=== PATIENT | male | born 1935 | race Caucasian/White ===

== ENCOUNTER 2017-07-31 08:12 | Emergency (ER) | payer MEDICARE, OTHER ==
[2017-07-31 08:28] VITALS: BP 156/74
[2017-07-31] MEDS ORDERED: Sodium Chloride 0.9% 10 ML Syringe FLUSH PRN (08:29)
[2017-07-31] MEDS ORDERED: Aspirin 81 MG Tab.Chew PO ONE (08:29)
[2017-07-31] MEDS ORDERED: Nitroglycerin 2% Oint 1 GM UD Packet TOP ONE (08:30)
--- NOTE | 2017-07-31 09:14 | CR ---
Chest: Frontal view of the chest was obtained. Comparison: Prior chest x-ray of 10/05/16. Heart is slightly enlarged. Tortuous thoracic aorta is seen. Lungs are clear without acute parenchymal densities. Bony structures show slight scoliosis within the spine with degenerative change. Impression: 1. Findings as noted above. Nothing acute is appreciated. Diagnostic code #2
[2017-07-31] MEDS ORDERED: Furosemide 40 MG/4 ML VIAL IVPUSH ONE (10:06)
--- NOTE | 2017-07-31 12:16 | EDM.PDOC ---
ED HPI GENERAL MEDICAL PROBLEM - General Chief Complaint: Chest Pain Stated Complaint: CHEST PAIN Time Seen by Provider: 07/31/17 08:22 Source of Information: Reports: Patient, RN Notes Reviewed - History of Present Illness INITIAL COMMENTS - FREE TEXT/NARRATIVE: 82-year-old male comes in with chest pain, mild shortness of breath that has been going on for about a week or so. He states that when he climbs steps sometimes even at rest he will get worsening discomfort of his anterior chest. However he has "felt achy all over the past week or so. He does have history of hypertension, diabetes, congestive heart failure. He's not been coughing any more than usual. No sore throat, fever or chills. Chest Pain Score (Numeric/FACES): 0 - Related Data Allergies Allergy/AdvReac Type Severity Reaction Status Date / Time No Known Allergies Allergy Verified 07/31/17 08:19 Home Meds: Home Meds Furosemide 60 mg PO ASDIRECTED 04/16/14 [History] Lisinopril 5 mg PO DAILY 04/16/14 [History] Pravastatin [Pravachol] 40 mg PO BEDTIME 04/16/14 [History] Warfarin [Coumadin] 1.5 mg PO DAILY 04/16/14 [History] Warfarin [Coumadin] 3 mg PO DAILY 04/16/14 [History] Furosemide 40 mg PO ASDIRECTED 02/14/16 [History] Montelukast [Singulair] 10 mg PO BEDTIME 02/14/16 [History] Aspirin 81 mg PO DAILY 07/31/17 [History] Dulaglutide [Trulicity] 0.5 ml SUBCNJ WEEKLY 07/31/17 [History] Insulin Degludec [Tresiba Flextouch U-200] 14 unit SUBCUT DAILY 07/31/17 [ History] Past Medical History Cardiovascular History: Reports: High Cholesterol, [place] Endocrine/Metabolic History: Reports: Diabetes, Type II Oncologic (Cancer) History: Reports: Other (See Below) Other Oncologic History: 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, unknown type - Past Surgical History HEENT Surgical History: Reports: Cataract Surgery, Tonsillectomy Cardiovascular Surgical History: Reports: Coronary Artery Stent GI Surgical History: Reports: Cholecystectomy Musculoskeletal Surgical History: Reports: Knee Replacement Social & Family History - Tobacco Use Smoking Status *Q: Former Smoker Years of Tobacco use: 40 Packs/Tins Daily: 1 Used Tobacco, but Quit: Yes Month Tobacco Last Used: 20 years ago Second Hand Smoke Exposure: No - Caffeine Use Caffeine Use: Reports: Coffee - Alcohol Use Days Per Week of Alcohol Use: 0 Number of Drinks Per Day: 0 Total Drinks Per Week: 0 - Recreational Drug Use Recreational Drug Use: No Drug Use in Last 12 Months: No ED ROS GENERAL - Review of Systems Review Of Systems: See Below Constitutional: Denies: Fever, Chills HEENT: Denies: Rhinitis, Sinus Problem, Throat Pain, Throat Swelling Respiratory: Reports: Shortness of Breath (Mild, especially exertional) Cardiovascular: Reports: Chest Pain (Patient feels achiness across his anterior chest) GI/Abdominal: Denies: Abdominal Pain, Nausea, Vomiting Musculoskeletal: Reports: Other (Has felt general achiness for about the past 5- 7 days) Skin: Reports: No Symptoms Neurological: Denies: Numbness, Tingling, Trouble Speaking, Weakness ED EXAM, GENERAL - Physical Exam Exam: See Below General Appearance: Alert, No Apparent Distress Eye Exam: Bilateral Eye: PERRL Throat/Mouth: Normal Inspection Head: No: Facial Swelling Neck: Supple, Full Range of Motion Respiratory/Chest: No Respiratory Distress, Lungs Clear, Normal Breath Sounds Cardiovascular: Regular Rate, Rhythm GI/Abdominal: Soft, Non-Tender Extremities: Normal Inspection, Normal Range of Motion. No: Pedal Edema, Leg Pain Neurological: Alert, Oriented, No Motor/Sensory Deficits Skin Exam: Warm, Dry, Normal Color EKG INTERPRETATION EKG Date: 07/31/17 Rhythm: A-Fib Olds: Normal QRS: RBBB ST-T: Other (T-wave inversions in inferior leads and also V3, 4 and 5) Course - Vital Signs Last Recorded V/S: Last Vital Signs Temp 97.4 F 07/31/17 08:19 Pulse 95 07/31/17 08:19 Resp 16 07/31/17 08:19 BP 156/74 H 07/31/17 08:19 Pulse Ox 97 07/31/17 08:19 - Orders/Labs/Meds Orders: Active Orders 24 hr Category Date Time Status EKG 12 Lead [EKG Documentation Completion] [RC] STAT Care 07/31/17 08:28 Active Peripheral IV Care [RC] . DIRECTED Care 07/31/17 08:29 Active Peripheral IV Insertion Adult [OM.PC] Stat Oth 07/31/17 08:28 Ordered Labs: Laboratory Tests 07/31/17 07/31/17 07/31/17 Range/Units 08:19 08:19 08:19 WBC 6.57 (4.23-9.07) K/mm3 RBC 4.27 L (4.63-6.08) M/mm3 Hgb 12.6 L (13.7-17.5) gm/L Hct 38.6 L (40.1-51.0) % MCV 90.4 (79.0-92.2) fl MCH 29.5 (25.7-32.2) pg MCHC 32.6 (32.2-35.5) g/dl RDW Std Deviation 46.6 H (35.1-43.9) fL Plt Count 187 (163-337) K/mm3 MPV 10.1 (9.4-12.3) fl Neut % (Auto) 61.7 (34.0-67.9) % Lymph % (Auto) 18.6 L (21.8-53.1) % [place] % (Auto) 12.2 (5.3-12.2) % Eos % (Auto) 6.7 (0.8-7.0) Baso % (Auto) 0.6 (0.1-1.2) % Neut # (Auto) 4.06 (1.78-5.38) K/mm3 Lymph # (Auto) 1.22 L (1.32-3.57) K/mm3 [place] # (Auto) 0.80 (0.30-0.82) K/mm3 Eos # (Auto) 0.44 (0.04-0.54) K/mm3 Baso # (Auto) 0.04 (0.01-0.08) K/mm3 PT 29.8 H (8.0-13.0) SECONDS INR 2.57 Sodium 136 (136-145) mEq/L Potassium 3.6 (3.5-5.1) mEq/L Chloride 101 (98-107) mEq/L Carbon Dioxide 25 (21-32) mEq/L Anion Gap 13.6 (5-15) BUN 14 (7-18) mg/dL Creatinine 1.2 (0.7-1.3) mg/dL Est Cr Clr Drug Dosing 45.82 mL/min Estimated GFR (MDRD) 58 (>60) mL/min BUN/Creatinine Ratio 11.7 L (14-18) Glucose 307 H (83-115) mg/dL POC Glucose (83-110) mg/dL Calcium 8.8 (8.5-10.1) mg/dL Total Bilirubin 0.9 (0.2-1.0) mg/dL AST 35 (15-37) U/L ALT 38 (16-63) U/L Alkaline Phosphatase 191 H (46-116) U/L Troponin I < 0.017 (0.00-0.056) ng/mL NT-Pro-B Natriuret Pep (0-450) pg/mL Total Protein 7.4 (6.4-8.2) g/dl Albumin 2.9 L (3.4-5.0) g/dl Globulin 4.5 gm/dL Albumin/Globulin Ratio 0.6 L (1-2) 07/31/17 07/31/17 07/31/17 Range/Units 08:19 11:03 11:12 WBC (4.23-9.07) K/mm3 RBC (4.63-6.08) M/mm3 Hgb (13.7-17.5) gm/L Hct (40.1-51.0) % MCV (79.0-92.2) fl MCH (25.7-32.2) pg MCHC (32.2-35.5) g/dl RDW Std Deviation (35.1-43.9) fL Plt Count (163-337) K/mm3 MPV (9.4-12.3) fl Neut % (Auto) (34.0-67.9) % Lymph % (Auto) (21.8-53.1) % [place] % (Auto) (5.3-12.2) % Eos % (Auto) (0.8-7.0) Baso % (Auto) (0.1-1.2) % Neut # (Auto) (1.78-5.38) K/mm3 Lymph # (Auto) (1.32-3.57) K/mm3 [place] # (Auto) (0.30-0.82) K/mm3 Eos # (Auto) (0.04-0.54) K/mm3 Baso # (Auto) (0.01-0.08) K/mm3 PT (8.0-13.0) SECONDS INR Sodium (136-145) mEq/L Potassium (3.5-5.1) mEq/L Chloride (98-107) mEq/L Carbon Dioxide (21-32) mEq/L Anion Gap (5-15) BUN (7-18) mg/dL Creatinine (0.7-1.3) mg/dL Est Cr Clr Drug Dosing mL/min Estimated GFR (MDRD) (>60) mL/min BUN/Creatinine Ratio (14-18) Glucose (83-115) mg/dL POC Glucose 183 H (83-110) mg/dL Calcium (8.5-10.1) mg/dL Total Bilirubin (0.2-1.0) mg/dL AST (15-37) U/L ALT (16-63) U/L Alkaline Phosphatase (46-116) U/L Troponin I < 0.017 (0.00-0.056) ng/mL NT-Pro-B Natriuret Pep 2244 H (0-450) pg/mL Total Protein (6.4-8.2) g/dl Albumin (3.4-5.0) g/dl Globulin gm/dL Albumin/Globulin Ratio (1-2) Meds: Medications Discontinued Medications Generic Name Dose Route Start Last Admin Trade Name Freq PRN Reason Stop Dose Admin Aspirin 162 mg 07/31/17 08:29 07/31/17 08:44 Aspirin PO 07/31/17 08:30 162 mg ONETIME ONE Administration Furosemide 40 mg 07/31/17 10:06 07/31/17 10:19 Lasix IVPUSH 07/31/17 10:07 40 mg NOW ONE Administration Nitroglycerin 0.5 gm 07/31/17 08:30 07/31/17 08:44 Nitro-Bid 2% TOP 07/31/17 08:31 0.5 gm ONETIME ONE Administration Sodium Chloride 10 ml 07/31/17 08:29 07/31/17 08:44 Saline Flush FLUSH 10 ml ASDIRECTED PRN Administration Keep Vein Open - Re-Assessments/Exams Free Text/Narrative Re-Assessment/Exam: 07/31/17 12:12 We did give patient Lasix 40 mg IV shortly after arrival. Has voided quite a lot. His discomfort is completely gone. Resting and breathing comfortably. Chest x-ray actually looked quite good, no major cardiomegaly, no significant pulmonary congestion visible. However BNP somewhat elevated at 2200 range. We' ll have him take an extra half tablet furosemide today and the next 2 days. We' ll also try get an appointment in follow-up for early next week. Departure - Departure Time of Disposition: 12:12 Disposition: Home, Self-Care 01 Condition: Fair Clinical Impression: Atypical chest pain, Congestive heart failure Instructions: Heart Failure, [id number] Referrals: Les Olvera MD [Primary Care Provider] - Forms: ED Department Discharge Additional Instructions: Take an extra half tablet of your furosemide when you get home today. Continue with your usual morning dose and then an extra half tablet for the next 2 days as well. Continue other current medications as prescribed. Avoid salty food. Be careful not to walk too fast or overexert yourself. We are attempting at this time to get an appointment to see Dr. Olvera early next week. To ED as needed if symptoms worsening in any way. - My Orders Last 24 Hours: My Active Orders 07/31/17 08:28 EKG 12 Lead [EKG Documentation Completion] [RC] STAT Peripheral IV Insertion Adult [OM.PC] Stat 07/31/17 08:29 Peripheral IV Care [RC] . DIRECTED - Assessment/Plan Last 24 Hours: My Active Orders 07/31/17 08:28 EKG 12 Lead [EKG Documentation Completion] [RC] STAT Peripheral IV Insertion Adult [OM.PC] Stat 07/31/17 08:29 Peripheral IV Care [RC] . DIRECTED
== END 2017-07-31 12:34 | disposition home or self-care (01) ==
LOC: JD.ED 08:12
DX: I11.0 Hypertensive heart disease with heart failure (principal); I50.9 Heart failure, unspecified; E78.00 Pure hypercholesterolemia, unspecified; I25.2 Old myocardial infarction; E11.9 Type 2 diabetes mellitus without complications; Z87.891 Personal history of nicotine dependence; Z79.899 Other long term (current) drug therapy; Z79.82 Long term (current) use of aspirin; Z79.4 Long term (current) use of insulin
CPT/HCPCS: 36415; 71045; 80053; 82962; 83880; 84484; 85025; 85610; 93005; 96374; 99285; A9270; J1940; J7050; 93010; 99284-25

== ENCOUNTER 2017-08-13 15:58 | Emergency (ER) | payer MEDICARE, OTHER ==
[2017-08-13 16:22] VITALS: BP 159/71
--- NOTE | 2017-08-13 16:38 | EDM.PDOC ---
ED HPI GENERAL MEDICAL PROBLEM - General Chief Complaint: Head Injury Stated Complaint: L HEAD INURY AFTER FALLING DOWN STAIRS Time Seen by Provider: 08/13/17 16:32 Source of Information: Reports: Patient History Limitations: Reports: No Limitations - History of Present Illness INITIAL COMMENTS - FREE TEXT/NARRATIVE: Patient is 82-year-old male who presents ED complaining of recent fall and hitting the left side of his forehead on concrete. This occurred approximately 350 this afternoon. Patient was walking down some steps and misjudged the last step and fell from ground level. There was no loss of consciousness. She was able to get up on his own accord with no difficulties. He developed a hematoma to the left side of his forehead with abrasion noted. He does have some pain to his posterior neck which is chronic from effusion. There was no vision changes, nausea/vomiting, n/t sitting to extremities, chest pain, shortness of breath, dizziness, or any additional complaints. forehead Pain Score (Numeric/FACES): 3 - Related Data Allergies Allergy/AdvReac Type Severity Reaction Status Date / Time No Known Allergies Allergy Verified 08/13/17 16:22 Home Meds: Home Meds Furosemide 60 mg PO ASDIRECTED 04/16/14 [History] Lisinopril 5 mg PO DAILY 04/16/14 [History] Pravastatin [Pravachol] 40 mg PO BEDTIME 04/16/14 [History] Warfarin [Coumadin] 1.5 mg PO DAILY 04/16/14 [History] Warfarin [Coumadin] 3 mg PO DAILY 04/16/14 [History] Furosemide 40 mg PO ASDIRECTED 02/14/16 [History] Montelukast [Singulair] 10 mg PO BEDTIME 02/14/16 [History] Aspirin 81 mg PO DAILY 07/31/17 [History] Dulaglutide [Trulicity] 0.5 ml SUBCNJ WEEKLY 07/31/17 [History] Insulin Degludec [Tresiba Flextouch U-200] 14 unit SUBCUT DAILY 07/31/17 [ History] Past Medical History HEENT History: Reports: Hard of Hearing, Impaired Vision Cardiovascular History: Reports: Arrhythmia, High Cholesterol, [place] Endocrine/Metabolic History: Reports: Diabetes, Type II Hematologic History: Reports: Anticoagulation Therapy Oncologic (Cancer) History: Reports: Other (See Below) Other Oncologic History: 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, unknown type - Past Surgical History HEENT Surgical History: Reports: Cataract Surgery, Tonsillectomy Cardiovascular Surgical History: Reports: Coronary Artery Stent GI Surgical History: Reports: Cholecystectomy Musculoskeletal Surgical History: Reports: Knee Replacement Social & Family History - Family History Family Medical History: Noncontributory - Tobacco Use Smoking Status *Q: Never Smoker Years of Tobacco use: 40 Packs/Tins Daily: 1 Used Tobacco, but Quit: Yes Month Tobacco Last Used: 20 years ago Second Hand Smoke Exposure: No - Caffeine Use Caffeine Use: Reports: Coffee - Alcohol Use Days Per Week of Alcohol Use: 0 Number of Drinks Per Day: 0 Total Drinks Per Week: 0 - Recreational Drug Use Recreational Drug Use: No Drug Use in Last 12 Months: No ED ROS GENERAL - Review of Systems Review Of Systems: ROS reveals no pertinent complaints other than HPI. ED EXAM, HEAD INJURY - Physical Exam Exam: See Below Exam Limited By: No Limitations General Appearance: Alert, WD/WN, No Apparent Distress Head: Facial Swelling (To the left forehead with no bony abdomen eyes noted. Mild pain with palpation. Superficial abrasion noted. Bleeding controlled. Pain with palpation of the remaining feces. No pain with palpation of the head.) Nexus Criteria: Posterior, Midline Cervical Tenderness. No: Evidence of Intoxication, Altered Level of Consciousness (Chronic), Focal Neurological Deficit, Painful Distraction Injuries Eyes: Bilateral Eye: EOMI, PERRL Ears: Hearing Loss (Wearing hearing aids) Nose: Normal Inspection Throat/Mouth: Normal Inspection, Normal Oropharynx, Normal Voice, No Airway Compromise Neck: Normal Alignment, Normal Inspection, Limited Range of Motion, Painful Range of Motion, Tender Midline Respiratory: No Respiratory Distress, Lungs Clear, Normal Breath Sounds, Chest Non-Tender Cardiovascular: Normal Peripheral Pulses, Irregularly Irregular GI/Abdominal Exam: Normal Bowel Sounds, Soft, Non-Tender, No Organomegaly, No Distention Back Exam: Normal Inspection, Full Range of Motion. No: CVA Tenderness (L), CVA Tenderness (R), Paraspinal Tenderness, Vertebral Tenderness Extremities: Normal Inspection, Normal Range of Motion, Non-Tender, No Pedal Edema, Normal Capillary Refill Neurologic: designer architect II-XII nml As Tested, No Motor/Sensory Deficits, Normal Mood/ Affect, Oriented x 3 Skin: Normal Color, Warm/Dry Course - Vital Signs Last Recorded V/S: Last Vital Signs Temp 97.5 F 08/13/17 16:10 Pulse 60 08/13/17 16:10 Resp 18 08/13/17 16:10 BP 159/71 H 08/13/17 16:10 Pulse Ox 94 L 08/13/17 16:10 - Re-Assessments/Exams Free Text/Narrative Re-Assessment/Exam: Patient is on Coumadin suffered a head injury at approximately 3:30 this afternoon. Patient fell forward hitting his forehead on concrete. There was no loss of consciousness. Patient denies having dizziness, chest pain, short of breath prior to falling. He missed a step. In addition he has cervical fusion and thus always has pain to his neck. This is unchanged. He is on Coumadin for A. fib. INR was checked yesterday and was perfect. He's had no medications for pain. Currently the pain as a [address] the cervical spine and also head will be obtained. Will not recheck INR since it was therapeutic as of yesterday. CT of the head impression: No acute intracranial abnormalities seen. No skull fractures identified. Scalp hematoma and soft tissue swelling within the left frontal region. CT cervical spine impression: Degenerative changes noted above. Nothing acute is seen on CT study of the cervical spine. She results of the CT studies with the patient. Will discharge patient home with instructions as documented. Departure - Departure Time of Disposition: 17:30 Disposition: Home, Self-Care 01 Condition: Good Clinical Impression: Hematoma, Hematoma Contusion of head Qualifiers: Encounter type: initial encounter Contusion of head detail: unspecified part of head Qualified Code(s): S00.93XA - Contusion of unspecified part of head, initial encounter - Discharge Information Instructions: Contusion, [id number], Head Injury, Adult, [id number], Facial or Scalp Contusion, [id number], Hematoma, [id number] Referrals: Les Olvera MD [Primary Care Provider] - Forms: ED Department Discharge Additional Instructions: As discussed CT of the head and cervical spine did not reveal any concerning findings. You have a hematoma to the left forehead which should decrease over the next few days. May place ice to the affected area as needed. Continue taking your home medications as prescribed. Return to the ED if you develop worse headache of your life, any focal neurological deficits, vision changes, n/ v, numbness or tingling, or any additional new or worsening symptoms.
--- NOTE | 2017-08-13 17:15 | CT ---
Head CT Technique: Multiple axial sections through the brain were obtained. Intravenous contrast was not utilized. Comparison: No prior head CT exam, previous MRI brain of 06/29/16. Findings: Ventricles along with basal cisterns and sulci over the convexities are mildly prominent. Minimal diminished density is noted within the periventricular white matter compatible with small vessel ischemic demyelination change. No other abnormal parenchymal densities are seen. No evidence of intracranial hemorrhage. No midline shift or mass effect is seen. Soft tissue swelling and small hematoma is seen within the left frontal scalp. Bone window settings were reviewed which shows no acute skull fracture. Mucosal thickening appears to be present within a hypoplastic left maxillary sinus which remains stable from prior MRI. Mild mucosal thickening is seen within the right frontal sinus also stable from prior MRI. Impression: 1. Sinus findings most likely chronic. 2. Scalp hematoma and soft tissue swelling within the left frontal region. 3. Mild senescent change. 4. No acute intracranial abnormality is seen. No skull fracture is identified. Diagnostic code #2
--- NOTE | 2017-08-13 17:18 | CT ---
CT cervical spine Technique: Multiple axial sections were obtained from above C1 inferiorly to the bottom of T1. Reconstructed sagittal and coronal images were reviewed. Findings: Posterior skull base is intact. Degenerative change is noted between the dens and anterior arch of C1. Diffuse disc space narrowing throughout the cervical spine is noted. Anterior osteophytes are seen throughout the cervical spine most prominent C5-C6 and C6-C7. Slight posterior spurring is noted at C5-C6 and C6-C7. Mild diffuse degenerative apophyseal change is noted. Ligamentum nuchal calcification is seen. No fracture is seen. No pathologic subluxation is seen. Bilateral neural foraminal stenosis is noted at C6-C7. Severe bilateral neural foraminal stenosis noted at C5-C6. Mild bilateral neural foraminal stenosis is noted at C4-C5. Moderate right sided neural foraminal stenosis is noted at C3-C4. Impression: 1. Degenerative change as noted above. 2. Nothing acute is seen on CT study of the cervical spine. Diagnostic code #2
== END 2017-08-13 18:00 | disposition home or self-care (01) ==
LOC: JD.ED 15:58
DX: S00.83XA Contusion of other part of head, initial encounter (principal); E11.9 Type 2 diabetes mellitus without complications; I25.2 Old myocardial infarction; E78.00 Pure hypercholesterolemia, unspecified; I48.91 Unspecified atrial fibrillation; Z79.899 Other long term (current) drug therapy; Z79.82 Long term (current) use of aspirin; Z79.4 Long term (current) use of insulin; W18.00XA Striking against unspecified object with subsequent fall, initial encounter
CPT/HCPCS: 70450; 70450-26; 72125; 72125-26; 99284; 99284-25

== ENCOUNTER 2017-08-16 09:43 | Emergency (ER) | payer MEDICARE, OTHER ==
[2017-08-16 09:57] VITALS: BP 167/77
--- NOTE | 2017-08-16 10:55 | CT ---
Head CT Technique: Multiple axial sections through the brain were obtained. Intravenous contrast was not utilized. Comparison: Prior head CT study of 08/13/17. Findings: Ventricles along the basal cisterns and sulci over the convexities are mildly prominent. Minimal diminished density noted within the periventricular white matter compatible with small vessel ischemic demyelination change. No evidence of intracranial hemorrhage. No midline shift or mass effect is seen. Mild soft tissue swelling and slight hematoma is seen within the left frontal scalp. Bone window settings were reviewed which shows atherosclerotic calcification within the carotid siphon. Mild mucosal thickening is seen within the frontal sinus. No acute calvarial abnormality is seen. Impression: 1. Mild soft tissue swelling and small hematoma within the left frontal scalp, this has diminished in size from previous study. 2. No acute intracranial abnormality is seen. No acute skull fracture is identified. Diagnostic code #2
--- NOTE | 2017-08-16 11:09 | EDM.PDOC ---
ED HPI GENERAL MEDICAL PROBLEM - General Chief Complaint: Head Injury Stated Complaint: FOLLOW UP ON HEAD INJURY Time Seen by Provider: 08/16/17 10:06 Source of Information: Reports: Patient History Limitations: Reports: No Limitations - History of Present Illness INITIAL COMMENTS - FREE TEXT/NARRATIVE: The patient presents with edema and ecchymosis to his face. He fell a few days ago and he was seen here. A CT was done that did not show any fracture of head bleed. He is returning today because he has more eccymosis and edema around his eyes. He has no headache, vision changes, fever, cough, chest pain, shortness of breath, abdominal pain, nausea, vomiting, numbness or weakness. Onset: Sudden Duration: Day(s): Location: Reports: Head Severity: Moderate Improves with: Reports: None Worsens with: Reports: None Associated Symptoms: Reports: No Other Symptoms - Related Data Allergies Allergy/AdvReac Type Severity Reaction Status Date / Time No Known Allergies Allergy Verified 08/16/17 09:53 Home Meds: Home Meds Furosemide 60 mg PO ASDIRECTED 04/16/14 [History] Lisinopril 5 mg PO DAILY 04/16/14 [History] Pravastatin [Pravachol] 40 mg PO BEDTIME 04/16/14 [History] Warfarin [Coumadin] 1.5 mg PO DAILY 04/16/14 [History] Warfarin [Coumadin] 3 mg PO DAILY 04/16/14 [History] Furosemide 40 mg PO ASDIRECTED 02/14/16 [History] Montelukast [Singulair] 10 mg PO BEDTIME 02/14/16 [History] Aspirin 81 mg PO DAILY 07/31/17 [History] Dulaglutide [Trulicity] 0.5 ml SUBCNJ WEEKLY 07/31/17 [History] Insulin Degludec [Tresiba Flextouch U-200] 14 unit SUBCUT DAILY 07/31/17 [ History] Past Medical History HEENT History: Reports: Hard of Hearing, Impaired Vision Cardiovascular History: Reports: Arrhythmia, High Cholesterol, DC Endocrine/Metabolic History: Reports: Diabetes, Type II Hematologic History: Reports: Anticoagulation Therapy Oncologic (Cancer) History: Reports: Other (See Below) Other Oncologic History: 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, unknown type - Past Surgical History HEENT Surgical History: Reports: Cataract Surgery, Tonsillectomy Cardiovascular Surgical History: Reports: Coronary Artery Stent GI Surgical History: Reports: Cholecystectomy Musculoskeletal Surgical History: Reports: Knee Replacement Social & Family History - Family History Family Medical History: Noncontributory - Tobacco Use Smoking Status *Q: Never Smoker Years of Tobacco use: 40 Packs/Tins Daily: 1 Used Tobacco, but Quit: Yes Month Tobacco Last Used: 20 years ago Second Hand Smoke Exposure: No - Caffeine Use Caffeine Use: Reports: Coffee - Alcohol Use Days Per Week of Alcohol Use: 0 Number of Drinks Per Day: 0 Total Drinks Per Week: 0 - Recreational Drug Use Recreational Drug Use: No Drug Use in Last 12 Months: No ED ROS GENERAL - Review of Systems Review Of Systems: See Below Constitutional: Reports: No Symptoms HEENT: Reports: Other (Edema and ecchymosis) Respiratory: Reports: No Symptoms Cardiovascular: Reports: No Symptoms Endocrine: Reports: No Symptoms GI/Abdominal: Reports: No Symptoms : Reports: No Symptoms Musculoskeletal: Reports: No Symptoms ED EXAM, HEAD INJURY - Physical Exam Exam: See Below Exam Limited By: No Limitations General Appearance: Alert, No Apparent Distress Head: Other (Edema and ecchymosis to both upper and lower eyelids to both eyes.) Eyes: Bilateral Eye: EOMI Ears: Normal External Exam Nose: Normal Inspection Neck: Non-Tender, Normal Alignment, Normal Inspection Respiratory: No Respiratory Distress, Lungs Clear, Normal Breath Sounds Cardiovascular: Regular Rate, Rhythm, No Edema, No Murmur GI/Abdominal Exam: Soft, Non-Tender, No Organomegaly, No Mass Back Exam: Normal Inspection Extremities: Normal Inspection Neurologic: No Motor/Sensory Deficits, Alert, Oriented x 3 Course - Vital Signs Last Recorded V/S: Last Vital Signs Temp 97.4 F 08/16/17 09:53 Pulse 71 08/16/17 09:53 Resp 18 08/16/17 09:53 BP 167/77 H 08/16/17 09:53 Pulse Ox 99 08/16/17 09:53 - Orders/Labs/Meds Labs: Laboratory Tests 08/16/17 Range/Units 11:05 PT 22.4 H (8.0-13.0) SECONDS INR 2.08 - Re-Assessments/Exams Free Text/Narrative Re-Assessment/Exam: 08/16/17 11:[address] of his head and a PT/INR. 08/16/17 11:[address] of his head shows mild soft tissue swelling and small hematoma within the left frontal scalp. This has diminished in size from previous study. No acute intracranial abnormality is seen. No acute skull fracture is identified. His INR was 2.08. I will discharge him home. Departure - Departure Time of Disposition: 11:45 Disposition: Home, Self-Care 01 Condition: Good Clinical Impression: Hematoma, Edema of face Contusion of head Qualifiers: Encounter type: initial encounter Contusion of head detail: unspecified part of head Qualified Code(s): S00.93XA - Contusion of unspecified part of head, initial encounter - Discharge Information Referrals: Les Olvera MD [Primary Care Provider] - Forms: ED Department Discharge Additional Instructions: Take your medication as prescribed. Please return if you are worse.
== END 2017-08-16 11:57 | disposition home or self-care (01) ==
LOC: JD.ED 09:43
DX: S00.03XA Contusion of scalp, initial encounter (principal); S00.12XA Contusion of left eyelid and periocular area, initial encounter; S00.11XA Contusion of right eyelid and periocular area, initial encounter; E78.00 Pure hypercholesterolemia, unspecified; E11.9 Type 2 diabetes mellitus without complications; Z95.5 Presence of coronary angioplasty implant and graft; Z79.01 Long term (current) use of anticoagulants; Z87.891 Personal history of nicotine dependence; Z79.4 Long term (current) use of insulin; Z79.82 Long term (current) use of aspirin; Z79.899 Other long term (current) drug therapy; W19.XXXA Unspecified fall, initial encounter
CPT/HCPCS: 36415; 70450; 70450-26; 85610; 99283; 99284-25

== ENCOUNTER 2017-09-19 06:13 | Day surgery (SDC) | payer MEDICARE, OTHER ==
--- NOTE | 2017-09-12 07:58 | HP ---
DATE OF ADMISSION: 09/19/2017 ORTHOPEDIC OUTPATIENT ADMITTING HISTORY AND PHYSICAL FOR SURGERY HISTORY OF PRESENT ILLNESS: This is one of multiple orthopedic admissions to [facility] for surgery for this 82-year-old male, who has had severe increasing pain involving his left wrist with numbness and tingling and loss of audit lead. 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 The patient has gone through a conservative treatment, which has failed. He is familiar with the carpal tunnel surgery, having a previous right carpal tunnel surgery years ago. The patient is being scheduled now for a left carpal tunnel release. Procedure has been outlined to him. He understands that. He has consented to it. ALLERGIES: No known drug allergies. CURRENT MEDICATIONS: The patient is on multiple medications and include Coumadin along with furosemide, lisinopril, pravastatin along with Tresiba, and Trulicity. PAST MEDICAL HISTORY: Current medical problems, the patient has a history of 1. Diabetes. 2. Atrial fibrillation. 3. Previous cholesterol and high blood pressure problems. 4. Mitral insufficiency. 5. Tricuspid insufficiency. PAST SURGICAL HISTORY: Positive. He has had multiple surgeries including 1. Previous right carpal tunnel surgery. 2. Total knee replacements. He notes no anesthesia problems or complications. The patient's bleeding history is negative. His blood clot history is negative. SOCIAL HISTORY: The patient was a smoker years ago. He states he quit approximately 15 to 20 years ago. He has not smoked since, and notes he is a non-alcohol user. PHYSICAL EXAMINATION: GENERAL: Today, reveals a well-developed, well-nourished 82-year-old male, in moderate distress. HEAD, EYES, EARS, NOSE, AND THROAT: Normocephalic. NECK: Supple. CHEST: Clear. COR: Shows rhythm changes suggestive of atrial fibrillation. ABDOMEN: Soft. GENITOURINARY: Intact. EXTREMITIES: Examination of the left hand reveals positive severe thenar atrophy, positive pain or pressure in the carpal tunnel, and positive Tinel examination. ASSESSMENT: Overall impression is left carpal tunnel syndrome, severe. PLAN: For the patient to undergo left carpal tunnel release. Procedure has been outlined to him. He understands that and has consented to the surgery. MMODAL /[id number]
[~2017-09-19 06:13] MED LIST: Lactated Ringers 1,000 ML IV SCH; Lidocaine 1%/Sod Bicarbonate in NS 8.4% 1 ML Syringe IDERM PRN; Sodium Chloride 0.9% 10 ML Syringe FLUSH PRN
[2017-09-19] MEDS ORDERED: fentaNYL 100 MCG/2 ML SDV ONE (07:03)
[2017-09-19] MEDS ORDERED: Propofol 200 MG/20 ML SDV ONE (07:03)
[2017-09-19] MEDS ORDERED: Sodium Bicarbonate 8.4% 50 MEQ/50 ML SDV ONE (07:05)
[2017-09-19] MEDS ORDERED: Lidocaine 0.5% 50 ML SDV ONE (07:05)
--- NOTE | 2017-09-19 07:12 | PCM.PREANE ---
Preanesthetic Assessment - Anesthesia/Transfusion/Family Hx Anesthesia History: Prior Anesthesia Without Reaction Family History of Anesthesia Reaction: No Transfusion History: Prior Transfusion Without Reaction - Review of Systems General: No Symptoms Pulmonary: Shortness of Breath Cardiovascular: No Symptoms Gastrointestinal: No Symptoms, Other (weight loss) Neurological: No Symptoms Other: Reports: Easy Bruising, Diabetes, Throat Pain (chokes when eats) - Physical Assessment NPO Status Date: 09/18/17 NPO Status Time: 21:00 Pulse: 68 O2 Sat by Pulse Oximetry: 98 Respiratory Rate: 16 Blood Pressure: 177/82 Temperature: 96.8 F Height: 5 ft 10 in Weight: 69 kg ASA Class: 3 Mental Status: Alert & Oriented x3 Airway Class: Mallampati = 1 Dentition: Reports: Broken Tooth/Teeth, Missing Tooth/Teeth Thyro-Mental Finger Breadths: 3 Mouth Opening Finger Breadths: 3 ROM/Head Extension: Full Lungs: Clear to Auscultation, Normal Respiratory Effort Cardiovascular: Regular Rate, Regular Rhythm - Allergies Allergies/Adverse Reactions: Allergies Allergy/AdvReac Type Severity Reaction Status Date / Time No Known Allergies Allergy Verified 09/18/17 16:21 - Blood Blood Available: No - Acknowledgements Anesthesia Type Planned: BETO Pt an Appropriate Candidate for the Planned Anesthesia: Yes Alternatives and Risks of Anesthesia Discussed w Pt/Guardian: Yes Pt/Guardian Understands and Agrees with Anesthesia Plan: Yes PreAnesthesia Questionnaire HEENT History: Reports: Hard of Hearing, Impaired Vision Cardiovascular History: Reports: Afib, Arrhythmia, High Cholesterol, VT Respiratory History: Reports: None Gastrointestinal History: Reports: None Genitourinary History: Reports: None [employer] History: Reports: None Musculoskeletal History: Neurological History: Reports: None Psychiatric History: Reports: Depression Endocrine/Metabolic History: Reports: Diabetes, Type II Hematologic History: Reports: Anticoagulation Therapy Immunologic History: Reports: None Oncologic (Cancer) History: Reports: Other (See Below) Other Oncologic History: 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, unknown type Dermatologic History: Reports: None - Past Surgical History Head Surgeries/Procedures: Reports: None HEENT Surgical History: Reports: Cataract Surgery, Tonsillectomy Cardiovascular Surgical History: Reports: None, Coronary Artery Stent Respiratory Surgical History: Reports: None GI Surgical History: Reports: Cholecystectomy Female Surgical History: Reports: None Male Surgical History: Reports: None Endocrine Surgical History: Reports: None Neurological Surgical History: Reports: None Musculoskeletal Surgical History: Reports: Knee Replacement Dermatological Surgical History: Reports: None - SUBSTANCE USE Smoking Status *Q: Former Smoker (quit 10 years ago) Tobacco Use Within Last Twelve Months: Cigarettes, Snuff/Dip (quit 5 years ago) Second Hand Smoke Exposure: No Days Per Week of Alcohol Use: 0 Number of Drinks Per Day: 0 Total Drinks Per Week: 0 Recreational Drug Use History: No - HOME MEDS Home Medications: Home Meds Lisinopril 5 mg PO BEDTIME 04/16/14 [History] Pravastatin [Pravachol] 40 mg PO BEDTIME 04/16/14 [History] Furosemide 60 mg PO DAILY 02/14/16 [History] Montelukast [Singulair] 10 mg PO BEDTIME 02/14/16 [History] Aspirin 81 mg PO BEDTIME 07/31/17 [History] Insulin Degludec [Tresiba Flextouch U-200] 8 unit SUBCUT DAILY 07/31/17 [History ] Bioflav,Lemon/Vit BComp&C [Lipo-Flavonoid Plus Caplet] 1 tab PO DAILY 09/18/17 [ History] Ferrous Sulfate [Iron] 325 mg PO BEDTIME 09/18/17 [History] Warfarin Sodium 2.5 mg PO DAILY 09/18/17 [History] - CURRENT (IN HOUSE) MEDS Current Meds: Current Medications Lactated Ringer's (Ringers, Lactated) 1,000 mls @ 125 mls/hr IV ASDIRECTED LEENA Stop: 09/19/17 23:00 Lidocaine/Sodium Bicarbonate (Buffered Lidocaine 1% In Ns 8.4%) 0.25 ml IDERM ONETIME PRN PRN Reason: Prior to IV Start Stop: 09/19/17 18:00 Sodium Chloride (Saline Flush) 10 ml FLUSH ASDIRECTED PRN PRN Reason: Keep Vein Open Stop: 09/19/17 18:00 Discontinued Medications Fentanyl (Sublimaze) Confirm Administered Dose 100 mcg .ROUTE .STK-MED ONE Stop: 09/19/17 07:04 Lidocaine HCl (Xylocaine-Mpf 0.5%) Confirm Administered Dose 50 ml .ROUTE .STK- MED ONE Stop: 09/19/17 07:06 Propofol (Diprivan 20 Ml) Confirm Administered Dose 200 mg .ROUTE .STK-MED ONE Stop: 09/19/17 07:04 Sodium Bicarbonate (Sodium Bicarbonate 8.4%) Confirm Administered Dose 50 meq .ROUTE .STK-MED ONE Stop: 09/19/17 07:06
[2017-09-19] MEDS ORDERED: traMADol 50 MG Tab PO PRN (07:24)
[2017-09-19] MEDS ORDERED: ceFAZolin 1 GM Vial ONE (07:36)
[2017-09-19] MEDS ORDERED: Iodine/Sodium Iodide 2% Tincture 30 ML Bottle ONE (08:20)
[2017-09-19] MEDS ORDERED: cefTRIAXone 1 GM in Sodium Chloride 0.9% 100 ML IV SCH (08:34)
[2017-09-19 08:36] VITALS: BP 141/81
--- NOTE | 2017-09-19 08:36 | PCM48HPAN ---
Post Anesthesia Note - EVALUATION WITHIN 48HRS OF ANESTHETIC Vital Signs in Normal Range: Yes Patient Participated in Evaluation: Yes Respiratory Function Stable: Yes Airway Patent: Yes Cardiovascular Function Stable: Yes Hydration Status Stable: Yes Pain Control Satisfactory: Yes Nausea and Vomiting Control Satisfactory: Yes Mental Status Recovered: Yes Pulse Rate: 52 SaO2: 100 Resp Rate: 16 Temperature: 97.6 F Blood Pressure: 141/81
--- NOTE | 2017-09-20 07:01 | OR ---
DATE OF OPERATION: 09/19/2017 SURGEON: Beny Berger MD PREOPERATIVE DIAGNOSIS: Severe carpal tunnel syndrome, left wrist, and intractable pain. POSTOPERATIVE DIAGNOSIS: Severe carpal tunnel syndrome, left wrist, and intractable pain. ANESTHESIA: Sedation with [place] block, left upper extremity. OPERATION PERFORMED: Left carpal tunnel release by mini incision. DESCRIPTION OF PROCEDURE: The patient was taken to the operative room in a supine position. He was placed under a light sedation with a Yunior block anesthesia to the left upper extremity. After adequate anesthesia, the operation proceeded with approximately a 1.5 cm incision being placed, approximately 1 cm distal to the flexion crease, paralleling the radial aspect of the ring finger. Penetration was made through the skin and the subcutaneous tissues. These were bluntly dissected away from the palmar fascia, which was lightly released to expose the carpal ligament. The carpal ligament was then carefully incised by direct visualization and was carefully released proximally and distally by direct view, staying to the ulnar aspect of the median nerve. Once the partial release was carried out, the completion of the release proximally was carried out using the mini instruments with the ligament being released to approximately 1 cm above the flexion crease of the wrist. The wrist was then flexed slightly to open up the proximal portion and a good release was carried out, staying to the ulnar aspect of the median nerve. The nerve could be seen. The patient had a significant and long time pressure to the nerve, which showed some atrophy along with thinning, right at the base of the thenar eminence. The operation then proceeded with completion of the release distally to the palmar fat pad. Once that was carried out, the area was carefully inspected to make sure no fibrous bands remained, and the operation proceeded with irrigation of the wound. After the thorough irrigation, the operation then proceeded with closure of the skin using a horizontal 4-0 Prolene mattress suture with reinforcement with 5-0 Prolene. The patient was placed in standard dressings and splint. He tolerated this procedure well and left the operating room in a stable condition to his room for recovery. ESTIMATED BLOOD LOSS: MMODAL /[id number]
== END 2017-09-19 09:40 | disposition home or self-care (01) ==
LOC: JD.SDS 06:13
PROVIDERS: ATTEND Specialist
DX: G56.02 Carpal tunnel syndrome, left upper limb (principal); E11.9 Type 2 diabetes mellitus without complications; I10 Essential (primary) hypertension; I48.91 Unspecified atrial fibrillation; F32.9 Major depressive disorder, single episode, unspecified; Z79.01 Long term (current) use of anticoagulants; Z79.899 Other long term (current) drug therapy; Z87.891 Personal history of nicotine dependence
CPT/HCPCS: 36415; 64721; 82947; 85610; A9270; J0690; J0696; J3010; J7030; J7120; J2704

== ENCOUNTER 2017-10-30 16:44 | Inpatient (IN) | payer MEDICARE, OTHER ==
--- NOTE | 2017-10-30 17:13 | CT ---
Head CT Technique: Multiple axial sections through the brain were obtained. Intravenous contrast was not utilized. Comparison: Prior head CT exam of 08/13/17. Findings: Ventricles along with basal cisterns and sulci over the convexities are mildly prominent. Minimal diminished density is noted within the periventricular white matter compatible with small vessel ischemic demyelination change. No other abnormal parenchymal densities are seen. No evidence of intracranial hemorrhage. No midline shift or mass effect is seen. Bone window settings were reviewed shows no acute calvarial abnormality. Mucosal thickening is seen within the left maxillary sinus which is chronic. No acute calvarial abnormality is seen. Impression: 1. Senescent change as described above. Incidental sinus findings. 2. No acute intracranial abnormality is identified. Diagnostic code #2
--- NOTE | 2017-10-30 17:15 | EDM.PDOC ---
ED HPI GENERAL MEDICAL PROBLEM - General Chief Complaint: Neuro Symptoms/Deficits Stated Complaint: MAY HAVE HAD A STROKE Time Seen by Provider: 10/30/17 16:51 Source of Information: Reports: Patient, Family () History Limitations: Reports: Physical Impairment - History of Present Illness INITIAL COMMENTS - FREE TEXT/NARRATIVE: The patient's states that the patient went to bed around 21:30 last night, and at that time, was neurologically normal. The patient woke around 06:30 this morning. When the patient's talked to him around 06:45, he told her that he was having difficulty remembering what he wanted to talk to her about. The patient has had no other complaints all day, and works outside with his . This evening, it became apparent that the patient was having word finding difficulty. Here in the ED, the patient complains of a slight headache, and while he is able to converse near-normally, he has word finding difficulty, and if asked to read written text, his words are only gibberish. Additionally, if shown pictures and asked to name the items, his words are again gibberish. The patient was apparent was started on oral prednisone yesterday secondary to arthritis of the neck. He was also seen by the eye doctor yesterday. No prior similar symptoms. The patient's PCP is Dr. Aung Olvera. - Related Data Allergies Allergy/AdvReac Type Severity Reaction Status Date / Time No Known Allergies Allergy Verified 10/30/17 16:57 Home Meds: Home Meds Lisinopril 5 mg PO BEDTIME 04/16/14 [History] Pravastatin [Pravachol] 40 mg PO BEDTIME 04/16/14 [History] Furosemide 40 mg PO BID 02/14/16 [History] Montelukast [Singulair] 10 mg PO BEDTIME 02/14/16 [History] Aspirin 81 mg PO BEDTIME 07/31/17 [History] Insulin Degludec [Tresiba Flextouch U-200] 1 dose SUBCUT ASDIRECTED 07/31/17 [ History] Bioflav,Lemon/Vit BComp&C [Lipo-Flavonoid Plus Caplet] 1 tab PO DAILY 09/18/17 [ History] Ferrous Sulfate [Iron] 325 mg PO BEDTIME 09/18/17 [History] Warfarin Sodium 2.5 mg PO DAILY 09/18/17 [History] Dulaglutide [Trulicity] 1.5 mg IM ASDIRECTED 10/30/17 [History] predniSONE [Prednisone] 10 mg PO ASDIRECTED 10/30/17 [History] Past Medical History HEENT History: Reports: Hard of Hearing, Impaired Vision Cardiovascular History: Reports: Afib, CAD, High Cholesterol, Hypertension Respiratory History: Reports: COPD Musculoskeletal History: Reports: Arthritis (neck, spine) Psychiatric History: Reports: Depression Endocrine/Metabolic History: Reports: Diabetes, Type II Hematologic History: Reports: Anticoagulation Therapy (Coumadin) Oncologic (Cancer) History: Reports: Other (See Below) Other Oncologic History: 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, unknown type - Past Surgical History HEENT Surgical History: Reports: Cataract Surgery, Tonsillectomy Cardiovascular Surgical History: Reports: Coronary Artery Stent (x 1, November 2015) GI Surgical History: Reports: Cholecystectomy Musculoskeletal Surgical History: Reports: Knee Replacement (left x 2, right x 1 ) Oncologic Surgical History: Reports: Other (See Below) (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 ED EXAM, NEURO - Physical Exam Exam: See Below Exam Limited By: No Limitations General Appearance: Alert, WD/WN, No Apparent Distress Eye Exam: Bilateral Eye: Normal Inspection Ears: Normal External Exam, Hearing Grossly Normal Nose: Normal Inspection, No Blood Throat/Mouth: Normal Inspection, Normal Lips, Normal Voice, No Airway Compromise Head Exam: Atraumatic, Normocephalic Neck: Normal Inspection, Full Range of Motion Respiratory/Chest: No Respiratory Distress, Lungs Clear, Normal Breath Sounds, No Accessory Muscle Use Cardiovascular: Normal Peripheral Pulses, No Edema, No Gallop, No JVD, No Murmur , No Rub, Irregularly Irregular GI/Abdominal: Normal Bowel Sounds, Soft, Non-Tender, No Organomegaly, No Distention, No Abnormal Bruit, No Mass (Male) Exam: Deferred Rectal (Males) Exam: Deferred Neurological: Alert, Normal Dorsiflexion, CN II-XII Intact, Normal Plantar Flexion, No Motor/Sensory Deficits, Oriented x 3, Other (The patient's speech is fluent, with normal content and comprehension, however, he has an expressive aphasia, with abnormal naming and reading.) Back Exam: Normal Inspection, Full Range of Motion, NT Extremities: Normal Inspection, Normal Range of Motion, No Pedal Edema, Normal Capillary Refill Psychiatric: Normal Affect Skin Exam: Warm, Dry, Intact, Normal Color, No Rash EKG INTERPRETATION EKG Date: 10/30/17 Time: 17:15 Rhythm: A-Fib Rate (Beats/Min): 56 [place]: RAD-Right [place] Deviation P-Wave: Absent QRS: RBBB (+ LPFB) ST-T: Normal QT: Prolonged (QTc 514 ms) Comparison: No Change (other than rate, from 07/31/2017) Course - Vital Signs Last Recorded V/S: Last Vital Signs Temp 37.2 C 10/30/17 16:54 Pulse 60 10/30/17 16:54 Resp 18 10/30/17 16:54 BP 159/74 H 10/30/17 16:54 Pulse Ox 97 10/30/17 16:54 - Orders/Labs/Meds Orders: Active Orders 24 hr Category Date Time Status Accu Check [Blood Glucose Check, Bedside] [RC] ONETIME Care 10/30/17 16:58 Active EKG Documentation Completion [RC] STAT Care 10/30/17 16:58 Active Labs: Laboratory Tests 10/30/17 10/30/17 10/30/17 Range/Units 16:55 16:55 16:55 WBC 8.68 (4.23-9.07) K/mm3 RBC 4.02 L (4.63-6.08) M/mm3 Hgb 12.4 L (13.7-17.5) gm/L Hct 35.7 L (40.1-51.0) % MCV 88.8 (79.0-92.2) fl MCH 30.8 (25.7-32.2) pg MCHC 34.7 (32.2-35.5) g/dl RDW Std Deviation 43.1 (35.1-43.9) fL Plt Count 244 (163-337) K/mm3 MPV 9.0 L (9.4-12.3) fl Neutrophils % (Manual) 78 H (40-60) % Band Neutrophils % 0 (0-10) % Lymphocytes % (Manual) 16 L (20-40) % Atypical Lymphs % 0 % Monocytes % (Manual) 6 (2-10) % Eosinophils % (Manual) 0 L (0.8-7.0) % Basophils % (Manual) 0 L (0.2-1.2) Platelet Estimate Adequate RBC Morph Comment Normal PT 13.6 H (9.5-12.1) SECONDS INR 1.25 APTT 34 H (24-31) SECONDS Sodium 137 (136-145) mEq/L Potassium 4.2 (3.5-5.1) mEq/L Chloride 102 (98-107) mEq/L Carbon Dioxide 26 (21-32) mEq/L Anion Gap 13.2 (5-15) BUN 17 (7-18) mg/dL Creatinine 1.2 (0.7-1.3) mg/dL Est Cr Clr Drug Dosing 44.10 mL/min Estimated GFR (MDRD) 58 (>60) mL/min BUN/Creatinine Ratio 14.2 (14-18) Glucose 217 H (83-115) mg/dL POC Glucose (83-110) mg/dL Calcium 8.5 (8.5-10.1) mg/dL Magnesium 1.5 L (1.8-2.4) mg/dl Total Bilirubin 0.5 (0.2-1.0) mg/dL AST 27 (15-37) U/L ALT 31 (16-63) U/L Alkaline Phosphatase 205 H (46-116) U/L Total Protein 6.9 (6.4-8.2) g/dl Albumin 2.8 L (3.4-5.0) g/dl Globulin 4.1 gm/dL Albumin/Globulin Ratio 0.7 L (1-2) /16/18 Range/Units 17:08 WBC (4.23-9.07) K/mm3 RBC (4.63-6.08) M/mm3 Hgb (13.7-17.5) gm/L Hct (40.1-51.0) % MCV (79.0-92.2) fl MCH (25.7-32.2) pg MCHC (32.2-35.5) g/dl RDW Std Deviation (35.1-43.9) fL Plt Count (163-337) K/mm3 MPV (9.4-12.3) fl Neutrophils % (Manual) (40-60) % Band Neutrophils % (0-10) % Lymphocytes % (Manual) (20-40) % Atypical Lymphs % % Monocytes % (Manual) (2-10) % Eosinophils % (Manual) (0.8-7.0) % Basophils % (Manual) (0.2-1.2) Platelet Estimate RBC Morph Comment PT (9.5-12.1) SECONDS INR APTT (24-31) SECONDS Sodium (136-145) mEq/L Potassium (3.5-5.1) mEq/L Chloride (98-107) mEq/L Carbon Dioxide (21-32) mEq/L Anion Gap (5-15) BUN (7-18) mg/dL Creatinine (0.7-1.3) mg/dL Est Cr Clr Drug Dosing mL/min Estimated GFR (MDRD) (>60) mL/min BUN/Creatinine Ratio (14-18) Glucose (83-115) mg/dL POC Glucose 203 H (83-110) mg/dL Calcium (8.5-10.1) mg/dL Magnesium (1.8-2.4) mg/dl Total Bilirubin (0.2-1.0) mg/dL AST (15-37) U/L ALT (16-63) U/L Alkaline Phosphatase (46-116) U/L Total Protein (6.4-8.2) g/dl Albumin (3.4-5.0) g/dl Globulin gm/dL Albumin/Globulin Ratio (1-2) Meds: Medications Discontinued Medications Generic Name Dose Route Start Last Admin Trade Name Freq PRN Reason Stop Dose Admin Magnesium Sulfate 2 gm/ Premix 50 mls @ 50 mls/hr 10/30/17 17:40 10/30/17 18: 17 IV 10/30/17 18:39 50 mls/hr ONETIME ONE Administration - Re-Assessments/Exams Free Text/Narrative Re-Assessment/Exam: 10/30/17 17:15 CT of the head without contrast is read by Dr. Dalton as: 1. Senescent change as described above. Incidental sinus findings. 2. No acute intracranial abnormality is identified. 10/30/17 17:30 Case discussed with [facility] at 17:18. Case then discussed with Dr. Wood, Stroke Neurologist at [facility], at 17: 27. He feels that the patient is outside of the window for any interventional treatment. Transfer is not indicated. He recommends only a stroke workup and rehab. 10/30/17 18:[address] Demarco at 18:02. He accepts the patient for admission to telemetry. Departure - Departure Time of Disposition: 18:02 Disposition: Admitted As Inpatient 64 Condition: Fair Clinical Impression: Expressive aphasia, Hypomagnesemia, Subtherapeutic international normalized ratio (INR) - Discharge Information - My Orders Last 24 Hours: My Active Orders 10/30/17 16:58 Accu Check [Blood Glucose Check, Bedside] [RC] ONETIME EKG Documentation Completion [RC] STAT - Assessment/Plan Last 24 Hours: My Active Orders 10/30/17 16:58 Accu Check [Blood Glucose Check, Bedside] [RC] ONETIME EKG Documentation Completion [RC] STAT
[2017-10-30] MEDS ORDERED: Magnesium Sulfate/Water 2 GM in Premix Bag 1 BAG IV ONE (17:40)
[2017-10-30] MEDS ORDERED: hydrALAZINE 20 MG/ML SDV IVPUSH PRN (19:49)
[2017-10-30] MEDS ORDERED: Metoprolol Tartrate 5 MG/5 ML SDV IVPUSH PRN (19:49)
[2017-10-30] MEDS ORDERED: LORazepam 2 MG/ML SDV IVPUSH PRN (19:49)
[2017-10-30] MEDS ORDERED: Docusate Sodium 100 MG Cap PO PRN (19:59)
[2017-10-30] MEDS ORDERED: LORazepam 2 MG/ML SDV IV PRN (19:59)
[2017-10-30] MEDS ORDERED: Acetaminophen/HYDROcodone 325-5 MG Tab PO PRN (19:59)
[2017-10-30] MEDS ORDERED: Polyethylene Glycol 3350 Powder 17 GM Packet PO PRN (19:59)
[2017-10-30] MEDS ORDERED: Ondansetron 4 MG/2 ML SDV IV PRN (19:59)
[2017-10-30] MEDS ORDERED: Bisacodyl 5 MG Tab PO PRN (19:59)
[2017-10-30] MEDS ORDERED: Temazepam 7.5 MG Cap PO PRN (19:59)
[2017-10-30] MEDS ORDERED: HYDROmorphone 0.5 MG/0.5 ML SYRINGE IVPUSH PRN (19:59)
[2017-10-30] MEDS ORDERED: Promethazine 6.25 MG in Sodium Chloride 0.9% 50 ML IV PRN (19:59)
[2017-10-30] MEDS ORDERED: Albuterol/Ipratropium 3.0-0.5 MG/3 ML Neb Soln NEB PRN (19:59)
[2017-10-30] MEDS ORDERED: Acetaminophen 325 MG Tab PO PRN (19:59)
[2017-10-30] MEDS ORDERED: [UNRECOGNIZED DRUG - REMARK] SUBCUT SCH (20:00)
[2017-10-30] MEDS ORDERED: [UNRECOGNIZED DRUG - REMARK] IM SCH (20:00)
[2017-10-30] MEDS ORDERED: 50% Dextrose in Water 50 ML Syringe IVPUSH PRN (20:03)
[2017-10-30] MEDS ORDERED: Ferrous Sulfate 325 MG Tab PO SCH (21:00)
[2017-10-30] MEDS ORDERED: Simvastatin 20 MG Tab PO SCH (21:00)
[2017-10-30] MEDS ORDERED: Montelukast 10 MG Tab PO SCH (21:00)
[2017-10-30] MEDS ORDERED: Aspirin 81 MG Tab.Chew PO SCH (21:00)
[2017-10-30] MEDS ORDERED: Lisinopril 5 MG Tab PO SCH (21:00)
--- NOTE | 2017-10-30 21:06 | PCM.HP ---
H&P History of Present Illness - General Date of Service: 10/30/17 Admit Problem/Dx: Admission Diagnosis/Problem Admission Diagnosis/Problem Expressive aphasia Source of Information: Patient, Old Records, Provider, RN Notes Reviewed History Limitations: Reports: Language Barrier - History of Present Illness Initial Comments - Free Text/Narative: This is an 82 yo elderly whit male with past medical hx/o Impaired Hearing/ Vision, A-Fib, on Warfarin but not on rate control medications, HLD, HTN, CAD S/ p Stent x1, COPD, OA, DM2, ASHLEIGH, and Depression who comes in having difficulty finding words and remembering recent events/memories. He denies any hx/o CVA in the past. He denies bottoming out with his sugar. Upon presentation to ED, he complained of a mild headache and no other neurological deficits. He was able to converse near normal but when asked to read something, he struggled and his words were gibberish. Additionally, when asked to name some pictures or items shown before him, his words were non- sensible. His initial work up in ED shows a CBC remarkable for RBC of 4.02, Hbg of 12.4, Hct of 35.7, MPV of 9, Neutrophils of 78% and Lymphocytes of 16%. His coagulation studies are PT of 13.6, INR of 1.25, and aPTT of 34. His chemistry is remarkable for glucose of 217, Mg of 1.7, Alk phos of 205, Albumin of 2.8. His UA is negative for UTI. His head CT scan shows no acute abnormal findings. His EKg shows atrial fibrillation with a slow rate ventricular rate of 56. At the time he made it to the floor, patient's heart rate was in the 40s-50s but asymptomatic. He is being admitted for CVA and Afib with Bradycardia. He is CPR only. - Related Data Allergies/Adverse Reactions: Allergies Allergy/AdvReac Type Severity Reaction Status Date / Time No Known Allergies Allergy Verified 10/30/17 16:57 Home Medications: Home Meds Lisinopril 5 mg PO BEDTIME 04/16/14 [History] Pravastatin [Pravachol] 40 mg PO BEDTIME 04/16/14 [History] Furosemide 40 mg PO BID 02/14/16 [History] Montelukast [Singulair] 10 mg PO BEDTIME 02/14/16 [History] Aspirin 81 mg PO BEDTIME 07/31/17 [History] Bioflav,Lemon/Vit BComp&C [Lipo-Flavonoid Plus Caplet] 1 tab PO DAILY 09/18/17 [ History] Ferrous Sulfate [Iron] 325 mg PO BEDTIME 09/18/17 [History] Warfarin Sodium 2.5 mg PO DAILY 09/18/17 [History] Dulaglutide [Trulicity] 1.5 mg IM ASDIRECTED 10/30/17 [History] predniSONE [Prednisone] 10 mg PO ASDIRECTED 10/30/17 [History] Insulin Degludec [Tresiba Flextouch U-200] 8 units SQ ASDIRECTED 10/31/17 [ History] Past Medical History HEENT History: Reports: Hard of Hearing, Impaired Vision Cardiovascular History: Reports: Afib, CAD, High Cholesterol, Hypertension Respiratory History: Reports: COPD Gastrointestinal History: Reports: None Genitourinary History: Reports: None 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: Reports: 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 Musculoskeletal History: Reports: Arthritis (neck, spine) Neurological History: Reports: None Psychiatric History: Reports: Depression Endocrine/Metabolic History: Reports: Diabetes, Type II Hematologic History: Reports: Anticoagulation Therapy (Coumadin) Immunologic History: Reports: None Oncologic (Cancer) History: Reports: Other (See Below) Other Oncologic History: 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, unknown type Dermatologic History: Reports: None - Past Surgical History HEENT Surgical History: Reports: Cataract Surgery, Tonsillectomy Cardiovascular Surgical History: Reports: Coronary Artery Stent (x 1, November 2015) GI Surgical History: Reports: Cholecystectomy Musculoskeletal Surgical History: Reports: Knee Replacement (left x 2, right x 1 ) Oncologic Surgical History: Reports: Other (See Below) (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) Social & Family History - Family History Family Medical History: Noncontributory - Tobacco Use Smoking Status *Q: Unknown Ever Smoked Second Hand Smoke Exposure: No - Caffeine Use Caffeine Use: Reports: Coffee - Recreational Drug Use Recreational Drug Use: No - Living Situation & Occupation Living situation: Reports: , with Spouse Occupation: Retired H&P Review of Systems - Review of Systems: Review Of Systems: See Below General: Denies: Fever, Chills, Malaise, Weakness, Fatigue HEENT: Reports: No Symptoms Pulmonary: Denies: Shortness of Breath, Wheezing, Pleuritic Chest Pain Cardiovascular: Denies: No Symptoms Gastrointestinal: Reports: No Symptoms Musculoskeletal: Reports: No Symptoms Skin: Denies: Cyanosis, Jaundice, Mottled, Pallor, Diaphoresis Psychiatric: Denies: Depression, Anxiety, Agitation, Hallucinations, Hallucinations (Auditory) Neurological: Reports: Other (difficulty remembering things and unable to read words if not non-sensible). Denies: Confusion, Difficulty Walking, Weakness, Gait Disturbance Hematologic/Lymphatic: Denies: Easy Bleeding, Swollen Glands Immunologic: Denies: No Symptoms, Food Allergy, Environmental Allergy, Grass Allergy Exam - Exam Exam: See Below - Vital Signs Vital Signs: Last Vital Signs Temp 37.2 C 10/30/17 16:54 Pulse 41 L 10/30/17 19:15 Resp 18 10/30/17 19:15 BP 150/77 H 10/30/17 19:15 Pulse Ox 97 10/30/17 19:15 Weight: 68.039 kg - Exam General: Alert, Oriented, Cooperative, Mild Distress HEENT: Conjunctiva Clear, EACs Clear, EOMI, Hearing Intact, Mucosa Moist & [place] , Nares Patent, Normal Nasal Septum, Posterior Pharynx Clear, Pupils Equal Neck: Supple, Trachea Midline, +2 Carotid Pulse wo Bruit Lungs: Clear to Auscultation, Normal Respiratory Effort Cardiovascular: Irregular Rhythm, Bradycardia GI/Abdominal Exam: Normal Bowel Sounds, Soft, Non-Tender, No Organomegaly, No Distention, No Abnormal Bruit (Male) Exam: Deferred Rectal (Males) Exam: Deferred Back Exam: Normal Inspection, Decreased Range of Motion Extremities: Normal Inspection, Normal Range of Motion, No Pedal Edema, Normal Capillary Refill Peripheral Pulses: 2+: Posterior Tibial (L), Posterior Tibial (R), Dorsalis Pedis (L), Dorsalis Pedis (R) Skin: Warm, Dry, Intact Neuro Extensive - Mental Status: Normal Mood/Affect, Normal Cognition, Disorientation to Person, Disorientation to Time Neuro Extensive - Motor, Sensory, Reflexes: CN II-XII Intact, Normal Gait, Other Psychiatric: Alert, Normal Affect, Normal Mood - Patient Data Lab Results Last 24 hrs: Laboratory Results - last 24 hr 10/30/17 10/30/17 10/30/17 Range/Units 16:55 16:55 16:55 WBC 8.68 (4.23-9.07) K/mm3 RBC 4.02 L (4.63-6.08) M/mm3 Hgb 12.4 L (13.7-17.5) gm/L Hct 35.7 L (40.1-51.0) % MCV 88.8 (79.0-92.2) fl MCH 30.8 (25.7-32.2) pg MCHC 34.7 (32.2-35.5) g/dl RDW Std Deviation 43.1 (35.1-43.9) fL Plt Count 244 (163-337) K/mm3 MPV 9.0 L (9.4-12.3) fl Neutrophils % (Manual) 78 H (40-60) % Band Neutrophils % 0 (0-10) % Lymphocytes % (Manual) 16 L (20-40) % Atypical Lymphs % 0 % Monocytes % (Manual) 6 (2-10) % Eosinophils % (Manual) 0 L (0.8-7.0) % Basophils % (Manual) 0 L (0.2-1.2) Platelet Estimate Adequate RBC Morph Comment Normal PT 13.6 H (9.5-12.1) SECONDS INR 1.25 APTT 34 H (24-31) SECONDS Sodium 137 (136-145) mEq/L Potassium 4.2 (3.5-5.1) mEq/L Chloride 102 (98-107) mEq/L Carbon Dioxide 26 (21-32) mEq/L Anion Gap 13.2 (5-15) BUN 17 (7-18) mg/dL Creatinine 1.2 (0.7-1.3) mg/dL Est Cr Clr Drug Dosing 44.10 mL/min Estimated GFR (MDRD) 58 (>60) mL/min BUN/Creatinine Ratio 14.2 (14-18) Glucose 217 H (83-115) mg/dL POC Glucose (83-110) mg/dL Calcium 8.5 (8.5-10.1) mg/dL Magnesium 1.5 L (1.8-2.4) mg/dl Total Bilirubin 0.5 (0.2-1.0) mg/dL AST 27 (15-37) U/L ALT 31 (16-63) U/L Alkaline Phosphatase 205 H (46-116) U/L Total Protein 6.9 (6.4-8.2) g/dl Albumin 2.8 L (3.4-5.0) g/dl Globulin 4.1 gm/dL Albumin/Globulin Ratio 0.7 L (1-2) 10/30/17 Range/Units 17:08 WBC (4.23-9.07) K/mm3 RBC (4.63-6.08) M/mm3 Hgb (13.7-17.5) gm/L Hct (40.1-51.0) % MCV (79.0-92.2) fl MCH (25.7-32.2) pg MCHC (32.2-35.5) g/dl RDW Std Deviation (35.1-43.9) fL Plt Count (163-337) K/mm3 MPV (9.4-12.3) fl Neutrophils % (Manual) (40-60) % Band Neutrophils % (0-10) % Lymphocytes % (Manual) (20-40) % Atypical Lymphs % % Monocytes % (Manual) (2-10) % Eosinophils % (Manual) (0.8-7.0) % Basophils % (Manual) (0.2-1.2) Platelet Estimate RBC Morph Comment PT (9.5-12.1) SECONDS INR APTT (24-31) SECONDS Sodium (136-145) mEq/L Potassium (3.5-5.1) mEq/L Chloride (98-107) mEq/L Carbon Dioxide (21-32) mEq/L Anion Gap (5-15) BUN (7-18) mg/dL Creatinine (0.7-1.3) mg/dL Est Cr Clr Drug Dosing mL/min Estimated GFR (MDRD) (>60) mL/min BUN/Creatinine Ratio (14-18) Glucose (83-115) mg/dL POC Glucose 203 H (83-110) mg/dL Calcium (8.5-10.1) mg/dL Magnesium (1.8-2.4) mg/dl Total Bilirubin (0.2-1.0) mg/dL AST (15-37) U/L ALT (16-63) U/L Alkaline Phosphatase (46-116) U/L Total Protein (6.4-8.2) g/dl Albumin (3.4-5.0) g/dl Globulin gm/dL Albumin/Globulin Ratio (1-2) Result Diagrams: 10/31/17 06:00 10/31/17 06:09 EKG INTERPRETATION EKG Date: 10/30/17 Time: 05:15 Rhythm: A-Fib Rate (Beats/Min): 56 QRS: RBBB Problem List Initiated/Reviewed/Updated: Yes Orders Last 24hrs: Active Orders 24 hr Category Date Time Status Admission Status [Patient Status] [ADT] Routine ADT 10/30/17 18:43 Active Blood Glucose Check, Bedside [RC] QIDACANDBED Care 10/30/17 20:03 Active Height and Weight [RC] 04 Care 10/30/17 19:59 Active Intake and Output [RC] 04,16 Care 10/30/17 20:01 Active Oxygen Therapy [RC] PRN Care 10/30/17 19:54 Active RT Aerosol Therapy [RC] ASDIRECTED Care 10/30/17 20:03 Active Up ad Colette [RC] ASDIRECTED Care 10/30/17 19:54 Active VTE/DVT Education [RC] PER UNIT ROUTINE Care 10/30/17 19:54 Active Vital Signs [RC] Q4H Care 10/30/17 19:54 Active Consult to Case Management [CONS] Routine Cons 10/30/17 19:59 Active Consult to Inseam Leveler [CONS] Routine Cons 10/30/17 19:59 Active Consult to Spiritual Care [CONS] Routine Cons 10/30/17 19:59 Active CONSERVATION PLANNER Evaluation and Treatment [CONS] Routine Cons 10/30/17 19:59 Active ADA Diabetic [[place] [employer] Diet] [DIET Diet 10/31/17 Dinner Active ] Heart Healthy Diet [DIET] Diet 10/31/17 Dinner Active A1C [GLYCOSYLATED HEMOGLOBIN,HGBA1C] [CHEM] AM Lab 10/31/17 05:11 Ordered BASIC METABOLIC PANEL,BMP [CHEM] AM Lab 10/31/17 05:11 Ordered CBC WITH AUTO DIFF [HEME] AM Lab 10/31/17 05:11 Ordered CULTURE URINE [RM] Routine Lab 10/30/17 20:06 Ordered INR,PT,PROTHROMBIN TIME [COAG] DAILY Lab 10/30/17 05:11 Ordered INR,PT,PROTHROMBIN TIME [COAG] DAILY Lab 10/31/17 05:11 Ordered INR,PT,PROTHROMBIN TIME [COAG] DAILY Lab 11/01/17 05:11 Ordered INR,PT,PROTHROMBIN TIME [COAG] DAILY Lab 11/02/17 05:11 Ordered INR,PT,PROTHROMBIN TIME [COAG] DAILY Lab 11/03/17 05:11 Ordered LIPID PANEL [CHEM] AM Lab 10/31/17 05:11 Ordered MAGNESIUM [CHEM] AM Lab 10/31/17 05:11 Ordered T4 FREE [CHEM] AM Lab 10/31/17 05:11 Ordered TSH [CHEM] AM Lab 10/31/17 05:11 Ordered URINALYSIS W/MICROSCOPIC [UA W/MICROSCOPIC] [URIN] Lab 10/30/17 20:06 Ordered Urgent Acetaminophen [Tylenol] Med 10/30/17 19:59 Active 650 mg PO Q4H PRN Acetaminophen/HYDROcodone [[place] 325-5 MG] Med 10/30/17 19:59 Active 1 tab PO Q4H PRN Albuterol/Ipratropium [DuoNeb 3.0-0.5 MG/3 ML] Med 10/30/17 19:59 Active 3 ml NEB Q4H PRN Aspirin Med 10/30/17 21:00 Active 81 mg PO BEDTIME Bioflav,Lemon/Vit BComp&C [Lipo-Flavonoid Plus Caplet] Med 10/31/17 09:00 Pending 1 tab PO DAILY Bisacodyl [Dulcolax] Med 10/30/17 19:59 Active 5 mg PO DAILY PRN Dextrose 50% in Water Med 10/30/17 20:03 Active 50 ml IVPUSH ASDIRECTED PRN Docusate Sodium [Colace] Med 10/30/17 19:59 Active 100 mg PO BID PRN Docusate Sodium/Sennosides [Senna Plus] Med 10/30/17 19:59 Active 1 tab PO BID PRN Dulaglutide [Trulicity] Med 10/30/17 20:00 Pending 1.5 mg IM ASDIRECTED Ferrous Sulfate Med 10/30/17 21:00 Active 325 mg PO BEDTIME Furosemide [Lasix] Med 10/30/17 21:00 Active 40 mg PO BID HYDROmorphone [Dilaudid] Med 10/30/17 19:59 Active 0.25 mg IVPUSH Q2H PRN Insulin Aspart [NovoLOG] Med 10/30/17 22:00 Active See Protocol SUBCUT QIDACANDBED Insulin Degludec [Tresiba Flextouch U-200] Med 10/30/17 20:00 Pending 1 dose SUBCUT ASDIRECTED LORazepam [Ativan] Med 10/30/17 19:59 Active 0.25 mg IV Q6H PRN LORazepam [Ativan] Med 10/30/17 19:49 Active 2 mg IVPUSH Q4H PRN Lisinopril [Prinivil] Med 10/30/17 21:00 Active 5 mg PO BEDTIME Magnesium Rep Pharmacy to Dose [Pharmacy to Dose - Med 10/30/17 20:00 Pending Magnesium Replacement] 1 dose .XX ASDIRECTED Metoprolol Tartrate [Lopressor] Med 10/30/17 19:49 Active 5 mg IVPUSH Q4H PRN Montelukast [Singulair] Med 10/30/17 21:00 Active 10 mg PO BEDTIME Ondansetron [Zofran] Med 10/30/17 19:59 Active 4 mg IV Q6H PRN Polyethylene Glycol 3350 [MiraLAX] Med 10/30/17 19:59 Active 17 gm PO DAILY PRN Potassium Rep Pharmacy to Dose [Pharmacy to Dose - Med 10/30/17 20:00 Pending Potassium Replacement] 1 dose .XX ASDIRECTED Promethazine [Phenergan] 6.25 mg Med 10/30/17 19:59 Active Sodium Chloride 0.9% [Normal Saline] 50 ml IV Q6H Simvastatin [Zocor] Med 10/30/17 21:00 Active 20 mg PO BEDTIME Temazepam [Restoril] Med 10/30/17 19:59 Active 7.5 mg PO BEDTIME PRN Warfarin [Coumadin] Med 10/31/17 18:00 Active 2.5 mg PO DAILY@1800 hydrALAZINE [Apresoline] Med 10/30/17 19:49 Active 10 mg IVPUSH Q4H PRN predniSONE Med 10/30/17 20:00 Pending 10 mg PO ASDIRECTED Resuscitation Status Routine Resus Stat 10/30/17 19:54 Ordered Medication Orders Acetaminophen (Tylenol) 650 mg PO Q4H PRN PRN Reason: Pain (Mild 1-3)/fever Hydrocodone Bitart/Acetaminophen ([place] 325-5 Mg) 1 tab PO Q4H PRN PRN Reason: Pain (moderate 4-6) Albuterol/Ipratropium (Duoneb 3.0-0.5 Mg/3 Ml) 3 ml NEB Q4H PRN PRN Reason: Shortness Of Breath/wheezing Aspirin (Aspirin) 81 mg PO BEDTIME [facility] Bisacodyl (Dulcolax) 5 mg PO DAILY PRN PRN Reason: Constipation Dextrose/Water (Dextrose 50% In Water) 50 ml IVPUSH ASDIRECTED PRN PRN Reason: Hypoglycemia Docusate Sodium (Colace) 100 mg PO BID PRN PRN Reason: Constipation Ferrous Sulfate (Ferrous Sulfate) 325 mg PO BEDTIME [facility]EE[facility] Furosemide (Lasix) 40 mg PO BID [facility] Hydralazine HCl (Apresoline) 10 mg IVPUSH Q4H PRN PRN Reason: Hypertension Hydromorphone HCl (Dilaudid) 0.25 mg IVPUSH Q2H PRN PRN Reason: Pain (severe 7-10) Promethazine HCl 6.25 mg/ (Sodium Chloride) 50.25 mls @ 100 mls/hr IV Q6H PRN PRN Reason: Nausea/Vomiting Insulin Aspart (Novolog) 0 unit SUBCUT QIDACANDBED [facility]EENA; Protocol Lisinopril (Prinivil) 5 mg PO BEDTIME [facility]EENA Lorazepam (Ativan) 2 mg IVPUSH Q4H PRN PRN Reason: Seizures Lorazepam (Ativan) 0.25 mg IV Q6H PRN PRN Reason: Anxiety Magnesium Sulfate (Pharmacy To Dose - Magnesium Replacement) 1 dose .XX ASDIRECTED [facility] Metoprolol Tartrate (Lopressor) 5 mg IVPUSH Q4H PRN PRN Reason: Tachycardia Montelukast Sodium (Singulair) 10 mg PO BEDTIME [facility] Non-FormLipo- Flavonoid Plus Caplet 1 tab PO DAILY [facility] Non-Form (Trulicity 1.5 Mg) 1.5 mg IM ASDIRECTED [facility] Non-FormTresiba Flextouch U-200 1 Dose 1 dose SUBCUT ASDIRECTED [facility] Ondansetron HCl (Zofran) 4 mg IV Q6H PRN PRN Reason: Nausea/Vomiting Polyethylene Glycol (Miralax) 17 gm PO DAILY PRN PRN Reason: Constipation Potassium Chloride (Pharmacy To Dose - Potassium Replacement) 1 dose .XX ASDIRECTED [facility] Prednisone (Prednisone) 10 mg PO ASDIRECTED [facility] Senna/Docusate Sodium (Senna Plus) 1 tab PO BID PRN PRN Reason: Constipation Simvastatin (Zocor) 20 mg PO BEDTIME [facility] Temazepam (Restoril) 7.5 mg PO BEDTIME PRN PRN Reason: Sleep Warfarin Sodium (Coumadin) 2.5 mg PO DAILY@1800 [facility] Assessment/Plan Comment:: Assessment/Plan: Acute: CVA-Expressive Aphasia - Carries a hx/o multiple mini strokes - Risk factors: A-Fib, CAD, HLD, HTN, and DM2 - Head CT scan negative - CONSERVATION PLANNER eval - ASA low dose in AM, lipid panel in AM Asymptomatic Bradycardia - HR in 56 on EKG - Telemetry--> 40s-50s- he is asymptomatic - Telemetry to capture lower than 40s; cardiac pads to apply on patient prn to sync heart rate if he becomes symptomatic Hypomagnesemia - Mg 1.5 - 2/2 inadequate intake - Replete and monitor DM2 with Hyperglycemia - BS 203--> 303 - Resume Insulin Regimen - Accu-check and ISS QID AC/HS - A1C check and Lipid Panel in AM Subtherapeutic INR - INR 1.25 - Will bridge with lovenox SubQ BID Atrial Fibrillation With Bradycardia - HR 56 on EKG; Tele mostly 40s-50s - He is not on rate control medications - He is on warfarin - Will verify with PCP and family in AM Chronic: Impaired Hearing/Vision A-Fib, on Warfarin--> he is not on rate control medication; will verify in AM HLD HTN CAD S/p Stent x1 COPD OA DM2 ASHLEIGH Depression Plan; Admit to [facility] with Tele Routine AM Labs Resume Home Meds [employer]SERVATION PL[employer]NER Ned SW/CM for d/c planning Code status: CPR Only
[2017-10-30] MEDS: Furosemide 40 MG Tab PO SCH (22:00)
[2017-10-30] MEDS: Insulin Aspart 100 Units/ML 3 ML Pen SUBCUT SCH (22:01)
[2017-10-31] MEDS ORDERED: Atropine 0.1 MG/ML 10 ML Syringe ONE (00:35)
[2017-10-31] MEDS: Enoxaparin 80 MG/0.8 ML Syringe SUBCUT SCH ×2 (00:54→14:45)
[2017-10-31] MEDS ORDERED: Enoxaparin 80 MG/0.8 ML Syringe SUBCUT SCH ×2 (05:00→09:00)
[2017-10-31] MEDS: Insulin Aspart 100 Units/ML 3 ML Pen SUBCUT SCH ×3 (08:35→17:16)
[2017-10-31] MEDS: Furosemide 40 MG Tab PO SCH (08:38)
[2017-10-31] MEDS: predniSONE 10 MG Tab PO SCH ×2 (08:38→15:36)
[2017-10-31] MEDS ORDERED: [UNRECOGNIZED DRUG - REMARK] PO SCH (09:00)
--- NOTE | 2017-10-31 12:05 | PCM.PN ---
- General Info Date of Service: 10/31/17 Admission Dx/Problem (Free Text): Admission Diagnosis/Problem Admission Diagnosis/Problem Expressive aphasia Subjective Update: Follow Up Functional Status: Reports: Pain Controlled, Tolerating Diet, Ambulating, Urinating. Denies: New Symptoms - Review of Systems General: Denies: Fever, Weakness, Fatigue, Malaise, Chills HEENT: Reports: No Symptoms Pulmonary: Denies: Shortness of Breath Cardiovascular: Denies: Chest Pain, Dyspnea on Exertion, Lightheadedness Gastrointestinal: Denies: Abdominal Pain, Decreased Appetite, Difficulty Swallowing, Nausea, Vomiting Genitourinary: Reports: No Symptoms Musculoskeletal: Denies: Shoulder Pain, Hand Pain, Foot Pain Skin: Denies: Cyanosis, Mottled, Pallor, Diaphoresis, Rash Neurological: Denies: Confusion, Difficulty Walking, Weakness, Gait Disturbance Psychiatric: Denies: Depression, Anxiety, Agitation, Hallucinations Systems Review Comment:: No significant overnight or acute issues. He slept pretty good. However he still has trouble finding words. His A1c is 7.5 and lipid panel is within normal limits. - Patient Data Vitals - Most Recent: Last Vital Signs Temp 37.1 C 10/31/17 04:23 Pulse 44 L 10/31/17 07:50 Resp 20 10/31/17 07:50 BP 127/58 L 10/31/17 08:28 Pulse Ox 96 10/31/17 07:50 Weight - Most Recent: 70.125 kg I&O - Last 24 Hours: Intake & Output 10/30/17 10/31/17 10/31/17 22:59 06:59 14:59 Intake Total 210 240 Balance 210 240 Lab Results Last 24 Hours: Laboratory Results - last 24 hr 10/30/17 10/30/17 10/30/17 Range/Units 16:55 16:55 16:55 WBC 8.68 (4.23-9.07) K/mm3 RBC 4.02 L (4.63-6.08) M/mm3 Hgb 12.4 L (13.7-17.5) gm/L Hct 35.7 L (40.1-51.0) % MCV 88.8 (79.0-92.2) fl MCH 30.8 (25.7-32.2) pg MCHC 34.7 (32.2-35.5) g/dl RDW Std Deviation 43.1 (35.1-43.9) fL Plt Count 244 (163-337) K/mm3 MPV 9.0 L (9.4-12.3) fl Neut % (Auto) (34.0-67.9) % Lymph % (Auto) (21.8-53.1) % [place] % (Auto) (5.3-12.2) % Eos % (Auto) (0.8-7.0) Baso % (Auto) (0.1-1.2) % Neut # (Auto) (1.78-5.38) K/mm3 Lymph # (Auto) (1.32-3.57) K/mm3 [place] # (Auto) (0.30-0.82) K/mm3 Eos # (Auto) (0.04-0.54) K/mm3 Baso # (Auto) (0.01-0.08) K/mm3 Neutrophils % (Manual) 78 H (40-60) % Band Neutrophils % 0 (0-10) % Lymphocytes % (Manual) 16 L (20-40) % Atypical Lymphs % 0 % Monocytes % (Manual) 6 (2-10) % Eosinophils % (Manual) 0 L (0.8-7.0) % Basophils % (Manual) 0 L (0.2-1.2) Platelet Estimate Adequate RBC Morph Comment Normal PT 13.6 H (9.5-12.1) SECONDS INR 1.25 APTT 34 H (24-31) SECONDS Sodium 137 (136-145) mEq/L Potassium 4.2 (3.5-5.1) mEq/L Chloride 102 (98-107) mEq/L Carbon Dioxide 26 (21-32) mEq/L Anion Gap 13.2 (5-15) BUN 17 (7-18) mg/dL Creatinine 1.2 (0.7-1.3) mg/dL Est Cr Clr Drug Dosing 44.10 mL/min Estimated GFR (MDRD) 58 (>60) mL/min BUN/Creatinine Ratio 14.2 (14-18) Glucose 217 H (83-115) mg/dL POC Glucose (83-110) mg/dL Hemoglobin A1c (4.50-6.20) % Calcium 8.5 (8.5-10.1) mg/dL Magnesium 1.5 L (1.8-2.4) mg/dl Total Bilirubin 0.5 (0.2-1.0) mg/dL AST 27 (15-37) U/L ALT 31 (16-63) U/L Alkaline Phosphatase 205 H (46-116) U/L Total Protein 6.9 (6.4-8.2) g/dl Albumin 2.8 L (3.4-5.0) g/dl Globulin 4.1 gm/dL Albumin/Globulin Ratio 0.7 L (1-2) Triglycerides (<150) mg/dL Cholesterol (<200) mg/dL LDL Cholesterol Direct (<100) mg/dL HDL Cholesterol (40-59) mg/dL Free T4 (0.76-1.46) ng/dL TSH 3rd Generation (0.358-3.74) uIU/mL Urine Color (Yellow) Urine Appearance (Clear) Urine pH (5.0-8.0) Ur Specific [place] (1.005-1.030) Urine Protein (Negative) Urine Glucose (UA) (Negative) Urine Ketones (Negative) Urine Occult Blood (Negative) Urine Nitrite (Negative) Urine Bilirubin (Negative) Urine Urobilinogen (0.2-1.0) Ur Leukocyte Esterase (Negative) Urine RBC (0-5) /hpf Urine WBC (0-5) /hpf Ur Epithelial Cells (0-5) /hpf Urine Bacteria (FEW) /hpf Urine Mucus (FEW) /hpf 10/30/17 10/30/17 10/31/17 Range/Units 17:08 21:58 04:48 WBC (4.23-9.07) K/mm3 RBC (4.63-6.08) M/mm3 Hgb (13.7-17.5) gm/L Hct (40.1-51.0) % MCV (79.0-92.2) fl MCH (25.7-32.2) pg MCHC (32.2-35.5) g/dl RDW Std Deviation (35.1-43.9) fL Plt Count (163-337) K/mm3 MPV (9.4-12.3) fl Neut % (Auto) (34.0-67.9) % Lymph % (Auto) (21.8-53.1) % [place] % (Auto) (5.3-12.2) % Eos % (Auto) (0.8-7.0) Baso % (Auto) (0.1-1.2) % Neut # (Auto) (1.78-5.38) K/mm3 Lymph # (Auto) (1.32-3.57) K/mm3 [place] # (Auto) (0.30-0.82) K/mm3 Eos # (Auto) (0.04-0.54) K/mm3 Baso # (Auto) (0.01-0.08) K/mm3 Neutrophils % (Manual) (40-60) % Band Neutrophils % (0-10) % Lymphocytes % (Manual) (20-40) % Atypical Lymphs % % Monocytes % (Manual) (2-10) % Eosinophils % (Manual) (0.8-7.0) % Basophils % (Manual) (0.2-1.2) Platelet Estimate RBC Morph Comment PT (9.5-12.1) SECONDS INR APTT (24-31) SECONDS Sodium (136-145) mEq/L Potassium (3.5-5.1) mEq/L Chloride (98-107) mEq/L Carbon Dioxide (21-32) mEq/L Anion Gap (5-15) BUN (7-18) mg/dL Creatinine (0.7-1.3) mg/dL Est Cr Clr Drug Dosing mL/min Estimated GFR (MDRD) (>60) mL/min BUN/Creatinine Ratio (14-18) Glucose (83-115) mg/dL POC Glucose 203 H 303 H (83-110) mg/dL Hemoglobin A1c (4.50-6.20) % Calcium (8.5-10.1) mg/dL Magnesium (1.8-2.4) mg/dl Total Bilirubin (0.2-1.0) mg/dL AST (15-37) U/L ALT (16-63) U/L Alkaline Phosphatase (46-116) U/L Total Protein (6.4-8.2) g/dl Albumin (3.4-5.0) g/dl Globulin gm/dL Albumin/Globulin Ratio (1-2) Triglycerides (<150) mg/dL Cholesterol (<200) mg/dL LDL Cholesterol Direct (<100) mg/dL HDL Cholesterol (40-59) mg/dL Free T4 (0.76-1.46) ng/dL TSH 3rd Generation (0.358-3.74) uIU/mL Urine Color Yellow (Yellow) Urine Appearance Clear (Clear) Urine pH 6.5 (5.0-8.0) Ur Specific [place] 1.020 (1.005-1.030) Urine Protein Negative (Negative) Urine Glucose (UA) Negative (Negative) Urine Ketones Negative (Negative) Urine Occult Blood Negative (Negative) Urine Nitrite Negative (Negative) Urine Bilirubin Negative (Negative) Urine Urobilinogen 1.0 (0.2-1.0) Ur Leukocyte Esterase Negative (Negative) Urine RBC 0-5 (0-5) /hpf Urine WBC 0-5 (0-5) /hpf Ur Epithelial Cells 0-5 (0-5) /hpf Urine Bacteria Not seen (FEW) /hpf Urine Mucus Not seen (FEW) /hpf 10/31/17 10/31/17 10/31/17 Range/Units 06:00 06:09 06:09 WBC 7.75 (4.23-9.07) K/mm3 RBC 4.20 L (4.63-6.08) M/mm3 Hgb 12.5 L (13.7-17.5) gm/L Hct 37.6 L (40.1-51.0) % MCV 89.5 (79.0-92.2) fl MCH 29.8 (25.7-32.2) pg MCHC 33.2 (32.2-35.5) g/dl RDW Std Deviation 44.0 H (35.1-43.9) fL Plt Count 239 (163-337) K/mm3 MPV 9.5 (9.4-12.3) fl Neut % (Auto) 68.0 H (34.0-67.9) % Lymph % (Auto) 21.2 L (21.8-53.1) % [place] % (Auto) 10.3 (5.3-12.2) % Eos % (Auto) 0.3 L (0.8-7.0) Baso % (Auto) 0.1 (0.1-1.2) % Neut # (Auto) 5.27 (1.78-5.38) K/mm3 Lymph # (Auto) 1.64 (1.32-3.57) K/mm3 [place] # (Auto) 0.80 (0.30-0.82) K/mm3 Eos # (Auto) 0.02 L (0.04-0.54) K/mm3 Baso # (Auto) 0.01 (0.01-0.08) K/mm3 Neutrophils % (Manual) (40-60) % Band Neutrophils % (0-10) % Lymphocytes % (Manual) (20-40) % Atypical Lymphs % % Monocytes % (Manual) (2-10) % Eosinophils % (Manual) (0.8-7.0) % Basophils % (Manual) (0.2-1.2) Platelet Estimate RBC Morph Comment PT (9.5-12.1) SECONDS INR APTT (24-31) SECONDS Sodium 137 (136-145) mEq/L Potassium 3.6 (3.5-5.1) mEq/L Chloride 102 (98-107) mEq/L Carbon Dioxide 27 (21-32) mEq/L Anion Gap 11.6 (5-15) BUN 18 (7-18) mg/dL Creatinine 1.1 (0.7-1.3) mg/dL Est Cr Clr Drug Dosing 49.58 mL/min Estimated GFR (MDRD) > 60 (>60) mL/min BUN/Creatinine Ratio 16.4 (14-18) Glucose 166 H (83-115) mg/dL POC Glucose (83-110) mg/dL Hemoglobin A1c 7.50 H (4.50-6.20) % Calcium 8.6 (8.5-10.1) mg/dL Magnesium 1.8 (1.8-2.4) mg/dl Total Bilirubin (0.2-1.0) mg/dL AST (15-37) U/L ALT (16-63) U/L Alkaline Phosphatase (46-116) U/L Total Protein (6.4-8.2) g/dl Albumin (3.4-5.0) g/dl Globulin gm/dL Albumin/Globulin Ratio (1-2) Triglycerides 110 (<150) mg/dL Cholesterol 95 (<200) mg/dL LDL Cholesterol Direct 39 (<100) mg/dL HDL Cholesterol 46.0 (40-59) mg/dL Free T4 1.15 (0.76-1.46) ng/dL TSH 3rd Generation 2.523 (0.358-3.74) uIU/mL Urine Color (Yellow) Urine Appearance (Clear) Urine pH (5.0-8.0) Ur Specific [place] (1.005-1.030) Urine Protein (Negative) Urine Glucose (UA) (Negative) Urine Ketones (Negative) Urine Occult Blood (Negative) Urine Nitrite (Negative) Urine Bilirubin (Negative) Urine Urobilinogen (0.2-1.0) Ur Leukocyte Esterase (Negative) Urine RBC (0-5) /hpf Urine WBC (0-5) /hpf Ur Epithelial Cells (0-5) /hpf Urine Bacteria (FEW) /hpf Urine Mucus (FEW) /hpf 10/31/17 10/31/17 10/31/17 Range/Units 06:09 06:39 11:28 WBC (4.23-9.07) K/mm3 RBC (4.63-6.08) M/mm3 Hgb (13.7-17.5) gm/L Hct (40.1-51.0) % MCV (79.0-92.2) fl MCH (25.7-32.2) pg MCHC (32.2-35.5) g/dl RDW Std Deviation (35.1-43.9) fL Plt Count (163-337) K/mm3 MPV (9.4-12.3) fl Neut % (Auto) (34.0-67.9) % Lymph % (Auto) (21.8-53.1) % [place] % (Auto) (5.3-12.2) % Eos % (Auto) (0.8-7.0) Baso % (Auto) (0.1-1.2) % Neut # (Auto) (1.78-5.38) K/mm3 Lymph # (Auto) (1.32-3.57) K/mm3 [place] # (Auto) (0.30-0.82) K/mm3 Eos # (Auto) (0.04-0.54) K/mm3 Baso # (Auto) (0.01-0.08) K/mm3 Neutrophils % (Manual) (40-60) % Band Neutrophils % (0-10) % Lymphocytes % (Manual) (20-40) % Atypical Lymphs % % Monocytes % (Manual) (2-10) % Eosinophils % (Manual) (0.8-7.0) % Basophils % (Manual) (0.2-1.2) Platelet Estimate RBC Morph Comment PT 14.5 H (9.5-12.1) SECONDS INR 1.34 APTT (24-31) SECONDS Sodium (136-145) mEq/L Potassium (3.5-5.1) mEq/L Chloride (98-107) mEq/L Carbon Dioxide (21-32) mEq/L Anion Gap (5-15) BUN (7-18) mg/dL Creatinine (0.7-1.3) mg/dL Est Cr Clr Drug Dosing mL/min Estimated GFR (MDRD) (>60) mL/min BUN/Creatinine Ratio (14-18) Glucose (83-115) mg/dL POC Glucose 163 H 122 H (83-110) mg/dL Hemoglobin A1c (4.50-6.20) % Calcium (8.5-10.1) mg/dL Magnesium (1.8-2.4) mg/dl Total Bilirubin (0.2-1.0) mg/dL AST (15-37) U/L ALT (16-63) U/L Alkaline Phosphatase (46-116) U/L Total Protein (6.4-8.2) g/dl Albumin (3.4-5.0) g/dl Globulin gm/dL Albumin/Globulin Ratio (1-2) Triglycerides (<150) mg/dL Cholesterol (<200) mg/dL LDL Cholesterol Direct (<100) mg/dL HDL Cholesterol (40-59) mg/dL Free T4 (0.76-1.46) ng/dL TSH 3rd Generation (0.358-3.74) uIU/mL Urine Color (Yellow) Urine Appearance (Clear) Urine pH (5.0-8.0) Ur Specific [place] (1.005-1.030) Urine Protein (Negative) Urine Glucose (UA) (Negative) Urine Ketones (Negative) Urine Occult Blood (Negative) Urine Nitrite (Negative) Urine Bilirubin (Negative) Urine Urobilinogen (0.2-1.0) Ur Leukocyte Esterase (Negative) Urine RBC (0-5) /hpf Urine WBC (0-5) /hpf Ur Epithelial Cells (0-5) /hpf Urine Bacteria (FEW) /hpf Urine Mucus (FEW) /hpf Med Orders - Current: Current Medications Acetaminophen (Tylenol) 650 mg PO Q4H PRN PRN Reason: Pain (Mild 1-3)/fever Hydrocodone Bitart/Acetaminophen ([place] 325-5 Mg) 1 tab PO Q4H PRN PRN Reason: Pain (moderate 4-6) Albuterol/Ipratropium (Duoneb 3.0-0.5 Mg/3 Ml) 3 ml NEB Q4H PRN PRN Reason: Shortness Of Breath/wheezing Aspirin (Aspirin) 81 mg PO BEDTIME [facility] Last Admin: 10/30/17 21:59 Dose: 81 mg Bisacodyl (Dulcolax) 5 mg PO DAILY PRN PRN Reason: Constipation Dextrose/Water (Dextrose 50% In Water) 50 ml IVPUSH ASDIRECTED PRN PRN Reason: Hypoglycemia Docusate Sodium (Colace) 100 mg PO BID PRN PRN Reason: Constipation Enoxaparin Sodium (Lovenox) 70 mg SUBCUT Q12H [facility] Last Admin: 10/31/17 00:54 Dose: 70 mg Ferrous Sulfate (Ferrous Sulfate) 325 mg PO BEDTIME [facility] Last Admin: 10/30/17 22:00 Dose: 325 mg Furosemide (Lasix) 40 mg PO BID [facility] Last Admin: 10/31/17 08:38 Dose: 40 mg Hydralazine HCl (Apresoline) 10 mg IVPUSH Q4H PRN PRN Reason: Hypertension Hydromorphone HCl (Dilaudid) 0.25 mg IVPUSH Q2H PRN PRN Reason: Pain (severe 7-10) Promethazine HCl 6.25 mg/ (Sodium Chloride) 50.25 mls @ 100 mls/hr IV Q6H PRN PRN Reason: Nausea/Vomiting Insulin Aspart (Novolog) 0 unit SUBCUT QIDACANDBED [facility]; Protocol Last Admin: 10/31/17 11:29 Dose: Not Given Lisinopril (Prinivil) 5 mg PO BEDTIME [facility] Last Admin: 10/30/17 22:02 Dose: 5 mg Lorazepam (Ativan) 2 mg IVPUSH Q4H PRN PRN Reason: Seizures Lorazepam (Ativan) 0.25 mg IV Q6H PRN PRN Reason: Anxiety Magnesium Sulfate (Pharmacy To Dose - Magnesium Replacement) 0 dose .XX ASDIRECTED PRN PRN Reason: RX TO WATCH MAG LEVELS Metoprolol Tartrate (Lopressor) 5 mg IVPUSH Q4H PRN PRN Reason: Tachycardia Montelukast Sodium (Singulair) 10 mg PO BEDTIME [facility] Last Admin: 10/30/17 21:59 Dose: 10 mg Non-Form (Trulicity 1.5 Mg) 1.5 mg IM ASDIRECTED [facility] Non-FormTresiba Flextouch U-200 1 Dose 1 dose SUBCUT ASDIRECTED [facility] Ondansetron HCl (Zofran) 4 mg IV Q6H PRN PRN Reason: Nausea/Vomiting Polyethylene Glycol (Miralax) 17 gm PO DAILY PRN PRN Reason: Constipation Potassium Chloride (Pharmacy To Dose - Potassium Replacement) 0 dose .XX ASDIRECTED PRN PRN Reason: RX TO WATCH K LEVELS Prednisone (Prednisone) 5 mg PO TID [facility] Stop: 11/02/17 21:00 Last Admin: 10/31/17 08:38 Dose: 5 mg Senna/Docusate Sodium (Senna Plus) 1 tab PO BID PRN PRN Reason: Constipation Simvastatin (Zocor) 20 mg PO BEDTIME [facility] Last Admin: 10/30/17 21:59 Dose: 20 mg Temazepam (Restoril) 7.5 mg PO BEDTIME PRN PRN Reason: Sleep Warfarin Sodium (Coumadin) 2.5 mg PO DAILY@1800 [facility] Discontinued Medications Atropine Sulfate (Atropine 0.1 Mg/Ml) Confirm Administered Dose 1 mg .ROUTE .STK -MED ONE Stop: 10/31/17 00:36 Magnesium Sulfate 2 gm/ Premix 50 mls @ 50 mls/hr IV ONETIME ONE Stop: 10/30/17 18:39 Last Admin: 10/30/17 18:17 Dose: 50 mls/hr Non-FormLipo- Flavonoid Plus Caplet 1 tab PO DAILY [facility] - Exam General: Alert, Cooperative, No Acute Distress HEENT: Pupils Equal, Pupils Reactive, EOMI, Mucous Membr. Moist/[place] Neck: Supple, Trachea Midline, No JVD, No Thyromegaly Lungs: Clear to Auscultation, Normal Respiratory Effort Cardiovascular: Irregular Rhythm, Bradycardia GI/Abdominal Exam: Normal Bowel Sounds, Soft, Non-Tender, No Organomegaly, No Distention, No Abnormal Bruit (Male) Exam: Deferred Back Exam: Normal Inspection, Decreased Range of Motion Extremities: Normal Inspection, Normal Range of Motion, Non-Tender, No Pedal Edema, Normal Capillary Refill Skin: Warm, Dry, Intact Neurological: No New Focal Deficit Psy/Mental Status: Alert, Normal Affect, Normal Mood - Problem List Review Problem List Initiated/Reviewed/Updated: Yes - My Orders Last 24 Hours: My Active Orders 10/30/17 19:49 LORazepam [Ativan] 2 mg IVPUSH Q4H PRN Metoprolol Tartrate [Lopressor] 5 mg IVPUSH Q4H PRN hydrALAZINE [Apresoline] 10 mg IVPUSH Q4H PRN 10/30/17 19:54 VTE/DVT Education [RC] DAILY Vital Signs [RC] Q4H Resuscitation Status Routine 10/30/17 19:59 Height and Weight [RC] 04 Consult to Case Management [CONS] Routine Consult to Professor Of Biological Sciences [CONS] Routine Consult to Spiritual Care [CONS] Routine [employer] WORKER Evaluation and Treatment [CONS] Routine Acetaminophen [Tylenol] 650 mg PO Q4H PRN Acetaminophen/HYDROcodone [[place] 325-5 MG] 1 tab PO Q4H PRN Albuterol/Ipratropium [DuoNeb 3.0-0.5 MG/3 ML] 3 ml NEB Q4H PRN Bisacodyl [Dulcolax] 5 mg PO DAILY PRN Docusate Sodium [Colace] 100 mg PO BID PRN Docusate Sodium/Sennosides [Senna Plus] 1 tab PO BID PRN HYDROmorphone [Dilaudid] 0.25 mg IVPUSH Q2H PRN LORazepam [Ativan] 0.25 mg IV Q6H PRN Ondansetron [Zofran] 4 mg IV Q6H PRN Polyethylene Glycol 3350 [MiraLAX] 17 gm PO DAILY PRN Promethazine [Phenergan] 6.25 mg Sodium Chloride 0.9% [Normal Saline] 50 ml IV Q6H Temazepam [Restoril] 7.5 mg PO BEDTIME PRN 10/30/17 20:00 Dulaglutide [Trulicity] 1.5 mg IM ASDIRECTED Insulin Degludec [Tresiba Flextouch U-200] 1 dose SUBCUT ASDIRECTED Magnesium Rep Pharmacy to Dose [Pharmacy to Dose - Magnesium Replacement] 0 dose .XX ASDIRECTED PRN Potassium Rep Pharmacy to Dose [Pharmacy to Dose - Potassium Replacement] 0 dose .XX ASDIRECTED PRN 10/30/17 20:01 Intake and Output [RC] 04,16 10/30/17 20:03 Blood Glucose Check, Bedside [RC] QIDACANDBED Dextrose 50% in Water 50 ml IVPUSH ASDIRECTED PRN 10/30/17 21:00 Aspirin 81 mg PO BEDTIME Ferrous Sulfate 325 mg PO BEDTIME Furosemide [Lasix] 40 mg PO BID Lisinopril [Prinivil] 5 mg PO BEDTIME Montelukast [Singulair] 10 mg PO BEDTIME Simvastatin [Zocor] 20 mg PO BEDTIME 10/30/17 22:00 Insulin Aspart [NovoLOG] See Protocol SUBCUT QIDACANDBED 10/31/17 01:00 Enoxaparin [Lovenox] 70 mg SUBCUT Q12H 10/31/17 04:48 CULTURE URINE [RM] Routine URINALYSIS W/MICROSCOPIC [UA W/MICROSCOPIC] [URIN] Urgent 10/31/17 09:00 predniSONE 5 mg PO TID 10/31/17 18:00 Warfarin [Coumadin] 2.5 mg PO DAILY@1800 10/31/17 Dinner ADA Diabetic [[place] Diet] [DIET] Heart Healthy Diet [DIET] 11/01/17 05:11 INR,PT,PROTHROMBIN TIME [COAG] DAILY 11/02/17 05:11 INR,PT,PROTHROMBIN TIME [COAG] DAILY 11/03/17 05:11 INR,PT,PROTHROMBIN TIME [COAG] DAILY - Plan Plan:: Assessment/Plan: Acute: CVA-Expressive Aphasia - Suspect: 2/2 low heart rate in the setting of Atrial Fibrillation with Subtherapeutic INR - Carries a hx/o multiple mini stroke per - Risk factors: A-Fib, CAD, HLD, HTN, and DM2 - Head CT scan negative - Pending [employer] WORKER eval - No hx/o Major bleeding; he should be okay with low dose ASA Atrial Fibrillation with SVR - HR 56 on EKG with pauses; Tele mostly 40s-50s per - He is not on rate control medications - He is on warfarin but subtherapeutic - Spoke to PCP- patient follows Dr. Prajapati - He is not on rate control medications due to chronic low heart rate with pauses - Tele 4 separate occasions wherein his heart rate dropped significantly lower than 38: 31 @ 7:36; 29 @ 4:40; 33 @ 1249; and 34 @1259 DM2 with Hyperglycemia, Improve - BS 203--> 303--> [id number] - Resume Insulin Regimen - Accu-check and ISS QID AC/HS - A1C check and Lipid Panel in AM Subtherapeutic INR, Slightly Improved - INR 1.25-> 1.3 - Will bridge with lovenox SubQ BID Resolved: S/p Hypomagnesemia - Mg 1.5--> 1.8 - 2/2 inadequate intake - Replete and monitor Chronic: Impaired Hearing/Vision A-Fib, on Warfarin HLD HTN CAD S/p Stent x1 COPD OA DM2 ASHLEIGH Depression Plan: He is asymptomatic despite having low heart Apply pad and sync heart rate Possible transfer to [facility] Meds DR[employer] WORKER Shannonal SW/CM for d/c planning Code status: CPR Only Spoke and updated about clinical progress and transfer plan for pacemaker placement.
[2017-10-31] MEDS ORDERED: LORazepam 2 MG/ML SDV ONE (15:42)
[2017-10-31] MEDS ORDERED: LORazepam 2 MG/ML SDV IVPUSH ONE (15:44)
[2017-10-31] MEDS ORDERED: Midazolam 1 MG/ML 2 ML SDV ONE (15:49)
[2017-10-31] MEDS ORDERED: Midazolam 1 MG/ML 2 ML SDV IVPUSH ONE (15:51)
--- NOTE | 2017-10-31 16:18 | PCM.DCSUM1 ---
Discharge Summary - Hospital Course Brief History: This is an 82 yo elderly whit male with past medical hx/o Impaired Hearing/Vision, A-Fib, on Warfarin but not on rate control medications , HLD, HTN, CAD S/p Stent x1, COPD, OA, DM2, ASHLEIGH, and Depression who comes in having difficulty finding words and remembering recent events/memories. He denies any hx/o CVA in the past. He denies bottoming out with his sugar. Upon presentation to ED, he complained of a mild headache and no other neurological deficits. He was able to converse near normal but when asked to read something, he struggled and his words were gibberish. Additionally, when asked to name some pictures or items shown before him, his words were non-sensible. His initial work up in ED shows a CBC remarkable for RBC of 4.02, Hbg of 12.4, Hct of 35.7, MPV of 9, Neutrophils of 78% and Lymphocytes of 16%. His coagulation studies are PT of 13.6, INR of 1.25, and aPTT of 34. His chemistry is remarkable for glucose of 217, Mg of 1.7, Alk phos of 205, Albumin of 2.8. His UA is negative for UTI. His head CT scan shows no acute abnormal findings. His EKg shows atrial fibrillation with a slow rate ventricular rate of 56. At the time he made it to the floor, patient's heart rate was in the 40s-50s but asymptomatic. He is being admitted for CVA and Afib with Bradycardia. He is CPR only. - Discharge Data Discharge Date: 10/31/17 Discharge Disposition: Home, Self-Care 01 Condition: Good - Discharge Diagnosis/Problem(s) (1) Atrial fibrillation with slow ventricular response SNOMED Code(s): 50104906, 279536847 ICD Code: I48.91 - UNSPECIFIED ATRIAL FIBRILLATION Status: Acute Current Visit: Yes (2) Expressive aphasia SNOMED Code(s): 396557167 ICD Code: R47.01 - APHASIA Status: Acute Current Visit: Yes (3) Hypomagnesemia SNOMED Code(s): 765227521 ICD Code: E83.42 - HYPOMAGNESEMIA Status: Resolved Current Visit: Yes (4) Subtherapeutic international normalized ratio (INR) SNOMED Code(s): 143919623, 011705954 ICD Code: R79.1 - ABNORMAL COAGULATION PROFILE Status: Acute Current Visit: Yes (5) Hyperglycemia due to type 2 diabetes mellitus SNOMED Code(s): 902761441597339, 622276843771191 ICD Code: E11.65 - TYPE 2 DIABETES MELLITUS WITH HYPERGLYCEMIA Status: Acute Current Visit: Yes Qualifiers: Diabetes mellitus fci insulin use: with terminal computer operator use Qualified Code( s): E11.65 - Type 2 diabetes mellitus with hyperglycemia; Z79.4 - [facility] ( current) use of insulin (6) Hypomagnesemia SNOMED Code(s): 826794687 ICD Code: E83.42 - HYPOMAGNESEMIA Status: Resolved Current Visit: Yes - Patient Summary/Data Operative Procedure(s) Performed: None Complications: None Consults: Consultations 10/30/17 19:59 Consult to Case Management [CONS] Routine Consult to Catalyst Supervisor [CONS] Routine Consult to Spiritual Care [CONS] Routine CASTING AND CURING OPERATOR Evaluation and Treatment [CONS] Routine Labs Pending at D/C: None Recommended Follow-up Testing/Procedures: None Planned Operative Procedure(s) after DC: Pacemaker placement Hospital Course: Patient was admitted for CVA with expressive aphasia. His work up to include head CT scan was benign. However his INR was 1.25 with a HR of 56 on EKG. His average heart on telemetry was 40-50s but on numerous occasion, he dipped down in the low 30s. His lowest recorded heart rate was 29 sometime early this morning. Throughout this admission, the patient remained stable despite having significant low heart rates. At this point, we strongly believed that his low heart rate caused his recent CVA event. This was documented and captured by our telemetry. As such, we felt pacemaker is indicated in setting of permanent atrial fibrillation with subtherapeutic INR. We called [facility] but unable to get a hold of Dr. Asher, patient's addiction psychiatrist. So we tried the person investigator addiction psychiatrist and spoke to Dr. Otero (very rude)-who did not really offer much except deferred me to the hospitalist person investigator. After discussing case with Dr. Gamboa, he agreed to accept the patient. His was immediately contacted and informed about the transfer plan to [place]. He will leave here via ground as soon as ambulance arrives. - Patient Instructions Diet: Heart Healthy Diet, Diabetic Diet Activity: As Tolerated Driving: Do Not Drive Showering/Bathing: May Shower Notify Provider of: Fever, Increased Pain, Nausea and/or Vomiting Other/Special Instructions: - [facility] under the services of Dr. Gamboa, hospitalist for pacemaker placement - Discharge Plan Home Medications: Home Meds Lisinopril 5 mg PO BEDTIME 04/16/14 [History] Pravastatin [Pravachol] 40 mg PO BEDTIME 04/16/14 [History] Furosemide 60 mg PO DAILY 02/14/16 [History] Montelukast [Singulair] 10 mg PO BEDTIME 02/14/16 [History] Aspirin 81 mg PO BEDTIME 07/31/17 [History] Bioflav,Lemon/Vit BComp&C [Lipo-Flavonoid Plus Caplet] 1 tab PO DAILY 09/18/17 [ History] Ferrous Sulfate [Iron] 325 mg PO BEDTIME 09/18/17 [History] Warfarin Sodium 2.5 mg PO DAILY 09/18/17 [History] Dulaglutide [Trulicity] 1.5 mg IM MO 10/30/17 [History] predniSONE [Prednisone] 10 mg PO ASDIRECTED 10/30/17 [History] Insulin Degludec [Tresiba Flextouch U-200] 8 units SQ ASDIRECTED 10/31/17 [ History] Referrals: Les Olvera MD [Primary Care Provider] - - Discharge Summary/Plan Comment DC Time >30 min.: Yes (45 mins) Discharge Summary/Plan Comment: Transfer to [place] - General Info Date of Service: 10/31/17 Admission Dx/Problem (Free Text: Admission Diagnosis/Problem Admission Diagnosis/Problem Expressive aphasia Subjective Update: Follow Up Functional Status: Reports: Pain Controlled, Tolerating Diet, Ambulating, Urinating - Review of Systems General: Denies: Fever, Weakness, Fatigue, Malaise, Chills HEENT: Reports: No Symptoms Pulmonary: Denies: Shortness of Breath, Pleuritic Chest Pain, Cough Cardiovascular: Denies: Chest Pain, Palpitations, Dyspnea on Exertion, Lightheadedness Gastrointestinal: Denies: Abdominal Pain, Constipation, Decreased Appetite, Vomiting Genitourinary: Reports: No Symptoms Musculoskeletal: Denies: Neck Pain, Shoulder Pain, Hand Pain, Foot Pain Neurological: Denies: Confusion, Difficulty Walking, Weakness, Gait Disturbance Psychiatric: Denies: Depression, Anxiety, Hallucinations, Homicidal Ideation Systems Review Comment: No acute issues. - Patient Data Vitals - Most Recent: Last Vital Signs Temp 37.2 C 10/31/17 15:00 Pulse 43 L 10/31/17 15:18 Resp 16 10/31/17 15:18 BP 158/64 H 10/31/17 15:18 Pulse Ox 97 10/31/17 15:18 Weight - Most Recent: 70.125 kg I&O - Last 24 hours: Intake & Output 10/31/17 10/31/17 10/31/17 06:59 14:59 22:59 Intake Total 210 240 Balance 210 240 Lab Results - Last 24 hrs: Laboratory Results - last 24 hr 10/30/17 10/30/17 10/30/17 Range/Units 16:55 16:55 16:55 WBC 8.68 (4.23-9.07) K/mm3 RBC 4.02 L (4.63-6.08) M/mm3 Hgb 12.4 L (13.7-17.5) gm/L Hct 35.7 L (40.1-51.0) % MCV 88.8 (79.0-92.2) fl MCH 30.8 (25.7-32.2) pg MCHC 34.7 (32.2-35.5) g/dl RDW Std Deviation 43.1 (35.1-43.9) fL Plt Count 244 (163-337) K/mm3 MPV 9.0 L (9.4-12.3) fl Neut % (Auto) (34.0-67.9) % Lymph % (Auto) (21.8-53.1) % [place] % (Auto) (5.3-12.2) % Eos % (Auto) (0.8-7.0) Baso % (Auto) (0.1-1.2) % Neut # (Auto) (1.78-5.38) K/mm3 Lymph # (Auto) (1.32-3.57) K/mm3 [place] # (Auto) (0.30-0.82) K/mm3 Eos # (Auto) (0.04-0.54) K/mm3 Baso # (Auto) (0.01-0.08) K/mm3 Neutrophils % (Manual) 78 H (40-60) % Band Neutrophils % 0 (0-10) % Lymphocytes % (Manual) 16 L (20-40) % Atypical Lymphs % 0 % Monocytes % (Manual) 6 (2-10) % Eosinophils % (Manual) 0 L (0.8-7.0) % Basophils % (Manual) 0 L (0.2-1.2) Platelet Estimate Adequate RBC Morph Comment Normal PT 13.6 H (9.5-12.1) SECONDS INR 1.25 APTT 34 H (24-31) SECONDS Sodium 137 (136-145) mEq/L Potassium 4.2 (3.5-5.1) mEq/L Chloride 102 (98-107) mEq/L Carbon Dioxide 26 (21-32) mEq/L Anion Gap 13.2 (5-15) BUN 17 (7-18) mg/dL Creatinine 1.2 (0.7-1.3) mg/dL Est Cr Clr Drug Dosing 44.10 mL/min Estimated GFR (MDRD) 58 (>60) mL/min BUN/Creatinine Ratio 14.2 (14-18) Glucose 217 H (83-115) mg/dL POC Glucose (83-110) mg/dL Hemoglobin A1c (4.50-6.20) % Calcium 8.5 (8.5-10.1) mg/dL Magnesium 1.5 L (1.8-2.4) mg/dl Total Bilirubin 0.5 (0.2-1.0) mg/dL AST 27 (15-37) U/L ALT 31 (16-63) U/L Alkaline Phosphatase 205 H (46-116) U/L Total Protein 6.9 (6.4-8.2) g/dl Albumin 2.8 L (3.4-5.0) g/dl Globulin 4.1 gm/dL Albumin/Globulin Ratio 0.7 L (1-2) Triglycerides (<150) mg/dL Cholesterol (<200) mg/dL LDL Cholesterol Direct (<100) mg/dL HDL Cholesterol (40-59) mg/dL Free T4 (0.76-1.46) ng/dL TSH 3rd Generation (0.358-3.74) uIU/mL Urine Color (Yellow) Urine Appearance (Clear) Urine pH (5.0-8.0) Ur Specific [place] (1.005-1.030) Urine Protein (Negative) Urine Glucose (UA) (Negative) Urine Ketones (Negative) Urine Occult Blood (Negative) Urine Nitrite (Negative) Urine Bilirubin (Negative) Urine Urobilinogen (0.2-1.0) Ur Leukocyte Esterase (Negative) Urine RBC (0-5) /hpf Urine WBC (0-5) /hpf Ur Epithelial Cells (0-5) /hpf Urine Bacteria (FEW) /hpf Urine Mucus (FEW) /hpf 10/30/17 10/30/17 10/31/17 Range/Units 17:08 21:58 04:48 WBC (4.23-9.07) K/mm3 RBC (4.63-6.08) M/mm3 Hgb (13.7-17.5) gm/L Hct (40.1-51.0) % MCV (79.0-92.2) fl MCH (25.7-32.2) pg MCHC (32.2-35.5) g/dl RDW Std Deviation (35.1-43.9) fL Plt Count (163-337) K/mm3 MPV (9.4-12.3) fl Neut % (Auto) (34.0-67.9) % Lymph % (Auto) (21.8-53.1) % [place] % (Auto) (5.3-12.2) % Eos % (Auto) (0.8-7.0) Baso % (Auto) (0.1-1.2) % Neut # (Auto) (1.78-5.38) K/mm3 Lymph # (Auto) (1.32-3.57) K/mm3 [place] # (Auto) (0.30-0.82) K/mm3 Eos # (Auto) (0.04-0.54) K/mm3 Baso # (Auto) (0.01-0.08) K/mm3 Neutrophils % (Manual) (40-60) % Band Neutrophils % (0-10) % Lymphocytes % (Manual) (20-40) % Atypical Lymphs % % Monocytes % (Manual) (2-10) % Eosinophils % (Manual) (0.8-7.0) % Basophils % (Manual) (0.2-1.2) Platelet Estimate RBC Morph Comment PT (9.5-12.1) SECONDS INR APTT (24-31) SECONDS Sodium (136-145) mEq/L Potassium (3.5-5.1) mEq/L Chloride (98-107) mEq/L Carbon Dioxide (21-32) mEq/L Anion Gap (5-15) BUN (7-18) mg/dL Creatinine (0.7-1.3) mg/dL Est Cr Clr Drug Dosing mL/min Estimated GFR (MDRD) (>60) mL/min BUN/Creatinine Ratio (14-18) Glucose (83-115) mg/dL POC Glucose 203 H 303 H (83-110) mg/dL Hemoglobin A1c (4.50-6.20) % Calcium (8.5-10.1) mg/dL Magnesium (1.8-2.4) mg/dl Total Bilirubin (0.2-1.0) mg/dL AST (15-37) U/L ALT (16-63) U/L Alkaline Phosphatase (46-116) U/L Total Protein (6.4-8.2) g/dl Albumin (3.4-5.0) g/dl Globulin gm/dL Albumin/Globulin Ratio (1-2) Triglycerides (<150) mg/dL Cholesterol (<200) mg/dL LDL Cholesterol Direct (<100) mg/dL HDL Cholesterol (40-59) mg/dL Free T4 (0.76-1.46) ng/dL TSH 3rd Generation (0.358-3.74) uIU/mL Urine Color Yellow (Yellow) Urine Appearance Clear (Clear) Urine pH 6.5 (5.0-8.0) Ur Specific [place] 1.020 (1.005-1.030) Urine Protein Negative (Negative) Urine Glucose (UA) Negative (Negative) Urine Ketones Negative (Negative) Urine Occult Blood Negative (Negative) Urine Nitrite Negative (Negative) Urine Bilirubin Negative (Negative) Urine Urobilinogen 1.0 (0.2-1.0) Ur Leukocyte Esterase Negative (Negative) Urine RBC 0-5 (0-5) /hpf Urine WBC 0-5 (0-5) /hpf Ur Epithelial Cells 0-5 (0-5) /hpf Urine Bacteria Not seen (FEW) /hpf Urine Mucus Not seen (FEW) /hpf 10/31/17 10/31/17 10/31/17 Range/Units 06:00 06:09 06:09 WBC 7.75 (4.23-9.07) K/mm3 RBC 4.20 L (4.63-6.08) M/mm3 Hgb 12.5 L (13.7-17.5) gm/L Hct 37.6 L (40.1-51.0) % MCV 89.5 (79.0-92.2) fl MCH 29.8 (25.7-32.2) pg MCHC 33.2 (32.2-35.5) g/dl RDW Std Deviation 44.0 H (35.1-43.9) fL Plt Count 239 (163-337) K/mm3 MPV 9.5 (9.4-12.3) fl Neut % (Auto) 68.0 H (34.0-67.9) % Lymph % (Auto) 21.2 L (21.8-53.1) % [place] % (Auto) 10.3 (5.3-12.2) % Eos % (Auto) 0.3 L (0.8-7.0) Baso % (Auto) 0.1 (0.1-1.2) % Neut # (Auto) 5.27 (1.78-5.38) K/mm3 Lymph # (Auto) 1.64 (1.32-3.57) K/mm3 [place] # (Auto) 0.80 (0.30-0.82) K/mm3 Eos # (Auto) 0.02 L (0.04-0.54) K/mm3 Baso # (Auto) 0.01 (0.01-0.08) K/mm3 Neutrophils % (Manual) (40-60) % Band Neutrophils % (0-10) % Lymphocytes % (Manual) (20-40) % Atypical Lymphs % % Monocytes % (Manual) (2-10) % Eosinophils % (Manual) (0.8-7.0) % Basophils % (Manual) (0.2-1.2) Platelet Estimate RBC Morph Comment PT (9.5-12.1) SECONDS INR APTT (24-31) SECONDS Sodium 137 (136-145) mEq/L Potassium 3.6 (3.5-5.1) mEq/L Chloride 102 (98-107) mEq/L Carbon Dioxide 27 (21-32) mEq/L Anion Gap 11.6 (5-15) BUN 18 (7-18) mg/dL Creatinine 1.1 (0.7-1.3) mg/dL Est Cr Clr Drug Dosing 49.58 mL/min Estimated GFR (MDRD) > 60 (>60) mL/min BUN/Creatinine Ratio 16.4 (14-18) Glucose 166 H (83-115) mg/dL POC Glucose (83-110) mg/dL Hemoglobin A1c 7.50 H (4.50-6.20) % Calcium 8.6 (8.5-10.1) mg/dL Magnesium 1.8 (1.8-2.4) mg/dl Total Bilirubin (0.2-1.0) mg/dL AST (15-37) U/L ALT (16-63) U/L Alkaline Phosphatase (46-116) U/L Total Protein (6.4-8.2) g/dl Albumin (3.4-5.0) g/dl Globulin gm/dL Albumin/Globulin Ratio (1-2) Triglycerides 110 (<150) mg/dL Cholesterol 95 (<200) mg/dL LDL Cholesterol Direct 39 (<100) mg/dL HDL Cholesterol 46.0 (40-59) mg/dL Free T4 1.15 (0.76-1.46) ng/dL TSH 3rd Generation 2.523 (0.358-3.74) uIU/mL Urine Color (Yellow) Urine Appearance (Clear) Urine pH (5.0-8.0) Ur Specific [place] (1.005-1.030) Urine Protein (Negative) Urine Glucose (UA) (Negative) Urine Ketones (Negative) Urine Occult Blood (Negative) Urine Nitrite (Negative) Urine Bilirubin (Negative) Urine Urobilinogen (0.2-1.0) Ur Leukocyte Esterase (Negative) Urine RBC (0-5) /hpf Urine WBC (0-5) /hpf Ur Epithelial Cells (0-5) /hpf Urine Bacteria (FEW) /hpf Urine Mucus (FEW) /hpf 10/31/17 10/31/17 10/31/17 Range/Units 06:09 06:39 11:28 WBC (4.23-9.07) K/mm3 RBC (4.63-6.08) M/mm3 Hgb (13.7-17.5) gm/L Hct (40.1-51.0) % MCV (79.0-92.2) fl MCH (25.7-32.2) pg MCHC (32.2-35.5) g/dl RDW Std Deviation (35.1-43.9) fL Plt Count (163-337) K/mm3 MPV (9.4-12.3) fl Neut % (Auto) (34.0-67.9) % Lymph % (Auto) (21.8-53.1) % [place] % (Auto) (5.3-12.2) % Eos % (Auto) (0.8-7.0) Baso % (Auto) (0.1-1.2) % Neut # (Auto) (1.78-5.38) K/mm3 Lymph # (Auto) (1.32-3.57) K/mm3 [place] # (Auto) (0.30-0.82) K/mm3 Eos # (Auto) (0.04-0.54) K/mm3 Baso # (Auto) (0.01-0.08) K/mm3 Neutrophils % (Manual) (40-60) % Band Neutrophils % (0-10) % Lymphocytes % (Manual) (20-40) % Atypical Lymphs % % Monocytes % (Manual) (2-10) % Eosinophils % (Manual) (0.8-7.0) % Basophils % (Manual) (0.2-1.2) Platelet Estimate RBC Morph Comment PT 14.5 H (9.5-12.1) SECONDS INR 1.34 APTT (24-31) SECONDS Sodium (136-145) mEq/L Potassium (3.5-5.1) mEq/L Chloride (98-107) mEq/L Carbon Dioxide (21-32) mEq/L Anion Gap (5-15) BUN (7-18) mg/dL Creatinine (0.7-1.3) mg/dL Est Cr Clr Drug Dosing mL/min Estimated GFR (MDRD) (>60) mL/min BUN/Creatinine Ratio (14-18) Glucose (83-115) mg/dL POC Glucose 163 H 122 H (83-110) mg/dL Hemoglobin A1c (4.50-6.20) % Calcium (8.5-10.1) mg/dL Magnesium (1.8-2.4) mg/dl Total Bilirubin (0.2-1.0) mg/dL AST (15-37) U/L ALT (16-63) U/L Alkaline Phosphatase (46-116) U/L Total Protein (6.4-8.2) g/dl Albumin (3.4-5.0) g/dl Globulin gm/dL Albumin/Globulin Ratio (1-2) Triglycerides (<150) mg/dL Cholesterol (<200) mg/dL LDL Cholesterol Direct (<100) mg/dL HDL Cholesterol (40-59) mg/dL Free T4 (0.76-1.46) ng/dL TSH 3rd Generation (0.358-3.74) uIU/mL Urine Color (Yellow) Urine Appearance (Clear) Urine pH (5.0-8.0) Ur Specific [place] (1.005-1.030) Urine Protein (Negative) Urine Glucose (UA) (Negative) Urine Ketones (Negative) Urine Occult Blood (Negative) Urine Nitrite (Negative) Urine Bilirubin (Negative) Urine Urobilinogen (0.2-1.0) Ur Leukocyte Esterase (Negative) Urine RBC (0-5) /hpf Urine WBC (0-5) /hpf Ur Epithelial Cells (0-5) /hpf Urine Bacteria (FEW) /hpf Urine Mucus (FEW) /hpf Med Orders - Current: Current Medications Acetaminophen (Tylenol) 650 mg PO Q4H PRN PRN Reason: Pain (Mild 1-3)/fever Hydrocodone Bitart/Acetaminophen ([place] 325-5 Mg) 1 tab PO Q4H PRN PRN Reason: Pain (moderate 4-6) Albuterol/Ipratropium (Duoneb 3.0-0.5 Mg/3 Ml) 3 ml NEB Q4H PRN PRN Reason: Shortness Of Breath/wheezing Aspirin (Aspirin) 81 mg PO BEDTIME [facility] Last Admin: 10/30/17 21:59 Dose: 81 mg Bisacodyl (Dulcolax) 5 mg PO DAILY PRN PRN Reason: Constipation Dextrose/Water (Dextrose 50% In Water) 50 ml IVPUSH ASDIRECTED PRN PRN Reason: Hypoglycemia Docusate Sodium (Colace) 100 mg PO BID PRN PRN Reason: Constipation Enoxaparin Sodium (Lovenox) 70 mg SUBCUT Q12H [facility] Last Admin: 10/31/17 14:45 Dose: Not Given Ferrous Sulfate (Ferrous Sulfate) 325 mg PO BEDTIME [facility] Last Admin: 10/30/17 22:00 Dose: 325 mg Furosemide (Lasix) 40 mg PO BID [facility] Last Admin: 10/31/17 08:38 Dose: 40 mg Hydralazine HCl (Apresoline) 10 mg IVPUSH Q4H PRN PRN Reason: Hypertension Hydromorphone HCl (Dilaudid) 0.25 mg IVPUSH Q2H PRN PRN Reason: Pain (severe 7-10) Promethazine HCl 6.25 mg/ (Sodium Chloride) 50.25 mls @ 100 mls/hr IV Q6H PRN PRN Reason: Nausea/Vomiting Insulin Aspart (Novolog) 0 unit SUBCUT QIDACANDBED [facility]; Protocol Last Admin: 10/31/17 11:29 Dose: Not Given Lisinopril (Prinivil) 5 mg PO BEDTIME [facility] Last Admin: 10/30/17 22:02 Dose: 5 mg Lorazepam (Ativan) 2 mg IVPUSH Q4H PRN PRN Reason: Seizures Lorazepam (Ativan) 0.25 mg IV Q6H PRN PRN Reason: Anxiety Last Admin: 10/31/17 15:36 Dose: 1 mg Magnesium Sulfate (Pharmacy To Dose - Magnesium Replacement) 0 dose .XX ASDIRECTED PRN PRN Reason: RX TO WATCH MAG LEVELS Metoprolol Tartrate (Lopressor) 5 mg IVPUSH Q4H PRN PRN Reason: Tachycardia Montelukast Sodium (Singulair) 10 mg PO BEDTIME [facility] Last Admin: 10/30/17 21:59 Dose: 10 mg Non-Form (Trulicity 1.5 Mg) 1.5 mg IM ASDIRECTED [facility] Ondansetron HCl (Zofran) 4 mg IV Q6H PRN PRN Reason: Nausea/Vomiting Insulin Degludec ( (Tresiba)) 0 each SUBCUT BEDTIME [facility] Polyethylene Glycol (Miralax) 17 gm PO DAILY PRN PRN Reason: Constipation Potassium Chloride (Pharmacy To Dose - Potassium Replacement) 0 dose .XX ASDIRECTED PRN PRN Reason: RX TO WATCH K LEVELS Prednisone (Prednisone) 5 mg PO TID [facility] Stop: 11/02/17 21:00 Last Admin: 10/31/17 15:36 Dose: 5 mg Senna/Docusate Sodium (Senna Plus) 1 tab PO BID PRN PRN Reason: Constipation Simvastatin (Zocor) 20 mg PO BEDTIME [facility] Last Admin: 10/30/17 21:59 Dose: 20 mg Temazepam (Restoril) 7.5 mg PO BEDTIME PRN PRN Reason: Sleep Warfarin Sodium (Coumadin) 2.5 mg PO DAILY@1800 [facility] Discontinued Medications Atropine Sulfate (Atropine 0.1 Mg/Ml) Confirm Administered Dose 1 mg .ROUTE .STK -MED ONE Stop: 10/31/17 00:36 Magnesium Sulfate 2 gm/ Premix 50 mls @ 50 mls/hr IV ONETIME ONE Stop: 10/30/17 18:39 Last Admin: 10/30/17 18:17 Dose: 50 mls/hr Lorazepam (Ativan) Confirm Administered Dose 4 mg .ROUTE .STK-MED ONE Stop: 10/31/17 15:43 Midazolam HCl (Versed 1 Mg/Ml) Confirm Administered Dose 4 mg .ROUTE .STK-MED ONE Stop: 10/31/17 15:50 Non-FormLipo- Flavonoid Plus Caplet 1 tab PO DAILY [facility] Non-FormTresiba Flextouch U-200 1 Dose 1 dose SUBCUT ASDIRECTED [facility] - Exam General: Reports: Alert, Cooperative, No Acute Distress HEENT: Reports: Pupils Equal, Pupils Reactive, EOMI, Mucous Membr. Moist/[place] Neck: Reports: Supple, Trachea Midline, No JVD, No Thyromegaly Lungs: Reports: Normal Respiratory Effort Cardiovascular: Reports: Irregular Rhythm, Bradycardia GI/Abdominal Exam: Normal Bowel Sounds, Soft, Non-Tender, No Organomegaly, No Distention, No Abnormal Bruit, No Mass (Male) Exam: Deferred Rectal (Males) Exam: Deferred Back Exam: Reports: Normal Inspection, Decreased Range of Motion Extremities: Normal Inspection, Normal Range of Motion, Non-Tender, No Pedal Edema, Normal Capillary Refill Skin: Reports: Warm, Intact Neurological: Reports: No New Focal Deficit Psy/Mental Status: Reports: Alert, Normal Affect, Normal Mood
[2017-10-31] MEDS ORDERED: Warfarin 2.5 MG Tab PO SCH (18:00)
[2017-10-31 18:22] VITALS: BP 103/57
== END 2017-10-31 16:36 | DRG 66 ==
LOC: JD.ED 16:44 → JD.MS 18:43 → JD.ICU 10-31 14:43
PROVIDERS: ADMIT Internal Medicine; ATTEND Internal Medicine
DX: I63.9 Cerebral infarction, unspecified (principal); R47.01 Aphasia; E83.42 Hypomagnesemia; I48.91 Unspecified atrial fibrillation; E11.65 Type 2 diabetes mellitus with hyperglycemia; I48.2 Chronic atrial fibrillation; R00.1 Bradycardia, unspecified; Z79.899 Other long term (current) drug therapy; Z79.52 Long term (current) use of systemic steroids; I10 Essential (primary) hypertension; I25.10 Atherosclerotic heart disease of native coronary artery without angina pectoris; E78.00 Pure hypercholesterolemia, unspecified; J44.9 Chronic obstructive pulmonary disease, unspecified; E78.5 Hyperlipidemia, unspecified; D50.9 Iron deficiency anemia, unspecified; H54.7 Unspecified visual loss; F32.9 Major depressive disorder, single episode, unspecified; H91.90 Unspecified hearing loss, unspecified ear; M46.92 Unspecified inflammatory spondylopathy, cervical region; R79.1 Abnormal coagulation profile; Z79.4 Long term (current) use of insulin; Z79.01 Long term (current) use of anticoagulants; Z79.82 Long term (current) use of aspirin; Z95.5 Presence of coronary angioplasty implant and graft; Z85.828 Personal history of other malignant neoplasm of skin; Z87.891 Personal history of nicotine dependence
CPT/HCPCS: 36415; 70450; 70450-26; 80048; 80053; 80061; 81001; 82962; 83036; 83735; 84439; 84443; 85007; 85025; 85027; 85610; 85730; 87086; 93005; 96365; 99285-25; A9270-GY; J1650; J1815-GY; J2060; J2250; J3475

== ENCOUNTER 2017-11-06 03:47 | Emergency (ER) | payer MEDICARE, OTHER ==
--- NOTE | 2017-11-06 03:59 | EDM.PDOC ---
ED HPI GENERAL MEDICAL PROBLEM - General Chief Complaint: General Stated Complaint: pacemaker problem Time Seen by Provider: 11/06/17 03:52 - History of Present Illness INITIAL COMMENTS - FREE TEXT/NARRATIVE: 82-year-old male presents emergency room with bleeding from his pacemaker site. Patient had a pacemaker placed this last Saturday this evening when he went to bed he noticed he was losing blood and was more swollen than normal the bleeding progressively got worse of a come in this morning for evaluation. The patient does not have chest pain chest pressure no palpitations. The patient was sent to [facility] for continued stroke care and bradycardia after being admitted here. - Related Data Allergies Allergy/AdvReac Type Severity Reaction Status Date / Time No Known Allergies Allergy Verified 11/06/17 04:00 Home Meds: Home Meds Lisinopril 5 mg PO BEDTIME 04/16/14 [History] Pravastatin [Pravachol] 40 mg PO BEDTIME 04/16/14 [History] Furosemide 60 mg PO DAILY 02/14/16 [History] Aspirin 81 mg PO BEDTIME 07/31/17 [History] Bioflav,Lemon/Vit BComp&C [Lipo-Flavonoid Plus Caplet] 1 tab PO DAILY 09/18/17 [ History] Ferrous Sulfate [Iron] 325 mg PO BEDTIME 09/18/17 [History] Warfarin Sodium 2.5 mg PO DAILY 09/18/17 [History] Dulaglutide [Trulicity] 1.5 mg IM MO 10/30/17 [History] predniSONE [Prednisone] 10 mg PO ASDIRECTED 10/30/17 [History] Insulin Degludec [Tresiba Flextouch U-200] 8 units SQ ASDIRECTED 10/31/17 [ History] Past Medical History HEENT History: Reports: Hard of Hearing, Impaired Vision Cardiovascular History: Reports: Afib, CAD, High Cholesterol, Hypertension Respiratory History: Reports: COPD Gastrointestinal History: Reports: None Genitourinary History: Reports: None 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: Reports: None Musculoskeletal History: Reports: Arthritis (neck, spine) Neurological History: Reports: None Psychiatric History: Reports: Depression Endocrine/Metabolic History: Reports: Diabetes, Type II Hematologic History: Reports: Anticoagulation Therapy (Coumadin) Immunologic History: Reports: None Oncologic (Cancer) History: Reports: Other (See Below) Other Oncologic History: 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, unknown type Dermatologic History: Reports: None - Past Surgical History HEENT Surgical History: Reports: Cataract Surgery, Tonsillectomy Cardiovascular Surgical History: Reports: Coronary Artery Stent (x 1, November 2015) GI Surgical History: Reports: Cholecystectomy Musculoskeletal Surgical History: Reports: Knee Replacement (left x 2, right x 1 ) Oncologic Surgical History: Reports: Other (See Below) (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) Social & Family History - Family History Family Medical History: Noncontributory - Caffeine Use Caffeine Use: Reports: Coffee Other Caffeine Use: 4 cups - Living Situation & Occupation Living situation: Reports: , with Spouse Occupation: Retired ED ROS GENERAL - Review of Systems Review Of Systems: See Below Constitutional: Reports: No Symptoms Respiratory: Reports: No Symptoms Cardiovascular: Reports: No Symptoms GI/Abdominal: Reports: No Symptoms : Reports: No Symptoms Neurological: Reports: No Symptoms ED EXAM, GENERAL - Physical Exam Exam: See Below Exam Limited By: Other (Patient has poor hearing and did not bring his hearing aids however the patient's is able to communicate fairly well with him and he does follow directions) General Appearance: Alert, No Apparent Distress Head: Atraumatic, Normocephalic Neck: Normal Inspection, Supple, Non-Tender, Full Range of Motion Respiratory/Chest: No Respiratory Distress, Lungs Clear, Normal Breath Sounds Cardiovascular: Normal Peripheral Pulses, Regular Rate, Rhythm, No Edema, No Murmur GI/Abdominal: Normal Bowel Sounds, Soft, Non-Tender Skin Exam: Other (On the chest wall at the pacemaker site he has what appears to be a hematoma over and inferior to the pacemaker itself. He has oozing of blood from the suture line.) EKG INTERPRETATION Rhythm: Other (Ventricular paced rhythm) [place]: RAD-Right [place] Deviation QRS: Wide ST-T: Other (Normal ventricular paced/left bundle branch block ST pattern) QT: Prolonged (Borderline prolonged) EKG Interpretation Comments: Abnormal EKG Course - Vital Signs Last Recorded V/S: Last Vital Signs Temp 36.6 C 11/06/17 03:58 Pulse 70 11/06/17 03:58 Resp 16 11/06/17 03:58 BP 158/90 H 11/06/17 03:58 Pulse Ox 99 11/06/17 03:58 - Orders/Labs/Meds Orders: Active Orders 24 hr Category Date Time Status Cardiac Monitoring [RC] . DIRECTED Care 11/06/17 04:03 Active EKG Documentation Completion [RC] STAT Care 11/06/17 03:59 Active PLATELET FUNCTION [COAG] Stat Lab 11/06/17 04:20 Received EKG 12 Lead [EK] Stat Ther 11/06/17 03:59 Ordered Labs: Laboratory Tests 11/06/17 11/06/17 11/06/17 Range/Units 04:20 04:20 04:20 WBC 10.00 H (4.23-9.07) K/mm3 RBC 4.25 L (4.63-6.08) M/mm3 Hgb 12.6 L (13.7-17.5) gm/L Hct 38.3 L (40.1-51.0) % MCV 90.1 (79.0-92.2) fl MCH 29.6 (25.7-32.2) pg MCHC 32.9 (32.2-35.5) g/dl RDW Std Deviation 45.2 H (35.1-43.9) fL Plt Count 242 (163-337) K/mm3 MPV 9.7 (9.4-12.3) fl Neut % (Auto) 66.2 (34.0-67.9) % Lymph % (Auto) 21.5 L (21.8-53.1) % [place] % (Auto) 10.9 (5.3-12.2) % Eos % (Auto) 1.0 (0.8-7.0) Baso % (Auto) 0.2 (0.1-1.2) % Neut # (Auto) 6.62 H (1.78-5.38) K/mm3 Lymph # (Auto) 2.15 (1.32-3.57) K/mm3 [place] # (Auto) 1.09 H (0.30-0.82) K/mm3 Eos # (Auto) 0.10 (0.04-0.54) K/mm3 Baso # (Auto) 0.02 (0.01-0.08) K/mm3 PT 20.0 H (9.5-12.1) SECONDS INR 1.86 APTT 43 H (24-31) SECONDS Bleeding Time Cancelled Sodium 140 (136-145) mEq/L Potassium 3.6 (3.5-5.1) mEq/L Chloride 103 (98-107) mEq/L Carbon Dioxide 28 (21-32) mEq/L Anion Gap 12.6 (5-15) BUN 15 (7-18) mg/dL Creatinine 1.2 (0.7-1.3) mg/dL Est Cr Clr Drug Dosing 44.10 mL/min Estimated GFR (MDRD) 58 (>60) mL/min BUN/Creatinine Ratio 12.5 L (14-18) Glucose 97 (83-115) mg/dL Calcium 8.1 L (8.5-10.1) mg/dL Total Bilirubin 0.4 (0.2-1.0) mg/dL AST 26 (15-37) U/L ALT 45 (16-63) U/L Alkaline Phosphatase 165 H (46-116) U/L Total Protein 6.5 (6.4-8.2) g/dl Albumin 2.9 L (3.4-5.0) g/dl Globulin 3.6 gm/dL Albumin/Globulin Ratio 0.8 L (1-2) - Re-Assessments/Exams Free Text/Narrative Re-Assessment/Exam: 11/06/17 06:08 The pacemaker site was treated with quick clot after direct pressure to the bleeding sites and a pressure dressing was applied the best we can dislocation he was observed for some time his bleeding slowed down really significantly. I did discuss the patient's case with Dr. De Oliveira who recommends having the patient come over to the clinic for further evaluation. The patient is currently on bridge therapy with Lovenox and his INR is not quite therapeutic. Departure - Departure Time of Disposition: 06:10 Disposition: Home, Self-Care 01 Clinical Impression: Hematoma complicating a procedure Referrals: Les Olvera MD [Primary Care Provider] - Additional Instructions: Return to the emergency room with any questions problems worsening symptoms. Head to the heart and lung clinic in [place] to see Dr. De Oliveira again today. Nothing to eat or drink other than sips of water to take medicatio this morning. Do not take the Lovenox injection or the warfarin. - My Orders Last 24 Hours: My Active Orders 11/06/17 03:59 EKG Documentation Completion [RC] STAT EKG 12 Lead [EK] Stat 11/06/17 04:03 Cardiac Monitoring [RC] . DIRECTED 11/06/17 04:20 PLATELET FUNCTION [COAG] Stat - Assessment/Plan Last 24 Hours: My Active Orders 11/06/17 03:59 EKG Documentation Completion [RC] STAT EKG 12 Lead [EK] Stat 11/06/17 04:03 Cardiac Monitoring [RC] . DIRECTED 11/06/17 04:20 PLATELET FUNCTION [COAG] Stat
[2017-11-06 04:11] VITALS: BP 158/90
== END 2017-11-06 06:17 | disposition home or self-care (01) ==
LOC: JD.ED 03:47
DX: I97.621 Postprocedural hematoma of a circulatory system organ or structure following other procedure (principal); E78.00 Pure hypercholesterolemia, unspecified; I10 Essential (primary) hypertension; I48.91 Unspecified atrial fibrillation; J44.9 Chronic obstructive pulmonary disease, unspecified; E11.9 Type 2 diabetes mellitus without complications; F32.9 Major depressive disorder, single episode, unspecified; Z95.0 Presence of cardiac pacemaker; Z79.899 Other long term (current) drug therapy; Z79.82 Long term (current) use of aspirin; Z79.4 Long term (current) use of insulin; Z79.01 Long term (current) use of anticoagulants; Z98.890 Other specified postprocedural states
CPT/HCPCS: 36415; 80053; 85025; 85576; 85610; 85730; 93005; 99283-25

== ENCOUNTER 2019-05-12 15:59 | Emergency (ER) | payer MEDICARE, OTHER ==
[2019-05-12 16:42] VITALS: BP 104/71; PULSE 71
[2019-05-12] MEDS ORDERED: Sodium Chloride 0.9% 10 ML Syringe FLUSH PRN (17:32)
--- NOTE | 2019-05-12 17:36 | EDM.PDOC ---
<Maria Elena Thompson - Last Filed: 05/12/19 17:24> ED HPI GENERAL MEDICAL PROBLEM - General Chief Complaint: Lower Extremity Injury/Pain Stated Complaint: TOE INFECTED BLEEDING SENT BY [facility] Time Seen by Provider: 05/12/19 17:04 Source of Information: Reports: Patient, Family History Limitations: Reports: No Limitations - History of Present Illness INITIAL COMMENTS - FREE TEXT/NARRATIVE: 83 year old white male who presents to the ED with complaints of severe pain to left lower extremity. 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 Pt and his both report that pt was unable to sleep last night due to severe pain to the left foot. Was not able to get an appt to see his primary care provider today, so they came to the ED. The reports that the patient was initially prescribed Gabapentin 300 mg, but that this made him "loopy". She states that today she did give him Gabapentin 100mg and a Tramadol and that did seem to help his pain. This was at 1030 this morning. She didn't want to give him anymore medication today, however as this might have an adverse effect with whatever he would get in the ED. The patient's is requesting that he be admitted to the hospital, as she doesn't think that she can take care of him again tonight if he is having as much pain as last night. Pt's is also requesting the patient have a CT scan of his head, because he has had complaints of the left side of his head feeling "fuzzy". Other Treatments RELAY CHECKER: gabapentin and tramadol Left Toe-Hailux Pain Score (Numeric/FACES): 10 - Related Data Allergies Allergy/AdvReac Type Severity Reaction Status Date / Time No Known Allergies Allergy Verified 05/06/18 09:27 Home Meds: Home Meds Lisinopril 5 mg PO BEDTIME 04/16/14 [History] Pravastatin [Pravachol] 40 mg PO BEDTIME 04/16/14 [History] Furosemide 40 mg PO BID 02/14/16 [History] Aspirin 81 mg PO BEDTIME 07/31/17 [History] Bioflav,Lemon/Vit BComp&C [Lipo-Flavonoid Plus Caplet] 1 tab PO DAILY 09/18/17 [ History] Ferrous Sulfate [Iron] 325 mg PO BEDTIME 09/18/17 [History] Warfarin Sodium 3 mg PO DAILY 09/18/17 [History] Dulaglutide [Trulicity] 1.5 mg IM MO 10/30/17 [History] Insulin Degludec [Tresiba Flextouch U-200] 8 units SQ ASDIRECTED 10/31/17 [ History] Albuterol [Ventolin HFA] 2 puff INH Q6H PRN 05/06/18 [History] Codeine/Promethazine HCl [Promethazine-Codeine Syrup] 5 ml PO Q4H PRN 05/06/18 [ History] Losartan [Cozaar] 50 mg PO DAILY 05/06/18 [History] Ondansetron [Zofran ODT] 4 mg PO Q6H PRN #20 tab.dis 05/06/18 [Rx] predniSONE [Prednisone] 40 mg PO DAILY #10 tablet 05/06/18 [Rx] Hydrocodone/Acetaminophen [[place] 5-325 Tablet] 1 each PO Q6HR PRN #14 tablet [Rx] Past Medical History HEENT History: Reports: Hard of Hearing, Impaired Vision Cardiovascular History: Reports: Afib, CAD, High Cholesterol, Hypertension, Pacemaker Respiratory History: Reports: COPD Gastrointestinal History: Reports: None Genitourinary History: Reports: None [employer]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[employer]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 History: Reports: None Musculoskeletal History: Reports: Arthritis Neurological History: Reports: None Psychiatric History: Reports: Depression Endocrine/Metabolic History: Reports: Diabetes, Type II Hematologic History: Reports: Anticoagulation Therapy Immunologic History: Reports: None Oncologic (Cancer) History: Reports: Other (See Below) Other Oncologic History: 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, unknown type Dermatologic History: Reports: None - Past Surgical History Head Surgeries/Procedures: Reports: None HEENT Surgical History: Reports: Cataract Surgery, Tonsillectomy Cardiovascular Surgical History: Reports: Coronary Artery Stent GI Surgical History: Reports: Cholecystectomy Musculoskeletal Surgical History: Reports: Knee Replacement Oncologic Surgical History: Reports: Other (See Below) Social & Family History - Family History Family Medical History: Noncontributory - Tobacco Use Smoking Status *Q: Former Smoker Used Tobacco, but Quit: Yes Month/Year Tobacco Last Used: 5 - Caffeine Use Caffeine Use: Reports: Coffee, Tea Other Caffeine Use: 4 cups - Recreational Drug Use Recreational Drug Use: No - Living Situation & Occupation Living situation: Reports: , with Spouse Occupation: Retired Review of Systems - Review of Systems Review Of Systems: See Below Constitutional: Reports: No Symptoms. Denies: Chills, Fever Eyes: Reports: No Symptoms Ears: Reports: No Symptoms Nose: Reports: No Symptoms Mouth/Throat: Reports: No Symptoms Respiratory: Reports: No Symptoms Cardiovascular: Reports: No Symptoms GI/Abdominal: Reports: No Symptoms Genitourinary: Reports: No Symptoms Musculoskeletal: Reports: Foot Pain (necrotic toes to left foot) Skin: Reports: Other (necrotic toes to left foot) Neurological: Reports: No Symptoms. Denies: Confusion, Dizziness, Headache, Numbness, Syncope Psychiatric: Reports: No Symptoms ED EXAM, GENERAL - Physical Exam Exam: See Below Exam Limited By: No Limitations General Appearance: Alert, WD/WN, No Apparent Distress Ears: Normal External Exam. No: Hearing Grossly Normal (pt wears bilateral hearing aids and is still hard of hearing) Nose: Normal Inspection Throat/Mouth: Normal Inspection, Normal Lips, Normal Voice, No Airway Compromise Head: Atraumatic, Normocephalic Neck: Normal Inspection, Supple Respiratory/Chest: No Respiratory Distress, Lungs Clear, Normal Breath Sounds, Chest Non-Tender Cardiovascular: Regular Rate, Rhythm GI/Abdominal: Normal Bowel Sounds, Soft, Non-Tender (Male) Exam: Deferred Rectal (Males) Exam: Deferred Back Exam: Normal Inspection Extremities: Other (left foot erythema, left great toe is necrotic, left second toe has a pea-sized necrotic area to the pad, left third toes has a pea-sized necrotic area to the pad) Neurological: Alert, Oriented, Normal Cognition Psychiatric: Normal Affect, Normal Mood Skin Exam: Wound/Incision (left foot erythema, left great toe is necrotic, left second toe has a pea-sized necrotic area to the pad, left third toes has a pea- sized necrotic area to the pad) Lymphatic: No Adenopathy Course - Vital Signs Last Recorded V/S: Last Vital Signs Temp 97.3 F 05/12/19 16:40 Pulse 71 05/12/19 16:40 Resp 20 05/12/19 16:40 BP 104/71 05/12/19 16:40 Pulse Ox 96 05/12/19 16:40 - Orders/Labs/Meds Orders: Active Orders 24 hr Category Date Time Status Peripheral IV Care [RC] . DIRECTED Care 05/12/19 17:33 Active Peripheral IV Insertion Adult [OM.PC] Stat Oth 05/12/19 17:33 Ordered Labs: Laboratory Tests 05/12/19 05/12/19 Range/Units 17:40 17:40 WBC 8.77 (4.23-9.07) K/mm3 RBC 3.71 L (4.63-6.08) M/mm3 Hgb 10.8 L (13.7-17.5) gm/dl Hct 33.6 L (40.1-51.0) % MCV 90.6 (79.0-92.2) fl MCH 29.1 (25.7-32.2) pg MCHC 32.1 L (32.2-35.5) g/dl RDW Std Deviation 44.0 H (35.1-43.9) fL Plt Count 335 (163-337) K/mm3 MPV 9.0 L (9.4-12.3) fl Neut % (Auto) 65.6 (34.0-67.9) % Lymph % (Auto) 11.3 L (21.8-53.1) % [place] % (Auto) 15.2 H (5.3-12.2) % Eos % (Auto) 7.6 H (0.8-7.0) Baso % (Auto) 0.2 (0.1-1.2) % Neut # (Auto) 5.75 H (1.78-5.38) K/mm3 Lymph # (Auto) 0.99 L (1.32-3.57) K/mm3 [place] # (Auto) 1.33 H (0.30-0.82) K/mm3 Eos # (Auto) 0.67 H (0.04-0.54) K/mm3 Baso # (Auto) 0.02 (0.01-0.08) K/mm3 Manual Slide Review Abnormal smear Sodium 136 (136-145) mEq/L Potassium 3.8 (3.5-5.1) mEq/L Chloride 101 (98-107) mEq/L Carbon Dioxide 26 (21-32) mEq/L Anion Gap 12.8 (5-15) BUN 27 H (7-18) mg/dL Creatinine 1.5 H (0.7-1.3) mg/dL Est Cr Clr Drug Dosing 37.18 mL/min Estimated GFR (MDRD) 44 (>60) mL/min BUN/Creatinine Ratio 18.0 (14-18) Glucose 237 H (83-115) mg/dL Calcium 8.3 L (8.5-10.1) mg/dL Total Bilirubin 0.3 (0.2-1.0) mg/dL AST 48 H (15-37) U/L ALT 32 (16-63) U/L Alkaline Phosphatase 334 H (46-116) U/L Total Protein 7.5 (6.4-8.2) g/dl Albumin 2.1 L (3.4-5.0) g/dl Globulin 5.4 gm/dL Albumin/Globulin Ratio 0.4 L (1-2) Meds: Medications Discontinued Medications Generic Name Dose Route Start Last Admin Trade Name Freq PRN Reason Stop Dose Admin Hydromorphone HCl 0.5 mg 05/12/19 17:40 05/12/19 17:49 Dilaudid IVPUSH 05/12/19 17:41 0.5 mg ONETIME ONE Administration Hydromorphone HCl 0.5 mg 05/12/19 19:01 05/12/19 19:24 Dilaudid IVPUSH 05/12/19 19:02 0.5 mg ONETIME ONE Administration Sodium Chloride 10 ml 05/12/19 17:32 05/12/19 17:50 Saline Flush FLUSH 10 ml ASDIRECTED PRN Administration Keep Vein Open - Re-Assessments/Exams Free Text/Narrative Re-Assessment/Exam: 05/12/19 17:36 I have ordered a CBC, CMP, and a CT of the head on this patient. Departure - Departure Disposition: Home, Self-Care 01 Clinical Impression: Foot pain, left, Peripheral vascular disease, Ischemic foot - Discharge Information Prescriptions: Hydrocodone/Acetaminophen [[place] 5-325 Tablet] 1 each PO Q6HR PRN #14 tablet PRN Reason: Pain Referrals: Les Olvera MD [Primary Care Provider] - Forms: ED Department Discharge Additional Instructions: See Dr Rowell tomorrow as planned. Call clinic and talk to Dr Rowell's nurse around 8 AM to get a time to see Dr Rowell. Continue gabapentin 100 mg 3 times daily, give that on a regular basis rather than as needed. For now hydrocodone 5/325 q 6 to 8 as needed for severe pain. Prescription has been sent electronic to [facility]. Return to ED as needed. - My Orders Last 24 Hours: My Active Orders 05/12/19 17:33 Peripheral IV Care [RC] . DIRECTED Peripheral IV Insertion Adult [OM.PC] Stat - Assessment/Plan Last 24 Hours: My Active Orders 05/12/19 17:33 Peripheral IV Care [RC] . DIRECTED Peripheral IV Insertion Adult [OM.PC] Stat <Alireza Navarro Leonidas - Last Filed: 05/12/19 20:02> Course - Re-Assessments/Exams Free Text/Narrative Re-Assessment/Exam: 05/12/19 19:25 Initial hx and exam was done by Maria Elena Wild, [employer] student. I agree with her hx and exam as documented. I have also examined patient, interviewed patient, . They are here at this time mainly looking for better pain control. As noted his has cut him way back on the gabapentin "because it makes him loopy". He has had only 100 mg this past morning and tramadol 50 mg also this past morning. White blood count was good, chemistries did come back relatively normal. We did do a CT of his head because he was complaining of an uncomfortable feeling of the left side of his head and his was uncomfortable with that. 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 Mild generalized atrophy. See radiology report for details. He did get some relief of his severe left foot pain from dilaudid 0.5 mg IV. That was given about 2 hours ago. At this time he states "the pain is starting to come back, have given another 50 mg dosage for this evening and to hopefully help him have a better night. I am also going to prescribe some hydrocodone that he can take at bedtime and during the night as needed. Sounds like even trying to sleep in his lift chair he had very little sleep last night. His states that she was told by Dr Rowell 's nurse that he can be seen at the [facility] tomorrow but does not have a time. Discharge instructions as documented. Departure - Departure Time of Disposition: 19:16 Condition: Fair
[2019-05-12] MEDS ORDERED: HYDROmorphone 0.5 MG/0.5 ML Syringe IVPUSH ONE ×2 (17:40→19:01)
--- NOTE | 2019-05-12 18:41 | CT ---
Head CT Technique: Multiple axial sections were obtained through the brain. Intravenous contrast was not utilized. Comparison: Prior head CT study of 10/30/17. Findings: Low density is seen within the posterior left parietal and posterior left temporal regions. This is an interval change from prior exam and presumably represents an interval ischemic infarct. No other abnormal parenchymal densities are seen. No evidence of intracranial hemorrhage. No midline shift or mass effect is seen. Ventricles along with basal cisterns and sulci over the convexities are mildly prominent. Bone window settings were reviewed which shows no acute calvarial abnormality. Visualized paranasal sinuses show nothing acute. Visualized mastoid sinuses show nothing acute. Impression: 1. 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 This is an interval change from prior head CT. 2. Mild generalized atrophy. 3. No acute intracranial abnormality is appreciated. Diagnostic code #3 This report was dictated in [place] Standard Time
== END 2019-05-12 19:40 | disposition home or self-care (01) ==
LOC: JD.ED 15:59
DX: E11.52 Type 2 diabetes mellitus with diabetic peripheral angiopathy with gangrene (principal); I96 Gangrene, not elsewhere classified; I48.91 Unspecified atrial fibrillation; I10 Essential (primary) hypertension; J44.9 Chronic obstructive pulmonary disease, unspecified; Z79.82 Long term (current) use of aspirin; Z79.4 Long term (current) use of insulin; Z79.01 Long term (current) use of anticoagulants; Z79.899 Other long term (current) drug therapy; Z79.52 Long term (current) use of systemic steroids; Z85.9 Personal history of malignant neoplasm, unspecified; Z87.891 Personal history of nicotine dependence
CPT/HCPCS: 36415; 70450; 80053; 85025; 96374; 96376; 99284; J1170

== ENCOUNTER 2019-05-15 18:24 | Observation (INO) | payer MEDICARE, OTHER ==
--- NOTE | 2019-05-15 19:36 | EDM.PDOC ---
ED HPI GENERAL MEDICAL PROBLEM - General Chief Complaint: Lower Extremity Injury/Pain Stated Complaint: toe pain Time Seen by Provider: 05/15/19 18:56 Source of Information: Reports: Patient, Family ( + daughter) History Limitations: Reports: No Limitations - History of Present Illness INITIAL COMMENTS - FREE TEXT/NARRATIVE: Mr. Álvarez is a very pleasant 83-year-old man with numerous chronic medical issues, including chronic atrial fibrillation, on Coumadin, coronary artery disease, chronic renal insufficiency, and diabetes, who started to develop gangrene to his left great toe after its toenail was removed in August 2018. The patient has been seen by the Orthopedic Surgeon, and the family tells me that the patient is scheduled for amputation of the great toe this coming week, although they do not have actual date. Medical records indicate that the patient was seen in this ED this past Saturday , 05/12/2019, complaining with left foot pain so great that he could not sleep. He was already being treated with gabapentin and tramadol. Workup in the ED included a CBC, which was normal, and a CMP, which was remarkable for a BUN/Cr elevated at 27/1.5, and a blood glucose elevated at 237. His alkaline phosphatase is elevated at 334. A CT scan of his head (requested by his ) found old strokes, but no acute abnormalities. The patient was treated with 2 doses of Dilaudid 0.5 mg, and he was discharged home with a prescription for [place] 5/325, one tablet po Q 6-8 hrs prn and instructions to take his previously prescribed gabapentin 100 mg po TID. he was to follow-up with his PCP the following day. The family tells me that he did in fact follow-up with his PCP the following day , and that no changes were made to his medications, but that his PCP would be arranging for amputation of his left great toe per his Orthopedic Surgeon. They state that it is their understanding that the amputation will be this coming week, but they do not know the specific date. The patient now returns to the ED stating that his condition has not changed since 05/12/2019, but that his pain is inadequately controlled, and he has not been able to sleep for the past 2 nights. The patient reports chronic chills, but no recent fever, cough, dyspnea, chest pain, palpitations, nausea, vomiting , constipation, diarrhea, urinary symptoms, abdominal pain, recent weight gain or weight loss, recent bloody bowel movements or black bowel movements, recent headaches, or rashes. The patient's PCP is Dr. Les Olvera. His Board Attendant is Dr. Ayden Avila. His Orthopedic Surgeon is Dr. Eran Sherwood. The patient did receive an influenza vaccine this season. Left Foot Pain Score (Numeric/FACES): 10 - Related Data Allergies Allergy/AdvReac Type Severity Reaction Status Date / Time No Known Allergies Allergy Verified 05/15/19 18:52 Home Meds: Home Meds Lisinopril 5 mg PO BEDTIME 04/16/14 [History] Pravastatin [Pravachol] 40 mg PO BEDTIME 04/16/14 [History] Furosemide 40 mg PO BID 02/14/16 [History] Aspirin 81 mg PO BEDTIME 07/31/17 [History] Bioflav,Lemon/Vit BComp&C [Lipo-Flavonoid Plus Caplet] 1 tab PO DAILY 09/18/17 [ History] Ferrous Sulfate [Iron] 325 mg PO BEDTIME 09/18/17 [History] Warfarin Sodium 3 mg PO DAILY 09/18/17 [History] Insulin Degludec [Tresiba Flextouch U-200] 8 units SQ ASDIRECTED 10/31/17 [ History] Losartan [Cozaar] 50 mg PO DAILY 05/06/18 [History] Ondansetron [Zofran ODT] 4 mg PO Q6H PRN #20 tab.dis 05/06/18 [Rx] Hydrocodone/Acetaminophen [[place] 5-325 Tablet] 1 each PO Q6HR PRN #14 tablet [Rx] Bioflav,Lemon/Vit BComp&C [Lipo-Flavonoid Plus Caplet] 1 mg PO DAILY 05/15/19 [ History] Past Medical History HEENT History: Reports: Hard of Hearing, Impaired Vision Cardiovascular History: Reports: Afib (chronic), CAD, High Cholesterol, Hypertension Genitourinary History: Reports: Chronic Renal Insuffiency Musculoskeletal History: Reports: Arthritis (neck, spine) Neurological History: Reports: CVA (per CT/head) Psychiatric History: Reports: Depression Endocrine/Metabolic History: Reports: Diabetes, Type II Oncologic (Cancer) History: Reports: Other (See Below) (left neck, s/p excision) - Past Surgical History HEENT Surgical History: Reports: Cataract Surgery (bilateral), Tonsillectomy Cardiovascular Surgical History: Reports: Coronary Artery Stent (x 16 November 2015) , Pacer GI Surgical History: Reports: Cholecystectomy (around 2009) Musculoskeletal Surgical History: Reports: Knee Replacement (left x 2, right x 1 ) Other Musculoskeletal Surgeries/Procedures:: bilateral knee replacement Oncologic Surgical History: Reports: Other (See Below) (skin cancer excised from left neck) Social & Family History - Family History Family Medical History: Noncontributory - Tobacco Use Tobacco Use Within Last Twelve Months: Pipe (Quit 2007) - Caffeine Use Caffeine Use: Reports: Coffee, Tea Other Caffeine Use: 4 cups - Alcohol Use Alcohol Use History: No - Recreational Drug Use Recreational Drug Use: No - Living Situation & Occupation Living situation: Reports: , with Spouse Occupation: Retired Review of Systems - Review of Systems Review Of Systems: Comprehensive ROS is negative, except as noted in HPI. ED EXAM, GENERAL - Physical Exam Exam: See Below Exam Limited By: No Limitations General Appearance: Alert, WD/WN, No Apparent Distress Eye Exam: Bilateral Eye: EOMI, Normal Inspection Ears: Normal External Exam, Hearing Loss Nose: Normal Inspection Throat/Mouth: Normal Inspection, Normal Lips, Normal Voice, No Airway Compromise Head: Atraumatic, Normocephalic Neck: Normal Inspection, Full Range of Motion Respiratory/Chest: No Respiratory Distress, Lungs Clear, Normal Breath Sounds, No Accessory Muscle Use Cardiovascular: Normal Peripheral Pulses, No Gallop, No JVD, No Murmur, No Rub, Irregularly Irregular (regular rate) Peripheral Pulses: 0: Posterior Tibial (L), Posterior Tibial (R), Dorsalis Pedis (L), Dorsalis Pedis (R), 4+: Radial (L), Radial (R) GI/Abdominal: Normal Bowel Sounds, Soft, Non-Tender, No Organomegaly, No Distention, No Abnormal Bruit, No Mass (Male) Exam: Deferred Rectal (Males) Exam: Deferred Back Exam: Normal Inspection, Full Range of Motion, NT Extremities: Other (The dorsum of the left foot is erythematous and swollen with uzqaxjxca-[id number]-ehn edema. The foot is relatively cool to touch. The distal half of the left great toe is gangrenous with mild malodor, but there is a small drop of fresh-appearing blood on the tip of the toe. The proximal half of the great toe is swollen with purplish discoloration. There is also eschar to the pads of the left 2nd and 3rd toes.) Neurological: Alert, Oriented, CN II-XII Intact, Normal Cognition, Normal Gait, Normal Reflexes, No Motor/Sensory Deficits Psychiatric: Normal Affect Skin Exam: Warm, Dry, Intact, Normal Color, No Rash Course - Vital Signs Last Recorded V/S: Last Vital Signs Temp 36.8 C 05/15/19 19:00 Pulse 75 05/15/19 19:00 Resp 16 05/15/19 19:00 BP 131/71 05/15/19 19:00 Pulse Ox 95 05/15/19 19:00 - Re-Assessments/Exams Free Text/Narrative Re-Assessment/Exam: 05/15/19 19:29 Although there is no obvious infection at this time, the poor neurovascular status of the left foot puts the patient at significantly increased risk for the development of an infection. Clearly, the patient requires amputation of his left great toe, plus debridement of his left second and third toes, however , Dr. Sherwood is not on the schedule for the remainder of this month, and our business unit manager informs me that the current May schedule does not have him on for the whole month of May, either. It is doubtful Dr. Sherwood is not actually on the schedule, but, unfortunately, at this time we do not know when he will become available. Ordinarily, I would recommend transfer to [place] for an amputation, however, at present the roads are treacherous due to recent freezing rain. Worse, a snowstorm is expected over the next day or two, therefore the roads are only expected to get worse. The plan, therefore, would be to place the patient into observation for pain control and antibiotics, then transfer him to [place] once the roads become passable. The patient and his family are in agreement with this plan. Case discussed with Dr. Alberts at 19:19. She is in agreement with the plan. In addition to some basic labs, I will order an MRSA screen by PCR, an ESR, an INR, and a Hgb A1c. I will start the patient on empiric vancomycin and Zosyn. The patient will receive one tablet of Eudora every 6 hours, plus morphine 2 mg every 4 hours as needed for breakthrough pain. I will order Accu-Cheks QAC and QHS, along with a low sensitivity insulin sliding scale. Departure - Departure Time of Disposition: 19:35 Disposition: Refer to Observation Condition: Fair Clinical Impression: Gangrene of toe, Diabetic neuropathy, Peripheral vascular disease - Discharge Information *PRESCRIPTION DRUG MONITORING PROGRAM REVIEWED*: Not Applicable *COPY OF PRESCRIPTION DRUG MONITORING REPORT IN PATIENT NAWAF: Not Applicable Referrals: Les Olvera MD [Primary Care Provider] - Ayden Avila MD [Ordering Only Provider] - Eran Sherwood MD [Physician] -
[2019-05-15] MEDS ORDERED: Piperacillin/Tazobactam 3.375 GM in Sodium Chloride 0.9% 100 ML IV SCH (21:15)
[2019-05-15] MEDS ORDERED: Piperacillin/Tazobactam 4.5 GM in Sodium Chloride 0.9% 100 ML IV ONE (21:30)
[2019-05-15] MEDS ORDERED: Vancomycin 1.5 GM in Sodium Chloride 0.9% 500 ML IV ONE (21:30)
[2019-05-15] MEDS: Acetaminophen/HYDROcodone 325-5 MG Tab PO SCH (21:44)
[2019-05-15] MEDS: Morphine 2 MG/ML Syringe IVPUSH PRN (22:31)
[2019-05-16] MEDS: Morphine 2 MG/ML Syringe IVPUSH PRN (02:45)
[2019-05-16] MEDS: Piperacillin/Tazobactam 4.5 GM in Sodium Chloride 0.9% 100 ML IV SCH ×2 (02:52→04:01)
[2019-05-16] MEDS: Acetaminophen/HYDROcodone 325-5 MG Tab PO SCH ×2 (03:16→08:44)
[2019-05-16 07:15] LABS: HEMOGLOBIN A1C 6.4 % (4.50-6.20)
--- NOTE | 2019-05-16 09:44 | PCM.HP.2 ---
H&P History of Present Illness - General Date of Service: 05/15/19 Admit Problem/Dx: Admission Diagnosis/Problem Admission Diagnosis/Problem Foot pain - History of Present Illness Initial Comments - Free Text/Narative: This is a 83-year-old man with numerous chronic medical issues, including chronic atrial fibrillation, on Coumadin, coronary artery disease, chronic renal insufficiency, and diabetes, who started to develop gangrene to his left great toe after its toenail was removed in August 2018. He has been seen by the Orthopedic Surgeon, and the family tells me that the patient is scheduled for amputation of the great toe this coming week, although they do not have actual date. He was seen in this ED this past 05/12/2019, complaining with left foot pain so great that he could not sleep. He was already being treated with gabapentin and tramadol. Workup in the ED included a CBC, which was normal, and a CMP, which was remarkable for a BUN/Cr elevated at 27/1.5, and a blood glucose elevated at 237. His alkaline phosphatase is elevated at 334. A CT scan of his head (requested by his ) found old strokes, but no acute abnormalities. The patient was treated with 2 doses of Dilaudid 0.5 mg, and he was discharged home with a prescription for [place] 5/325, one tablet po Q 6-8 hrs prn and instructions to take his previously prescribed gabapentin 100 mg po TID. he was to follow-up with his PCP the following day. The family tells me that he did in fact follow-up with his PCP the following day , and that no changes were made to his medications, but that his PCP would be arranging for amputation of his left great toe per his Orthopedic Surgeon. They state that it is their understanding that the amputation will be this coming week, but they do not know the specific date. He returns to the ED stating that his condition has not changed since 05/12/2019 , but that his pain is inadequately controlled, and he has not been able to sleep for the past 2 nights. The patient reports chronic chills, but no recent fever, cough, dyspnea, chest pain, palpitations, nausea, vomiting, constipation , diarrhea, urinary symptoms, abdominal pain, recent weight gain or weight loss , recent bloody bowel movements or black bowel movements, recent headaches, or rashes. Left Foot Pain Score (Numeric/FACES): 10 - Related Data Allergies/Adverse Reactions: Allergies Allergy/AdvReac Type Severity Reaction Status Date / Time No Known Allergies Allergy Verified 05/15/19 18:52 Home Medications: Home Meds Lisinopril 5 mg PO BEDTIME 04/16/14 [History] Pravastatin [Pravachol] 40 mg PO BEDTIME 04/16/14 [History] Furosemide 40 mg PO BID 02/14/16 [History] Aspirin 81 mg PO BEDTIME 07/31/17 [History] Bioflav,Lemon/Vit BComp&C [Lipo-Flavonoid Plus Caplet] 1 tab PO DAILY 09/18/17 [ History] Ferrous Sulfate [Iron] 325 mg PO BEDTIME 09/18/17 [History] Warfarin Sodium 3 mg PO DAILY 09/18/17 [History] Insulin Degludec [Tresiba Flextouch U-200] 8 units SQ ASDIRECTED 10/31/17 [ History] Losartan [Cozaar] 50 mg PO DAILY 05/06/18 [History] Ondansetron [Zofran ODT] 4 mg PO Q6H PRN #20 tab.dis 05/06/18 [Rx] Hydrocodone/Acetaminophen [[place] 5-325 Tablet] 1 each PO Q6HR PRN #14 tablet [Rx] Bioflav,Lemon/Vit BComp&C [Lipo-Flavonoid Plus Caplet] 1 mg PO DAILY 05/15/19 [ History] Past Medical History HEENT History: Reports: Hard of Hearing, Impaired Vision Cardiovascular History: Reports: Afib, CAD, High Cholesterol, Hypertension Respiratory History: Reports: COPD Gastrointestinal History: Reports: None Genitourinary History: Reports: Chronic Renal Insuffiency [employer]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 Musculoskeletal History: Reports: Arthritis Neurological History: Reports: CVA Other Neuro History: stroke last november Psychiatric History: Reports: Depression Endocrine/Metabolic History: Reports: Diabetes, Type II Hematologic History: Reports: Anticoagulation Therapy Immunologic History: Reports: None Oncologic (Cancer) History: Reports: Other (See Below) Other Oncologic History: 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, unknown type Dermatologic History: Reports: None - Past Surgical History Head Surgeries/Procedures: Reports: None HEENT Surgical History: Reports: Cataract Surgery, Tonsillectomy Cardiovascular Surgical History: Reports: Coronary Artery Stent, Pacer GI Surgical History: Reports: Cholecystectomy Musculoskeletal Surgical History: Reports: Knee Replacement Other Musculoskeletal Surgeries/Procedures:: bilateral knee replacement Oncologic Surgical History: Reports: Other (See Below) Social & Family History - Family History Family Medical History: Noncontributory - Tobacco Use Smoking Status *Q: Unknown Ever Smoked Second Hand Smoke Exposure: No - Caffeine Use Caffeine Use: Reports: None Other Caffeine Use: 4 cups - Recreational Drug Use Recreational Drug Use: No - Living Situation & Occupation Living situation: Reports: , with Spouse Occupation: Retired H&P Review of Systems - Review of Systems: Review Of Systems: Comprehensive ROS is negative, except as noted in HPI. Exam - Exam Exam: See Below - Vital Signs Vital Signs: Last Vital Signs Temp 97.9 F 05/15/19 20:45 Pulse 75 05/15/19 19:00 Resp 16 05/15/19 20:45 BP 131/84 05/15/19 20:45 Pulse Ox 95 05/15/19 19:00 Weight: 74.979 kg - Exam Physical Exam Comments:: General Appearance: Alert, WD/WN, No Apparent Distress Eye Exam: Bilateral Eye: EOMI, Normal Inspection Ears: Normal External Exam, Hearing Loss Nose: Normal Inspection Throat/Mouth: Normal Inspection, Normal Lips, Normal Voice, No Airway Compromise Head: Atraumatic, Normocephalic Neck: Normal Inspection, Full Range of Motion Respiratory/Chest: No Respiratory Distress, Lungs Clear, Normal Breath Sounds, No Accessory Muscle Use Cardiovascular: Normal Peripheral Pulses, No Gallop, No JVD, No Murmur, No Rub, Irregularly Irregular (regular rate) Peripheral Pulses: 0: Posterior Tibial (L), Posterior Tibial (R), Dorsalis Pedis (L), Dorsalis Pedis (R), 4+: Radial (L), Radial (R) GI/Abdominal: Normal Bowel Sounds, Soft, Non-Tender, No Organomegaly, No Distention, No Abnormal Bruit, No Mass (Male) Exam: Deferred Rectal (Males) Exam: Deferred Back Exam: Normal Inspection, Full Range of Motion, NT Extremities: Other (The dorsum of the left foot is erythematous and swollen with hhymdzdrh-el-mpy edema. The foot is relatively cool to touch. The distal half of the left great toe is gangrenous with mild malodor, but there is a small drop of fresh-appearing blood on the tip of the toe. The proximal half of the great toe is swollen with purplish discoloration. There is also eschar to the pads of the left 2nd and 3rd toes.) Neurological: Alert, Oriented, CN II-XII Intact, Normal Cognition, Normal Gait, Normal Reflexes, No Motor/Sensory Deficits Psychiatric: Normal Affect Skin Exam: Warm, Dry, Intact, Normal Color, No Rash - Patient Data Result Diagrams: 05/16/19 05:30 05/16/19 05:30 - Problem List (1) Gangrene of toe SNOMED Code(s): 300871861 ICD Code: I96 - [place], NOT ELSEWHERE CLASSIFIED Status: Acute Current Visit: Yes (2) Peripheral vascular disease SNOMED Code(s): 696768748 ICD Code: I73.9 - PERIPHERAL VASCULAR DISEASE, UNSPECIFIED Status: Acute Current Visit: Yes (3) Coronary artery disease SNOMED Code(s): 78737584 ICD Code: I25.10 - ATHSCL HEART DISEASE OF [place] CORONARY ARTERY W/O ANG PCTRS Status: Acute Current Visit: Yes (4) Diabetes mellitus SNOMED Code(s): 89373546 ICD Code: E11.9 - TYPE 2 DIABETES MELLITUS WITHOUT COMPLICATIONS Status: Acute Current Visit: Yes (5) Leukocytosis SNOMED Code(s): 331865807, 882954159 ICD Code: D72.829 - ELEVATED WHITE BLOOD CELL COUNT, UNSPECIFIED Status: Acute Current Visit: Yes (6) Anemia SNOMED Code(s): 870549258 ICD Code: D64.9 - ANEMIA, UNSPECIFIED Status: Acute Current Visit: Yes (7) Hypokalemia SNOMED Code(s): 91153973 ICD Code: E87.6 - HYPOKALEMIA Status: Acute Current Visit: Yes (8) Acute kidney failure SNOMED Code(s): 97457255 ICD Code: N17.9 - ACUTE KIDNEY FAILURE, UNSPECIFIED Status: Acute Current Visit: Yes (9) Chronic kidney disease SNOMED Code(s): 673644230 ICD Code: N18.9 - CHRONIC KIDNEY DISEASE, UNSPECIFIED Status: Acute Current Visit: Yes (10) Anticoagulant long-term use SNOMED Code(s): 536785895 ICD Code: Z79.01 - TIN DIPPER (CURRENT) USE OF 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 Status: Acute Current Visit: Yes (11) Anticoagulated on Coumadin SNOMED Code(s): 05434355 ICD Code: Z79.01 - TIN DIPPER (CURRENT) USE OF 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 Status: Acute Current Visit: Yes (12) Diabetic neuropathy SNOMED Code(s): 124948652, 867945776 ICD Code: E11.40 - TYPE 2 DIABETES MELLITUS WITH DIABETIC NEUROPATHY, UNSP Status: Acute Current Visit: Yes (13) Atrial fibrillation with slow ventricular response SNOMED Code(s): 80367302, 601008653 ICD Code: I48.91 - UNSPECIFIED ATRIAL FIBRILLATION Status: Acute Current Visit: No (14) Foot pain, left SNOMED Code(s): 46863183 ICD Code: M79.672 - PAIN IN LEFT FOOT Status: Acute Current Visit: No Problem List Initiated/Reviewed/Updated: Yes Assessment/Plan Comment:: Gangrene of left great toe Peripheral vascular disease Leukocytosis Seen as an outpatient by PCP who recommended amputation Previous angiogram verbally reported by daughter for circulation up to knee Has not been seen by orthopedics PLAN - Start Zosyn and vancomycin - Pain control - ESR - Transfer to [place] once feasible Coronary artery disease No acute issues PLAN - Continue home medications Diabetes mellitus, unknown HbA1c Diabetic neuropathy On insulin at home Verbal report of compliance with medications PLAN - New HbA1c - Accu-checks TID AC and HS - Low sensitivity sliding scale - Hold home insulin for now - Hypoglycemia protocol Acute on Chronic kidney disease, stage 3A, GFR 48 Hypokalemia Normocytic-normochromic anemia GFR on admission 39 Anemia likely multifactorial PLAN - Monitor urinary output - Encourage oral intake Atrial fibrillation with slow ventricular response Anticoagulated on Coumadin Rate controlled PLAN - PT/INR in AM PROPHYLAXIS DVT- warfarin GI- not indicated CODE STATUS: FULL CODE DISPOSITION: Admit patient for patient control and trasfer to [place] for amputation as soon as feasible.
--- NOTE | 2019-05-16 10:39 | PCM.DCSUM1 ---
Discharge Summary - Hospital Course HPI Initial Comments: This is a 83-year-old man with numerous chronic medical issues, including chronic atrial fibrillation, on Coumadin, coronary artery disease, chronic renal insufficiency, and diabetes, who started to develop gangrene to his left great toe after its toenail was removed in August 2018. He has been seen by the Orthopedic Surgeon, and the family tells me that the patient is scheduled for amputation of the great toe this coming week, although they do not have actual date. He was seen in this ED this past 05/12/2019, complaining with left foot pain so great that he could not sleep. He was already being treated with gabapentin and tramadol. Workup in the ED included a CBC, which was normal, and a CMP, which was remarkable for a BUN/Cr elevated at 27/1.5, and a blood glucose elevated at 237. His alkaline phosphatase is elevated at 334. A CT scan of his head (requested by his ) found old strokes, but no acute abnormalities. The patient was treated with 2 doses of Dilaudid 0.5 mg, and he was discharged home with a prescription for [place] 5/325, one tablet po Q 6-8 hrs prn and instructions to take his previously prescribed gabapentin 100 mg po TID. he was to follow-up with his PCP the following day. The family tells me that he did in fact follow-up with his PCP the following day , and that no changes were made to his medications, but that his PCP would be arranging for amputation of his left great toe per his Orthopedic Surgeon. They state that it is their understanding that the amputation will be this coming week, but they do not know the specific date. He returns to the ED stating that his condition has not changed since 05/12/2019 , but that his pain is inadequately controlled, and he has not been able to sleep for the past 2 nights. The patient reports chronic chills, but no recent fever, cough, dyspnea, chest pain, palpitations, nausea, vomiting, constipation , diarrhea, urinary symptoms, abdominal pain, recent weight gain or weight loss , recent bloody bowel movements or black bowel movements, recent headaches, or rashes Diagnosis: Stroke: No - Discharge Data Discharge Date: 05/16/19 Discharge Disposition: DC/Tfer to Acute Hospital 02 Condition: Good - Referral to Home Health Primary Care Physician: Les Olvera MD - Discharge Diagnosis/Problem(s) (1) Gangrene of toe SNOMED Code(s): 074004005 ICD Code: I96 - GANGRENE, NOT ELSEWHERE CLASSIFIED Status: Acute Current Visit: Yes (2) Peripheral vascular disease SNOMED Code(s): 001814927 ICD Code: I73.9 - PERIPHERAL VASCULAR DISEASE, UNSPECIFIED Status: Acute Current Visit: Yes (3) Coronary artery disease SNOMED Code(s): 87429046 ICD Code: I25.10 - ATHSCL HEART DISEASE OF [place] CORONARY ARTERY W/O ANG PCTRS Status: Acute Current Visit: Yes (4) Diabetes mellitus SNOMED Code(s): 69510032 ICD Code: E11.9 - TYPE 2 DIABETES MELLITUS WITHOUT COMPLICATIONS Status: Acute Current Visit: Yes (5) Leukocytosis SNOMED Code(s): 206397742, 932177179 ICD Code: D72.829 - ELEVATED WHITE BLOOD CELL COUNT, UNSPECIFIED Status: Acute Current Visit: Yes (6) Anemia SNOMED Code(s): 769122487 ICD Code: D64.9 - ANEMIA, UNSPECIFIED Status: Acute Current Visit: Yes (7) Hypokalemia SNOMED Code(s): 21830339 ICD Code: E87.6 - HYPOKALEMIA Status: Acute Current Visit: Yes (8) Acute kidney failure SNOMED Code(s): 24109283 ICD Code: N17.9 - ACUTE KIDNEY FAILURE, UNSPECIFIED Status: Acute Current Visit: Yes (9) Chronic kidney disease SNOMED Code(s): 268282029 ICD Code: N18.9 - CHRONIC KIDNEY DISEASE, UNSPECIFIED Status: Acute Current Visit: Yes (10) Anticoagulant long-term use SNOMED Code(s): 852436883 ICD Code: Z79.01 - SNF (CURRENT) USE OF 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 Status: Acute Current Visit: Yes (11) Anticoagulated on Coumadin SNOMED Code(s): 20811172 ICD Code: Z79.01 - SNF (CURRENT) USE OF 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 Status: Acute Current Visit: Yes (12) Diabetic neuropathy SNOMED Code(s): 983827033, 938224195 ICD Code: E11.40 - TYPE 2 DIABETES MELLITUS WITH DIABETIC NEUROPATHY, UNSP Status: Acute Current Visit: Yes (13) Atrial fibrillation with slow ventricular response SNOMED Code(s): 35910429, 676570686 ICD Code: I48.91 - UNSPECIFIED ATRIAL FIBRILLATION Status: Acute Current Visit: No (14) Foot pain, left SNOMED Code(s): 48261813 ICD Code: M79.672 - PAIN IN LEFT FOOT Status: Acute Current Visit: No - Patient Summary/Data Labs Pending at D/C: PT/INR Planned Operative Procedure(s) after DC: Left lower extremity amputation, level pending Hospital Course: Patient came in for severe pain of left foot. Admitted with IV Zosyn and Vancomycin as well as [place] 5 and Morphine 2 for pain control. Transferred to [facility] for higher level of care. - Patient Instructions Diet: Heart Healthy Diet, Diabetic Diet Activity: As Tolerated, Elevate Extremity - Discharge Plan *PRESCRIPTION DRUG MONITORING PROGRAM REVIEWED*: Not Applicable *COPY OF PRESCRIPTION DRUG MONITORING REPORT IN PATIENT NAWAF: Not Applicable Home Medications: Home Meds Pravastatin [Pravachol] 40 mg PO BEDTIME 04/16/14 [History] Furosemide 40 mg PO BID 02/14/16 [History] Aspirin 81 mg PO BEDTIME 07/31/17 [History] Warfarin Sodium 3 mg PO DAILY 09/18/17 [History] Insulin Degludec [Tresiba Flextouch U-200] 8 units SQ ASDIRECTED 10/31/17 [ History] Losartan [Cozaar] 50 mg PO DAILY 05/06/18 [History] Acetaminophen/HYDROcodone [[place] 325-5 MG] 1 tab PO Q6H tablet 05/16/19 [Rx] Ferrous Sulfate [Iron] 325 mg PO Q48H #0 05/16/19 [Rx] Morphine 2 mg IVPUSH Q4H PRN syringe 05/16/19 [Rx] Piperacillin/Tazobactam [Piperacil-Tazobact] 4.5 gm IV Q8H adv 05/16/19 [Rx] Vancomycin 1.25 gm IV Q24H sdv 05/16/19 [Rx] Referrals: Eran Sherwood MD [Physician] - Ayden Avila MD [Ordering Only Provider] - Les Olvera MD [Primary Care Provider] - - Discharge Summary/Plan Comment DC Time >30 min.: Yes - General Info Date of Service: 05/16/19 Functional Status: Reports: Pain Controlled, Tolerating Diet, Urinating - Review of Systems General: Denies: Fever, Chills Pulmonary: Denies: Shortness of Breath, Cough, Sputum, Wheezing Cardiovascular: Denies: Chest Pain, Palpitations Gastrointestinal: Denies: Abdominal Pain, Constipation, Diarrhea, Nausea, Vomiting Genitourinary: Denies: Dysuria, Frequency, Burning - Patient Data Vitals - Most Recent: Last Vital Signs Temp 97.9 F 05/15/19 20:45 Pulse 75 05/15/19 19:00 Resp 16 05/15/19 20:45 BP 131/84 05/15/19 20:45 Pulse Ox 95 05/15/19 19:00 Weight - Most Recent: 74.979 kg - Exam Physical Findings Comments:: General Appearance: Alert, WD/WN, No Apparent Distress Eye Exam: Bilateral Eye: EOMI, Normal Inspection Ears: Normal External Exam, Hearing Loss Nose: Normal Inspection Throat/Mouth: Normal Inspection, Normal Lips, Normal Voice, No Airway Compromise Head: Atraumatic, Normocephalic Neck: Normal Inspection, Full Range of Motion Respiratory/Chest: No Respiratory Distress, Lungs Clear, Normal Breath Sounds, No Accessory Muscle Use Cardiovascular: Normal Peripheral Pulses, No Gallop, No JVD, No Murmur, No Rub, Irregularly Irregular (regular rate) Peripheral Pulses: 0: Posterior Tibial (L), Posterior Tibial (R), Dorsalis Pedis (L), Dorsalis Pedis (R), 4+: Radial (L), Radial (R) GI/Abdominal: Normal Bowel Sounds, Soft, Non-Tender, No Organomegaly, No Distention, No Abnormal Bruit, No Mass (Male) Exam: Deferred Rectal (Males) Exam: Deferred Back Exam: Normal Inspection, Full Range of Motion, NT Extremities: Other (The dorsum of the left foot is erythematous and swollen with [id number] edema. The foot is relatively cool to touch. The distal half of the left great toe is gangrenous with mild malodor, but there is a small drop of fresh-appearing blood on the tip of the toe. The proximal half of the great toe is swollen with purplish discoloration. There is also eschar to the pads of the left 2nd and 3rd toes.) Neurological: Alert, Oriented, CN II-XII Intact, Normal Cognition, Normal Gait, Normal Reflexes, No Motor/Sensory Deficits Psychiatric: Normal Affect Skin Exam: Warm, Dry, Intact, Normal Color, No Rash
[2019-05-16 11:06] VITALS: BP 126/95; PULSE 69
== END 2019-05-16 11:15 ==
LOC: JD.ED 18:24 → JD.MS 19:48
PROVIDERS: ADMIT Internal Medicine; ATTEND Internal Medicine
DX: E11.52 Type 2 diabetes mellitus with diabetic peripheral angiopathy with gangrene (principal); I96 Gangrene, not elsewhere classified; I48.20 Chronic atrial fibrillation, unspecified; I25.10 Atherosclerotic heart disease of native coronary artery without angina pectoris; I12.9 Hypertensive chronic kidney disease with stage 1 through stage 4 chronic kidney disease, or unspecified chronic kidney disease; E11.22 Type 2 diabetes mellitus with diabetic chronic kidney disease; E11.40 Type 2 diabetes mellitus with diabetic neuropathy, unspecified; N18.3 Chronic kidney disease, stage 3 (moderate); D63.1 Anemia in chronic kidney disease; N17.9 Acute kidney failure, unspecified; E78.00 Pure hypercholesterolemia, unspecified; E87.6 Hypokalemia; H54.7 Unspecified visual loss; H91.90 Unspecified hearing loss, unspecified ear; M47.812 Spondylosis without myelopathy or radiculopathy, cervical region; Z87.891 Personal history of nicotine dependence; Z79.82 Long term (current) use of aspirin; Z79.4 Long term (current) use of insulin; Z79.01 Long term (current) use of anticoagulants; Z79.899 Other long term (current) drug therapy; Z86.73 Personal history of transient ischemic attack (TIA), and cerebral infarction without residual deficits
CPT/HCPCS: 36415; 80048; 82962; 83036; 85027; 85610; 85652; 87641; A9270; J2270; J2543; J3370; J7030; J7040; 96365; 96366; 96367; 96375; 96376; 99284; G0378

== ENCOUNTER 2019-08-11 22:04 | Inpatient (IN) | payer MEDICARE, OTHER ==
[2019-08-11] MEDS ORDERED: Dextrose 5%-0.9% NaCl 1,000 ML IV SCH (22:30)
[2019-08-11] MEDS ORDERED: Metoclopramide 10 MG/2 ML SDV IVPUSH ONE (22:31)
[2019-08-11] MEDS ORDERED: HYDROmorphone 0.5 MG/0.5 ML Syringe IVPUSH ONE (22:31)
--- NOTE | 2019-08-11 22:32 | EDM.PDOC ---
<Angel Velasquez - Last Filed: 08/12/19 10:31> ED HPI GENERAL MEDICAL PROBLEM - General Chief Complaint: Abdominal Pain Stated Complaint: [facility] Time Seen by Provider: 08/11/19 22:27 - Related Data Allergies Allergy/AdvReac Type Severity Reaction Status Date / Time No Known Allergies Allergy Verified 08/12/19 11:34 Home Meds: Home Meds Pravastatin [Pravachol] 40 mg PO BEDTIME 04/16/14 [History] Furosemide 40 mg PO DAILY 02/14/16 [History] Aspirin 81 mg PO DAILY 07/31/17 [History] Warfarin Sodium 1 mg PO DAILY 09/18/17 [History] Losartan [Cozaar] 50 mg PO DAILY 05/06/18 [History] Acetaminophen [Tylenol] 650 mg PO Q4H PRN 08/12/19 [History] Acetaminophen/HYDROcodone [[place] 325-5 MG] 1 tab PO Q8H 08/12/19 [History] Arformoterol [Brovana] 2 ml INH BID 08/12/19 [History] Ascorbate Calcium [Vitamin C] 500 mg PO DAILY 08/12/19 [History] Budesonide [Pulmicort] 0.5 mg IH BID 08/12/19 [History] Calcium Carb, Citrate/Vit D3 [Calcium + D3 ER Tablet] 1 tab PO DAILY 08/12/19 [ History] Cholecalciferol (Vitamin D3) [Vitamin D3] 1 tab PO DAILY 08/12/19 [History] Ferrous Sulfate [Iron] 325 mg PO BID 08/12/19 [History] Furosemide [Lasix] 20 mg PO 1200 08/12/19 [History] Gabapentin [Neurontin] 200 mg PO BID 08/12/19 [History] Glucagon [Gvoke Syringe] 1 mg SQ ASDIRECTED PRN 08/12/19 [History] Ipratropium/Albuterol Sulfate [Iprat-Albut 0.5-3(2.5) mg/3 ml] 3 ml INH QID PRN 08/12/19 [History] Loperamide HCl [Imodium A-D] 4 mg PO DAILY 08/12/19 [History] Loperamide [Imodium AD] 4 mg PO BID PRN 08/12/19 [History] Ondansetron [Zofran ODT] 4 mg PO Q6H PRN 08/12/19 [History] Pantoprazole Sodium [Protonix] 40 mg PO DAILY 08/12/19 [History] Potassium Chloride 20 meq PO DAILY 08/12/19 [History] fentaNYL [Fentanyl] 25 mcg TOP ASDIRECTED 08/12/19 [History] polyethylene glycoL 3350 [MiraLAX] 17 gm PO DAILY PRN 08/12/19 [History] Course - Vital Signs Last Recorded V/S: Last Vital Signs Temp 37.2 C 08/13/19 20:33 Pulse 76 08/14/19 03:04 Resp 16 08/14/19 03:04 BP 109/53 L 08/14/19 06:45 Pulse Ox 96 08/14/19 03:04 - Orders/Labs/Meds Orders: Medication Orders Acetaminophen (Tylenol) 650 mg PO Q4H PRN PRN Reason: Pain Hydrocodone Bitart/Acetaminophen ([place] 325-5 Mg) 1 tab PO Q8H PRN PRN Reason: Abdominal Pain Albuterol/Ipratropium (Duoneb 3.0-0.5 Mg/3 Ml) 3 ml INH QID PRN PRN Reason: Wheezing Budesonide (Pulmicort) 0.5 mg INH BID [facility] Last Admin: 08/13/19 21:51 Dose: 0.5 mg Admin: 08/13/19 08:43 Dose: 0.5 mg Admin: 08/12/19 20:53 Dose: 0.5 mg Fentanyl (Duragesic) 25 mcg TOP Q72H [facility] Last Admin: 08/13/19 09:07 Dose: 25 mcg Gabapentin (Neurontin) 200 mg PO BID [facility] Last Admin: 08/13/19 20:51 Dose: 200 mg Admin: 08/13/19 09:10 Dose: 200 mg Admin: 08/12/19 21:55 Dose: 200 mg Ceftriaxone Sodium 1 gm/ (Sodium Chloride) 100 mls @ 200 mls/hr IV Q24H [facility] Last Admin: 08/14/19 03:00 Dose: 200 mls/hr Infusion: 08/13/19 03:15 Dose: 200 mls/hr Admin: 08/13/19 02:45 Dose: 200 mls/hr Metronidazole 500 mg/ Premix 100 mls @ 100 mls/hr IV Q8H [facility] Last Admin: 08/13/19 23:27 Dose: 100 mls/hr Infusion: 08/13/19 16:52 Dose: 100 mls/hr Admin: 08/13/19 15:52 Dose: 100 mls/hr Infusion: 08/13/19 10:04 Dose: 100 mls/hr Admin: 08/13/19 09:04 Dose: 100 mls/hr Vancomycin HCl 1 gm/Vancomycin HCl 250 mg/ Sodium Chloride 250 mls @ 166.667 mls/hr IV Q24H [facility] Insulin Human Lispro (Humalog) 0 unit SUBCUT QIDACANDBED [facility]; Protocol Last Admin: 08/14/19 07:48 Dose: Not Given Admin: 08/13/19 21:42 Dose: 3 units Admin: 08/13/19 18:22 Dose: Admin: 08/13/19 12:19 Dose: Admin: 08/13/19 07:02 Dose: Not Given Admin: 08/12/19 21:59 Dose: Not Given Admin: 08/12/19 17:28 Dose: Not Given Miscellaneous Information (Remove Patch) 0 ea TRDERM Q72H [facility] Last Admin: 08/13/19 09:07 Dose: 1 ea Mupirocin (Bactroban Oint) 0 gm TOP DAILY [facility] Last Admin: 08/13/19 09:12 Dose: 1 applic Admin: 08/12/19 21:55 Dose: 1 applic Ondansetron HCl (Zofran Odt) 4 mg PO Q6H PRN PRN Reason: Vomiting Pantoprazole Sodium (Protonix) 40 mg PO DAILY [facility] Last Admin: 08/13/19 09:11 Dose: 40 mg Polyethylene Glycol (Miralax) 17 gm PO DAILY PRN PRN Reason: Constipation Potassium Chloride (Klor-Con M20) 20 meq PO DAILY [facility] Last Admin: 08/13/19 09:11 Dose: 20 meq Simvastatin (Zocor) 20 mg PO BEDTIME [facility] Last Admin: 08/13/19 20:51 Dose: 20 mg Admin: 08/12/19 21:55 Dose: 20 mg Vancomycin HCl (Pharmacy To Dose - Vancomycin) 1 dose .XX ASDIRECTED PRN PRN Reason: RX TO DOSE VANCO Warfarin Sodium (Pharmacy To Dose - Warfarin) 1 dose .XX ASDIRECTED PRN PRN Reason: RX TO DOSE WARFARIN Labs: Laboratory Tests 08/11/19 08/11/19 08/11/19 Range/Units 22:11 22:46 22:46 WBC 9.55 H (4.23-9.07) K/mm3 RBC 3.82 L (4.63-6.08) M/mm3 Hgb 10.7 L (13.7-17.5) gm/dl Hct 32.3 L (40.1-51.0) % MCV 84.6 D (79.0-92.2) fl MCH 28.0 (25.7-32.2) pg MCHC 33.1 (32.2-35.5) g/dl RDW Std Deviation 46.3 H (35.1-43.9) fL Plt Count 307 (163-337) K/mm3 MPV 9.2 L (9.4-12.3) fl Neutrophils % (Manual) 86 H (40-60) % Band Neutrophils % 5 (0-10) % Lymphocytes % (Manual) 4 L (20-40) % Atypical Lymphs % 0 % Monocytes % (Manual) 5 (2-10) % Eosinophils % (Manual) 0 L (0.8-7.0) % Basophils % (Manual) 0 L (0.2-1.2) Platelet Estimate Adequate Poikilocytosis 1+ slight Anisocytosis 1+ slight Macrocytosis 1+ slight Ovalocytes 1+ slight Radha Cells 1+ slight RBC Morph Comment ESR (0-15) mm/hr PT 34.3 H (9.7-12.0) SECONDS INR 3.37 APTT 53 H (22-31) SECONDS Sodium (136-145) mEq/L Potassium (3.5-5.1) mEq/L Chloride (98-107) mEq/L Carbon Dioxide (21-32) mEq/L Anion Gap (5-15) BUN (7-18) mg/dL Creatinine (0.7-1.3) mg/dL Est Cr Clr Drug Dosing Estimated GFR (MDRD) (>60) mL/min BUN/Creatinine Ratio (14-18) Glucose (83-115) mg/dL POC Glucose 86 (83-110) mg/dL Hemoglobin A1c (4.50-6.20) % Lactic Acid (0.4-2.0) mmol/L Calcium (8.5-10.1) mg/dL Magnesium (1.8-2.4) mg/dl Total Bilirubin (0.2-1.0) mg/dL AST (15-37) U/L ALT (16-63) U/L Alkaline Phosphatase (46-116) U/L Troponin I (0.00-0.056) ng/mL C-Reactive Protein (<1.0) mg/dL NT-Pro-B Natriuret Pep (0-450) pg/mL Total Protein (6.4-8.2) g/dl Albumin (3.4-5.0) g/dl Globulin gm/dL Albumin/Globulin Ratio (1-2) Lipase (73-393) U/L Procalcitonin (<0.10) ng/mL Urine Color (Yellow) Urine Appearance (Clear) Urine pH (5.0-8.0) Ur Specific [place] (1.005-1.030) Urine Protein (Negative) Urine Glucose (UA) (Negative) Urine Ketones (Negative) Urine Occult Blood (Negative) Urine Nitrite (Negative) Urine Bilirubin (Negative) Urine Urobilinogen (0.2-1.0) Ur Leukocyte Esterase (Negative) U Hyaline Cast (Auto) (0-5) /lpf Urine RBC (0-5) /hpf Urine WBC (0-5) /hpf Ur Squamous Epith Cells (0-5) /hpf Urine Bacteria (FEW) /hpf Urine Mucus (FEW) /hpf Blood Type 08/11/19 08/11/19 08/11/19 Range/Units 22:46 22:46 22:46 WBC (4.23-9.07) K/mm3 RBC (4.63-6.08) M/mm3 Hgb (13.7-17.5) gm/dl Hct (40.1-51.0) % MCV (79.0-92.2) fl MCH (25.7-32.2) pg MCHC (32.2-35.5) g/dl RDW Std Deviation (35.1-43.9) fL Plt Count (163-337) K/mm3 MPV (9.4-12.3) fl Neutrophils % (Manual) (40-60) % Band Neutrophils % (0-10) % Lymphocytes % (Manual) (20-40) % Atypical Lymphs % % Monocytes % (Manual) (2-10) % Eosinophils % (Manual) (0.8-7.0) % Basophils % (Manual) (0.2-1.2) Platelet Estimate Poikilocytosis Anisocytosis Macrocytosis Ovalocytes [place] Cells RBC Morph Comment ESR (0-15) mm/hr PT (9.7-12.0) SECONDS INR APTT (22-31) SECONDS Sodium 140 (136-145) mEq/L Potassium 4.3 (3.5-5.1) mEq/L Chloride 108 H (98-107) mEq/L Carbon Dioxide 22 (21-32) mEq/L Anion Gap 14.3 (5-15) BUN 20 H (7-18) mg/dL Creatinine 1.7 H (0.7-1.3) mg/dL Est Cr Clr Drug Dosing TNP Estimated GFR (MDRD) 38 (>60) mL/min BUN/Creatinine Ratio 11.8 L (14-18) Glucose 87 (83-115) mg/dL POC Glucose (83-110) mg/dL Hemoglobin A1c 7.00 H (4.50-6.20) % Lactic Acid 1.3 (0.4-2.0) mmol/L Calcium 7.0 L (8.5-10.1) mg/dL Magnesium 1.3 L (1.8-2.4) mg/dl Total Bilirubin 0.4 (0.2-1.0) mg/dL AST 55 H (15-37) U/L ALT 35 (16-63) U/L Alkaline Phosphatase 231 H (46-116) U/L Troponin I < 0.017 (0.00-0.056) ng/mL C-Reactive Protein 3.4 H* (<1.0) mg/dL NT-Pro-B Natriuret Pep (0-450) pg/mL Total Protein 5.5 L (6.4-8.2) g/dl Albumin 1.1 L (3.4-5.0) g/dl Globulin 4.4 gm/dL Albumin/Globulin Ratio 0.3 L (1-2) Lipase (73-393) U/L Procalcitonin (<0.10) ng/mL Urine Color (Yellow) Urine Appearance (Clear) Urine pH (5.0-8.0) Ur Specific [place] (1.005-1.030) Urine Protein (Negative) Urine Glucose (UA) (Negative) Urine Ketones (Negative) Urine Occult Blood (Negative) Urine Nitrite (Negative) Urine Bilirubin (Negative) Urine Urobilinogen (0.2-1.0) Ur Leukocyte Esterase (Negative) U Hyaline Cast (Auto) (0-5) /lpf Urine RBC (0-5) /hpf Urine WBC (0-5) /hpf Ur Squamous Epith Cells (0-5) /hpf Urine Bacteria (FEW) /hpf Urine Mucus (FEW) /hpf Blood Type 08/11/19 08/11/19 08/11/19 Range/Units 22:46 22:46 22:46 WBC (4.23-9.07) K/mm3 RBC (4.63-6.08) M/mm3 Hgb (13.7-17.5) gm/dl Hct (40.1-51.0) % MCV (79.0-92.2) fl MCH (25.7-32.2) pg MCHC (32.2-35.5) g/dl RDW Std Deviation (35.1-43.9) fL Plt Count (163-337) K/mm3 MPV (9.4-12.3) fl Neutrophils % (Manual) (40-60) % Band Neutrophils % (0-10) % Lymphocytes % (Manual) (20-40) % Atypical Lymphs % % Monocytes % (Manual) (2-10) % Eosinophils % (Manual) (0.8-7.0) % Basophils % (Manual) (0.2-1.2) Platelet Estimate Poikilocytosis Anisocytosis Macrocytosis Ovalocytes [place] Cells RBC Morph Comment ESR 24 H (0-15) mm/hr PT (9.7-12.0) SECONDS INR APTT (22-31) SECONDS Sodium (136-145) mEq/L Potassium (3.5-5.1) mEq/L Chloride (98-107) mEq/L Carbon Dioxide (21-32) mEq/L Anion Gap (5-15) BUN (7-18) mg/dL Creatinine (0.7-1.3) mg/dL Est Cr Clr Drug Dosing Estimated GFR (MDRD) (>60) mL/min BUN/Creatinine Ratio (14-18) Glucose (83-115) mg/dL POC Glucose (83-110) mg/dL Hemoglobin A1c (4.50-6.20) % Lactic Acid (0.4-2.0) mmol/L Calcium (8.5-10.1) mg/dL Magnesium (1.8-2.4) mg/dl Total Bilirubin (0.2-1.0) mg/dL AST (15-37) U/L ALT (16-63) U/L Alkaline Phosphatase (46-116) U/L Troponin I (0.00-0.056) ng/mL C-Reactive Protein (<1.0) mg/dL NT-Pro-B Natriuret Pep 2346 H (0-450) pg/mL Total Protein (6.4-8.2) g/dl Albumin (3.4-5.0) g/dl Globulin gm/dL Albumin/Globulin Ratio (1-2) Lipase (73-393) U/L Procalcitonin (<0.10) ng/mL Urine Color (Yellow) Urine Appearance (Clear) Urine pH (5.0-8.0) Ur Specific [place] (1.005-1.030) Urine Protein (Negative) Urine Glucose (UA) (Negative) Urine Ketones (Negative) Urine Occult Blood (Negative) Urine Nitrite (Negative) Urine Bilirubin (Negative) Urine Urobilinogen (0.2-1.0) Ur Leukocyte Esterase (Negative) U Hyaline Cast (Auto) (0-5) /lpf Urine RBC (0-5) /hpf Urine WBC (0-5) /hpf Ur Squamous Epith Cells (0-5) /hpf Urine Bacteria (FEW) /hpf Urine Mucus (FEW) /hpf Blood Type O POSITIVE 08/11/19 08/12/19 08/12/19 Range/Units 23:15 01:42 03:54 WBC (4.23-9.07) K/mm3 RBC (4.63-6.08) M/mm3 Hgb (13.7-17.5) gm/dl Hct (40.1-51.0) % MCV (79.0-92.2) fl MCH (25.7-32.2) pg MCHC (32.2-35.5) g/dl RDW Std Deviation (35.1-43.9) fL Plt Count (163-337) K/mm3 MPV (9.4-12.3) fl Neutrophils % (Manual) (40-60) % Band Neutrophils % (0-10) % Lymphocytes % (Manual) (20-40) % Atypical Lymphs % % Monocytes % (Manual) (2-10) % Eosinophils % (Manual) (0.8-7.0) % Basophils % (Manual) (0.2-1.2) Platelet Estimate Poikilocytosis Anisocytosis Macrocytosis Ovalocytes [place] Cells RBC Morph Comment ESR (0-15) mm/hr PT (9.7-12.0) SECONDS INR APTT (22-31) SECONDS Sodium (136-145) mEq/L Potassium (3.5-5.1) mEq/L Chloride (98-107) mEq/L Carbon Dioxide (21-32) mEq/L Anion Gap (5-15) BUN (7-18) mg/dL Creatinine (0.7-1.3) mg/dL Est Cr Clr Drug Dosing Estimated GFR (MDRD) (>60) mL/min BUN/Creatinine Ratio (14-18) Glucose (83-115) mg/dL POC Glucose 79 L 127 H (83-110) mg/dL Hemoglobin A1c (4.50-6.20) % Lactic Acid (0.4-2.0) mmol/L Calcium (8.5-10.1) mg/dL Magnesium (1.8-2.4) mg/dl Total Bilirubin (0.2-1.0) mg/dL AST (15-37) U/L ALT (16-63) U/L Alkaline Phosphatase (46-116) U/L Troponin I (0.00-0.056) ng/mL C-Reactive Protein (<1.0) mg/dL NT-Pro-B Natriuret Pep (0-450) pg/mL Total Protein (6.4-8.2) g/dl Albumin (3.4-5.0) g/dl Globulin gm/dL Albumin/Globulin Ratio (1-2) Lipase (73-393) U/L Procalcitonin (<0.10) ng/mL Urine Color Yellow (Yellow) Urine Appearance Clear (Clear) Urine pH 5.5 (5.0-8.0) Ur Specific [place] 1.025 (1.005-1.030) Urine Protein Negative (Negative) Urine Glucose (UA) Negative (Negative) Urine Ketones Negative (Negative) Urine Occult Blood Negative (Negative) Urine Nitrite Negative (Negative) Urine Bilirubin Negative (Negative) Urine Urobilinogen 0.2 (0.2-1.0) Ur Leukocyte Esterase Negative (Negative) U Hyaline Cast (Auto) 5-10 H (0-5) /lpf Urine RBC 0-5 (0-5) /hpf Urine WBC Not seen (0-5) /hpf Ur Squamous Epith Cells Not seen (0-5) /hpf Urine Bacteria Rare (FEW) /hpf Urine Mucus Rare (FEW) /hpf Blood Type 08/12/19 08/12/19 08/12/19 Range/Units 04:17 05:41 05:41 WBC (4.23-9.07) K/mm3 RBC (4.63-6.08) M/mm3 Hgb (13.7-17.5) gm/dl Hct (40.1-51.0) % MCV (79.0-92.2) fl MCH (25.7-32.2) pg MCHC (32.2-35.5) g/dl RDW Std Deviation (35.1-43.9) fL Plt Count (163-337) K/mm3 MPV (9.4-12.3) fl Neutrophils % (Manual) (40-60) % Band Neutrophils % (0-10) % Lymphocytes % (Manual) (20-40) % Atypical Lymphs % % Monocytes % (Manual) (2-10) % Eosinophils % (Manual) (0.8-7.0) % Basophils % (Manual) (0.2-1.2) Platelet Estimate Poikilocytosis Anisocytosis Macrocytosis Ovalocytes [place] Cells RBC Morph Comment ESR (0-15) mm/hr PT (9.7-12.0) SECONDS INR APTT (22-31) SECONDS Sodium 139 (136-145) mEq/L Potassium 4.2 (3.5-5.1) mEq/L Chloride 107 (98-107) mEq/L Carbon Dioxide 22 (21-32) mEq/L Anion Gap 14.2 (5-15) BUN 20 H (7-18) mg/dL Creatinine 1.6 H (0.7-1.3) mg/dL Est Cr Clr Drug Dosing TNP Estimated GFR (MDRD) 41 (>60) mL/min BUN/Creatinine Ratio 12.5 L (14-18) Glucose 154 H (83-115) mg/dL POC Glucose 166 H (83-110) mg/dL Hemoglobin A1c (4.50-6.20) % Lactic Acid 1.0 (0.4-2.0) mmol/L Calcium 6.7 L (8.5-10.1) mg/dL Magnesium (1.8-2.4) mg/dl Total Bilirubin 0.4 (0.2-1.0) mg/dL AST 86 H (15-37) U/L ALT 41 (16-63) U/L Alkaline Phosphatase 213 H (46-116) U/L Troponin I 0.054 (0.00-0.056) ng/mL C-Reactive Protein 4.4 H* (<1.0) mg/dL NT-Pro-B Natriuret Pep (0-450) pg/mL Total Protein 5.1 L (6.4-8.2) g/dl Albumin 1.0 L (3.4-5.0) g/dl Globulin 4.1 gm/dL Albumin/Globulin Ratio 0.2 L (1-2) Lipase < 10 L (73-393) U/L Procalcitonin (<0.10) ng/mL Urine Color (Yellow) Urine Appearance (Clear) Urine pH (5.0-8.0) Ur Specific [place] (1.005-1.030) Urine Protein (Negative) Urine Glucose (UA) (Negative) Urine Ketones (Negative) Urine Occult Blood (Negative) Urine Nitrite (Negative) Urine Bilirubin (Negative) Urine Urobilinogen (0.2-1.0) Ur Leukocyte Esterase (Negative) U Hyaline Cast (Auto) (0-5) /lpf Urine RBC (0-5) /hpf Urine WBC (0-5) /hpf Ur Squamous Epith Cells (0-5) /hpf Urine Bacteria (FEW) /hpf Urine Mucus (FEW) /hpf Blood Type 08/12/19 08/12/19 08/12/19 Range/Units 05:41 06:04 08:41 WBC 9.33 H (4.23-9.07) K/mm3 RBC 3.42 L (4.63-6.08) M/mm3 Hgb 9.7 L (13.7-17.5) gm/dl Hct 29.3 L (40.1-51.0) % MCV 85.7 (79.0-92.2) fl MCH 28.4 (25.7-32.2) pg MCHC 33.1 (32.2-35.5) g/dl RDW Std Deviation 45.8 H (35.1-43.9) fL Plt Count 281 (163-337) K/mm3 MPV 9.4 (9.4-12.3) fl Neutrophils % (Manual) 84 H (40-60) % Band Neutrophils % 0 (0-10) % Lymphocytes % (Manual) 8 L (20-40) % Atypical Lymphs % 0 % Monocytes % (Manual) 7 (2-10) % Eosinophils % (Manual) 1 (0.8-7.0) % Basophils % (Manual) 0 L (0.2-1.2) Platelet Estimate Adequate Poikilocytosis Anisocytosis 1+ slight Macrocytosis Ovalocytes [place] Cells RBC Morph Comment Not Reportable ESR (0-15) mm/hr PT (9.7-12.0) SECONDS INR APTT (22-31) SECONDS Sodium (136-145) mEq/L Potassium (3.5-5.1) mEq/L Chloride (98-107) mEq/L Carbon Dioxide (21-32) mEq/L Anion Gap (5-15) BUN (7-18) mg/dL Creatinine (0.7-1.3) mg/dL Est Cr Clr Drug Dosing Estimated GFR (MDRD) (>60) mL/min BUN/Creatinine Ratio (14-18) Glucose (83-115) mg/dL POC Glucose 207 H (83-110) mg/dL Hemoglobin A1c (4.50-6.20) % Lactic Acid (0.4-2.0) mmol/L Calcium (8.5-10.1) mg/dL Magnesium (1.8-2.4) mg/dl Total Bilirubin (0.2-1.0) mg/dL AST (15-37) U/L ALT (16-63) U/L Alkaline Phosphatase (46-116) U/L Troponin I (0.00-0.056) ng/mL C-Reactive Protein (<1.0) mg/dL NT-Pro-B Natriuret Pep (0-450) pg/mL Total Protein (6.4-8.2) g/dl Albumin (3.4-5.0) g/dl Globulin gm/dL Albumin/Globulin Ratio (1-2) Lipase (73-393) U/L Procalcitonin 0.75 H (<0.10) ng/mL Urine Color (Yellow) Urine Appearance (Clear) Urine pH (5.0-8.0) Ur Specific [place] (1.005-1.030) Urine Protein (Negative) Urine Glucose (UA) (Negative) Urine Ketones (Negative) Urine Occult Blood (Negative) Urine Nitrite (Negative) Urine Bilirubin (Negative) Urine Urobilinogen (0.2-1.0) Ur Leukocyte Esterase (Negative) U Hyaline Cast (Auto) (0-5) /lpf Urine RBC (0-5) /hpf Urine WBC (0-5) /hpf Ur Squamous Epith Cells (0-5) /hpf Urine Bacteria (FEW) /hpf Urine Mucus (FEW) /hpf Blood Type Meds: Medications Generic Name Dose Route Start Last Admin Trade Name Freq PRN Reason Stop Dose Admin Acetaminophen 650 mg 08/12/19 12:15 Tylenol PO Q4H PRN Pain Hydrocodone Bitart/Acetaminophen 1 tab 08/12/19 12:15 [place] 325-5 Mg PO Q8H PRN Abdominal Pain Albuterol/Ipratropium 3 ml 08/12/19 12:15 Duoneb 3.0-0.5 Mg/3 Ml INH QID PRN Wheezing Budesonide 0.5 mg 08/12/19 21:00 08/13/19 21:51 Pulmicort INH 0.5 mg BID [facility] Administration Fentanyl 25 mcg 08/13/19 09:00 08/13/19 09:07 Duragesic TOP 25 mcg Q72H [facility] Administration Gabapentin 200 mg 08/12/19 21:00 08/13/19 20:51 Neurontin PO 200 mg BID [facility] Administration Ceftriaxone Sodium 1 gm/ 100 mls @ 200 mls/hr 08/13/19 02:00 08/14/19 03:00 Sodium Chloride IV 200 mls/hr Q24H [facility] Administration Metronidazole 500 mg/ Premix 100 mls @ 100 mls/hr 08/13/19 08:00 08/13/19 23: 27 IV 100 mls/hr Q8H [facility] Administration Vancomycin HCl 1 gm/ 250 mls @ 166.667 mls/hr 08/14/19 14:00 Vancomycin HCl 250 mg/ Sodium IV Chloride Q24H [facility] Insulin Human Lispro 0 unit 08/12/19 17:00 08/14/19 07:48 Humalog SUBCUT Not Given QIDACANDBED [facility] Protocol Miscellaneous Information 0 ea 08/13/19 09:00 08/13/19 09:07 Remove Patch TRDERM 1 ea Q72H [facility] Administration Mupirocin 0 gm 08/12/19 21:00 08/13/19 09:12 Bactroban Oint TOP 1 applic DAILY [facility] Administration Ondansetron HCl 4 mg 08/12/19 12:15 Zofran Odt PO Q6H PRN Vomiting Pantoprazole Sodium 40 mg 08/13/19 09:00 08/13/19 09:11 Protonix PO 40 mg DAILY [facility] Administration Polyethylene Glycol 17 gm 08/12/19 12:15 Miralax PO DAILY PRN Constipation Potassium Chloride 20 meq 08/13/19 09:00 08/13/19 09:11 Klor-Con M20 PO 20 meq DAILY [facility] Administration Simvastatin 20 mg 08/12/19 21:00 08/13/19 20:51 Zocor PO 20 mg BEDTIME [facility] Administration Vancomycin HCl 1 dose 08/13/19 11:20 Pharmacy To Dose - Vancomycin .XX ASDIRECTED PRN RX TO DOSE VANCO Warfarin Sodium 1 dose 08/12/19 12:30 Pharmacy To Dose - Warfarin .XX ASDIRECTED PRN RX TO DOSE WARFARIN Discontinued Medications Generic Name Dose Route Start Last Admin Trade Name Freq PRN Reason Stop Dose Admin Aspirin 81 mg 08/13/19 09:00 08/13/19 09:11 Aspirin PO 81 mg DAILY LEENA Administration Furosemide Confirm 08/12/19 01:30 08/12/19 03:05 Lasix Administered 08/12/19 01:31 Not Given Dose 80 mg .ROUTE .STK-MED ONE Furosemide 60 mg 08/12/19 01:15 08/12/19 03:12 Lasix IVPUSH 08/12/19 01:16 60 mg NOW ONE Administration Furosemide 40 mg 08/12/19 12:32 08/12/19 12:54 Lasix IVPUSH 08/12/19 12:33 40 mg NOW ONE Administration Furosemide 20 mg 08/13/19 18:15 08/13/19 19:18 Lasix IVPUSH 08/13/19 18:16 20 mg ONETIME ONE Administration Furosemide 20 mg 08/14/19 00:30 08/14/19 06:06 Lasix IVPUSH 08/14/19 06:31 20 mg Q6H LEENA Administration Hydromorphone HCl 0.5 mg 08/11/19 22:31 08/11/19 23:09 Dilaudid IVPUSH 08/11/19 22:32 0.25 mg ONETIME ONE Administration Hydromorphone HCl 1 mg 08/11/19 23:46 08/12/19 00:54 Dilaudid IVPUSH 08/11/19 23:47 1 mg ONETIME ONE Administration Hydromorphone HCl 0.5 mg 08/12/19 03:49 08/12/19 04:16 Dilaudid IVPUSH 08/12/19 03:50 0.5 mg ONETIME ONE Administration Hydromorphone HCl 0.5 mg 08/12/19 09:21 08/12/19 09:27 Dilaudid IVPUSH 08/12/19 09:22 0.5 mg ONETIME ONE Administration Dextrose/Sodium Chloride 1,000 mls @ 125 mls/hr 08/11/19 22:30 08/11/19 22:58 Dextrose 5%-Normal Saline IV 125 mls/hr ASDIRECTED LEENA Administration Vancomycin HCl 1.75 gm/ Sodium 500 mls @ 250 mls/hr 08/12/19 06:12 08/12/19 06:48 Chloride IV 08/12/19 06:13 250 mls/hr ONETIME ONE Administration Sodium Chloride 1,000 mls @ 999 mls/hr 08/12/19 06:15 08/12/19 06:20 Normal Saline IV 999 mls/hr ASDIRECTED LEENA Administration Magnesium Sulfate 4 gm/ Premix 100 mls @ 25 mls/hr 08/12/19 12:00 08/12/19 13 :22 IV 08/12/19 15:59 25 mls/hr ONETIME ONE Administration Albumin Human 12.5 gm in 50 mls @ 100 mls/hr 08/12/19 12:45 08/12/19 12:54 Flexbumin 25% IV 08/12/19 13:14 100 mls/hr ONETIME ONE Administration Sodium Chloride 500 mls @ 999 mls/hr 08/13/19 01:45 Sodium Chloride 0.9% IRR ASDIRECTED LEENA Sodium Chloride 500 mls @ 999 mls/hr 08/13/19 01:48 08/13/19 01:49 Normal Saline IV 08/13/19 02:18 999 mls/hr .BOLUS ONE Administration Albumin Human 12.5 gm in 50 mls @ 100 mls/hr 08/13/19 02:54 08/13/19 03:18 Flexbumin 25% IV 08/13/19 03:23 100 mls/hr ONETIME ONE Administration Furosemide 100 mg/ Sodium 100 mls @ 5 mls/hr 08/13/19 09:15 08/13/19 11:34 Chloride IV 5 mls/hr TITRATE LEENA Administration Protocol Vancomycin HCl 1 gm/ 250 mls @ 166.667 mls/hr 08/13/19 11:30 08/13/19 13:56 Vancomycin HCl 250 mg/ Sodium IV 08/13/19 17:00 166.667 mls/hr Chloride Q24H LEENA Administration Albumin Human 12.5 gm in 50 mls @ 100 mls/hr 08/13/19 17:05 08/13/19 17:30 Flexbumin 25% IV 08/13/19 17:34 100 mls/hr ONETIME ONE Administration Albumin Human 12.5 gm in 50 mls @ 100 mls/hr 08/14/19 00:01 08/14/19 06:05 Flexbumin 25% IV 08/14/19 12:02 100 mls/hr Q6H LEENA Administration Lactulose 20 gm 08/12/19 03:49 08/12/19 04:39 Cephulac PO 08/12/19 03:50 20 gm ONETIME ONE Administration Metoclopramide HCl 10 mg 08/11/19 22:31 08/11/19 23:03 Reglan IVPUSH 08/11/19 22:32 10 mg ONETIME ONE Administration Metoclopramide HCl 7.5 mg 08/12/19 03:49 08/12/19 04:14 Reglan IVPUSH 08/12/19 03:50 7.5 mg ONETIME ONE Administration Warfarin Sodium 0 each 08/12/19 18:00 08/12/19 18:04 Coumadin Sliding Scale PO 08/12/19 18:01 Not Given QPM [facility] Warfarin Sodium 0 each 08/13/19 18:00 08/13/19 19:41 Coumadin Sliding Scale PO 08/13/19 18:01 Not Given QPM LEENA - Re-Assessments/Exams Free Text/Narrative Re-Assessment/Exam: 08/12/19 10:[address] Espinoza. Brody did not call back. We had a bed open up. I talked with Dr Bustos and he accepted the patient. Departure - Departure Time of Disposition: 10:35 Disposition: Admitted As Inpatient 64 Condition: Fair Clinical Impression: Ileus, Renal insufficiency Ascites Qualifiers: Ascites type: other type Qualified Code(s): R18.8 - Other ascites Pneumonia Qualifiers: Pneumonia type: due to unspecified organism Laterality: bilateral Lung location : lower lobe of lung Qualified Code(s): J18.9 - Pneumonia, unspecified organism Cellulitis Qualifiers: Site of cellulitis: extremity Site of cellulitis of extremity: lower extremity Laterality: left Qualified Code(s): L03.116 - Cellulitis of left lower limb - Discharge Information Sepsis Event Note - Focused Exam Date Exam was Performed: 08/12/19 Time Exam was Performed: 10:32 <Herman Espinoza - Last Filed: 08/14/19 07:57> ED HPI GENERAL MEDICAL PROBLEM - General Source of Information: Reports: Patient, Family (spouse and daughter ) History Limitations: Reports: Physical Impairment ( very hard of hearing. ) - History of Present Illness INITIAL COMMENTS - FREE TEXT/NARRATIVE: 84-year-old male presents to the ED per [facility]. He presents with severe right upper quadrant abdominal pain that radiates across his upper abdomen. He states the pain is 10 out of 10. Apparently he experienced a very low blood sugar this afternoon at 22 and was given glucagon by nursing staff and then paramedics were called. He did not give much relief from the glucagon and did receive a amp of D50 percent and then had a little supper. Wound was noted to be firm and distended at that time and that was about 1740 hrs. according to research program coordinator records. He was not transported to the ED at that time because he was not having any significant abdominal pain. Approximately 2030 hrs. he started to develop right upper quadrant abdominal pain that intensified quite badly over the ensuing hour. He had a emesis prior to coming to the ED which is mostly clear fluid as he been drinking some orange juice try to get his blood sugar back up. Pain is reported to be 10 out of 10. He does feel distended and bloated. reports that he is much more edematous even in his abdominal wall than usual. 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 It is being followed by Dr. Harkins and apparently is healing well. He has chronic fluid in his right lower extremity which his feels is worse. Note status is DO NOT RESUSCITATE. Palliative care. Onset: Today, Sudden Onset Date: 08/11/19 Onset Time: 20:30 (Started having abdominal pain around 2030 hrs. tonight but abdomen is noted to be full and distended earlier in the day by research program coordinator staff. ) Duration: Hour(s):, Getting Worse (Early pain is 10 out of 10.) Location: Reports: Abdomen (Upper quadrant abdominal pain rating across to the epigastrium) Quality: Reports: Other Severity: Severe (Is described as colicky but constant and severe 10 out of 10) Improves with: Reports: None Worsens with: Reports: None Context: Denies: Activity, Exercise, Lifting, Sick Contact, Trauma, Other Associated Symptoms: Reports: Cough, Loss of Appetite, Malaise (Cough but no much sputum production), Nausea/Vomiting (Vomited), Shortness of Breath, Weakness. Denies: No Other Symptoms, Confusion, Chest Pain, cough w sputum, Diaphoresis, Fever/Chills, Headaches, Rash, Seizure, Syncope Treatments JAVA J2EE ARCHITECT: Reports: Other (see below) (None.) Right Upper Abdomen Pain Score (Numeric/FACES): 10 Past Medical History HEENT History: Reports: Hard of Hearing, Impaired Vision Cardiovascular History: Reports: Afib (Patient is on Coumadin 3 mg daily for this.), Angina, CAD, Heart Failure, High Cholesterol, Hypertension, PVD, Other ( See Below) Other Cardiovascular History: AAA Respiratory History: Reports: COPD Gastrointestinal History: Reports: Chronic Constipation, Chronic Diarrhea, GERD Genitourinary History: Reports: Chronic Renal Insuffiency RN TRAINING History: Reports: None Musculoskeletal History: Reports: Arthritis Neurological History: Reports: CVA, Speech Problems Other Neuro History: stroke last november Psychiatric History: Reports: Depression Endocrine/Metabolic History: Reports: Diabetes, Type II, Hypokalemia, Other ( See Below) Other Endocrine/Metabolic History: Hyphophosphatemia Hematologic History: Reports: Anticoagulation Therapy Immunologic History: Reports: None Oncologic (Cancer) History: Reports: Other (See Below) Other Oncologic History: 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, unknown type Dermatologic History: Reports: None - Infectious Disease History Infectious Disease History: Reports: None - Past Surgical History Head Surgeries/Procedures: Reports: None HEENT Surgical History: Reports: Cataract Surgery, Tonsillectomy Cardiovascular Surgical History: Reports: Coronary Artery Stent, Pacer GI Surgical History: Reports: Cholecystectomy Musculoskeletal Surgical History: Reports: Knee Replacement, Other (See Below) Other Musculoskeletal Surgeries/Procedures:: bilateral knee replacement; Left BKA Oncologic Surgical History: Reports: Other (See Below) Social & Family History - Family History Family Medical History: Noncontributory - Tobacco Use Smoking Status *Q: Never Smoker - Caffeine Use Caffeine Use: Reports: None Other Caffeine Use: 4 cups - Recreational Drug Use Recreational Drug Use: No - Living Situation & Occupation Living situation: Reports: , with Spouse, Extended Care Facility Occupation: Retired ED ROS GENERAL - Review of Systems Review Of Systems: See Below Constitutional: Reports: Malaise, Weakness, Fatigue. Denies: Fever, Chills HEENT: Reports: Hearing Loss (Is very hard of hearing.) Respiratory: Reports: Shortness of Breath, Cough. Denies: Wheezing, Pleuritic Chest Pain Cardiovascular: Reports: Blood Pressure Problem, Dyspnea on Exertion, Edema ( Chronic severe 4+ pitting edema of his right lower extremity and also some edema across the lower abdominal wall.). 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 The wound is being followed by Dr. Harkins and apparently is healing quite well.) Skin: Reports: Pallor, Bruising Neurological: Reports: No Symptoms Psychiatric: Reports: No Symptoms Hematologic/Lymphatic: Reports: No Symptoms Immunologic: Reports: No Symptoms ED EXAM, GI/ABD - Physical Exam Exam: See Below Exam Limited By: Physical Impairment (And is extremely hard of hearing and you have to talk very loud right close to his ear so that he can hear you.) General Appearance: Alert, WD/WN, Moderate Distress (Is to be in moderate amount of pain.) Eyes: Bilateral: Normal Appearance (No scleral icterus but he does have mild bilateral blepharal pallor.) Throat/Mouth: Other (Tongue is mildly dry.). No: Normal Teeth Head: Atraumatic, Normocephalic Neck: Normal Inspection, Supple, Non-Tender, Full Range of Motion. No: Lymphadenopathy (L), Lymphadenopathy (R) Respiratory/Chest: No Respiratory Distress, Decreased Breath Sounds (Recent breath sounds to the lower for 40% bilaterally.), Crackles ( I believe there are few crackles in both bases.). No: Normal Breath Sounds, Respiratory Distress, Wheezing Cardiovascular: No Rub, JVD (3 cm below the right nipple.), Irregularly Irregular (Patient is in atrial fibrillation or flutter.). No: Normal Peripheral Pulses, No Edema GI/Abdominal Exam: Distended (His entire abdomen is grossly distended and very tympanitic to percussion. It is firm to palpation tenderness right upper quadrant and epigastrium with peritoneal signs. Able to palpate any organomegaly or masses. Exam is highly suspect for a bowel obstruction) (Male) Exam: No Hernia Back Exam: Other (Kyphosis thoracic spine.). No: CVA Tenderness (L), CVA Tenderness (R) Extremities: Pedal Edema (Pulses are palpable in the right foot or popliteal area.), Other (And has a below-knee amputation on the left side with bandages in place. This surgery was carried out May 21 complicated by an infection. It is healing well and is being followed by orthopedic surgeon Dr. Harkins. It is dressed daily at the assisted. On the right side he has liz edema up to the groin and with some evidence of abdominal wall edema as well. A 4+.) Neurological: Alert, Oriented, CN II-XII Intact, Normal Cognition, No Motor/ Sensory Deficits Psychiatric: Flat Affect Skin Exam: No Rash, Cool. No: Diaphoretic EKG INTERPRETATION EKG Date: 08/11/19 Time: 22:45 Rhythm: A-Fib (Rate is between 80 and 115/min) Rate (Beats/Min): 96 [place]: RAD-Right [place] Deviation (170) P-Wave: Absent QRS: RBBB ST-T: Other (There is T wave inversion V2 to V6 also in leads II, 3, aVF. Cannot rule out ischemic change. There are Q waves in leads I and aVL suggesting old lateral wall myocardial infarction.) QT: Prolonged (QTc is mildly prolonged) EKG Interpretation Comments: Abnormal ECG Course - Orders/Labs/Meds Orders: Medication Orders Acetaminophen (Tylenol) 650 mg PO Q4H PRN PRN Reason: Pain Hydrocodone Bitart/Acetaminophen ([place] 325-5 Mg) 1 tab PO Q8H PRN PRN Reason: Abdominal Pain Albuterol/Ipratropium (Duoneb 3.0-0.5 Mg/3 Ml) 3 ml INH QID PRN PRN Reason: Wheezing Budesonide (Pulmicort) 0.5 mg INH BID [facility] Last Admin: 08/13/19 21:51 Dose: 0.5 mg Admin: 08/13/19 08:43 Dose: 0.5 mg Admin: 08/12/19 20:53 Dose: 0.5 mg Fentanyl (Duragesic) 25 mcg TOP Q72H [facility] Last Admin: 08/13/19 09:07 Dose: 25 mcg Gabapentin (Neurontin) 200 mg PO BID [facility] Last Admin: 08/13/19 20:51 Dose: 200 mg Admin: 08/13/19 09:10 Dose: 200 mg Admin: 08/12/19 21:55 Dose: 200 mg Ceftriaxone Sodium 1 gm/ (Sodium Chloride) 100 mls @ 200 mls/hr IV Q24H [facility] Last Admin: 08/14/19 03:00 Dose: 200 mls/hr Infusion: 08/13/19 03:15 Dose: 200 mls/hr Admin: 08/13/19 02:45 Dose: 200 mls/hr Metronidazole 500 mg/ Premix 100 mls @ 100 mls/hr IV Q8H [facility] Last Admin: 08/13/19 23:27 Dose: 100 mls/hr Infusion: 08/13/19 16:52 Dose: 100 mls/hr Admin: 08/13/19 15:52 Dose: 100 mls/hr Infusion: 08/13/19 10:04 Dose: 100 mls/hr Admin: 08/13/19 09:04 Dose: 100 mls/hr Vancomycin HCl 1 gm/Vancomycin HCl 250 mg/ Sodium Chloride 250 mls @ 166.667 mls/hr IV Q24H [facility] Insulin Human Lispro (Humalog) 0 unit SUBCUT QIDACANDBED [facility]; Protocol Last Admin: 08/14/19 07:48 Dose: Not Given Admin: 08/13/19 21:42 Dose: 3 units Admin: 08/13/19 18:22 Dose: Admin: 08/13/19 12:19 Dose: Admin: 08/13/19 07:02 Dose: Not Given Admin: 08/12/19 21:59 Dose: Not Given Admin: 08/12/19 17:28 Dose: Not Given Miscellaneous Information (Remove Patch) 0 ea TRDERM Q72H [facility] Last Admin: 08/13/19 09:07 Dose: 1 ea Mupirocin (Bactroban Oint) 0 gm TOP DAILY [facility] Last Admin: 08/13/19 09:12 Dose: 1 applic Admin: 08/12/19 21:55 Dose: 1 applic Ondansetron HCl (Zofran Odt) 4 mg PO Q6H PRN PRN Reason: Vomiting Pantoprazole Sodium (Protonix) 40 mg PO DAILY [facility] Last Admin: 08/13/19 09:11 Dose: 40 mg Polyethylene Glycol (Miralax) 17 gm PO DAILY PRN PRN Reason: Constipation Potassium Chloride (Klor-Con M20) 20 meq PO DAILY [facility] Last Admin: 08/13/19 09:11 Dose: 20 meq Simvastatin (Zocor) 20 mg PO BEDTIME [facility] Last Admin: 08/13/19 20:51 Dose: 20 mg Admin: 08/12/19 21:55 Dose: 20 mg Vancomycin HCl (Pharmacy To Dose - Vancomycin) 1 dose .XX ASDIRECTED PRN PRN Reason: RX TO DOSE VANCO Warfarin Sodium (Pharmacy To Dose - Warfarin) 1 dose .XX ASDIRECTED PRN PRN Reason: RX TO DOSE WARFARIN Meds: Medications Generic Name Dose Route Start Last Admin Trade Name Freq PRN Reason Stop Dose Admin Acetaminophen 650 mg 08/12/19 12:15 Tylenol PO Q4H PRN Pain Hydrocodone Bitart/Acetaminophen 1 tab 08/12/19 12:15 [place] 325-5 Mg PO Q8H PRN Abdominal Pain Albuterol/Ipratropium 3 ml 08/12/19 12:15 Duoneb 3.0-0.5 Mg/3 Ml INH QID PRN Wheezing Budesonide 0.5 mg 08/12/19 21:00 08/13/19 21:51 Pulmicort INH 0.5 mg BID [facility] Administration Fentanyl 25 mcg 08/13/19 09:00 08/13/19 09:07 Duragesic TOP 25 mcg Q72H [facility] Administration Gabapentin 200 mg 08/12/19 21:00 08/13/19 20:51 Neurontin PO 200 mg BID [facility] Administration Ceftriaxone Sodium 1 gm/ 100 mls @ 200 mls/hr 08/13/19 02:00 08/14/19 03:00 Sodium Chloride IV 200 mls/hr Q24H [facility] Administration Metronidazole 500 mg/ Premix 100 mls @ 100 mls/hr 08/13/19 08:00 08/13/19 23: 27 IV 100 mls/hr Q8H [facility] Administration Vancomycin HCl 1 gm/ 250 mls @ 166.667 mls/hr 08/14/19 14:00 Vancomycin HCl 250 mg/ Sodium IV Chloride Q24H [facility] Insulin Human Lispro 0 unit 08/12/19 17:00 08/14/19 07:48 Humalog SUBCUT Not Given QIDACANDBED [facility] Protocol Miscellaneous Information 0 ea 08/13/19 09:00 08/13/19 09:07 Remove Patch TRDERM 1 ea Q72H [facility] Administration Mupirocin 0 gm 08/12/19 21:00 08/13/19 09:12 Bactroban Oint TOP 1 applic DAILY [facility] Administration Ondansetron HCl 4 mg 08/12/19 12:15 Zofran Odt PO Q6H PRN Vomiting Pantoprazole Sodium 40 mg 08/13/19 09:00 08/13/19 09:11 Protonix PO 40 mg DAILY [facility] Administration Polyethylene Glycol 17 gm 02/26/20 12:15 Miralax PO DAILY PRN Constipation Potassium Chloride 20 meq 08/13/19 09:00 08/13/19 09:11 Klor-Con M20 PO 20 meq DAILY [facility] Administration Simvastatin 20 mg 08/12/19 21:00 08/13/19 20:51 Zocor PO 20 mg BEDTIME [facility] Administration Vancomycin HCl 1 dose 08/13/19 11:20 Pharmacy To Dose - Vancomycin .XX ASDIRECTED PRN RX TO DOSE VANCO Warfarin Sodium 1 dose 08/12/19 12:30 Pharmacy To Dose - Warfarin .XX ASDIRECTED PRN RX TO DOSE WARFARIN Discontinued Medications Generic Name Dose Route Start Last Admin Trade Name Freq PRN Reason Stop Dose Admin Aspirin 81 mg 08/13/19 09:00 08/13/19 09:11 Aspirin PO 81 mg DAILY [facility] Administration Furosemide Confirm 08/12/19 01:30 08/12/19 03:05 Lasix Administered 08/12/19 01:31 Not Given Dose 80 mg .ROUTE .STK-MED ONE Furosemide 60 mg 08/12/19 01:15 08/12/19 03:12 Lasix IVPUSH 08/12/19 01:16 60 mg NOW ONE Administration Furosemide 40 mg 08/12/19 12:32 08/12/19 12:54 Lasix IVPUSH 08/12/19 12:33 40 mg NOW ONE Administration Furosemide 20 mg 08/13/19 18:15 08/13/19 19:18 Lasix IVPUSH 08/13/19 18:16 20 mg ONETIME ONE Administration Furosemide 20 mg 08/14/19 00:30 08/14/19 06:06 Lasix IVPUSH 08/14/19 06:31 20 mg Q6H [facility] Administration Hydromorphone HCl 0.5 mg 08/11/19 22:31 08/11/19 23:09 Dilaudid IVPUSH 08/11/19 22:32 0.25 mg ONETIME ONE Administration Hydromorphone HCl 1 mg 08/11/19 23:46 08/12/19 00:54 Dilaudid IVPUSH 08/11/19 23:47 1 mg ONETIME ONE Administration Hydromorphone HCl 0.5 mg 08/12/19 03:49 08/12/19 04:16 Dilaudid IVPUSH 08/12/19 03:50 0.5 mg ONETIME ONE Administration Hydromorphone HCl 0.5 mg 08/12/19 09:21 08/12/19 09:27 Dilaudid IVPUSH 08/12/19 09:22 0.5 mg ONETIME ONE Administration Dextrose/Sodium Chloride 1,000 mls @ 125 mls/hr 08/11/19 22:30 08/11/19 22:58 Dextrose 5%-Normal Saline IV 125 mls/hr ASDIRECTED [facility] Administration Vancomycin HCl 1.75 gm/ Sodium 500 mls @ 250 mls/hr 08/12/19 06:12 08/12/19 06:48 Chloride IV 08/12/19 06:13 250 mls/hr ONETIME ONE Administration Sodium Chloride 1,000 mls @ 999 mls/hr 08/12/19 06:15 08/12/19 06:20 Normal Saline IV 999 mls/hr ASDIRECTED [facility] Administration Magnesium Sulfate 4 gm/ Premix 100 mls @ 25 mls/hr 08/12/19 12:00 08/12/19 13 :22 IV 08/12/19 15:59 25 mls/hr ONETIME ONE Administration Albumin Human 12.5 gm in 50 mls @ 100 mls/hr 08/12/19 12:45 08/12/19 12:54 Flexbumin 25% IV 08/12/19 13:14 100 mls/hr ONETIME ONE Administration Sodium Chloride 500 mls @ 999 mls/hr 08/13/19 01:45 Sodium Chloride 0.9% IRR ASDIRECTED [facility] Sodium Chloride 500 mls @ 999 mls/hr 08/13/19 01:48 08/13/19 01:49 Normal Saline IV 08/13/19 02:18 999 mls/hr .BOLUS ONE Administration Albumin Human 12.5 gm in 50 mls @ 100 mls/hr 08/13/19 02:54 08/13/19 03:18 Flexbumin 25% IV 08/13/19 03:23 100 mls/hr ONETIME ONE Administration Furosemide 100 mg/ Sodium 100 mls @ 5 mls/hr 08/13/19 09:15 08/13/19 11:34 Chloride IV 5 mls/hr TITRATE [facility] Administration Protocol Vancomycin HCl 1 gm/ 250 mls @ 166.667 mls/hr 08/13/19 11:30 08/13/19 13:56 Vancomycin HCl 250 mg/ Sodium IV 08/13/19 17:00 166.667 mls/hr Chloride Q24H [facility] Administration Albumin Human 12.5 gm in 50 mls @ 100 mls/hr 08/13/19 17:05 08/13/19 17:30 Flexbumin 25% IV 08/13/19 17:34 100 mls/hr ONETIME ONE Administration Albumin Human 12.5 gm in 50 mls @ 100 mls/hr 08/14/19 00:01 08/14/19 06:05 Flexbumin 25% IV 08/14/19 12:02 100 mls/hr Q6H [facility] Administration Lactulose 20 gm 08/12/19 03:49 08/12/19 04:39 Cephulac PO 08/12/19 03:50 20 gm ONETIME ONE Administration Metoclopramide HCl 10 mg 08/11/19 22:31 08/11/19 23:03 Reglan IVPUSH 08/11/19 22:32 10 mg ONETIME ONE Administration Metoclopramide HCl 7.5 mg 08/12/19 03:49 08/12/19 04:14 Reglan IVPUSH 08/12/19 03:50 7.5 mg ONETIME ONE Administration Warfarin Sodium 0 each 08/12/19 18:00 08/12/19 18:04 Coumadin Sliding Scale PO 08/12/19 18:01 Not Given QPM [facility] Warfarin Sodium 0 each 08/13/19 18:00 08/13/19 19:41 Coumadin Sliding Scale PO 08/13/19 18:01 Not Given QPM [facility] - Radiology Interpretation Free Text/Narrative:: 84-year-old male presents to the ED with acute onset of severe right upper quadrant abdominal pain radiating across the upper abdomen. He vomited bilious material and whitish fluid just before coming to the ED due to the intensity of the pain. The pain came on acutely. Li not feel much in his back. It is all across his abdomen. He thinks he had a bowel movement this morning. He reports is 10 out of 10. He has never experienced any similar type pain. - Re-Assessments/Exams Free Text/Narrative Re-Assessment/Exam: 08/11/19 23:47 Chest X-ray reveals a right cardiac border /middle lobe and left lower lobe infiltrate which appears to be chronic when compared to previous CTs. He seems to have a low-grade right-sided pleural effusion. He has mild cardiomegaly. He is known to have significant soft tissue mass in the subcarina area multiple lymph nodes identified on CT scan done in May in the mediastinum without any nidus for neoplasm identified. X-rays of the abdomen showed 2 dilated loops of bowel which I presume is colon suggesting a cecal volvulus. This or rectal vault. In the lower one half of the abdomen. Trying give him some oral contrast and CT his abdomen to confirm this. Not having much relief with 0.5 mg of Dilaudid for pain relief. Will give him another 0.5 mg IV. 08/11/19 23:53 White blood cell count is 9.55. The differential shows 86% neutrophils and 5% band cells. Hemoglobin is 10.7 with hematocrit of 32.3. Platelet counts 307,000. The slide shows 1+ poikilocytosis. It reveals 1+ anisocytosis 1+ ovalocytes 1+ microcytosis and 1+ radha cell suggesting splenomegaly. Sed rate is 24. PT is elevated at 34.3 with an INR elevated at 3.37 and a PTT elevated at 53. Sodium is 140 with a potassium of 4.3. Chloride is 108 with a bicarb of 22. Anion gap is 14.3. BUN is 20 with a creatinine of 1.7 GFR is 38 i.e. stage III chronic kidney disease. Glucose is 87 with a bedside glucose of 86. Of note he had a low blood sugar today of 22. Hemoglobin A1c is 7.0. Lactic acid is 1.3. Calcium is 7.0 low magnesium is low at 1.3. Bilirubin is 0.4 with an AST of 55 and ALT of 35. Alk phos days is 231. Troponin I is less than 0.017. C-reactive protein elevated at 3.4. BNP is elevated at 2346. Total protein is low at 5.5 with an albumin fraction at 1.1 very low. I will have him crossmatched for unit of fresh frozen plasma and be prepared to give him vitamin K IV if he is going to need surgical management. He is very high risk for any surgery and would have to be sent to [place] at any rate since our hospital is on diversion. I have asked the radiology specialist to send the plain films to [facility] rad for over read for their opinion in regards to dilated portions of bowl/stomach in the upper abdomen. We will give him some oral contrast and see if he can keep it down so that we can further study the intra-abdominal contents with CT. IV contrast. 08/12/19 00:47 Vr has over read the x-ray of the abdomen as gaseous distention of the stomach and bowel in a nonspecific pattern. Postoperative changes in the right upper quadrant no organomegaly mass or defect or free air is identified. Mass degenerative changes in the spine and pelvis evident. 08/12/19 01:21: CT of the abdomen with oral contrast only reveals bibasilar airspace infiltrates worse on the left side. Small bilateral pleural effusions. There has been a previous cholecystectomy. No biliary duct dilatation noted pancreas is normal spleen was normal adrenals are normal. Kidneys are atrophic with a small cyst in the right kidney. No hydronephrosis. In the stomach and bowel there is mild circumferential wall thickening in the rectum. Mild gaseous distention of the colon also containing a moderate amount of fecal material in some fluid. Mild wall thickening in portions of the colon beginning in the hepatic flexure small bowel is unremarkable no small bowel obstruction stomach is mildly distended with fluid appendix was not well visualized. There is evidence of mild mesenteric edema and moderate amount of ascites with no loculated collection of fluid or hemorrhage. There was no pneumatosis or mesenteric venous gas. Aortoiliac atherosclerotic disease present. No aneurysm noted. There are advanced degenerative changes in the spine and pelvis. It is felt that his thickening of his bowel wall is likely secondary to edema secondary to ascites secondary to significant heart failure. I will give him 60 mg of Lasix IV and will try and obtain a urine sample as well. No obvious source of infection in the abdomen. He will stay in the ED overnight and we will try and find a bed for him in the morning as at present our hospital is on diversion. He still has very active bowel sounds in all 4 quadrants of the abdomen. I feel if he can get his bowels working which is oral contrast might do I believe that he may get good relief with passage of a large amount of air. 08/12/19 03:50 He is once again complaining of diffuse abdominal pain. Bowel sounds remain hyperactive in all 4 quadrants. Going to give him Reglan 7.5 mg IV as a stimulant to the bowel. We will also give Dilaudid 0.5 mg IV for pain relief. I am going to give him 20 gm of lactulose orally in the hopes of producing a bowel movement and help him get rid of some of the air within the colon which is causing his abdominal pain. Has not voided very much after 60 mg of Lasix IV. I am going to have the nurses provide a bladder scan on him to make sure that is not in retention. Bladder on CT had a thickened diffuse wall and was only moderately filled at that time not suggestive of retention. Consideration of possible infection is noted. A sample of urine has been sent to the lab for analysis. 08/12/19 04:12: Nurses appreciated following his blood pressure to 82/46. He was placed in the Trendelenburg position with no improvement in blood pressure. Still complaining of abdominal pain but when we turned him over he was able to fall back asleep. Post void residual urine is 100 mils on bladder scan. 08/12/19 04:37 blood pressure is not improving. His current BP is 80/46 with a map of 56. I will give him a 200 mill fluid bolus IV. I have reviewed his CT scan of his abdomen pelvis and he has diffuse vascular atherosclerotic calcification throughout his aorta without any aneurysmal dilatation or evidence of a dissection. Therefore at this point time the cause of his fall blood pressure is unclear. He did just have Dilaudid 0.5 mg prior to blood pressure fall. Urinalysis is negative for any signs of infection. 08/12/19 05:21 blood pressure transiently came up to 100/60 after 200ml N/S bolus.. It is currently settled at 90/51 with a mean arterial pressure of 61. Heart rate is 76. I am going to repeat labs as the cause of his hypotension is unclear. He does not have a fever at this time. Blood cultures x2 will be ordered in case he is developing a form of sepsis from an unknown origin. Repeat lactic acid as well. Serum troponin as well. 08/12/19 05:23 Will repeat normal saline fluid bolus 200 mls again. If blood pressure does not return to normal he will require inotrope supports since he is in failure with ascites. Sugar was 162 08/12/19 06:06 pressure did come up to 104 systolic. It is slowly going down again to 90/55. Map is 67. I had a look at his left lower extremity where he had his below-knee amputation. There is some skin breakdown on the medial aspect of the wound with some purulent material. However there is very little redness around the area to suggest developing cellulitis but it could be a nidus for a source of infection. Cultures from the wound will be obtained. 08/12/19 06:13 I suspect the patient is developing sepsis. I am therefore going to give him a full liter of normal saline IV bolus. BP remains 90 systolic. I expect he may need inotrope support. Will await the results of the labs I have ordered and make a decision about disposition. Peers he is likely too sick to stay in our hospital. 08/12/19 06:40 repeat white blood cell count is essentially unchanged at 9.33. Differential is pending hemoglobin has dropped 1 g likely due to fluids that we have given him. He has no outward signs of bleeding. Hematocrit has dropped from 32-29 as well. Platelet count is 281,000. 08/12/19 07:06 Pharyngeal is essentially unchanged now showing 84% neutrophils but no bands cells. Lactic acid is actually a little less than it was at 1.0. It was previously 1.3. 08/12/19 07:22 blood pressure is maintained at 103/63 with a heart rate in the 80s i.e. stable atrial fibrillation. Respiratory rate of 13 O2 sats of 97% on 3 L. I have spoken with the 1 call nurse at [facility] in [place]. Unfortunate that her hospital is on diversion at this time to awaiting discharges. She will call back when a bed becomes available and we can relay the information to the on-call hospitalist at that time. If his blood pressure is stable we will discontinue fluid resuscitation. If he continues to fall much further again or back into the 80s he will require a vasopressor support likely with levophed. Will be transferred to Dr. Velasquez as it is now change of shift. I have sent his CTs and x-rays to [facility] in [place] per PACS Sepsis Event Note - Evaluation Sepsis Screening Result: No Definite Risk - Focused Exam Date Exam was Performed: 08/14/19 Time Exam was Performed: 07:57
[2019-08-11] MEDS ORDERED: HYDROmorphone 1 MG/ML Syringe IVPUSH ONE (23:46)
[2019-08-12] MEDS ORDERED: Furosemide 40 MG/4 ML VIAL IVPUSH ONE ×2 (01:15→12:32)
[2019-08-12] MEDS ORDERED: Furosemide 40 MG/4 ML VIAL ONE (01:30)
[2019-08-12] MEDS ORDERED: HYDROmorphone 0.5 MG/0.5 ML Syringe IVPUSH ONE ×2 (03:49→09:21)
[2019-08-12] MEDS ORDERED: Lactulose Soln 10 GM/15 ML 30 ML UD Cup PO ONE (03:49)
[2019-08-12] MEDS ORDERED: Metoclopramide 10 MG/2 ML SDV IVPUSH ONE (03:49)
[2019-08-12] MEDS ORDERED: Vancomycin 1.75 GM in Sodium Chloride 0.9% 500 ML IV ONE (06:12)
[2019-08-12] MEDS ORDERED: Sodium Chloride 0.9% 1,000 ML IV SCH (06:15)
--- NOTE | 2019-08-12 08:11 | CR ---
Chest: Frontal view of the chest was obtained. Comparison: Prior chest x-ray of 05/06/18. Haziness is noted within both lung bases, worse on the left side. Left upper lung and right lung are clear. Pacemaker is noted. Heart is slightly enlarged. Degenerative endplate spurring is noted within the spine. Impression: 1. Haziness within both lung bases presumably representing increased parenchymal density and probable small pleural effusions. 2. Prior pacemaker. Mild cardiomegaly. Diagnostic code #3 This report was dictated in [place] Standard Time
--- NOTE | 2019-08-12 08:11 | CR ---
Abdomen: Supine view of the abdomen was obtained. Gas noted within the stomach. Other gas within the abdomen most likely within the colon. Findings suggest the possibility of ileus. Vascular calcification is noted. Degenerative change is noted within the spine. Impression: 1. Gas within stomach as well as colon suggesting ileus. 2. Other nonacute findings as noted above. Diagnostic code #3 This report was dictated in [place] Standard Time I agree with preliminary report from [facility], finalized on 08/12/19, 1:32 AM Central Time
--- NOTE | 2019-08-12 08:32 | CT ---
CT abdomen and pelvis Technique: Multiple axial sections were obtained from above the dome of the diaphragm inferiorly through the pubic symphysis. Intravenous contrast not utilized. Oral contrast has been given. Findings: Small bilateral pleural effusions are noted. Mild parenchymal density is seen within both lung bases, worse on the right side. Heart is enlarged with artifact from pacemaker. Liver shows no discrete abnormality. Spleen is normal in size. Adrenal glands show no nodule. Right kidney shows small cortical cyst as well as parapelvic cyst. Kidneys are also somewhat atrophied. No abnormal calcifications are seen within the kidneys. Pancreas is also atrophied. Aorta shows diffuse atherosclerotic calcification. This continues into the iliac vessels. No retroperitoneal adenopathy is seen. Mild amount of ascites seen within the abdomen and within the pelvis. Diffuse haziness within the mesentery is seen compatible with mesenteric congestion. Body wall edema is also noted. Bowel wall thickening seen within the rectum. Slightly prominent gas within portions of the colon are noted. Appendix not definitely visualized. Bone window settings were reviewed which show diffuse degenerative change within the spine. Impression: 1. Small bilateral pleural effusions. Consolidation within both lung bases worse on the left side. Differential includes atelectasis or change from aspiration as well as possible pneumonia. Heart is enlarged. Pleural effusions could relate to CHF. 2. Body wall edema and mild ascites. 3. Nonspecific bowel wall thickening within the rectum. 4. Slightly air-filled and mildly dilated loops of colon most likely representing a mild ileus. 5. Other findings as noted above believed to be incidental. Diagnostic code #3 This report was dictated in [place] Standard Time I agree with preliminary report from [facility], finalized on 08/12/19, 1:48 AM Central Time
[2019-08-12] MEDS ORDERED: Albumin 25% 12.5 GM/50 ML BAG IV ONE ×2 (09:59→12:45)
[2019-08-12] MEDS ORDERED: Magnesium Sulfate/Water 4 GM in Premix Bag 1 BAG IV ONE (12:00)
[2019-08-12] MEDS ORDERED: Acetaminophen/HYDROcodone 325-5 MG Tab PO PRN (12:15)
[2019-08-12] MEDS ORDERED: Albuterol/Ipratropium 3.0-0.5 MG/3 ML Neb Soln INH PRN (12:15)
[2019-08-12] MEDS ORDERED: Ondansetron 4 MG Tab.DIS PO PRN (12:15)
[2019-08-12] MEDS ORDERED: Polyethylene Glycol 3350 Powder 17 GM Packet PO PRN (12:15)
--- NOTE | 2019-08-12 12:31 | PCM.HP.2 ---
H&P History of Present Illness - General Date of Service: 08/12/19 Admit Problem/Dx: Admission Diagnosis/Problem Admission Diagnosis/Problem Ileus - History of Present Illness Initial Comments - Free Text/Narative: 84-year-old patient with hard of hearing who recently had a left below-knee amputation secondary to peripheral vascular disease and gangrene was brought to the emergency room secondary to abdominal pain last night. Patient is a difficult and poor historian secondary to a history of stroke, therefore history was obtained through , daughter, and emergency room physician's notes. Apparently patient had a low blood sugar yesterday afternoon reportedly 22 and was given glucagon by nursing and then paramedics were called. Patient was then given an amp of D50 and had some food. Patient has had a poor appetite recently. Family is unknown if he is on anything for his diabetes. At approximately 2030 hrs. patient developed right upper quadrant abdominal pain that intensified. Patient had emesis prior to the emergency department which was mostly clear fluid he had been drinking and some orange juice. Patient at the time described his pain to be 10 out of 10 now it is moderate in severity. Patient complains of some abdominal distention and bloating. His states that he is more swollen in his abdomen. His states that they did say at the senior care he was having difficulty absorbing his protein. Patient apparently had complications secondary to the left knee amputation of difficulty closing the wound and possible infection. He was seen at his orthopedic surgeons office on Saturday and there were no signs of infection but he did have an eschar. Nursing today notes that there is drainage of purulent matter from the eschar today. It is slightly more erythematous. Patient was given vancomycin in the emergency room. Patient's also states that he is having difficulty urinating. This is concerning because he does have significant swelling in the penis and scrotal area. Bladder scan done in the emergency room showed only 100 mL post void residual. Patient was given furosemide 60 mg in the emergency room with very little improvement in urine output. Last bowel movement last night before he came to the emergency room. CT scan done in the emergency room showed: 1. Small bilateral pleural effusions. Consolidation within both lung bases worse on the left side. Differential includes atelectasis or change from aspiration as well as possible pneumonia. Heart is enlarged. Pleural effusions could relate to CHF. 2. Body wall edema and mild ascites. 3. Nonspecific bowel wall thickening within the rectum. 4. Slightly air-filled and mildly dilated loops of colon most likely representing a mild ileus. 5. Other findings ... believed to be incidental. Right Upper Abdomen Pain Score (Numeric/FACES): 2 - Related Data Allergies/Adverse Reactions: Allergies Allergy/AdvReac Type Severity Reaction Status Date / Time No Known Allergies Allergy Verified 08/12/19 11:34 Home Medications: Home Meds Pravastatin [Pravachol] 40 mg PO BEDTIME 04/16/14 [History] Furosemide 40 mg PO DAILY 02/14/16 [History] Aspirin 81 mg PO DAILY 07/31/17 [History] Warfarin Sodium 1 mg PO DAILY 09/18/17 [History] Losartan [Cozaar] 50 mg PO DAILY 05/06/18 [History] Acetaminophen [Tylenol] 650 mg PO Q4H PRN 08/12/19 [History] Acetaminophen/HYDROcodone [[place] 325-5 MG] 1 tab PO Q8H 08/12/19 [History] Arformoterol [Brovana] 2 ml INH BID 08/12/19 [History] Ascorbate Calcium [Vitamin C] 500 mg PO DAILY 08/12/19 [History] Budesonide [Pulmicort] 0.5 mg IH BID 08/12/19 [History] Calcium Carb, Citrate/Vit D3 [Calcium + D3 ER Tablet] 1 tab PO DAILY 08/12/19 [ History] Cholecalciferol (Vitamin D3) [Vitamin D3] 1 tab PO DAILY 08/12/19 [History] Ferrous Sulfate [Iron] 325 mg PO BID 08/12/19 [History] Furosemide [Lasix] 20 mg PO 1200 08/12/19 [History] Gabapentin [Neurontin] 200 mg PO BID 08/12/19 [History] Glucagon [Gvoke Syringe] 1 mg SQ ASDIRECTED PRN 08/12/19 [History] Ipratropium/Albuterol Sulfate [Iprat-Albut 0.5-3(2.5) mg/3 ml] 3 ml INH QID PRN 08/12/19 [History] Loperamide HCl [Imodium A-D] 4 mg PO DAILY 08/12/19 [History] Loperamide [Imodium AD] 4 mg PO BID PRN 08/12/19 [History] Ondansetron [Zofran ODT] 4 mg PO Q6H PRN 08/12/19 [History] Pantoprazole Sodium [Protonix] 40 mg PO DAILY 08/12/19 [History] Potassium Chloride 20 meq PO DAILY 08/12/19 [History] fentaNYL [Fentanyl] 25 mcg TOP ASDIRECTED 08/12/19 [History] polyethylene glycoL 3350 [MiraLAX] 17 gm PO DAILY PRN 08/12/19 [History] Past Medical History HEENT History: Reports: Hard of Hearing, Impaired Vision Cardiovascular History: Reports: Afib, Angina, CAD, Heart Failure, High Cholesterol, Hypertension, PVD, Other (See Below) Other Cardiovascular History: AAA Respiratory History: Reports: COPD Gastrointestinal History: Reports: Chronic Diarrhea, GERD Genitourinary History: Reports: Chronic Renal Insuffiency HAND IRONER History: Reports: None Musculoskeletal History: Reports: Arthritis Neurological History: Reports: CVA, Speech Problems Other Neuro History: stroke last 2017 Psychiatric History: Reports: Depression Endocrine/Metabolic History: Reports: Diabetes, Type II, Hypokalemia, Other ( See Below) Other Endocrine/Metabolic History: Hyphophosphatemia Hematologic History: Reports: Anticoagulation Therapy Immunologic History: Reports: None Oncologic (Cancer) History: Reports: Other (See Below) Other Oncologic History: 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 biopsied L lung for Ca and "nothing came about that" Dermatologic History: Reports: None - Infectious Disease History Infectious Disease History: Reports: None - Past Surgical History Head Surgeries/Procedures: Reports: None HEENT Surgical History: Reports: Cataract Surgery, Tonsillectomy Cardiovascular Surgical History: Reports: Coronary Artery Stent, Pacer GI Surgical History: Reports: Cholecystectomy Musculoskeletal Surgical History: Reports: Knee Replacement, Other (See Below) Other Musculoskeletal Surgeries/Procedures:: bilateral knee replacement; Left BKA Oncologic Surgical History: Reports: Other (See Below) Social & Family History - Family History Family Medical History: Noncontributory - Tobacco Use Smoking Status *Q: Never Smoker Second Hand Smoke Exposure: No - Caffeine Use Caffeine Use: Reports: None Other Caffeine Use: 4 cups - Recreational Drug Use Recreational Drug Use: No - Living Situation & Occupation Living situation: Reports: , with Spouse, Extended Care Facility Occupation: Retired H&P Review of Systems - Review of Systems: Review Of Systems: Comprehensive ROS is negative, except as noted in HPI. Exam - Exam Exam: See Below - Vital Signs Vital Signs: Last Vital Signs Temp 97.5 F 08/12/19 11:07 Pulse 83 08/12/19 11:07 Resp 16 08/12/19 11:07 BP 91/53 L 08/12/19 11:07 Pulse Ox 91 L 08/12/19 11:07 Weight: 179 lb 12.8 oz - Exam Quality Assessment: No: Supplemental Oxygen General: Alert HEENT: Conjunctiva Clear, Mucosa Moist & [place], Posterior Pharynx Clear. No: Hearing Intact Neck: Supple, Trachea Midline, 2 Lungs: Normal Respiratory Effort, Rales (Bibasilar) Cardiovascular: Irregular Rhythm (Normal right. Distant heart sounds) GI/Abdominal Exam: Soft, No Abnormal Bruit, Distended, Tender (Mild diffuse tenderness). No: Normal Bowel Sounds (Decreased bowel sounds), Guarding, Rigid , Rebound (Male) Exam: Scrotal Swelling Extremities: Pedal Edema (Right lower extremity 4+ pitting edema to the hip), Other (Left lower extremity shows a below-knee amputation with an eschar and purulent matter from the medial aspect. Mild erythema of the stump especially around the eschar. 4+ pitting edema.). No: Normal Inspection Skin: Warm Neurological: Cranial Nerves Intact Neuro Extensive - Mental Status: Alert Neuro Extensive - Motor, Sensory, Reflexes: CN II-XII Intact Psychiatric: Alert, Normal Affect, Normal Mood - Patient Data Lab Results Last 24 hrs: Laboratory Results - last 24 hr 08/11/19 08/11/19 08/11/19 Range/Units 22:11 22:46 22:46 WBC 9.55 H (4.23-9.07) K/mm3 RBC 3.82 L (4.63-6.08) M/mm3 Hgb 10.7 L (13.7-17.5) gm/dl Hct 32.3 L (40.1-51.0) % MCV 84.6 D (79.0-92.2) fl MCH 28.0 (25.7-32.2) pg MCHC 33.1 (32.2-35.5) g/dl RDW Std Deviation 46.3 H (35.1-43.9) fL Plt Count 307 (163-337) K/mm3 MPV 9.2 L (9.4-12.3) fl Neutrophils % (Manual) 86 H (40-60) % Band Neutrophils % 5 (0-10) % Lymphocytes % (Manual) 4 L (20-40) % Atypical Lymphs % 0 % Monocytes % (Manual) 5 (2-10) % Eosinophils % (Manual) 0 L (0.8-7.0) % Basophils % (Manual) 0 L (0.2-1.2) Platelet Estimate Adequate Poikilocytosis 1+ slight Anisocytosis 1+ slight Macrocytosis 1+ slight Ovalocytes 1+ slight [place] Cells 1+ slight RBC Morph Comment ESR (0-15) mm/hr PT 34.3 H (9.7-12.0) SECONDS INR 3.37 APTT 53 H (22-31) SECONDS Sodium (136-145) mEq/L Potassium (3.5-5.1) mEq/L Chloride (98-107) mEq/L Carbon Dioxide (21-32) mEq/L Anion Gap (5-15) BUN (7-18) mg/dL Creatinine (0.7-1.3) mg/dL Est Cr Clr Drug Dosing Estimated GFR (MDRD) (>60) mL/min BUN/Creatinine Ratio (14-18) Glucose (83-115) mg/dL POC Glucose 86 (83-110) mg/dL Hemoglobin A1c (4.50-6.20) % Lactic Acid (0.4-2.0) mmol/L Calcium (8.5-10.1) mg/dL Magnesium (1.8-2.4) mg/dl Total Bilirubin (0.2-1.0) mg/dL AST (15-37) U/L ALT (16-63) U/L Alkaline Phosphatase (46-116) U/L Troponin I (0.00-0.056) ng/mL C-Reactive Protein (<1.0) mg/dL NT-Pro-B Natriuret Pep (0-450) pg/mL Total Protein (6.4-8.2) g/dl Albumin (3.4-5.0) g/dl Globulin gm/dL Albumin/Globulin Ratio (1-2) Lipase (73-393) U/L Urine Color (Yellow) Urine Appearance (Clear) Urine pH (5.0-8.0) Ur Specific [place] (1.005-1.030) Urine Protein (Negative) Urine Glucose (UA) (Negative) Urine Ketones (Negative) Urine Occult Blood (Negative) Urine Nitrite (Negative) Urine Bilirubin (Negative) Urine Urobilinogen (0.2-1.0) Ur Leukocyte Esterase (Negative) U Hyaline Cast (Auto) (0-5) /lpf Urine RBC (0-5) /hpf Urine WBC (0-5) /hpf Ur Squamous Epith Cells (0-5) /hpf Urine Bacteria (FEW) /hpf Urine Mucus (FEW) /hpf Blood Type 08/11/19 08/11/19 08/11/19 Range/Units 22:46 22:46 22:46 WBC (4.23-9.07) K/mm3 RBC (4.63-6.08) M/mm3 Hgb (13.7-17.5) gm/dl Hct (40.1-51.0) % MCV (79.0-92.2) fl MCH (25.7-32.2) pg MCHC (32.2-35.5) g/dl RDW Std Deviation (35.1-43.9) fL Plt Count (163-337) K/mm3 MPV (9.4-12.3) fl Neutrophils % (Manual) (40-60) % Band Neutrophils % (0-10) % Lymphocytes % (Manual) (20-40) % Atypical Lymphs % % Monocytes % (Manual) (2-10) % Eosinophils % (Manual) (0.8-7.0) % Basophils % (Manual) (0.2-1.2) Platelet Estimate Poikilocytosis Anisocytosis Macrocytosis Ovalocytes [place] Cells RBC Morph Comment ESR (0-15) mm/hr PT (9.7-12.0) SECONDS INR APTT (22-31) SECONDS Sodium 140 (136-145) mEq/L Potassium 4.3 (3.5-5.1) mEq/L Chloride 108 H (98-107) mEq/L Carbon Dioxide 22 (21-32) mEq/L Anion Gap 14.3 (5-15) BUN 20 H (7-18) mg/dL Creatinine 1.7 H (0.7-1.3) mg/dL Est Cr Clr Drug Dosing TNP Estimated GFR (MDRD) 38 (>60) mL/min BUN/Creatinine Ratio 11.8 L (14-18) Glucose 87 (83-115) mg/dL POC Glucose (83-110) mg/dL Hemoglobin A1c 7.00 H (4.50-6.20) % Lactic Acid 1.3 (0.4-2.0) mmol/L Calcium 7.0 L (8.5-10.1) mg/dL Magnesium 1.3 L (1.8-2.4) mg/dl Total Bilirubin 0.4 (0.2-1.0) mg/dL AST 55 H (15-37) U/L ALT 35 (16-63) U/L Alkaline Phosphatase 231 H (46-116) U/L Troponin I < 0.017 (0.00-0.056) ng/mL C-Reactive Protein 3.4 H* (<1.0) mg/dL NT-Pro-B Natriuret Pep (0-450) pg/mL Total Protein 5.5 L (6.4-8.2) g/dl Albumin 1.1 L (3.4-5.0) g/dl Globulin 4.4 gm/dL Albumin/Globulin Ratio 0.3 L (1-2) Lipase (73-393) U/L Urine Color (Yellow) Urine Appearance (Clear) Urine pH (5.0-8.0) Ur Specific [place] (1.005-1.030) Urine Protein (Negative) Urine Glucose (UA) (Negative) Urine Ketones (Negative) Urine Occult Blood (Negative) Urine Nitrite (Negative) Urine Bilirubin (Negative) Urine Urobilinogen (0.2-1.0) Ur Leukocyte Esterase (Negative) U Hyaline Cast (Auto) (0-5) /lpf Urine RBC (0-5) /hpf Urine WBC (0-5) /hpf Ur Squamous Epith Cells (0-5) /hpf Urine Bacteria (FEW) /hpf Urine Mucus (FEW) /hpf Blood Type 08/11/19 08/11/19 08/11/19 Range/Units 22:46 22:46 22:46 WBC (4.23-9.07) K/mm3 RBC (4.63-6.08) M/mm3 Hgb (13.7-17.5) gm/dl Hct (40.1-51.0) % MCV (79.0-92.2) fl MCH (25.7-32.2) pg MCHC (32.2-35.5) g/dl RDW Std Deviation (35.1-43.9) fL Plt Count (163-337) K/mm3 MPV (9.4-12.3) fl Neutrophils % (Manual) (40-60) % Band Neutrophils % (0-10) % Lymphocytes % (Manual) (20-40) % Atypical Lymphs % % Monocytes % (Manual) (2-10) % Eosinophils % (Manual) (0.8-7.0) % Basophils % (Manual) (0.2-1.2) Platelet Estimate Poikilocytosis Anisocytosis Macrocytosis Ovalocytes [place] Cells RBC Morph Comment ESR 24 H (0-15) mm/hr PT (9.7-12.0) SECONDS INR APTT (22-31) SECONDS Sodium (136-145) mEq/L Potassium (3.5-5.1) mEq/L Chloride (98-107) mEq/L Carbon Dioxide (21-32) mEq/L Anion Gap (5-15) BUN (7-18) mg/dL Creatinine (0.7-1.3) mg/dL Est Cr Clr Drug Dosing Estimated GFR (MDRD) (>60) mL/min BUN/Creatinine Ratio (14-18) Glucose (83-115) mg/dL POC Glucose (83-110) mg/dL Hemoglobin A1c (4.50-6.20) % Lactic Acid (0.4-2.0) mmol/L Calcium (8.5-10.1) mg/dL Magnesium (1.8-2.4) mg/dl Total Bilirubin (0.2-1.0) mg/dL AST (15-37) U/L ALT (16-63) U/L Alkaline Phosphatase (46-116) U/L Troponin I (0.00-0.056) ng/mL C-Reactive Protein (<1.0) mg/dL NT-Pro-B Natriuret Pep 2346 H (0-450) pg/mL Total Protein (6.4-8.2) g/dl Albumin (3.4-5.0) g/dl Globulin gm/dL Albumin/Globulin Ratio (1-2) Lipase (73-393) U/L Urine Color (Yellow) Urine Appearance (Clear) Urine pH (5.0-8.0) Ur Specific [place] (1.005-1.030) Urine Protein (Negative) Urine Glucose (UA) (Negative) Urine Ketones (Negative) Urine Occult Blood (Negative) Urine Nitrite (Negative) Urine Bilirubin (Negative) Urine Urobilinogen (0.2-1.0) Ur Leukocyte Esterase (Negative) U Hyaline Cast (Auto) (0-5) /lpf Urine RBC (0-5) /hpf Urine WBC (0-5) /hpf Ur Squamous Epith Cells (0-5) /hpf Urine Bacteria (FEW) /hpf Urine Mucus (FEW) /hpf Blood Type O POSITIVE 08/11/19 08/12/19 08/12/19 Range/Units 23:15 01:42 03:54 WBC (4.23-9.07) K/mm3 RBC (4.63-6.08) M/mm3 Hgb (13.7-17.5) gm/dl Hct (40.1-51.0) % MCV (79.0-92.2) fl MCH (25.7-32.2) pg MCHC (32.2-35.5) g/dl RDW Std Deviation (35.1-43.9) fL Plt Count (163-337) K/mm3 MPV (9.4-12.3) fl Neutrophils % (Manual) (40-60) % Band Neutrophils % (0-10) % Lymphocytes % (Manual) (20-40) % Atypical Lymphs % % Monocytes % (Manual) (2-10) % Eosinophils % (Manual) (0.8-7.0) % Basophils % (Manual) (0.2-1.2) Platelet Estimate Poikilocytosis Anisocytosis Macrocytosis Ovalocytes [place] Cells RBC Morph Comment ESR (0-15) mm/hr PT (9.7-12.0) SECONDS INR APTT (22-31) SECONDS Sodium (136-145) mEq/L Potassium (3.5-5.1) mEq/L Chloride (98-107) mEq/L Carbon Dioxide (21-32) mEq/L Anion Gap (5-15) BUN (7-18) mg/dL Creatinine (0.7-1.3) mg/dL Est Cr Clr Drug Dosing Estimated GFR (MDRD) (>60) mL/min BUN/Creatinine Ratio (14-18) Glucose (83-115) mg/dL POC Glucose 79 L 127 H (83-110) mg/dL Hemoglobin A1c (4.50-6.20) % Lactic Acid (0.4-2.0) mmol/L Calcium (8.5-10.1) mg/dL Magnesium (1.8-2.4) mg/dl Total Bilirubin (0.2-1.0) mg/dL AST (15-37) U/L ALT (16-63) U/L Alkaline Phosphatase (46-116) U/L Troponin I (0.00-0.056) ng/mL C-Reactive Protein (<1.0) mg/dL NT-Pro-B Natriuret Pep (0-450) pg/mL Total Protein (6.4-8.2) g/dl Albumin (3.4-5.0) g/dl Globulin gm/dL Albumin/Globulin Ratio (1-2) Lipase (73-393) U/L Urine Color Yellow (Yellow) Urine Appearance Clear (Clear) Urine pH 5.5 (5.0-8.0) Ur Specific [place] 1.025 (1.005-1.030) Urine Protein Negative (Negative) Urine Glucose (UA) Negative (Negative) Urine Ketones Negative (Negative) Urine Occult Blood Negative (Negative) Urine Nitrite Negative (Negative) Urine Bilirubin Negative (Negative) Urine Urobilinogen 0.2 (0.2-1.0) Ur Leukocyte Esterase Negative (Negative) U Hyaline Cast (Auto) 5-10 H (0-5) /lpf Urine RBC 0-5 (0-5) /hpf Urine WBC Not seen (0-5) /hpf Ur Squamous Epith Cells Not seen (0-5) /hpf Urine Bacteria Rare (FEW) /hpf Urine Mucus Rare (FEW) /hpf Blood Type 08/12/19 08/12/19 08/12/19 Range/Units 04:17 05:41 05:41 WBC (4.23-9.07) K/mm3 RBC (4.63-6.08) M/mm3 Hgb (13.7-17.5) gm/dl Hct (40.1-51.0) % MCV (79.0-92.2) fl MCH (25.7-32.2) pg MCHC (32.2-35.5) g/dl RDW Std Deviation (35.1-43.9) fL Plt Count (163-337) K/mm3 MPV (9.4-12.3) fl Neutrophils % (Manual) (40-60) % Band Neutrophils % (0-10) % Lymphocytes % (Manual) (20-40) % Atypical Lymphs % % Monocytes % (Manual) (2-10) % Eosinophils % (Manual) (0.8-7.0) % Basophils % (Manual) (0.2-1.2) Platelet Estimate Poikilocytosis Anisocytosis Macrocytosis Ovalocytes [place] Cells RBC Morph Comment ESR (0-15) mm/hr PT (9.7-12.0) SECONDS INR APTT (22-31) SECONDS Sodium 139 (136-145) mEq/L Potassium 4.2 (3.5-5.1) mEq/L Chloride 107 (98-107) mEq/L Carbon Dioxide 22 (21-32) mEq/L Anion Gap 14.2 (5-15) BUN 20 H (7-18) mg/dL Creatinine 1.6 H (0.7-1.3) mg/dL Est Cr Clr Drug Dosing TNP Estimated GFR (MDRD) 41 (>60) mL/min BUN/Creatinine Ratio 12.5 L (14-18) Glucose 154 H (83-115) mg/dL POC Glucose 166 H (83-110) mg/dL Hemoglobin A1c (4.50-6.20) % Lactic Acid 1.0 (0.4-2.0) mmol/L Calcium 6.7 L (8.5-10.1) mg/dL Magnesium (1.8-2.4) mg/dl Total Bilirubin 0.4 (0.2-1.0) mg/dL AST 86 H (15-37) U/L ALT 41 (16-63) U/L Alkaline Phosphatase 213 H (46-116) U/L Troponin I 0.054 (0.00-0.056) ng/mL C-Reactive Protein 4.4 H* (<1.0) mg/dL NT-Pro-B Natriuret Pep (0-450) pg/mL Total Protein 5.1 L (6.4-8.2) g/dl Albumin 1.0 L (3.4-5.0) g/dl Globulin 4.1 gm/dL Albumin/Globulin Ratio 0.2 L (1-2) Lipase < 10 L (73-393) U/L Urine Color (Yellow) Urine Appearance (Clear) Urine pH (5.0-8.0) Ur Specific [place] (1.005-1.030) Urine Protein (Negative) Urine Glucose (UA) (Negative) Urine Ketones (Negative) Urine Occult Blood (Negative) Urine Nitrite (Negative) Urine Bilirubin (Negative) Urine Urobilinogen (0.2-1.0) Ur Leukocyte Esterase (Negative) U Hyaline Cast (Auto) (0-5) /lpf Urine RBC (0-5) /hpf Urine WBC (0-5) /hpf Ur Squamous Epith Cells (0-5) /hpf Urine Bacteria (FEW) /hpf Urine Mucus (FEW) /hpf Blood Type 08/12/19 08/12/19 Range/Units 06:04 08:41 WBC 9.33 H (4.23-9.07) K/mm3 RBC 3.42 L (4.63-6.08) M/mm3 Hgb 9.7 L (13.7-17.5) gm/dl Hct 29.3 L (40.1-51.0) % MCV 85.7 (79.0-92.2) fl MCH 28.4 (25.7-32.2) pg MCHC 33.1 (32.2-35.5) g/dl RDW Std Deviation 45.8 H (35.1-43.9) fL Plt Count 281 (163-337) K/mm3 MPV 9.4 (9.4-12.3) fl Neutrophils % (Manual) 84 H (40-60) % Band Neutrophils % 0 (0-10) % Lymphocytes % (Manual) 8 L (20-40) % Atypical Lymphs % 0 % Monocytes % (Manual) 7 (2-10) % Eosinophils % (Manual) 1 (0.8-7.0) % Basophils % (Manual) 0 L (0.2-1.2) Platelet Estimate Adequate Poikilocytosis Anisocytosis 1+ slight Macrocytosis Ovalocytes [place] Cells RBC Morph Comment Not Reportable ESR (0-15) mm/hr PT (9.7-12.0) SECONDS INR APTT (22-31) SECONDS Sodium (136-145) mEq/L Potassium (3.5-5.1) mEq/L Chloride (98-107) mEq/L Carbon Dioxide (21-32) mEq/L Anion Gap (5-15) BUN (7-18) mg/dL Creatinine (0.7-1.3) mg/dL Est Cr Clr Drug Dosing Estimated GFR (MDRD) (>60) mL/min BUN/Creatinine Ratio (14-18) Glucose (83-115) mg/dL POC Glucose 207 H (83-110) mg/dL Hemoglobin A1c (4.50-6.20) % Lactic Acid (0.4-2.0) mmol/L Calcium (8.5-10.1) mg/dL Magnesium (1.8-2.4) mg/dl Total Bilirubin (0.2-1.0) mg/dL AST (15-37) U/L ALT (16-63) U/L Alkaline Phosphatase (46-116) U/L Troponin I (0.00-0.056) ng/mL C-Reactive Protein (<1.0) mg/dL NT-Pro-B Natriuret Pep (0-450) pg/mL Total Protein (6.4-8.2) g/dl Albumin (3.4-5.0) g/dl Globulin gm/dL Albumin/Globulin Ratio (1-2) Lipase (73-393) U/L Urine Color (Yellow) Urine Appearance (Clear) Urine pH (5.0-8.0) Ur Specific [place] (1.005-1.030) Urine Protein (Negative) Urine Glucose (UA) (Negative) Urine Ketones (Negative) Urine Occult Blood (Negative) Urine Nitrite (Negative) Urine Bilirubin (Negative) Urine Urobilinogen (0.2-1.0) Ur Leukocyte Esterase (Negative) U Hyaline Cast (Auto) (0-5) /lpf Urine RBC (0-5) /hpf Urine WBC (0-5) /hpf Ur Squamous Epith Cells (0-5) /hpf Urine Bacteria (FEW) /hpf Urine Mucus (FEW) /hpf Blood Type Result Diagrams: 08/12/19 06:04 08/12/19 05:41 Imaging Impressions Last 24 hrs: CT scan done in the emergency room showed: 1. Small bilateral pleural effusions. Consolidation within both lung bases worse on the left side. Differential includes atelectasis or change from aspiration as well as possible pneumonia. Heart is enlarged. Pleural effusions could relate to CHF. 2. Body wall edema and mild ascites. 3. Nonspecific bowel wall thickening within the rectum. 4. Slightly air-filled and mildly dilated loops of colon most likely representing a mild ileus. 5. Other findings ... believed to be incidental. Chest x-ray: 1. Haziness within both lung bases presumably representing increased parenchymal density and probable small pleural effusions. 2. Prior pacemaker. Mild cardiomegaly. Sepsis Event Note - Evaluation Sepsis Screening Result: No Definite Risk - Focused Exam Vital Signs: Vital Signs Temp Pulse Pulse Resp BP BP Pulse Ox 08/12/19 11:07 97.5 F 83 16 91/53 L 91 L 08/12/19 09:45 11 L 103/55 L 08/12/19 08:38 90 16 114/59 L 08/12/19 07:26 95 16 103/63 97 08/12/19 04:56 91 90/46 L 08/12/19 04:39 86 12 80/46 L 97 Date Exam was Performed: 08/12/19 Time Exam was Performed: 14:03 Problem List Initiated/Reviewed/Updated: Yes Orders Last 24hrs: Active Orders 24 hr Category Date Time Status Admission Status [Patient Status] [ADT] Routine ADT 08/12/19 10:06 Active Bladder Scan [RC] ASDIRECTED Care 08/11/19 22:30 Active Blood Glucose Check, Bedside [RC] QIDACANDBED Care 08/12/19 12:20 Ordered Oxygen Therapy [RC] PRN Care 08/12/19 12:10 Ordered Up With Assistance [RC] ASDIRECTED Care 08/12/19 12:10 Ordered VTE/DVT Education [RC] PER UNIT ROUTINE Care 08/12/19 12:10 Ordered Vital Signs [RC] Q4H Care 08/12/19 12:10 Ordered Consult to [employer]le [employer]aper [CONS] Routine Cons 08/12/19 12:14 Ordered Consult to Physical Therapy [PT Evaluation and Cons 08/12/19 11:33 Active Treatment] [CONS] Routine Full Liquid Diet [DIET] Diet 08/12/19 Lunch Ordered ABO/RH TYPE [BBK] Stat Lab 08/12/19 00:00 Results C-REACTIVE PROTEIN [CHEM] AM Lab 08/13/19 05:11 Ordered C-REACTIVE PROTEIN [CHEM] AM Lab 08/14/19 05:11 Ordered C-REACTIVE PROTEIN [CHEM] AM Lab 08/15/19 05:11 Ordered C-REACTIVE PROTEIN [CHEM] AM Lab 08/16/19 05:11 Ordered C-REACTIVE PROTEIN [CHEM] AM Lab 08/17/19 05:11 Ordered CBC WITH AUTO DIFF [HEME] AM Lab 08/13/19 05:11 Ordered CBC WITH AUTO DIFF [HEME] AM Lab 08/14/19 05:11 Ordered CBC WITH AUTO DIFF [HEME] AM Lab 08/15/19 05:11 Ordered CBC WITH AUTO DIFF [HEME] AM Lab 08/16/19 05:11 Ordered CBC WITH AUTO DIFF [HEME] AM Lab 08/17/19 05:11 Ordered COMPREHENSIVE METABOLIC PN,CMP [CHEM] AM Lab 08/13/19 05:11 Ordered COMPREHENSIVE METABOLIC PN,CMP [CHEM] AM Lab 08/14/19 05:11 Ordered COMPREHENSIVE METABOLIC PN,CMP [CHEM] AM Lab 08/15/19 05:11 Ordered COMPREHENSIVE METABOLIC PN,CMP [CHEM] AM Lab 08/16/19 05:11 Ordered COMPREHENSIVE METABOLIC PN,CMP [CHEM] AM Lab 08/17/19 05:11 Ordered CULTURE ANAEROBIC + SMEAR [RM] Stat Lab 08/12/19 06:15 Received CULTURE BLOOD [BC] Stat Lab 08/12/19 05:41 Received CULTURE BLOOD [BC] Stat Lab 08/12/19 05:52 Received CULTURE WOUND [RM] Routine Lab 08/12/19 11:40 Received FRESH FROZEN PLASMA [BBK] Stat Lab 08/12/19 00:00 Results INR,PT,PROTHROMBIN TIME [COAG] AM Lab 08/13/19 05:11 Ordered INR,PT,PROTHROMBIN TIME [COAG] AM Lab 08/14/19 05:11 Ordered INR,PT,PROTHROMBIN TIME [COAG] AM Lab 08/15/19 05:11 Ordered INR,PT,PROTHROMBIN TIME [COAG] AM Lab 08/16/19 05:11 Ordered INR,PT,PROTHROMBIN TIME [COAG] AM Lab 08/17/19 05:11 Ordered INR,PT,PROTHROMBIN TIME [COAG] AM Lab 08/18/19 05:11 Ordered MAGNESIUM [CHEM] AM Lab 08/13/19 05:11 Ordered METH-RESIST S.AUR,MRSA BY PCR [MOLEC] Routine Lab 08/12/19 11:18 Received PROCALCITONIN [REF] Stat Lab 08/12/19 05:41 Received Acetaminophen [Tylenol] Med 08/12/19 12:15 Ordered 650 mg PO Q4H PRN Acetaminophen/HYDROcodone [Union 325-5 MG] Med 08/12/19 12:15 Ordered 1 tab PO Q8H PRN Albuterol/Ipratropium [DuoNeb 3.0-0.5 MG/3 ML] Med 08/12/19 12:15 Ordered 3 ml INH QID PRN Aspirin Med 08/13/19 09:00 Ordered 81 mg PO DAILY Budesonide [Pulmicort] Med 08/12/19 21:00 Ordered 0.5 mg INH BID Dextrose 5%-0.9% NaCl [Dextrose 5%-Normal Saline] 1,000 Med 08/11/19 22:30 Active ml IV ASDIRECTED Gabapentin [Neurontin] Med 08/12/19 21:00 Ordered 200 mg PO BID Insulin Lispro [HumaLOG] Med 08/12/19 17:00 Ordered See Protocol SUBCUT QIDACANDBED Magnesium Sulfate/Water [Magnesium Sulfate in Water Med 08/12/19 12:00 Active Premix] 4 gm Premix Bag 1 bag IV ONETIME Ondansetron [Zofran ODT] Med 08/12/19 12:15 Ordered 4 mg PO Q6H PRN Pantoprazole [ProTONIX] Med 08/13/19 09:00 Ordered 40 mg PO DAILY Pharmacy to Dose - Warfarin Med 08/12/19 12:30 Ordered 1 dose .XX ASDIRECTED Potassium Chloride [Potassium Chloride] Med 08/13/19 09:00 Ordered 20 meq PO DAILY Pravastatin Med 08/12/19 21:00 Ordered 40 mg PO BEDTIME Sodium Chloride 0.9% [Normal Saline] 1,000 ml Med 08/12/19 06:15 Active IV ASDIRECTED fentaNYL [Fentanyl] Med 08/12/19 12:15 Ordered 25 mcg TOP ASDIRECTED polyethylene glycoL 3350 [MiraLAX] Med 08/12/19 12:15 Ordered 17 gm PO DAILY PRN Blood Culture x2 Reflex Set [OM.PC] Stat Oth 08/12/19 05:19 Ordered Resuscitation Status Routine Resus Stat 08/12/19 12:10 Ordered Medication Orders Acetaminophen (Tylenol) 650 mg PO Q4H PRN PRN Reason: Pain Hydrocodone Bitart/Acetaminophen (Union 325-5 Mg) 1 tab PO Q8H PRN PRN Reason: Abdominal Pain Albuterol/Ipratropium (Duoneb 3.0-0.5 Mg/3 Ml) 3 ml INH QID PRN PRN Reason: Wheezing Aspirin (Aspirin) 81 mg PO DAILY [facility] Budesonide (Pulmicort) 0.5 mg INH BID [facility] Gabapentin (Neurontin) 200 mg PO BID [facility] Dextrose/Sodium Chloride (Dextrose 5%-Normal Saline) 1,000 mls @ 125 mls/hr IV ASDIRECTED [facility] Last Admin: 08/11/19 22:58 Dose: 125 mls/hr Sodium Chloride (Normal Saline) 1,000 mls @ 999 mls/hr IV ASDIRECTED [facility] Last Admin: 08/12/19 06:20 Dose: 999 mls/hr Magnesium Sulfate 4 gm/ Premix 100 mls @ 25 mls/hr IV ONETIME ONE Stop: 08/12/19 15:59 Insulin Human Lispro (Humalog) 0 unit SUBCUT QIDACANDBED [facility]; Protocol Non-Formulary Medication (Fentanyl [Fentanyl]) 25 mcg TOP ASDIRECTED [facility] Non-Formulary Medication (Pravastatin) 40 mg PO BEDTIME [facility] Ondansetron HCl (Zofran Odt) 4 mg PO Q6H PRN PRN Reason: Vomiting Pantoprazole Sodium (Protonix) 40 mg PO DAILY [facility] Polyethylene Glycol (Miralax) 17 gm PO DAILY PRN PRN Reason: Constipation Potassium Chloride (Klor-Con M20) 20 meq PO DAILY [facility] Warfarin Sodium (Pharmacy To Dose - Warfarin) 1 dose .XX ASDIRECTED [facility] Assessment/Plan Comment:: Assessment * Mild colonic ileus * Mildly dilated loops of colon and slightly air-filled on CT * Last bowel movement last night before emergency room visit * Bilateral lower lobe pneumonia possible aspiration * Blood cultures * Vancomycin in the emergency room * Anasarca * Bilateral pleural effusions * Body wall edema and mild ascites * Hypoalbuminemia * Albumin 1.0 * Likely secondary to poor oral intake of protein vs. 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 * CHF with mild exacerbation * Possibly worsening hypoalbuminemia through protein-losing gastroenteropathy proBNP 2346 * proBNP 2346 * Diabetes mellitus with episode of hypoglycemia yesterday * Atrial fibrillation * Rate controlled * Supratherapeutic anticoagulation with warfarin * INR 3.37 * Warfarin 1 mg daily * Coronary artery disease, peripheral vascular disease, history of CVA Plan * Admit to medical floor on telemetry * IV albumin 12.5 g x 1 * Lasix 40 mg IV with albumin * Follow I's and O's closely * Daily weights * Echocardiogram * Dietary consult * Vancomycin pharmacy to dose * Warfarin pharmacy to dose * PT for wound care * Full liquid diet, advance as tolerated * Fingerstick blood sugar 4 times daily with sliding scale insulin * FiO2 to keep SPO2 greater than 91% * CBC, CMP, INR, magnesium, C-reactive protein daily * VTE prophylaxis with warfarin * CODE STATUS: DNR/DNI * Anticipated length of stay 3 to 4 days - Mortality Measure Prognosis:: Poor
[2019-08-12] MEDS: Insulin Lispro 100 Units/ML 3 ML Vial SUBCUT SCH ×2 (17:28→21:59)
[2019-08-12] MEDS ORDERED: Warfarin Sliding Scale PO SCH (18:00)
[2019-08-12] MEDS: Budesonide 0.5 MG/2 ML Neb Susp INH SCH (20:53)
[2019-08-12] MEDS: Gabapentin 100 MG Cap PO SCH (21:55)
[2019-08-12] MEDS: Simvastatin 20 MG Tab PO SCH (21:55)
[2019-08-12] MEDS: Mupirocin Oint 22 GM Tube TOP SCH (21:55)
[2019-08-13] MEDS ORDERED: Sodium Chloride 0.9% 500 ML IRR SCH (01:45)
[2019-08-13] MEDS ORDERED: Sodium Chloride 0.9% 500 ML IV ONE (01:48)
[2019-08-13] MEDS: cefTRIAXone 1 GM in Sodium Chloride 0.9% 100 ML IV SCH (02:45)
[2019-08-13] MEDS ORDERED: Albumin 25% 12.5 GM/50 ML BAG IV ONE ×2 (02:54→17:05)
[2019-08-13] MEDS: Insulin Lispro 100 Units/ML 3 ML Vial SUBCUT SCH ×4 (07:02→21:42)
[2019-08-13] MEDS: Budesonide 0.5 MG/2 ML Neb Susp INH SCH ×2 (08:43→21:51)
[2019-08-13] MEDS ORDERED: Aspirin 81 MG Tab.Chew PO SCH (09:00)
[2019-08-13] MEDS: metroNIDAZOLE/Normal Saline 500 MG in Premix Bag 1 BAG IV SCH ×3 (09:04→23:27)
[2019-08-13] MEDS: fentaNYL 25 MCG/HR Transdermal Patch TOP SCH (09:07)
[2019-08-13] MEDS: Gabapentin 100 MG Cap PO SCH ×2 (09:10→20:51)
[2019-08-13] MEDS: Pantoprazole 40 MG Tab.CR PO SCH (09:11)
[2019-08-13] MEDS: Potassium Chloride 20 MEQ Tab.ER PO SCH (09:11)
[2019-08-13] MEDS: Mupirocin Oint 22 GM Tube TOP SCH (09:12)
[2019-08-13] MEDS ORDERED: Furosemide 100 MG in Sodium Chloride 0.9% 90 ML IV SCH (09:15)
[2019-08-13] MEDS ORDERED: Vancomycin 1 GM, Vancomycin 250 MG in Sodium Chloride 0.9% 250 ML IV SCH (11:30)
--- NOTE | 2019-08-13 15:40 | PCM.PN ---
- General Info Date of Service: 08/13/19 Admission Dx/Problem (Free Text): Admission Diagnosis/Problem Admission Diagnosis/Problem Ileus Subjective Update: Patient had an episode of hypotension last night, early this morning requiring a bolus of 1 L normal saline and albumin 12.5 g. Patient is remained borderline low blood pressure throughout the afternoon since starting the Lasix drip. Lasix drip was stopped secondary to low blood pressure. Functional Status: Reports: Pain Controlled - Review of Systems General: Reports: Weakness, Fatigue HEENT: Reports: No Symptoms Pulmonary: Reports: Cough, Sputum Cardiovascular: Reports: No Symptoms Gastrointestinal: Reports: Abdominal Pain Neurological: Reports: No Symptoms Psychiatric: Reports: No Symptoms - Patient Data Vitals - Most Recent: Last Vital Signs Temp 98.4 F 08/13/19 15:04 Pulse 79 08/13/19 15:04 Resp 18 08/13/19 15:04 BP 81/46 L 08/13/19 15:12 Pulse Ox 94 L 08/13/19 15:04 Weight - Most Recent: 177 lb 3.2 oz I&O - Last 24 Hours: Intake & Output 08/13/19 08/13/19 08/13/19 06:59 14:59 22:59 Intake Total 1000 180 Output Total 100 75 Balance 1000 80 -75 Lab Results Last 24 Hours: Laboratory Results - last 24 hr 08/11/19 08/12/19 08/12/19 Range/Units 22:46 05:41 17:16 WBC (4.23-9.07) K/mm3 RBC (4.63-6.08) M/mm3 Hgb (13.7-17.5) gm/dl Hct (40.1-51.0) % MCV (79.0-92.2) fl MCH (25.7-32.2) pg MCHC (32.2-35.5) g/dl RDW Std Deviation (35.1-43.9) fL Plt Count (163-337) K/mm3 MPV (9.4-12.3) fl Neut % (Auto) (34.0-67.9) % Lymph % (Auto) (21.8-53.1) % [place] % (Auto) (5.3-12.2) % Eos % (Auto) (0.8-7.0) Baso % (Auto) (0.1-1.2) % Neut # (Auto) (1.78-5.38) K/mm3 Lymph # (Auto) (1.32-3.57) K/mm3 [place] # (Auto) (0.30-0.82) K/mm3 Eos # (Auto) (0.04-0.54) K/mm3 Baso # (Auto) (0.01-0.08) K/mm3 Manual Slide Review PT (9.7-12.0) SECONDS INR Sodium (136-145) mEq/L Potassium (3.5-5.1) mEq/L Chloride (98-107) mEq/L Carbon Dioxide (21-32) mEq/L Anion Gap (5-15) BUN (7-18) mg/dL Creatinine (0.7-1.3) mg/dL Est Cr Clr Drug Dosing mL/min Estimated GFR (MDRD) (>60) mL/min BUN/Creatinine Ratio (14-18) Glucose (83-115) mg/dL POC Glucose 174 H (83-110) mg/dL Calcium (8.5-10.1) mg/dL Magnesium (1.8-2.4) mg/dl Total Bilirubin (0.2-1.0) mg/dL AST (15-37) U/L ALT (16-63) U/L Alkaline Phosphatase (46-116) U/L C-Reactive Protein (<1.0) mg/dL Total Protein (6.4-8.2) g/dl Albumin (3.4-5.0) g/dl Globulin gm/dL Albumin/Globulin Ratio (1-2) Procalcitonin 0.75 H (<0.10) ng/mL Blood Type O POSITIVE 08/12/19 08/13/19 08/13/19 Range/Units 21:59 04:59 04:59 WBC 17.58 H (4.23-9.07) K/mm3 RBC 2.97 L (4.63-6.08) M/mm3 Hgb 8.3 L (13.7-17.5) gm/dl Hct 25.8 L (40.1-51.0) % MCV 86.9 (79.0-92.2) fl MCH 27.9 (25.7-32.2) pg MCHC 32.2 (32.2-35.5) g/dl RDW Std Deviation 46.7 H (35.1-43.9) fL Plt Count 245 (163-337) K/mm3 MPV 9.6 (9.4-12.3) fl Neut % (Auto) 87.9 H (34.0-67.9) % Lymph % (Auto) 5.9 L (21.8-53.1) % [place] % (Auto) 5.8 (5.3-12.2) % Eos % (Auto) 0 L (0.8-7.0) Baso % (Auto) 0.1 (0.1-1.2) % Neut # (Auto) 15.46 H (1.78-5.38) K/mm3 Lymph # (Auto) 1.04 L (1.32-3.57) K/mm3 [place] # (Auto) 1.02 H (0.30-0.82) K/mm3 Eos # (Auto) 0.00 L (0.04-0.54) K/mm3 Baso # (Auto) 0.01 (0.01-0.08) K/mm3 Manual Slide Review Abnormal smear PT 45.6 H D (9.7-12.0) SECONDS INR 4.56 Sodium (136-145) mEq/L Potassium (3.5-5.1) mEq/L Chloride (98-107) mEq/L Carbon Dioxide (21-32) mEq/L Anion Gap (5-15) BUN (7-18) mg/dL Creatinine (0.7-1.3) mg/dL Est Cr Clr Drug Dosing mL/min Estimated GFR (MDRD) (>60) mL/min BUN/Creatinine Ratio (14-18) Glucose (83-115) mg/dL POC Glucose 164 H (83-110) mg/dL Calcium (8.5-10.1) mg/dL Magnesium (1.8-2.4) mg/dl Total Bilirubin (0.2-1.0) mg/dL AST (15-37) U/L ALT (16-63) U/L Alkaline Phosphatase (46-116) U/L C-Reactive Protein (<1.0) mg/dL Total Protein (6.4-8.2) g/dl Albumin (3.4-5.0) g/dl Globulin gm/dL Albumin/Globulin Ratio (1-2) Procalcitonin (<0.10) ng/mL Blood Type 08/13/19 08/13/19 08/13/19 Range/Units 04:59 06:50 11:04 WBC (4.23-9.07) K/mm3 RBC (4.63-6.08) M/mm3 Hgb (13.7-17.5) gm/dl Hct (40.1-51.0) % MCV (79.0-92.2) fl MCH (25.7-32.2) pg MCHC (32.2-35.5) g/dl RDW Std Deviation (35.1-43.9) fL Plt Count (163-337) K/mm3 MPV (9.4-12.3) fl Neut % (Auto) (34.0-67.9) % Lymph % (Auto) (21.8-53.1) % [place] % (Auto) (5.3-12.2) % Eos % (Auto) (0.8-7.0) Baso % (Auto) (0.1-1.2) % Neut # (Auto) (1.78-5.38) K/mm3 Lymph # (Auto) (1.32-3.57) K/mm3 [place] # (Auto) (0.30-0.82) K/mm3 Eos # (Auto) (0.04-0.54) K/mm3 Baso # (Auto) (0.01-0.08) K/mm3 Manual Slide Review PT (9.7-12.0) SECONDS INR Sodium 140 (136-145) mEq/L Potassium 4.7 (3.5-5.1) mEq/L Chloride 108 H (98-107) mEq/L Carbon Dioxide 20 L (21-32) mEq/L Anion Gap 16.7 H (5-15) BUN 25 H (7-18) mg/dL Creatinine 1.8 H (0.7-1.3) mg/dL Est Cr Clr Drug Dosing 30.49 mL/min Estimated GFR (MDRD) 36 (>60) mL/min BUN/Creatinine Ratio 13.9 L (14-18) Glucose 162 H (83-115) mg/dL POC Glucose 178 H 196 H (83-110) mg/dL Calcium 6.9 L (8.5-10.1) mg/dL Magnesium 1.9 (1.8-2.4) mg/dl Total Bilirubin 0.3 (0.2-1.0) mg/dL AST 105 H (15-37) U/L ALT 52 (16-63) U/L Alkaline Phosphatase 192 H (46-116) U/L C-Reactive Protein 7.0 H* (<1.0) mg/dL Total Protein 4.8 L (6.4-8.2) g/dl Albumin 1.3 L (3.4-5.0) g/dl Globulin 3.5 gm/dL Albumin/Globulin Ratio 0.4 L (1-2) Procalcitonin (<0.10) ng/mL Blood Type Lonny Results Last 24 Hours: Microbiology 08/12/19 11:40 Wound Culture - Preliminary Leg, Left Gram Positive Cocci 08/12/19 06:15 Gram Stain - Final Leg, Left Anaerobic Culture - Preliminary Gram Positive Cocci 08/12/19 05:41 Aerobic Blood Culture - Preliminary Blood - Venous NO GROWTH AFTER 1 DAY Anaerobic Blood Culture - Preliminary NO GROWTH AFTER 1 DAY 08/12/19 05:52 Aerobic Blood Culture - Preliminary Blood - Venous - Lab Draw NO GROWTH AFTER 1 DAY Anaerobic Blood Culture - Preliminary NO GROWTH AFTER 1 DAY Med Orders - Current: Current Medications Acetaminophen (Tylenol) 650 mg PO Q4H PRN PRN Reason: Pain Hydrocodone Bitart/Acetaminophen (Reva 325-5 Mg) 1 tab PO Q8H PRN PRN Reason: Abdominal Pain Albuterol/Ipratropium (Duoneb 3.0-0.5 Mg/3 Ml) 3 ml INH QID PRN PRN Reason: Wheezing Aspirin (Aspirin) 81 mg PO DAILY [facility] Last Admin: 08/13/19 09:11 Dose: 81 mg Budesonide (Pulmicort) 0.5 mg INH BID [facility] Last Admin: 08/13/19 08:43 Dose: 0.5 mg Fentanyl (Duragesic) 25 mcg TOP Q72H [facility] Last Admin: 08/13/19 09:07 Dose: 25 mcg Gabapentin (Neurontin) 200 mg PO BID [facility] Last Admin: 08/13/19 09:10 Dose: 200 mg Ceftriaxone Sodium 1 gm/ (Sodium Chloride) 100 mls @ 200 mls/hr IV Q24H [facility] Last Admin: 08/13/19 02:45 Dose: 200 mls/hr Metronidazole 500 mg/ Premix 100 mls @ 100 mls/hr IV Q8H [facility] Last Admin: 08/13/19 09:04 Dose: 100 mls/hr Furosemide 100 mg/ Sodium (Chloride) 100 mls @ 5 mls/hr IV TITRATE [facility]; Protocol Last Admin: 08/13/19 11:34 Dose: 5 mls/hr Vancomycin HCl 1 gm/Vancomycin HCl 250 mg/ Sodium Chloride 250 mls @ 166.667 mls/hr IV Q24H [facility] Stop: 08/13/19 17:00 Last Admin: 08/13/19 13:56 Dose: 166.667 mls/hr Vancomycin HCl 1 gm/Vancomycin HCl 250 mg/ Sodium Chloride 250 mls @ 166.667 mls/hr IV Q24H [facility] Insulin Human Lispro (Humalog) 0 unit SUBCUT QIDACANDBED [facility]; Protocol Last Admin: 08/13/19 12:19 Dose: Not Given Miscellaneous Information (Remove Patch) 0 ea TRDERM Q72H [facility] Last Admin: 08/13/19 09:07 Dose: 1 ea Mupirocin (Bactroban Oint) 0 gm TOP DAILY [facility] Last Admin: 08/13/19 09:12 Dose: 1 applic Ondansetron HCl (Zofran Odt) 4 mg PO Q6H PRN PRN Reason: Vomiting Pantoprazole Sodium (Protonix) 40 mg PO DAILY [facility] Last Admin: 08/13/19 09:11 Dose: 40 mg Polyethylene Glycol (Miralax) 17 gm PO DAILY PRN PRN Reason: Constipation Potassium Chloride (Klor-Con M20) 20 meq PO DAILY [facility] Last Admin: 08/13/19 09:11 Dose: 20 meq Simvastatin (Zocor) 20 mg PO BEDTIME [facility] Last Admin: 08/12/19 21:55 Dose: 20 mg Vancomycin HCl (Pharmacy To Dose - Vancomycin) 1 dose .XX ASDIRECTED PRN PRN Reason: RX TO DOSE VANCO Warfarin Sodium (Pharmacy To Dose - Warfarin) 1 dose .XX ASDIRECTED PRN PRN Reason: RX TO DOSE WARFARIN Warfarin Sodium (Coumadin Sliding Scale) 0 each PO QPM [facility] Stop: 08/13/19 18:01 Discontinued Medications Furosemide (Lasix) Confirm Administered Dose 80 mg .ROUTE .STK-MED ONE Stop: 08/12/19 01:31 Last Admin: 08/12/19 03:05 Dose: Not Given Furosemide (Lasix) 60 mg IVPUSH NOW ONE Stop: 08/12/19 01:16 Last Admin: 08/12/19 03:12 Dose: 60 mg Furosemide (Lasix) 40 mg IVPUSH NOW ONE Stop: 08/12/19 12:33 Last Admin: 08/12/19 12:54 Dose: 40 mg Hydromorphone HCl (Dilaudid) 0.5 mg IVPUSH ONETIME ONE Stop: 08/11/19 22:32 Last Admin: 08/11/19 23:09 Dose: 0.25 mg Hydromorphone HCl (Dilaudid) 1 mg IVPUSH ONETIME ONE Stop: 08/11/19 23:47 Last Admin: 08/12/19 00:54 Dose: 1 mg Hydromorphone HCl (Dilaudid) 0.5 mg IVPUSH ONETIME ONE Stop: 08/12/19 03:50 Last Admin: 08/12/19 04:16 Dose: 0.5 mg Hydromorphone HCl (Dilaudid) 0.5 mg IVPUSH ONETIME ONE Stop: 08/12/19 09:22 Last Admin: 08/12/19 09:27 Dose: 0.5 mg Dextrose/Sodium Chloride (Dextrose 5%-Normal Saline) 1,000 mls @ 125 mls/hr IV ASDIRECTED [facility] Last Admin: 08/11/19 22:58 Dose: 125 mls/hr Vancomycin HCl 1.75 gm/ Sodium (Chloride) 500 mls @ 250 mls/hr IV ONETIME ONE Stop: 08/12/19 06:13 Last Admin: 08/12/19 06:48 Dose: 250 mls/hr Sodium Chloride (Normal Saline) 1,000 mls @ 999 mls/hr IV ASDIRECTED [facility] Last Admin: 08/12/19 06:20 Dose: 999 mls/hr Magnesium Sulfate 4 gm/ Premix 100 mls @ 25 mls/hr IV ONETIME ONE Stop: 08/12/19 15:59 Last Admin: 08/12/19 13:22 Dose: 25 mls/hr Albumin Human (Flexbumin 25%) 12.5 gm in 50 mls @ 100 mls/hr IV ONETIME ONE Stop: 08/12/19 13:14 Last Admin: 08/12/19 12:54 Dose: 100 mls/hr Sodium Chloride (Sodium Chloride 0.9%) 500 mls @ 999 mls/hr IRR ASDIRECTED [facility] Sodium Chloride (Normal Saline) 500 mls @ 999 mls/hr IV .BOLUS ONE Stop: 08/13/19 02:18 Last Admin: 08/13/19 01:49 Dose: 999 mls/hr Albumin Human (Flexbumin 25%) 12.5 gm in 50 mls @ 100 mls/hr IV ONETIME ONE Stop: 08/13/19 03:23 Last Admin: 08/13/19 03:18 Dose: 100 mls/hr Lactulose (Cephulac) 20 gm PO ONETIME ONE Stop: 08/12/19 03:50 Last Admin: 08/12/19 04:39 Dose: 20 gm Metoclopramide HCl (Reglan) 10 mg IVPUSH ONETIME ONE Stop: 08/11/19 22:32 Last Admin: 08/11/19 23:03 Dose: 10 mg Metoclopramide HCl (Reglan) 7.5 mg IVPUSH ONETIME ONE Stop: 08/12/19 03:50 Last Admin: 08/12/19 04:14 Dose: 7.5 mg Warfarin Sodium (Coumadin Sliding Scale) 0 each PO QPM [facility] Stop: 08/12/19 18:01 Last Admin: 08/12/19 18:04 Dose: Not Given - Exam Quality Assessment: Supplemental Oxygen General: Alert HEENT: Pupils Equal Neck: Supple Lungs: Normal Respiratory Effort, Rales Cardiovascular: Regular Rate, Irregular Rhythm GI/Abdominal Exam: Normal Bowel Sounds, Soft, Non-Tender, No Organomegaly, No Distention, No Abnormal Bruit, No Mass, Pelvis Stable Extremities: Pedal Edema (4+ pitting edema of right leg.), Other (Left below knee amputation with discharge.) Wound/Incisions: Drainage, Erythema Sepsis Event Note - Evaluation Sepsis Screening Result: No Definite Risk - Focused Exam Vital Signs: Vital Signs Temp Temp Pulse Pulse Resp BP BP 08/13/19 15:12 81/46 L 08/13/19 15:04 98.4 F 79 18 08/13/19 12:00 98.2 F 85 18 99/37 L 08/13/19 11:08 98.2 F 85 21 H 99/37 L 08/13/19 08:50 08/13/19 08:44 08/13/19 08:41 97.9 F 89 86/45 L 08/13/19 04:17 92 94/54 L Pulse Ox Pulse Ox 08/13/19 15:12 08/13/19 15:04 94 L 08/13/19 12:00 95 08/13/19 11:08 95 08/13/19 08:50 98 08/13/19 08:44 98 08/13/19 08:41 97 08/13/19 04:17 96 Date Exam was Performed: 08/13/19 Time Exam was Performed: 17:13 - Problem List Review Problem List Initiated/Reviewed/Updated: Yes - My Orders Last 24 Hours: My Active Orders 08/12/19 17:00 Insulin Lispro [HumaLOG] See Protocol SUBCUT QIDACANDBED 08/12/19 17:17 [employer] Evaluation and Treatment [CONS] Routine 08/12/19 21:00 Budesonide [Pulmicort] 0.5 mg INH BID Gabapentin [Neurontin] 200 mg PO BID Mupirocin Oint [Bactroban Oint] 0 gm TOP DAILY Simvastatin [Zocor] 20 mg PO BEDTIME 08/13/19 02:00 cefTRIAXone [Rocephin] 1 gm Sodium Chloride 0.9% [Normal Saline] 100 ml IV Q24H 08/13/19 08:00 metroNIDAZOLE/Normal Saline [Flagyl 500 MG in NS 100 ML] 500 mg Premix Bag 1 bag IV Q8H 08/13/19 09:00 Aspirin 81 mg PO DAILY Pantoprazole [ProTONIX] 40 mg PO DAILY Potassium Chloride [Klor-Con M20] 20 meq PO DAILY Remove Patch 0 ea TRDERM Q72H fentaNYL [Duragesic] 25 mcg TOP Q72H 08/13/19 09:15 Furosemide [Lasix] 100 mg Sodium Chloride 0.9% [Normal Saline] 90 ml IV TITRATE 08/13/19 09:49 Patient Status [ADT] Routine 08/13/19 10:25 PT Evaluation and Treatment [CONS] Routine 08/13/19 10:26 OT Evaluation and Treatment [CONS] Routine 08/13/19 11:08 Urinary Catheter Assessment [RC] 04,16,10,22 08/13/19 11:15 Insert Coughlin Catheter [Insert Urinary Catheter] [OM.PC] Q24H 08/13/19 11:20 Pharmacy to Dose - Vancomycin 1 dose .XX ASDIRECTED PRN 08/13/19 11:30 Vancomycin 1 gm Vancomycin 250 mg Sodium Chloride 0.9% [Normal Saline] 250 ml IV Q24H 08/13/19 18:00 Warfarin Sliding Scale [Coumadin Sliding Scale] 0 each PO QPM 08/13/19 Lunch Regular Diet [DIET] Thickened Liquids [DIET] 08/14/19 05:11 C-REACTIVE PROTEIN [CHEM] AM CBC WITH AUTO DIFF [HEME] AM COMPREHENSIVE METABOLIC PN,CMP [CHEM] AM INR,PT,PROTHROMBIN TIME [COAG] AM 08/14/19 13:00 VANCOMYCIN TROUGH [CHEM] Timed 08/14/19 14:00 Vancomycin 1 gm Vancomycin 250 mg Sodium Chloride 0.9% [Normal Saline] 250 ml IV Q24H 08/15/19 05:11 C-REACTIVE PROTEIN [CHEM] AM CBC WITH AUTO DIFF [HEME] AM COMPREHENSIVE METABOLIC PN,CMP [CHEM] AM INR,PT,PROTHROMBIN TIME [COAG] AM 08/16/19 05:11 C-REACTIVE PROTEIN [CHEM] AM CBC WITH AUTO DIFF [HEME] AM COMPREHENSIVE METABOLIC PN,CMP [CHEM] AM INR,PT,PROTHROMBIN TIME [COAG] AM 08/17/19 05:11 C-REACTIVE PROTEIN [CHEM] AM CBC WITH AUTO DIFF [HEME] AM COMPREHENSIVE METABOLIC PN,CMP [CHEM] AM INR,PT,PROTHROMBIN TIME [COAG] AM 08/18/19 05:11 INR,PT,PROTHROMBIN TIME [COAG] AM - Plan Plan:: Assessment * Mild colonic ileus * Mildly dilated loops of colon and slightly air-filled on CT * Last bowel movement last night before emergency room visit * Bilateral lower lobe pneumonia possible aspiration * Blood cultures * Vancomycin in the emergency room * Anasarca * Bilateral pleural effusions * Body wall edema and mild ascites * Hypoalbuminemia * Albumin 1.0--1.3 * Likely secondary to poor oral intake of protein vs. 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 * CHF with mild exacerbation * Possibly worsening hypoalbuminemia through protein-losing gastroenteropathy * proBNP 2346 * Diabetes mellitus with episode of hypoglycemia yesterday * * Atrial fibrillation * Rate controlled * Supratherapeutic anticoagulation with warfarin * INR 3.37 * Home dose Warfarin 1 mg daily * Warfarin held yesterday * Coronary artery disease, peripheral vascular disease, history of CVA Plan * Admit to medical floor on telemetry * Albumin 25% IV 12.5 g x 1; repeat as necessary * Stop Lasix drip * Follow I's and O's closely * Daily weights * Echocardiogram - pending results * Dietary consult * Vancomycin pharmacy to dose * Warfarin pharmacy to dose * Rocephin 1 g every 24 hours * Metronidazole 500 mg IV every 8 hours * PT for wound care * Advance as tolerated * Fingerstick blood sugar 4 times daily with sliding scale insulin * FiO2 to keep SPO2 greater than 91% * CBC, CMP, INR, magnesium, C-reactive protein daily * VTE prophylaxis with warfarin * CODE STATUS: DNR/DNI * Transfer patient to [facility] ICU. Accepting physician Dr. Villegas.
--- NOTE | 2019-08-13 17:20 | PCM.DCSUM1 ---
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 Patient is a difficult and poor historian secondary to a history of stroke, therefore history was obtained through , daughter, and emergency room physician's notes. Apparently patient had a low blood sugar yesterday afternoon reportedly 22 and was given glucagon by nursing and then paramedics were called. Patient was then given an amp of D50 and had some food. Patient has had a poor appetite recently. Family is unknown if he is on anything for his diabetes. At approximately 2030 hrs. patient developed right upper quadrant abdominal pain that intensified. Patient had emesis prior to the emergency department which was mostly clear fluid he had been drinking and some orange juice. Patient at the time described his pain to be 10 out of 10 now it is moderate in severity. Patient complains of some abdominal distention and bloating. His states that he is more swollen in his abdomen. His states that [facility] he was having difficulty absorbing his protein. Patient apparently had complications secondary to the left knee amputation of difficulty closing the wound and possible infection. He was seen at his orthopedic surgeons office on Saturday and there were no signs of infection but he did have an eschar. Nursing today notes that there is drainage of purulent matter from the eschar today. It is slightly more erythematous. Patient was given vancomycin in the emergency room. Patient's also states that he is having difficulty urinating. This is concerning because he does have significant swelling in the penis and scrotal area. Bladder scan done in the emergency room showed only 100 mL post void residual. Patient was given furosemide 60 mg in the emergency room with very little improvement in urine output. Last bowel movement last night before he came to the emergency room. CT scan done in the emergency room showed: 1. Small bilateral pleural effusions. Consolidation within both lung bases worse on the left side. Differential includes atelectasis or change from aspiration as well as possible pneumonia. Heart is enlarged. Pleural effusions could relate to CHF. 2. Body wall edema and mild ascites. 3. Nonspecific bowel wall thickening within the rectum. 4. Slightly air-filled and mildly dilated loops of colon most likely representing a mild ileus. 5. Other findings ... believed to be incidental. Diagnosis: Stroke: No - Discharge Data Discharge Date: 08/13/19 Discharge Disposition: DC/Tfer to Acute Hospital 02 Condition: Good - Referral to Home Health Primary Care Physician: Les Olvera MD - Patient Summary/Data Consults: Consultations 08/12/19 11:33 Consult to Physical Therapy [PT Evaluation and Treatment] [CONS] Routine 08/12/19 12:14 Consult to [place] [CONS] Routine 08/12/19 12:33 PT Evaluation and Treatment [CONS] Routine 08/12/19 17:17 DEVELOPMENT SPECIALIST Evaluation and Treatment [CONS] Routine 08/13/19 10:25 PT Evaluation and Treatment [CONS] Routine 08/13/19 10:26 OT Evaluation and Treatment [CONS] Routine Hospital Course: Patient with history of diabetes, peripheral vascular disease with left below- knee amputation in May, coronary artery disease was admitted to with mild colonic ileus, possible bilateral pneumonia, purulent cellulitis of the left lower extremity below-knee amputation, and hypoalbuminemia. His states that over the last 2 weeks he has had worsening oral intake and has had increasing swelling. Patient's chief complaint in the emergency room was abdominal pain. Initial labs showed a white count of 9.55 percent neutrophils and 5% bands, lactic acid of 1.3, elevated INR of 3.37 with creatinine of 1.7, albumin of 1.0. Troponin was less than 0.017 and his BNP was 2346. Lasix 60 mg IV was given in the emergency room and blood pressure decreased to 82/46 and 80/46. Patient was started on vancomycin, and admitted to the hospital. When patient arrived on the floor he was given albumin 25% 12.5 g IV, which helped his blood pressure. He was given another 40 mg of Lasix which did have a temporary decrease in blood pressure with a systolic in the 80s. This resolved within an hour. At 1:00 in the morning patient had another episode of hypotension was given a liter of normal saline and repeat albumin 12.5 g. This improved his blood pressure. Labs in this morning showed a doubling of his white count to 17.6, with a decrease of his hemoglobin to 8.3 , increase of his INR to 4.56, worsening of his creatinine a slight worsening of his creatinine to 1.8. Rocephin and metronidazole was started. MRSA screening was positive and culture results of left knee are consistent with MRSA. Patient was started on a Lasix drip at 5 mg/h and blood pressures continued to be low with a map in the upper 50s. Lasix drip was stopped, another round of albumin 12.5 g was started and patient was transferred to [facility] ICU. Accepting physician Dr. Villegas. Assessment * Mild colonic ileus * Mildly dilated loops of colon and slightly air-filled on CT * Last bowel movement last night before emergency room visit * Bilateral lower lobe pneumonia possible aspiration * Blood cultures * Vancomycin, Rocephin, metronidazole * Anasarca * Bilateral pleural effusions * Body wall edema and mild ascites * Echocardiogram done yesterday is still pending results * Hypoalbuminemia * Albumin 1.0--1.3 * Albumin 12.5 g started prior to transfer * Likely secondary to poor oral intake of protein vs. 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 * Culture results consistent with MRSA * CHF with mild exacerbation * Possibly worsening hypoalbuminemia through protein-losing gastroenteropathy * proBNP 2346 * Diabetes mellitus with episode of hypoglycemia yesterday * Blood sugars ranging from 1 40-1 70 in inpatient * Atrial fibrillation * Rate controlled * Supratherapeutic anticoagulation with warfarin * INR 3.37--4.56 * Home dose Warfarin 1 mg daily * Warfarin held yesterday * Coronary artery disease, peripheral vascular disease, history of CVA - Discharge Plan *PRESCRIPTION DRUG MONITORING PROGRAM REVIEWED*: No *COPY OF PRESCRIPTION DRUG MONITORING REPORT IN PATIENT NAWAF: No Home Medications: Home Meds Pravastatin [Pravachol] 40 mg PO BEDTIME 04/16/14 [History] Furosemide 40 mg PO DAILY 02/14/16 [History] Aspirin 81 mg PO DAILY 07/31/17 [History] Warfarin Sodium 1 mg PO DAILY 09/18/17 [History] Losartan [Cozaar] 50 mg PO DAILY 05/06/18 [History] Acetaminophen [Tylenol] 650 mg PO Q4H PRN 08/12/19 [History] Acetaminophen/HYDROcodone [[place] 325-5 MG] 1 tab PO Q8H 08/12/19 [History] Arformoterol [Brovana] 2 ml INH BID 08/12/19 [History] Ascorbate Calcium [Vitamin C] 500 mg PO DAILY 08/12/19 [History] Budesonide [Pulmicort] 0.5 mg IH BID 08/12/19 [History] Calcium Carb, Citrate/Vit D3 [Calcium + D3 ER Tablet] 1 tab PO DAILY 08/12/19 [ History] Cholecalciferol (Vitamin D3) [Vitamin D3] 1 tab PO DAILY 08/12/19 [History] Ferrous Sulfate [Iron] 325 mg PO BID 08/12/19 [History] Furosemide [Lasix] 20 mg PO 1200 08/12/19 [History] Gabapentin [Neurontin] 200 mg PO BID 08/12/19 [History] Glucagon [Gvoke Syringe] 1 mg SQ ASDIRECTED PRN 08/12/19 [History] Ipratropium/Albuterol Sulfate [Iprat-Albut 0.5-3(2.5) mg/3 ml] 3 ml INH QID PRN 08/12/19 [History] Loperamide HCl [Imodium A-D] 4 mg PO DAILY 08/12/19 [History] Loperamide [Imodium AD] 4 mg PO BID PRN 08/12/19 [History] Ondansetron [Zofran ODT] 4 mg PO Q6H PRN 08/12/19 [History] Pantoprazole Sodium [Protonix] 40 mg PO DAILY 08/12/19 [History] Potassium Chloride 20 meq PO DAILY 08/12/19 [History] fentaNYL [Fentanyl] 25 mcg TOP ASDIRECTED 08/12/19 [History] polyethylene glycoL 3350 [MiraLAX] 17 gm PO DAILY PRN 08/12/19 [History] Forms: ED Department Discharge Referrals: Les Olvera MD [Primary Care Provider] - - Discharge Summary/Plan Comment DC Time >30 min.: Yes Discharge Summary/Plan Comment: Transfer to [facility] in [place] to the ICU, Accepting physician Dr. Villegas. - Patient Data Vitals - Most Recent: Last Vital Signs Temp 98.4 F 08/13/19 15:04 Pulse 79 08/13/19 15:04 Resp 18 08/13/19 15:04 BP 81/46 L 08/13/19 15:12 Pulse Ox 94 L 08/13/19 15:04 Weight - Most Recent: 177 lb 3.2 oz I&O - Last 24 hours: Intake & Output 08/13/19 08/13/19 08/13/19 06:59 14:59 22:59 Intake Total 1000 180 625 Output Total 100 101 Balance 1000 80 524 Lab Results - Last 24 hrs: Laboratory Results - last 24 hr 08/11/19 08/12/19 08/12/19 Range/Units 22:46 05:41 17:16 WBC (4.23-9.07) K/mm3 RBC (4.63-6.08) M/mm3 Hgb (13.7-17.5) gm/dl Hct (40.1-51.0) % MCV (79.0-92.2) fl MCH (25.7-32.2) pg MCHC (32.2-35.5) g/dl RDW Std Deviation (35.1-43.9) fL Plt Count (163-337) K/mm3 MPV (9.4-12.3) fl Neut % (Auto) (34.0-67.9) % Lymph % (Auto) (21.8-53.1) % [place] % (Auto) (5.3-12.2) % Eos % (Auto) (0.8-7.0) Baso % (Auto) (0.1-1.2) % Neut # (Auto) (1.78-5.38) K/mm3 Lymph # (Auto) (1.32-3.57) K/mm3 [place] # (Auto) (0.30-0.82) K/mm3 Eos # (Auto) (0.04-0.54) K/mm3 Baso # (Auto) (0.01-0.08) K/mm3 Manual Slide Review PT (9.7-12.0) SECONDS INR Sodium (136-145) mEq/L Potassium (3.5-5.1) mEq/L Chloride (98-107) mEq/L Carbon Dioxide (21-32) mEq/L Anion Gap (5-15) BUN (7-18) mg/dL Creatinine (0.7-1.3) mg/dL Est Cr Clr Drug Dosing mL/min Estimated GFR (MDRD) (>60) mL/min BUN/Creatinine Ratio (14-18) Glucose (83-115) mg/dL POC Glucose 174 H (83-110) mg/dL Calcium (8.5-10.1) mg/dL Magnesium (1.8-2.4) mg/dl Total Bilirubin (0.2-1.0) mg/dL AST (15-37) U/L ALT (16-63) U/L Alkaline Phosphatase (46-116) U/L C-Reactive Protein (<1.0) mg/dL Total Protein (6.4-8.2) g/dl Albumin (3.4-5.0) g/dl Globulin gm/dL Albumin/Globulin Ratio (1-2) Procalcitonin 0.75 H (<0.10) ng/mL Blood Type O POSITIVE 08/12/19 08/13/19 08/13/19 Range/Units 21:59 04:59 04:59 WBC 17.58 H (4.23-9.07) K/mm3 RBC 2.97 L (4.63-6.08) M/mm3 Hgb 8.3 L (13.7-17.5) gm/dl Hct 25.8 L (40.1-51.0) % MCV 86.9 (79.0-92.2) fl MCH 27.9 (25.7-32.2) pg MCHC 32.2 (32.2-35.5) g/dl RDW Std Deviation 46.7 H (35.1-43.9) fL Plt Count 245 (163-337) K/mm3 MPV 9.6 (9.4-12.3) fl Neut % (Auto) 87.9 H (34.0-67.9) % Lymph % (Auto) 5.9 L (21.8-53.1) % [place] % (Auto) 5.8 (5.3-12.2) % Eos % (Auto) 0 L (0.8-7.0) Baso % (Auto) 0.1 (0.1-1.2) % Neut # (Auto) 15.46 H (1.78-5.38) K/mm3 Lymph # (Auto) 1.04 L (1.32-3.57) K/mm3 [place] # (Auto) 1.02 H (0.30-0.82) K/mm3 Eos # (Auto) 0.00 L (0.04-0.54) K/mm3 Baso # (Auto) 0.01 (0.01-0.08) K/mm3 Manual Slide Review Abnormal smear PT 45.6 H D (9.7-12.0) SECONDS INR 4.56 Sodium (136-145) mEq/L Potassium (3.5-5.1) mEq/L Chloride (98-107) mEq/L Carbon Dioxide (21-32) mEq/L Anion Gap (5-15) BUN (7-18) mg/dL Creatinine (0.7-1.3) mg/dL Est Cr Clr Drug Dosing mL/min Estimated GFR (MDRD) (>60) mL/min BUN/Creatinine Ratio (14-18) Glucose (83-115) mg/dL POC Glucose 164 H (83-110) mg/dL Calcium (8.5-10.1) mg/dL Magnesium (1.8-2.4) mg/dl Total Bilirubin (0.2-1.0) mg/dL AST (15-37) U/L ALT (16-63) U/L Alkaline Phosphatase (46-116) U/L C-Reactive Protein (<1.0) mg/dL Total Protein (6.4-8.2) g/dl Albumin (3.4-5.0) g/dl Globulin gm/dL Albumin/Globulin Ratio (1-2) Procalcitonin (<0.10) ng/mL Blood Type 08/13/19 08/13/19 08/13/19 Range/Units 04:59 06:50 11:04 WBC (4.23-9.07) K/mm3 RBC (4.63-6.08) M/mm3 Hgb (13.7-17.5) gm/dl Hct (40.1-51.0) % MCV (79.0-92.2) fl MCH (25.7-32.2) pg MCHC (32.2-35.5) g/dl RDW Std Deviation (35.1-43.9) fL Plt Count (163-337) K/mm3 MPV (9.4-12.3) fl Neut % (Auto) (34.0-67.9) % Lymph % (Auto) (21.8-53.1) % [place] % (Auto) (5.3-12.2) % Eos % (Auto) (0.8-7.0) Baso % (Auto) (0.1-1.2) % Neut # (Auto) (1.78-5.38) K/mm3 Lymph # (Auto) (1.32-3.57) K/mm3 [place] # (Auto) (0.30-0.82) K/mm3 Eos # (Auto) (0.04-0.54) K/mm3 Baso # (Auto) (0.01-0.08) K/mm3 Manual Slide Review PT (9.7-12.0) SECONDS INR Sodium 140 (136-145) mEq/L Potassium 4.7 (3.5-5.1) mEq/L Chloride 108 H (98-107) mEq/L Carbon Dioxide 20 L (21-32) mEq/L Anion Gap 16.7 H (5-15) BUN 25 H (7-18) mg/dL Creatinine 1.8 H (0.7-1.3) mg/dL Est Cr Clr Drug Dosing 30.49 mL/min Estimated GFR (MDRD) 36 (>60) mL/min BUN/Creatinine Ratio 13.9 L (14-18) Glucose 162 H (83-115) mg/dL POC Glucose 178 H 196 H (83-110) mg/dL Calcium 6.9 L (8.5-10.1) mg/dL Magnesium 1.9 (1.8-2.4) mg/dl Total Bilirubin 0.3 (0.2-1.0) mg/dL AST 105 H (15-37) U/L ALT 52 (16-63) U/L Alkaline Phosphatase 192 H (46-116) U/L C-Reactive Protein 7.0 H* (<1.0) mg/dL Total Protein 4.8 L (6.4-8.2) g/dl Albumin 1.3 L (3.4-5.0) g/dl Globulin 3.5 gm/dL Albumin/Globulin Ratio 0.4 L (1-2) Procalcitonin (<0.10) ng/mL Blood Type ADRI Results - Last 24 hrs: Microbiology 08/12/19 11:40 Wound Culture - Preliminary Leg, Left Gram Positive Cocci 08/12/19 06:15 Gram Stain - Final Leg, Left Anaerobic Culture - Preliminary Gram Positive Cocci 08/12/19 05:41 Aerobic Blood Culture - Preliminary Blood - Venous NO GROWTH AFTER 1 DAY Anaerobic Blood Culture - Preliminary NO GROWTH AFTER 1 DAY 08/12/19 05:52 Aerobic Blood Culture - Preliminary Blood - Venous - Lab Draw NO GROWTH AFTER 1 DAY Anaerobic Blood Culture - Preliminary NO GROWTH AFTER 1 DAY Med Orders - Current: Current Medications Acetaminophen (Tylenol) 650 mg PO Q4H PRN PRN Reason: Pain Hydrocodone Bitart/Acetaminophen ([place] 325-5 Mg) 1 tab PO Q8H PRN PRN Reason: Abdominal Pain Albuterol/Ipratropium (Duoneb 3.0-0.5 Mg/3 Ml) 3 ml INH QID PRN PRN Reason: Wheezing Aspirin (Aspirin) 81 mg PO DAILY [facility] Last Admin: 08/13/19 09:11 Dose: 81 mg Budesonide (Pulmicort) 0.5 mg INH BID [facility] Last Admin: 08/13/19 08:43 Dose: 0.5 mg Fentanyl (Duragesic) 25 mcg TOP Q72H [facility] Last Admin: 08/13/19 09:07 Dose: 25 mcg Gabapentin (Neurontin) 200 mg PO BID [facility] Last Admin: 08/13/19 09:10 Dose: 200 mg Ceftriaxone Sodium 1 gm/ (Sodium Chloride) 100 mls @ 200 mls/hr IV Q24H [facility] Last Admin: 08/13/19 02:45 Dose: 200 mls/hr Metronidazole 500 mg/ Premix 100 mls @ 100 mls/hr IV Q8H [facility] Last Admin: 08/13/19 15:52 Dose: 100 mls/hr Vancomycin HCl 1 gm/Vancomycin HCl 250 mg/ Sodium Chloride 250 mls @ 166.667 mls/hr IV Q24H [facility] Albumin Human (Flexbumin 25%) 12.5 gm in 50 mls @ 100 mls/hr IV ONETIME ONE Stop: 08/13/19 17:34 Insulin Human Lispro (Humalog) 0 unit SUBCUT QIDACANDBED [facility]; Protocol Last Admin: 08/13/19 12:19 Dose: Not Given Miscellaneous Information (Remove Patch) 0 ea TRDERM Q72H [facility] Last Admin: 08/13/19 09:07 Dose: 1 ea Mupirocin (Bactroban Oint) 0 gm TOP DAILY [facility] Last Admin: 08/13/19 09:12 Dose: 1 applic Ondansetron HCl (Zofran Odt) 4 mg PO Q6H PRN PRN Reason: Vomiting Pantoprazole Sodium (Protonix) 40 mg PO DAILY [facility] Last Admin: 08/13/19 09:11 Dose: 40 mg Polyethylene Glycol (Miralax) 17 gm PO DAILY PRN PRN Reason: Constipation Potassium Chloride (Klor-Con M20) 20 meq PO DAILY [facility] Last Admin: 08/13/19 09:11 Dose: 20 meq Simvastatin (Zocor) 20 mg PO BEDTIME [facility] Last Admin: 08/12/19 21:55 Dose: 20 mg Vancomycin HCl (Pharmacy To Dose - Vancomycin) 1 dose .XX ASDIRECTED PRN PRN Reason: RX TO DOSE VANCO Warfarin Sodium (Pharmacy To Dose - Warfarin) 1 dose .XX ASDIRECTED PRN PRN Reason: RX TO DOSE WARFARIN Warfarin Sodium (Coumadin Sliding Scale) 0 each PO QPM [facility] Stop: 08/13/19 18:01 Discontinued Medications Furosemide (Lasix) Confirm Administered Dose 80 mg .ROUTE .STK-MED ONE Stop: 08/12/19 01:31 Last Admin: 08/12/19 03:05 Dose: Not Given Furosemide (Lasix) 60 mg IVPUSH NOW ONE Stop: 08/12/19 01:16 Last Admin: 08/12/19 03:12 Dose: 60 mg Furosemide (Lasix) 40 mg IVPUSH NOW ONE Stop: 08/12/19 12:33 Last Admin: 08/12/19 12:54 Dose: 40 mg Hydromorphone HCl (Dilaudid) 0.5 mg IVPUSH ONETIME ONE Stop: 08/11/19 22:32 Last Admin: 08/11/19 23:09 Dose: 0.25 mg Hydromorphone HCl (Dilaudid) 1 mg IVPUSH ONETIME ONE Stop: 08/11/19 23:47 Last Admin: 08/12/19 00:54 Dose: 1 mg Hydromorphone HCl (Dilaudid) 0.5 mg IVPUSH ONETIME ONE Stop: 08/12/19 03:50 Last Admin: 08/12/19 04:16 Dose: 0.5 mg Hydromorphone HCl (Dilaudid) 0.5 mg IVPUSH ONETIME ONE Stop: 08/12/19 09:22 Last Admin: 08/12/19 09:27 Dose: 0.5 mg Dextrose/Sodium Chloride (Dextrose 5%-Normal Saline) 1,000 mls @ 125 mls/hr IV ASDIRECTED [facility] Last Admin: 08/11/19 22:58 Dose: 125 mls/hr Vancomycin HCl 1.75 gm/ Sodium (Chloride) 500 mls @ 250 mls/hr IV ONETIME ONE Stop: 08/12/19 06:13 Last Admin: 08/12/19 06:48 Dose: 250 mls/hr Sodium Chloride (Normal Saline) 1,000 mls @ 999 mls/hr IV ASDIRECTED [facility] Last Admin: 08/12/19 06:20 Dose: 999 mls/hr Magnesium Sulfate 4 gm/ Premix 100 mls @ 25 mls/hr IV ONETIME ONE Stop: 08/12/19 15:59 Last Admin: 08/12/19 13:22 Dose: 25 mls/hr Albumin Human (Flexbumin 25%) 12.5 gm in 50 mls @ 100 mls/hr IV ONETIME ONE Stop: 08/12/19 13:14 Last Admin: 08/12/19 12:54 Dose: 100 mls/hr Sodium Chloride (Sodium Chloride 0.9%) 500 mls @ 999 mls/hr IRR ASDIRECTED [facility]EE[facility] Sodium Chloride (Normal Saline) 500 mls @ 999 mls/hr IV .BOLUS ONE Stop: 08/13/19 02:18 Last Admin: 08/13/19 01:49 Dose: 999 mls/hr Albumin Human (Flexbumin 25%) 12.5 gm in 50 mls @ 100 mls/hr IV ONETIME ONE Stop: 08/13/19 03:23 Last Admin: 08/13/19 03:18 Dose: 100 mls/hr Furosemide 100 mg/ Sodium (Chloride) 100 mls @ 5 mls/hr IV TITRATE [facility]; Protocol Last Admin: 08/13/19 11:34 Dose: 5 mls/hr Vancomycin HCl 1 gm/Vancomycin HCl 250 mg/ Sodium Chloride 250 mls @ 166.667 mls/hr IV Q24H [facility] Stop: 08/13/19 17:00 Last Admin: 08/13/19 13:56 Dose: 166.667 mls/hr Lactulose (Cephulac) 20 gm PO ONETIME ONE Stop: 08/12/19 03:50 Last Admin: 08/12/19 04:39 Dose: 20 gm Metoclopramide HCl (Reglan) 10 mg IVPUSH ONETIME ONE Stop: 08/11/19 22:32 Last Admin: 08/11/19 23:03 Dose: 10 mg Metoclopramide HCl (Reglan) 7.5 mg IVPUSH ONETIME ONE Stop: 08/12/19 03:50 Last Admin: 08/12/19 04:14 Dose: 7.5 mg Warfarin Sodium (Coumadin Sliding Scale) 0 each PO QPM [facility] Stop: 08/12/19 18:01 Last Admin: 08/12/19 18:04 Dose: Not Given
[2019-08-13] MEDS ORDERED: Warfarin Sliding Scale PO SCH (18:00)
[2019-08-13] MEDS ORDERED: Furosemide 20 MG/2 ML VIAL IVPUSH ONE (18:15)
[2019-08-13] MEDS: Simvastatin 20 MG Tab PO SCH (20:51)
[2019-08-13] MEDS: Albumin 25% 12.5 GM/50 ML BAG IV SCH (23:27)
[2019-08-13] MEDS: Furosemide 20 MG/2 ML VIAL IVPUSH SCH (23:38)
[2019-08-14] MEDS: cefTRIAXone 1 GM in Sodium Chloride 0.9% 100 ML IV SCH (03:00)
[2019-08-14] MEDS: Albumin 25% 12.5 GM/50 ML BAG IV SCH (06:05)
[2019-08-14] MEDS: Furosemide 20 MG/2 ML VIAL IVPUSH SCH (06:06)
[2019-08-14] MEDS: Insulin Lispro 100 Units/ML 3 ML Vial SUBCUT SCH ×4 (07:48→21:31)
[2019-08-14] MEDS: Budesonide 0.5 MG/2 ML Neb Susp INH SCH ×2 (08:10→20:32)
[2019-08-14] MEDS: metroNIDAZOLE/Normal Saline 500 MG in Premix Bag 1 BAG IV SCH ×2 (08:15→16:39)
[2019-08-14] MEDS: Potassium Chloride 20 MEQ Tab.ER PO SCH (08:20)
[2019-08-14] MEDS: Gabapentin 100 MG Cap PO SCH ×2 (08:20→20:54)
[2019-08-14] MEDS: Pantoprazole 40 MG Tab.CR PO SCH (08:21)
[2019-08-14] MEDS: Mupirocin Oint 22 GM Tube TOP SCH (08:26)
--- NOTE | 2019-08-14 09:44 | PCM.PN ---
- General Info Date of Service: 08/14/19 Admission Dx/Problem (Free Text): Admission Diagnosis/Problem Admission Diagnosis/Problem Ileus Subjective Update: Patient did well overnight. He has had increasing blood pressure with improvement in urine output with the albumin and furosemide combination. Nursing still reports that he has significant swelling and weeping around his scrotum. Patient is much more alert and talkative this morning. Family states he is much better than yesterday. Functional Status: Reports: Pain Controlled - Review of Systems General: Reports: Weakness Pulmonary: Reports: Cough, Sputum. Denies: Shortness of Breath Cardiovascular: Reports: Edema Gastrointestinal: Reports: No Symptoms Psychiatric: Reports: No Symptoms - Patient Data Vitals - Most Recent: Last Vital Signs Temp 99.0 F 08/13/19 20:33 Pulse 76 08/14/19 03:04 Resp 16 08/14/19 03:04 BP 109/53 L 08/14/19 06:45 Pulse Ox 95 08/14/19 08:10 Weight - Most Recent: 180 lb 3.2 oz I&O - Last 24 Hours: Intake & Output 08/13/19 08/14/19 08/14/19 22:59 06:59 14:59 Intake Total 805 900 Output Total 280 790 400 Balance 525 110 -400 Lab Results Last 24 Hours: Laboratory Results - last 24 hr 08/13/19 08/13/19 08/13/19 Range/Units 11:04 17:34 21:05 WBC (4.23-9.07) K/mm3 RBC (4.63-6.08) M/mm3 Hgb (13.7-17.5) gm/dl Hct (40.1-51.0) % MCV (79.0-92.2) fl MCH (25.7-32.2) pg MCHC (32.2-35.5) g/dl RDW Std Deviation (35.1-43.9) fL Plt Count (163-337) K/mm3 MPV (9.4-12.3) fl Neut % (Auto) (34.0-67.9) % Lymph % (Auto) (21.8-53.1) % [place] % (Auto) (5.3-12.2) % Eos % (Auto) (0.8-7.0) Baso % (Auto) (0.1-1.2) % Neut # (Auto) (1.78-5.38) K/mm3 Lymph # (Auto) (1.32-3.57) K/mm3 [place] # (Auto) (0.30-0.82) K/mm3 Eos # (Auto) (0.04-0.54) K/mm3 Baso # (Auto) (0.01-0.08) K/mm3 Manual Slide Review PT (9.7-12.0) SECONDS INR Sodium (136-145) mEq/L Potassium (3.5-5.1) mEq/L Chloride (98-107) mEq/L Carbon Dioxide (21-32) mEq/L Anion Gap (5-15) BUN (7-18) mg/dL Creatinine (0.7-1.3) mg/dL Est Cr Clr Drug Dosing mL/min Estimated GFR (MDRD) (>60) mL/min BUN/Creatinine Ratio (14-18) Glucose (83-115) mg/dL POC Glucose 196 H 249 H 254 H (83-110) mg/dL Calcium (8.5-10.1) mg/dL Total Bilirubin (0.2-1.0) mg/dL AST (15-37) U/L ALT (16-63) U/L Alkaline Phosphatase (46-116) U/L C-Reactive Protein (<1.0) mg/dL Total Protein (6.4-8.2) g/dl Albumin (3.4-5.0) g/dl Globulin gm/dL Albumin/Globulin Ratio (1-2) 08/14/19 08/14/19 08/14/19 Range/Units 05:50 05:50 05:50 WBC 9.59 H (4.23-9.07) K/mm3 RBC 2.83 L (4.63-6.08) M/mm3 Hgb 7.9 L (13.7-17.5) gm/dl Hct 24.9 L (40.1-51.0) % MCV 88.0 (79.0-92.2) fl MCH 27.9 (25.7-32.2) pg MCHC 31.7 L (32.2-35.5) g/dl RDW Std Deviation 48.2 H (35.1-43.9) fL Plt Count 212 (163-337) K/mm3 MPV 9.6 (9.4-12.3) fl Neut % (Auto) 70.5 H (34.0-67.9) % Lymph % (Auto) 16.1 L (21.8-53.1) % [place] % (Auto) 9.9 (5.3-12.2) % Eos % (Auto) 2.9 (0.8-7.0) Baso % (Auto) 0.4 (0.1-1.2) % Neut # (Auto) 6.76 H (1.78-5.38) K/mm3 Lymph # (Auto) 1.54 (1.32-3.57) K/mm3 [place] # (Auto) 0.95 H (0.30-0.82) K/mm3 Eos # (Auto) 0.28 (0.04-0.54) K/mm3 Baso # (Auto) 0.04 (0.01-0.08) K/mm3 Manual Slide Review Abnormal smear PT 47.3 H (9.7-12.0) SECONDS INR 4.74 Sodium 142 (136-145) mEq/L Potassium 4.3 (3.5-5.1) mEq/L Chloride 110 H (98-107) mEq/L Carbon Dioxide 23 (21-32) mEq/L Anion Gap 13.3 (5-15) BUN 31 H (7-18) mg/dL Creatinine 1.8 H (0.7-1.3) mg/dL Est Cr Clr Drug Dosing 30.49 mL/min Estimated GFR (MDRD) 36 (>60) mL/min BUN/Creatinine Ratio 17.2 (14-18) Glucose 100 (83-115) mg/dL POC Glucose (83-110) mg/dL Calcium 7.1 L (8.5-10.1) mg/dL Total Bilirubin 0.4 (0.2-1.0) mg/dL AST 62 H (15-37) U/L ALT 50 (16-63) U/L Alkaline Phosphatase 170 H (46-116) U/L C-Reactive Protein 7.9 H* (<1.0) mg/dL Total Protein 4.8 L (6.4-8.2) g/dl Albumin 1.5 L (3.4-5.0) g/dl Globulin 3.3 gm/dL Albumin/Globulin Ratio 0.5 L (1-2) 08/14/19 Range/Units 06:13 WBC (4.23-9.07) K/mm3 RBC (4.63-6.08) M/mm3 Hgb (13.7-17.5) gm/dl Hct (40.1-51.0) % MCV (79.0-92.2) fl MCH (25.7-32.2) pg MCHC (32.2-35.5) g/dl RDW Std Deviation (35.1-43.9) fL Plt Count (163-337) K/mm3 MPV (9.4-12.3) fl Neut % (Auto) (34.0-67.9) % Lymph % (Auto) (21.8-53.1) % [place] % (Auto) (5.3-12.2) % Eos % (Auto) (0.8-7.0) Baso % (Auto) (0.1-1.2) % Neut # (Auto) (1.78-5.38) K/mm3 Lymph # (Auto) (1.32-3.57) K/mm3 [place] # (Auto) (0.30-0.82) K/mm3 Eos # (Auto) (0.04-0.54) K/mm3 Baso # (Auto) (0.01-0.08) K/mm3 Manual Slide Review PT (9.7-12.0) SECONDS INR Sodium (136-145) mEq/L Potassium (3.5-5.1) mEq/L Chloride (98-107) mEq/L Carbon Dioxide (21-32) mEq/L Anion Gap (5-15) BUN (7-18) mg/dL Creatinine (0.7-1.3) mg/dL Est Cr Clr Drug Dosing mL/min Estimated GFR (MDRD) (>60) mL/min BUN/Creatinine Ratio (14-18) Glucose (83-115) mg/dL POC Glucose 124 H (83-110) mg/dL Calcium (8.5-10.1) mg/dL Total Bilirubin (0.2-1.0) mg/dL AST (15-37) U/L ALT (16-63) U/L Alkaline Phosphatase (46-116) U/L C-Reactive Protein (<1.0) mg/dL Total Protein (6.4-8.2) g/dl Albumin (3.4-5.0) g/dl Globulin gm/dL Albumin/Globulin Ratio (1-2) Lonny Results Last 24 Hours: Microbiology 08/12/19 11:40 Wound Culture - Preliminary Leg, Left Gram Positive Cocci 08/12/19 05:41 Aerobic Blood Culture - Preliminary Blood - Venous NO GROWTH AFTER 2 DAYS Anaerobic Blood Culture - Preliminary NO GROWTH AFTER 2 DAYS 08/12/19 05:52 Aerobic Blood Culture - Preliminary Blood - Venous - Lab Draw NO GROWTH AFTER 2 DAYS Anaerobic Blood Culture - Preliminary NO GROWTH AFTER 2 DAYS 08/12/19 06:15 Gram Stain - Final Leg, Left Anaerobic Culture - Preliminary Gram Positive Cocci Med Orders - Current: Current Medications Acetaminophen (Tylenol) 650 mg PO Q4H PRN PRN Reason: Pain Hydrocodone Bitart/Acetaminophen ([place] 325-5 Mg) 1 tab PO Q8H PRN PRN Reason: Abdominal Pain Last Admin: 08/14/19 08:21 Dose: 1 tab Albuterol/Ipratropium (Duoneb 3.0-0.5 Mg/3 Ml) 3 ml INH QID PRN PRN Reason: Wheezing Budesonide (Pulmicort) 0.5 mg INH BID [facility] Last Admin: 08/14/19 08:10 Dose: 0.5 mg Fentanyl (Duragesic) 25 mcg TOP Q72H [facility] Last Admin: 08/13/19 09:07 Dose: 25 mcg Furosemide (Lasix) 20 mg IVPUSH ONETIME ONE Stop: 08/14/19 12:31 Gabapentin (Neurontin) 200 mg PO BID [facility] Last Admin: 08/14/19 08:20 Dose: 200 mg Ceftriaxone Sodium 1 gm/ (Sodium Chloride) 100 mls @ 200 mls/hr IV Q24H [facility] Last Admin: 08/14/19 03:00 Dose: 200 mls/hr Metronidazole 500 mg/ Premix 100 mls @ 100 mls/hr IV Q8H [facility] Last Admin: 08/14/19 08:15 Dose: 100 mls/hr Vancomycin HCl 1 gm/Vancomycin HCl 250 mg/ Sodium Chloride 250 mls @ 166.667 mls/hr IV Q24H [facility] Albumin Human (Flexbumin 25%) 12.5 gm in 50 mls @ 100 mls/hr IV ONETIME ONE Stop: 08/14/19 12:29 Insulin Human Lispro (Humalog) 0 unit SUBCUT QIDACANDBED [facility]; Protocol Last Admin: 08/14/19 07:48 Dose: Not Given Miscellaneous Information (Remove Patch) 0 ea TRDERM Q72H [facility] Last Admin: 08/13/19 09:07 Dose: 1 ea Mupirocin (Bactroban Oint) 0 gm TOP DAILY [facility] Last Admin: 08/14/19 08:26 Dose: 1 applic Ondansetron HCl (Zofran Odt) 4 mg PO Q6H PRN PRN Reason: Vomiting Pantoprazole Sodium (Protonix Iv) 40 mg IVPUSH Q12H [facility] Polyethylene Glycol (Miralax) 17 gm PO DAILY PRN PRN Reason: Constipation Potassium Chloride (Klor-Con M20) 20 meq PO DAILY [facility] Last Admin: 08/14/19 08:20 Dose: 20 meq Simvastatin (Zocor) 20 mg PO BEDTIME [facility] Last Admin: 08/13/19 20:51 Dose: 20 mg Vancomycin HCl (Pharmacy To Dose - Vancomycin) 1 dose .XX ASDIRECTED PRN PRN Reason: RX TO DOSE VANCO Warfarin Sodium (Pharmacy To Dose - Warfarin) 1 dose .XX ASDIRECTED PRN PRN Reason: RX TO DOSE WARFARIN Discontinued Medications Aspirin (Aspirin) 81 mg PO DAILY [facility] Last Admin: 08/13/19 09:11 Dose: 81 mg Furosemide (Lasix) Confirm Administered Dose 80 mg .ROUTE .STK-MED ONE Stop: 08/12/19 01:31 Last Admin: 08/12/19 03:05 Dose: Not Given Furosemide (Lasix) 60 mg IVPUSH NOW ONE Stop: 08/12/19 01:16 Last Admin: 08/12/19 03:12 Dose: 60 mg Furosemide (Lasix) 40 mg IVPUSH NOW ONE Stop: 08/12/19 12:33 Last Admin: 08/12/19 12:54 Dose: 40 mg Furosemide (Lasix) 20 mg IVPUSH ONETIME ONE Stop: 08/13/19 18:16 Last Admin: 08/13/19 19:18 Dose: 20 mg Furosemide (Lasix) 20 mg IVPUSH Q6H [facility] Stop: 08/14/19 06:31 Last Admin: 08/14/19 06:06 Dose: 20 mg Hydromorphone HCl (Dilaudid) 0.5 mg IVPUSH ONETIME ONE Stop: 08/11/19 22:32 Last Admin: 08/11/19 23:09 Dose: 0.25 mg Hydromorphone HCl (Dilaudid) 1 mg IVPUSH ONETIME ONE Stop: 08/11/19 23:47 Last Admin: 08/12/19 00:54 Dose: 1 mg Hydromorphone HCl (Dilaudid) 0.5 mg IVPUSH ONETIME ONE Stop: 08/12/19 03:50 Last Admin: 08/12/19 04:16 Dose: 0.5 mg Hydromorphone HCl (Dilaudid) 0.5 mg IVPUSH ONETIME ONE Stop: 08/12/19 09:22 Last Admin: 08/12/19 09:27 Dose: 0.5 mg Dextrose/Sodium Chloride (Dextrose 5%-Normal Saline) 1,000 mls @ 125 mls/hr IV ASDIRECTED [facility] Last Admin: 08/11/19 22:58 Dose: 125 mls/hr Vancomycin HCl 1.75 gm/ Sodium (Chloride) 500 mls @ 250 mls/hr IV ONETIME ONE Stop: 08/12/19 06:13 Last Admin: 08/12/19 06:48 Dose: 250 mls/hr Sodium Chloride (Normal Saline) 1,000 mls @ 999 mls/hr IV ASDIRECTED [facility] Last Admin: 08/12/19 06:20 Dose: 999 mls/hr Magnesium Sulfate 4 gm/ Premix 100 mls @ 25 mls/hr IV ONETIME ONE Stop: 08/12/19 15:59 Last Admin: 08/12/19 13:22 Dose: 25 mls/hr Albumin Human (Flexbumin 25%) 12.5 gm in 50 mls @ 100 mls/hr IV ONETIME ONE Stop: 08/12/19 13:14 Last Admin: 08/12/19 12:54 Dose: 100 mls/hr Sodium Chloride (Sodium Chloride 0.9%) 500 mls @ 999 mls/hr IRR ASDIRECTED [facility] Sodium Chloride (Normal Saline) 500 mls @ 999 mls/hr IV .BOLUS ONE Stop: 08/13/19 02:18 Last Admin: 08/13/19 01:49 Dose: 999 mls/hr Albumin Human (Flexbumin 25%) 12.5 gm in 50 mls @ 100 mls/hr IV ONETIME ONE Stop: 08/13/19 03:23 Last Admin: 08/13/19 03:18 Dose: 100 mls/hr Furosemide 100 mg/ Sodium (Chloride) 100 mls @ 5 mls/hr IV TITRATE LEENA; Protocol Last Admin: 08/13/19 11:34 Dose: 5 mls/hr Vancomycin HCl 1 gm/Vancomycin HCl 250 mg/ Sodium Chloride 250 mls @ 166.667 mls/hr IV Q24H [facility] Stop: 08/13/19 17:00 Last Admin: 08/13/19 13:56 Dose: 166.667 mls/hr Albumin Human (Flexbumin 25%) 12.5 gm in 50 mls @ 100 mls/hr IV ONETIME ONE Stop: 08/13/19 17:34 Last Admin: 08/13/19 17:30 Dose: 100 mls/hr Albumin Human (Flexbumin 25%) 12.5 gm in 50 mls @ 100 mls/hr IV Q6H [facility] Stop: 08/14/19 12:02 Last Admin: 08/14/19 06:05 Dose: 100 mls/hr Lactulose (Cephulac) 20 gm PO ONETIME ONE Stop: 08/12/19 03:50 Last Admin: 08/12/19 04:39 Dose: 20 gm Metoclopramide HCl (Reglan) 10 mg IVPUSH ONETIME ONE Stop: 08/11/19 22:32 Last Admin: 08/11/19 23:03 Dose: 10 mg Metoclopramide HCl (Reglan) 7.5 mg IVPUSH ONETIME ONE Stop: 08/12/19 03:50 Last Admin: 08/12/19 04:14 Dose: 7.5 mg Pantoprazole Sodium (Protonix) 40 mg PO DAILY [facility] Last Admin: 08/14/19 08:21 Dose: 40 mg Warfarin Sodium (Coumadin Sliding Scale) 0 each PO QPM [facility]EENA Stop: 08/12/19 18:01 Last Admin: 08/12/19 18:04 Dose: Not Given Warfarin Sodium (Coumadin Sliding Scale) 0 each PO QPM [facility] Stop: 08/13/19 18:01 Last Admin: 08/13/19 19:41 Dose: Not Given - Exam Quality Assessment: Supplemental Oxygen General: Alert, Oriented HEENT: Pupils Equal, Mucous Membr. Moist/Siren Neck: Supple Lungs: Normal Respiratory Effort, Rales, Rhonchi Cardiovascular: Regular Rate, Regular Rhythm GI/Abdominal Exam: Normal Bowel Sounds, Soft, Non-Tender Extremities: Pedal Edema (Bilateral legs up to thigh.), Other (Drainage through dressing on left stump) Wound/Incisions: Drainage (Left BKA stump) Psy/Mental Status: Alert, Normal Affect, Normal Mood Sepsis Event Note - Evaluation Sepsis Screening Result: No Definite Risk - Focused Exam Vital Signs: Vital Signs Pulse Pulse Resp BP BP Pulse Ox Pulse Ox 08/14/19 08:10 95 08/14/19 06:45 109/53 L 08/14/19 06:06 105/61 08/14/19 03:04 76 16 90/52 L 96 08/14/19 00:30 75/42 L 08/14/19 00:12 75/42 L 08/13/19 23:45 72 16 83/45 L 92 L 08/13/19 23:41 72 16 83/45 L 92 L 08/13/19 21:51 96 Date Exam was Performed: 08/14/19 Time Exam was Performed: 11:55 - Problem List Review Problem List Initiated/Reviewed/Updated: Yes - My Orders Last 24 Hours: My Active Orders 08/13/19 09:00 Potassium Chloride [Klor-Con M20] 20 meq PO DAILY Remove Patch 0 ea TRDERM Q72H fentaNYL [Duragesic] 25 mcg TOP Q72H 08/13/19 10:25 PT Evaluation and Treatment [CONS] Routine 08/13/19 10:26 OT Evaluation and Treatment [CONS] Routine 08/13/19 11:08 Urinary Catheter Assessment [RC] 04,16,10,22 08/13/19 11:15 Insert [place] Catheter [Insert Urinary Catheter] [OM.PC] Q24H 08/13/19 11:20 Pharmacy to Dose - Vancomycin 1 dose .XX ASDIRECTED PRN 08/13/19 15:40 Patient Status [ADT] Routine 08/13/19 17:12 Ready for Discharge [RC] PER UNIT ROUTINE 08/13/19 Lunch Regular Diet [DIET] Thickened Liquids [DIET] 08/14/19 08:31 Guaiac [OCCULT BLOOD DIAGNOSTIC] [OP] Routine 08/14/19 09:00 Pantoprazole [ProTONIX IV] 40 mg IVPUSH Q12H 08/14/19 12:00 Albumin 25% [Flexbumin 25%] 12.5 gm in 50 ml IV ONETIME 08/14/19 12:30 Furosemide [Lasix] 20 mg IVPUSH ONETIME ONE 08/14/19 13:00 VANCOMYCIN TROUGH [CHEM] Timed 08/14/19 14:00 Vancomycin 1 gm Vancomycin 250 mg Sodium Chloride 0.9% [Normal Saline] 250 ml IV Q24H 08/15/19 05:11 C-REACTIVE PROTEIN [CHEM] AM CBC WITH AUTO DIFF [HEME] AM COMPREHENSIVE METABOLIC PN,CMP [CHEM] AM INR,PT,PROTHROMBIN TIME [COAG] AM MAGNESIUM [CHEM] AM 08/16/19 05:11 C-REACTIVE PROTEIN [CHEM] AM CBC WITH AUTO DIFF [HEME] AM COMPREHENSIVE METABOLIC PN,CMP [CHEM] AM INR,PT,PROTHROMBIN TIME [COAG] AM 08/17/19 05:11 C-REACTIVE PROTEIN [CHEM] AM CBC WITH AUTO DIFF [HEME] AM COMPREHENSIVE METABOLIC PN,CMP [CHEM] AM INR,PT,PROTHROMBIN TIME [COAG] AM 08/18/19 05:11 INR,PT,PROTHROMBIN TIME [COAG] AM - Plan Plan:: Assessment * Mild colonic ileus * Mildly dilated loops of colon and slightly air-filled on CT * Last bowel movement last night before emergency room visit * GI bleed * Hemoglobin has dropped from 10.7-7.9 since admission * Guaiac positive stool * Protonix 40 mg daily at home and here * Bilateral lower lobe pneumonia possible aspiration * Blood cultures * Vancomycin in the emergency room * Anasarca * Bilateral pleural effusions * Body wall edema and mild ascites * Scrotal edema * Hypoalbuminemia * Albumin 1.0--1.3 * Likely secondary to poor oral intake of protein vs. protein-losing gastroenteropathy * Dietary following * Cellulitis left lower extremity at the below-knee amputation site * PT/wound care following and nurse treatment * CHF with mild exacerbation * Possibly worsening hypoalbuminemia through protein-losing gastroenteropathy * proBNP 2346 * 2 pound weight gain overnight * Diabetes mellitus with episode of hypoglycemia at the skilled nursing * No hypoglycemia since hospitalization * Atrial fibrillation * Rate controlled * Supratherapeutic anticoagulation with warfarin * INR 3.37-->4.7 * Home dose Warfarin 1 mg daily * Warfarin on hold * Coronary artery disease, peripheral vascular disease, history of CVA Plan * Admit to medical floor on telemetry * Albumin 25% IV 12.5 g x 1; repeat as necessary * Lasix 20 mg IV 30 min after albumin administration * Strict I's and O's closely * Daily weights * Echocardiogram - pending results * Change Protonix to 40 mg IV twice daily * Vancomycin pharmacy to dose * Rocephin 1 g every 24 hours * Metronidazole 500 mg IV every 8 hours * DC warfarin * Vitamin K 2.5 mg p.o. 1 time * Check hemoglobin this afternoon, consider 1 unit of packed red blood cells * Advance as tolerated * Fingerstick blood sugar 4 times daily with sliding scale insulin * FiO2 to keep SPO2 greater than 91% * CBC, CMP, INR, magnesium, C-reactive protein daily * VTE prophylaxis with warfarin * CODE STATUS: DNR/DNI * Length of stay likely 2-3 more days.
[2019-08-14] MEDS ORDERED: Loperamide 2 MG Cap PO ONE (10:45)
[2019-08-14] MEDS: Pantoprazole 40 MG Vial IVPUSH SCH ×2 (10:56→20:54)
[2019-08-14] MEDS ORDERED: Phytonadione ORAL 2.5mg/2.5ml Soln Simple Syrup U/D PO ONE (11:15)
[2019-08-14] MEDS ORDERED: Albumin 25% 12.5 GM/50 ML BAG IV ONE (12:00)
[2019-08-14] MEDS ORDERED: Furosemide 20 MG/2 ML VIAL IVPUSH ONE ×2 (12:30→20:00)
[2019-08-14] MEDS: Vancomycin 1 GM, Vancomycin 250 MG in Sodium Chloride 0.9% 250 ML IV SCH (14:47)
[2019-08-14] MEDS: Cholestyramine/Sucrose Powder 4 GM Packet PO SCH (19:15)
[2019-08-14] MEDS: Simvastatin 20 MG Tab PO SCH (20:54)
[2019-08-15] MEDS: metroNIDAZOLE/Normal Saline 500 MG in Premix Bag 1 BAG IV SCH ×3 (00:57→18:04)
[2019-08-15] MEDS: cefTRIAXone 1 GM in Sodium Chloride 0.9% 100 ML IV SCH (02:08)
[2019-08-15] MEDS: Cholestyramine/Sucrose Powder 4 GM Packet PO SCH ×2 (06:10→18:06)
[2019-08-15] MEDS: Insulin Lispro 100 Units/ML 3 ML Vial SUBCUT SCH ×4 (06:40→21:59)
[2019-08-15] MEDS ORDERED: Furosemide 20 MG/2 ML VIAL IVPUSH ONE ×2 (08:14→21:15)
[2019-08-15] MEDS ORDERED: Magnesium Sulfate/Water 2 GM in Premix Bag 1 BAG IV ONE (08:19)
[2019-08-15] MEDS: Budesonide 0.5 MG/2 ML Neb Susp INH SCH ×2 (09:17→20:38)
[2019-08-15] MEDS ORDERED: Furosemide 40 MG/4 ML VIAL IVPUSH SCH (09:53)
[2019-08-15] MEDS: Potassium Chloride 20 MEQ Tab.ER PO SCH (10:06)
[2019-08-15] MEDS: Gabapentin 100 MG Cap PO SCH ×2 (10:06→20:26)
[2019-08-15] MEDS: Pantoprazole 40 MG Vial IVPUSH SCH ×2 (10:07→20:27)
[2019-08-15] MEDS: Mupirocin Oint 22 GM Tube TOP SCH (10:12)
[2019-08-15] MEDS ORDERED: Sodium Chloride 0.9% 500 ML IV SCH (11:00)
[2019-08-15] MEDS ORDERED: Sodium Chloride 0.9% 250 ML IV SCH (11:00)
[2019-08-15] MEDS ORDERED: Sodium Chloride 0.9% 500 ML ONE (11:13)
--- NOTE | 2019-08-15 11:48 | CR ---
Chest: 2 views of the chest were obtained. Comparison: Prior chest x-ray of 08/11/19. Small bilateral pleural effusions are seen with blunting of the posterior costophrenic angles. Increased density is noted within the left lung base presumably due to an area of consolidation. Left upper lung and right lung are clear. Pacemaker is noted. Heart is enlarged. Bony structures are grossly intact. Impression: 1. Small bilateral pleural effusions. 2. Consolidation within the left lung base. Please correlate if this represents changes of aspiration or pneumonia. 3. Mild cardiomegaly. Diagnostic code #3 This report was dictated in [place] Standard Time
[2019-08-15] MEDS: Vancomycin 1 GM, Vancomycin 250 MG in Sodium Chloride 0.9% 250 ML IV SCH (13:52)
--- NOTE | 2019-08-15 14:31 | PCM.PN ---
- General Info Date of Service: 08/15/19 Admission Dx/Problem (Free Text): Admission Diagnosis/Problem Admission Diagnosis/Problem Ileus Subjective Update: Patient states he is doing much better. He is able to lift his right leg, which she was unable to do at the assisted. This is a significant improvement in strength. He was weaned off of his O2 overnight. - Review of Systems General: Reports: No Symptoms HEENT: Reports: No Symptoms Pulmonary: Reports: Cough Cardiovascular: Reports: No Symptoms Gastrointestinal: Reports: No Symptoms Musculoskeletal: Reports: No Symptoms Skin: Reports: No Symptoms Neurological: Reports: No Symptoms Psychiatric: Reports: No Symptoms - Patient Data Vitals - Most Recent: Last Vital Signs Temp 97.8 F 08/15/19 14:07 Pulse 78 08/15/19 14:07 Resp 14 08/15/19 14:07 BP 110/56 L 08/15/19 14:07 Pulse Ox 90 L 08/15/19 08:53 Weight - Most Recent: 177 lb 1.6 oz I&O - Last 24 Hours: Intake & Output 08/14/19 08/15/19 08/15/19 22:59 06:59 14:59 Intake Total 840 600 551 Output Total 5165 450 2853 Balance -432 -517 -734 Lab Results Last 24 Hours: Laboratory Results - last 24 hr 08/14/19 08/14/19 08/14/19 Range/Units 16:40 17:05 21:07 WBC (4.23-9.07) K/mm3 RBC (4.63-6.08) M/mm3 Hgb 8.2 L (13.7-17.5) gm/dl Hct 26.1 L (40.1-51.0) % MCV (79.0-92.2) fl MCH (25.7-32.2) pg MCHC (32.2-35.5) g/dl RDW Std Deviation (35.1-43.9) fL Plt Count (163-337) K/mm3 MPV (9.4-12.3) fl Neut % (Auto) (34.0-67.9) % Lymph % (Auto) (21.8-53.1) % Deuel % (Auto) (5.3-12.2) % Eos % (Auto) (0.8-7.0) Baso % (Auto) (0.1-1.2) % Neut # (Auto) (1.78-5.38) K/mm3 Lymph # (Auto) (1.32-3.57) K/mm3 Deuel # (Auto) (0.30-0.82) K/mm3 Eos # (Auto) (0.04-0.54) K/mm3 Baso # (Auto) (0.01-0.08) K/mm3 Manual Slide Review PT (9.7-12.0) SECONDS INR Sodium (136-145) mEq/L Potassium (3.5-5.1) mEq/L Chloride (98-107) mEq/L Carbon Dioxide (21-32) mEq/L Anion Gap (5-15) BUN (7-18) mg/dL Creatinine (0.7-1.3) mg/dL Est Cr Clr Drug Dosing mL/min Estimated GFR (MDRD) (>60) mL/min BUN/Creatinine Ratio (14-18) Glucose (83-115) mg/dL POC Glucose 197 H 206 H (83-110) mg/dL Calcium (8.5-10.1) mg/dL Magnesium (1.8-2.4) mg/dl Total Bilirubin (0.2-1.0) mg/dL AST (15-37) U/L ALT (16-63) U/L Alkaline Phosphatase (46-116) U/L C-Reactive Protein (<1.0) mg/dL Total Protein (6.4-8.2) g/dl Albumin (3.4-5.0) g/dl Globulin gm/dL Albumin/Globulin Ratio (1-2) Blood Type Gel Antibody Screen Crossmatch 08/14/19 08/15/19 08/15/19 Range/Units 21:07 06:03 06:03 WBC 8.23 (4.23-9.07) K/mm3 RBC 2.84 L (4.63-6.08) M/mm3 Hgb 7.9 L (13.7-17.5) gm/dl Hct 25.1 L (40.1-51.0) % MCV 88.4 (79.0-92.2) fl MCH 27.8 (25.7-32.2) pg MCHC 31.5 L (32.2-35.5) g/dl RDW Std Deviation 49.6 H (35.1-43.9) fL Plt Count 193 (163-337) K/mm3 MPV 9.9 (9.4-12.3) fl Neut % (Auto) 68.7 H (34.0-67.9) % Lymph % (Auto) 15.2 L (21.8-53.1) % Deuel % (Auto) 11.5 (5.3-12.2) % Eos % (Auto) 3.8 (0.8-7.0) Baso % (Auto) 0.6 (0.1-1.2) % Neut # (Auto) 5.65 H (1.78-5.38) K/mm3 Lymph # (Auto) 1.25 L (1.32-3.57) K/mm3 Deuel # (Auto) 0.95 H (0.30-0.82) K/mm3 Eos # (Auto) 0.31 (0.04-0.54) K/mm3 Baso # (Auto) 0.05 (0.01-0.08) K/mm3 Manual Slide Review Abnormal smear PT 19.8 H D (9.7-12.0) SECONDS INR 1.88 Sodium (136-145) mEq/L Potassium (3.5-5.1) mEq/L Chloride (98-107) mEq/L Carbon Dioxide (21-32) mEq/L Anion Gap (5-15) BUN (7-18) mg/dL Creatinine (0.7-1.3) mg/dL Est Cr Clr Drug Dosing mL/min Estimated GFR (MDRD) (>60) mL/min BUN/Creatinine Ratio (14-18) Glucose (83-115) mg/dL POC Glucose 206 H (83-110) mg/dL Calcium (8.5-10.1) mg/dL Magnesium (1.8-2.4) mg/dl Total Bilirubin (0.2-1.0) mg/dL AST (15-37) U/L ALT (16-63) U/L Alkaline Phosphatase (46-116) U/L C-Reactive Protein (<1.0) mg/dL Total Protein (6.4-8.2) g/dl Albumin (3.4-5.0) g/dl Globulin gm/dL Albumin/Globulin Ratio (1-2) Blood Type Gel Antibody Screen Crossmatch 08/15/19 08/15/19 08/15/19 Range/Units 06:03 06:03 06:06 WBC (4.23-9.07) K/mm3 RBC (4.63-6.08) M/mm3 Hgb (13.7-17.5) gm/dl Hct (40.1-51.0) % MCV (79.0-92.2) fl MCH (25.7-32.2) pg MCHC (32.2-35.5) g/dl RDW Std Deviation (35.1-43.9) fL Plt Count (163-337) K/mm3 MPV (9.4-12.3) fl Neut % (Auto) (34.0-67.9) % Lymph % (Auto) (21.8-53.1) % Deuel % (Auto) (5.3-12.2) % Eos % (Auto) (0.8-7.0) Baso % (Auto) (0.1-1.2) % Neut # (Auto) (1.78-5.38) K/mm3 Lymph # (Auto) (1.32-3.57) K/mm3 Deuel # (Auto) (0.30-0.82) K/mm3 Eos # (Auto) (0.04-0.54) K/mm3 Baso # (Auto) (0.01-0.08) K/mm3 Manual Slide Review PT (9.7-12.0) SECONDS INR Sodium 144 (136-145) mEq/L Potassium 3.9 (3.5-5.1) mEq/L Chloride 112 H (98-107) mEq/L Carbon Dioxide 25 (21-32) mEq/L Anion Gap 10.9 (5-15) BUN 24 H (7-18) mg/dL Creatinine 1.4 H (0.7-1.3) mg/dL Est Cr Clr Drug Dosing 39.20 mL/min Estimated GFR (MDRD) 48 (>60) mL/min BUN/Creatinine Ratio 17.1 (14-18) Glucose 106 (83-115) mg/dL POC Glucose 112 H (83-110) mg/dL Calcium 7.4 L (8.5-10.1) mg/dL Magnesium 1.6 L (1.8-2.4) mg/dl Total Bilirubin 0.5 (0.2-1.0) mg/dL AST 36 (15-37) U/L ALT 38 (16-63) U/L Alkaline Phosphatase 142 H (46-116) U/L C-Reactive Protein 4.8 H* (<1.0) mg/dL Total Protein 4.6 L (6.4-8.2) g/dl Albumin 1.4 L (3.4-5.0) g/dl Globulin 3.2 gm/dL Albumin/Globulin Ratio 0.4 L (1-2) Blood Type O POSITIVE Gel Antibody Screen Negative Crossmatch See Detail 08/15/19 Range/Units 13:04 WBC (4.23-9.07) K/mm3 RBC (4.63-6.08) M/mm3 Hgb (13.7-17.5) gm/dl Hct (40.1-51.0) % MCV (79.0-92.2) fl MCH (25.7-32.2) pg MCHC (32.2-35.5) g/dl RDW Std Deviation (35.1-43.9) fL Plt Count (163-337) K/mm3 MPV (9.4-12.3) fl Neut % (Auto) (34.0-67.9) % Lymph % (Auto) (21.8-53.1) % Deuel % (Auto) (5.3-12.2) % Eos % (Auto) (0.8-7.0) Baso % (Auto) (0.1-1.2) % Neut # (Auto) (1.78-5.38) K/mm3 Lymph # (Auto) (1.32-3.57) K/mm3 Deuel # (Auto) (0.30-0.82) K/mm3 Eos # (Auto) (0.04-0.54) K/mm3 Baso # (Auto) (0.01-0.08) K/mm3 Manual Slide Review PT (9.7-12.0) SECONDS INR Sodium (136-145) mEq/L Potassium (3.5-5.1) mEq/L Chloride (98-107) mEq/L Carbon Dioxide (21-32) mEq/L Anion Gap (5-15) BUN (7-18) mg/dL Creatinine (0.7-1.3) mg/dL Est Cr Clr Drug Dosing mL/min Estimated GFR (MDRD) (>60) mL/min BUN/Creatinine Ratio (14-18) Glucose (83-115) mg/dL POC Glucose 262 H (83-110) mg/dL Calcium (8.5-10.1) mg/dL Magnesium (1.8-2.4) mg/dl Total Bilirubin (0.2-1.0) mg/dL AST (15-37) U/L ALT (16-63) U/L Alkaline Phosphatase (46-116) U/L C-Reactive Protein (<1.0) mg/dL Total Protein (6.4-8.2) g/dl Albumin (3.4-5.0) g/dl Globulin gm/dL Albumin/Globulin Ratio (1-2) Blood Type Gel Antibody Screen Crossmatch Lonny Results Last 24 Hours: Microbiology 08/12/19 11:40 Wound Culture - Final Leg, Left (Mrsa) Staphylococcus Aureus 08/12/19 06:15 Gram Stain - Final Leg, Left Anaerobic Culture - Preliminary (Mrsa) Staphylococcus Aureus Staphylococcus Aureus 08/12/19 05:41 Aerobic Blood Culture - Preliminary Blood - Venous NO GROWTH AFTER 3 DAYS Anaerobic Blood Culture - Preliminary NO GROWTH AFTER 3 DAYS 08/12/19 05:52 Aerobic Blood Culture - Preliminary Blood - Venous - Lab Draw NO GROWTH AFTER 3 DAYS Anaerobic Blood Culture - Preliminary NO GROWTH AFTER 3 DAYS 08/14/19 09:39 Stool Occult Blood (LONNY) - Final Stool / Feces Med Orders - Current: Current Medications Acetaminophen (Tylenol) 650 mg PO Q4H PRN PRN Reason: Pain Hydrocodone Bitart/Acetaminophen ([place] 325-5 Mg) 1 tab PO Q8H PRN PRN Reason: Abdominal Pain Last Admin: 08/14/19 08:21 Dose: 1 tab Albuterol/Ipratropium (Duoneb 3.0-0.5 Mg/3 Ml) 3 ml INH QID PRN PRN Reason: Wheezing Budesonide (Pulmicort) 0.5 mg INH BID LEENA Last Admin: 08/15/19 09:17 Dose: 0.5 mg Cholestyramine Resin (Cholestyramine Packet) 4 gm PO BIDAC [facility] Last Admin: 08/15/19 06:10 Dose: 4 gm Fentanyl (Duragesic) 25 mcg TOP Q72H [facility] Last Admin: 08/13/19 09:07 Dose: 25 mcg Furosemide (Lasix) 40 mg IVPUSH ONETIME [facility] Stop: 08/15/19 16:00 Last Admin: 08/15/19 13:58 Dose: 40 mg Gabapentin (Neurontin) 200 mg PO BID [facility] Last Admin: 08/15/19 10:06 Dose: 200 mg Ceftriaxone Sodium 1 gm/ (Sodium Chloride) 100 mls @ 200 mls/hr IV Q24H [facility] Last Admin: 08/15/19 02:08 Dose: 200 mls/hr Metronidazole 500 mg/ Premix 100 mls @ 100 mls/hr IV Q8H [facility] Last Admin: 08/15/19 09:55 Dose: 100 mls/hr Vancomycin HCl 1 gm/Vancomycin HCl 250 mg/ Sodium Chloride 250 mls @ 166.667 mls/hr IV Q24H [facility] Last Admin: 08/15/19 13:52 Dose: 166.667 mls/hr Sodium Chloride (Normal Saline) 500 mls @ 150 mls/hr IV .BOLUS [facility] Last Admin: 08/15/19 11:30 Dose: 150 mls/hr Insulin Human Lispro (Humalog) 0 unit SUBCUT QIDACANDBED [facility]; Protocol Last Admin: 08/15/19 13:28 Dose: 3 units Miscellaneous Information (Remove Patch) 0 ea TRDERM Q72H [facility] Last Admin: 08/13/19 09:07 Dose: 1 ea Mupirocin (Bactroban Oint) 0 gm TOP DAILY [facility] Last Admin: 08/15/19 10:12 Dose: 1 applic Ondansetron HCl (Zofran Odt) 4 mg PO Q6H PRN PRN Reason: Vomiting Pantoprazole Sodium (Protonix Iv) 40 mg IVPUSH Q12H [facility] Last Admin: 08/15/19 10:07 Dose: 40 mg Polyethylene Glycol (Miralax) 17 gm PO DAILY PRN PRN Reason: Constipation Potassium Chloride (Klor-Con M20) 20 meq PO DAILY [facility] Last Admin: 08/15/19 10:06 Dose: 20 meq Simvastatin (Zocor) 20 mg PO BEDTIME [facility] Last Admin: 08/14/19 20:54 Dose: 20 mg Vancomycin HCl (Pharmacy To Dose - Vancomycin) 1 dose .XX ASDIRECTED PRN PRN Reason: RX TO DOSE VANCO Discontinued Medications Aspirin (Aspirin) 81 mg PO DAILY [facility] Last Admin: 08/13/19 09:11 Dose: 81 mg Furosemide (Lasix) Confirm Administered Dose 80 mg .ROUTE .STK-MED ONE Stop: 08/12/19 01:31 Last Admin: 08/12/19 03:05 Dose: Not Given Furosemide (Lasix) 60 mg IVPUSH NOW ONE Stop: 08/12/19 01:16 Last Admin: 08/12/19 03:12 Dose: 60 mg Furosemide (Lasix) 40 mg IVPUSH NOW ONE Stop: 08/12/19 12:33 Last Admin: 08/12/19 12:54 Dose: 40 mg Furosemide (Lasix) 20 mg IVPUSH ONETIME ONE Stop: 08/13/19 18:16 Last Admin: 08/13/19 19:18 Dose: 20 mg Furosemide (Lasix) 20 mg IVPUSH Q6H [facility] Stop: 08/14/19 06:31 Last Admin: 08/14/19 06:06 Dose: 20 mg Furosemide (Lasix) 20 mg IVPUSH ONETIME ONE Stop: 08/14/19 12:31 Last Admin: 08/14/19 12:42 Dose: 20 mg Furosemide (Lasix) 20 mg IVPUSH ONETIME ONE Stop: 08/14/19 20:01 Last Admin: 08/14/19 20:54 Dose: 20 mg Furosemide (Lasix) 20 mg IVPUSH NOW ONE Stop: 08/15/19 08:15 Last Admin: 08/15/19 10:05 Dose: 20 mg Hydromorphone HCl (Dilaudid) 0.5 mg IVPUSH ONETIME ONE Stop: 08/11/19 22:32 Last Admin: 08/11/19 23:09 Dose: 0.25 mg Hydromorphone HCl (Dilaudid) 1 mg IVPUSH ONETIME ONE Stop: 08/11/19 23:47 Last Admin: 08/12/19 00:54 Dose: 1 mg Hydromorphone HCl (Dilaudid) 0.5 mg IVPUSH ONETIME ONE Stop: 08/12/19 03:50 Last Admin: 08/12/19 04:16 Dose: 0.5 mg Hydromorphone HCl (Dilaudid) 0.5 mg IVPUSH ONETIME ONE Stop: 08/12/19 09:22 Last Admin: 08/12/19 09:27 Dose: 0.5 mg Dextrose/Sodium Chloride (Dextrose 5%-Normal Saline) 1,000 mls @ 125 mls/hr IV ASDIRECTED LEENA Last Admin: 08/11/19 22:58 Dose: 125 mls/hr Vancomycin HCl 1.75 gm/ Sodium (Chloride) 500 mls @ 250 mls/hr IV ONETIME ONE Stop: 08/12/19 06:13 Last Admin: 08/12/19 06:48 Dose: 250 mls/hr Sodium Chloride (Normal Saline) 1,000 mls @ 999 mls/hr IV ASDIRECTED LEENA Last Admin: 08/12/19 06:20 Dose: 999 mls/hr Magnesium Sulfate 4 gm/ Premix 100 mls @ 25 mls/hr IV ONETIME ONE Stop: 08/12/19 15:59 Last Admin: 08/12/19 13:22 Dose: 25 mls/hr Albumin Human (Flexbumin 25%) 12.5 gm in 50 mls @ 100 mls/hr IV ONETIME ONE Stop: 08/12/19 13:14 Last Admin: 08/12/19 12:54 Dose: 100 mls/hr Sodium Chloride (Sodium Chloride 0.9%) 500 mls @ 999 mls/hr IRR ASDIRECTED LEENA Sodium Chloride (Normal Saline) 500 mls @ 999 mls/hr IV .BOLUS ONE Stop: 08/13/19 02:18 Last Admin: 08/13/19 01:49 Dose: 999 mls/hr Albumin Human (Flexbumin 25%) 12.5 gm in 50 mls @ 100 mls/hr IV ONETIME ONE Stop: 08/13/19 03:23 Last Admin: 08/13/19 03:18 Dose: 100 mls/hr Furosemide 100 mg/ Sodium (Chloride) 100 mls @ 5 mls/hr IV TITRATE LEENA; Protocol Last Admin: 08/13/19 11:34 Dose: 5 mls/hr Vancomycin HCl 1 gm/Vancomycin HCl 250 mg/ Sodium Chloride 250 mls @ 166.667 mls/hr IV Q24H [facility] Stop: 08/13/19 17:00 Last Admin: 08/13/19 13:56 Dose: 166.667 mls/hr Albumin Human (Flexbumin 25%) 12.5 gm in 50 mls @ 100 mls/hr IV ONETIME ONE Stop: 08/13/19 17:34 Last Admin: 08/13/19 17:30 Dose: 100 mls/hr Albumin Human (Flexbumin 25%) 12.5 gm in 50 mls @ 100 mls/hr IV Q6H [facility] Stop: 08/14/19 12:02 Last Admin: 08/14/19 06:05 Dose: 100 mls/hr Albumin Human (Flexbumin 25%) 12.5 gm in 50 mls @ 100 mls/hr IV ONETIME ONE Stop: 08/14/19 12:29 Last Admin: 08/14/19 11:21 Dose: 100 mls/hr Magnesium Sulfate 2 gm/ Premix 50 mls @ 25 mls/hr IV ONETIME ONE Stop: 08/15/19 10:18 Last Admin: 08/15/19 10:00 Dose: 25 mls/hr Sodium Chloride (Normal Saline) 250 mls @ 100 mls/hr IV ASDIRECTED [facility] Stop: 08/15/19 16:00 Sodium Chloride (Normal Saline) Confirm Administered Dose 500 mls @ as directed .ROUTE .STK-MED ONE Stop: 08/15/19 11:14 Last Admin: 08/15/19 12:04 Dose: Not Given Lactulose (Cephulac) 20 gm PO ONETIME ONE Stop: 08/12/19 03:50 Last Admin: 08/12/19 04:39 Dose: 20 gm Loperamide HCl (Imodium) 4 mg PO ONETIME ONE Stop: 08/14/19 10:46 Last Admin: 08/14/19 11:09 Dose: 4 mg Metoclopramide HCl (Reglan) 10 mg IVPUSH ONETIME ONE Stop: 08/11/19 22:32 Last Admin: 08/11/19 23:03 Dose: 10 mg Metoclopramide HCl (Reglan) 7.5 mg IVPUSH ONETIME ONE Stop: 08/12/19 03:50 Last Admin: 08/12/19 04:14 Dose: 7.5 mg Pantoprazole Sodium (Protonix) 40 mg PO DAILY [facility] Last Admin: 08/14/19 08:21 Dose: 40 mg Phytonadione (Aquamephyton) 2.5 mg PO ONETIME ONE Stop: 08/14/19 11:16 Last Admin: 08/14/19 11:27 Dose: 2.5 mg Warfarin Sodium (Pharmacy To Dose - Warfarin) 1 dose .XX ASDIRECTED PRN PRN Reason: RX TO DOSE WARFARIN Warfarin Sodium (Coumadin Sliding Scale) 0 each PO QPM [facility] Stop: 08/12/19 18:01 Last Admin: 08/12/19 18:04 Dose: Not Given Warfarin Sodium (Coumadin Sliding Scale) 0 each PO QPM [facility] Stop: 08/13/19 18:01 Last Admin: 08/13/19 19:41 Dose: Not Given - Exam Quality Assessment: No: Supplemental Oxygen General: Alert, Oriented HEENT: Pupils Equal, Mucous Membr. Moist/Orin Neck: Supple Lungs: Normal Respiratory Effort, Rales Cardiovascular: Regular Rate, Regular Rhythm GI/Abdominal Exam: Soft, Non-Tender, Distended. No: Rebound Extremities: Pedal Edema (3-4+ right lower extremity pitting edema.) Wound/Incisions: Drainage Psy/Mental Status: Alert, Normal Affect, Normal Mood Sepsis Event Note - Evaluation Sepsis Screening Result: No Definite Risk - Focused Exam Vital Signs: Vital Signs Temp Pulse Pulse Resp BP BP Pulse Ox 08/15/19 14:07 97.8 F 78 14 110/56 L 08/15/19 12:00 97.8 F 78 14 110/56 L 08/15/19 11:45 97.9 F 73 14 95/50 L 08/15/19 11:26 97.7 F 14 104/76 08/15/19 08:53 98.1 F 105 H 16 97/62 90 L 08/15/19 03:58 70 93/59 L 94 L 08/15/19 03:57 71 94 L 08/15/19 02:43 70 93 L Date Exam was Performed: 08/15/19 Time Exam was Performed: 14:22 - Problem List Review Problem List Initiated/Reviewed/Updated: Yes - My Orders Last 24 Hours: My Active Orders 08/14/19 14:00 Vancomycin 1 gm Vancomycin 250 mg Sodium Chloride 0.9% [Normal Saline] 250 ml IV Q24H 08/14/19 18:15 Cholestyramine/Sucrose [Cholestyramine Packet] 4 gm PO BIDAC 08/15/19 09:53 Furosemide [Lasix] 40 mg IVPUSH ONETIME Transfuse PRBC [Transfuse Red Blood Cells] [COMM] Routine 08/15/19 09:56 Notify Provider [RC] ASDIRECTED Blood Transfusion Reflex Orders [OM.PC] Routine 08/15/19 11:00 Sodium Chloride 0.9% [Normal Saline] 500 ml IV .BOLUS 08/16/19 05:11 C-REACTIVE PROTEIN [CHEM] AM CBC WITH AUTO DIFF [HEME] AM COMPREHENSIVE METABOLIC PN,CMP [CHEM] AM INR,PT,PROTHROMBIN TIME [COAG] AM 08/17/19 05:11 C-REACTIVE PROTEIN [CHEM] AM CBC WITH AUTO DIFF [HEME] AM COMPREHENSIVE METABOLIC PN,CMP [CHEM] AM INR,PT,PROTHROMBIN TIME [COAG] AM 08/18/19 05:11 INR,PT,PROTHROMBIN TIME [COAG] AM - Plan Plan:: Assessment * Mild colonic ileus * Mildly dilated loops of colon and slightly air-filled on CT * Last bowel movement last night before emergency room visit * GI bleed * Hemoglobin has dropped from 10.7-7.9 since admission * Guaiac positive stool * Protonix 40 mg IV q12h * Bilateral lower lobe pneumonia possible aspiration * Blood cultures - neg x 3 days * Rocephin 1 g every 24 hours * Metronidazole 500 mg IV every 8 hours * Anasarca * Bilateral pleural effusions * Body wall edema and mild ascites * Scrotal edema * Hypoalbuminemia * Albumin 1.0--1.3-->1.5-->1.4 * Likely secondary to poor oral intake of protein vs. 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 Normal right ventricular systolic function. Mild aortic valve sclerosis without stenosis. Trace mitral valve regurgitation. Moderate tricuspid valve regurgitation. The right ventricular systolic pressure is mild to moderately elevated at 44.0 mmHg. Large left pleural effusion. Abnormal septal motion consistent with left bundle branch block or conduction abnormality. No regional wall motion abnormalities. There is severe bilateral atrial dilatation. * Diabetes mellitus with episode of hypoglycemia at the assisted * No hypoglycemia since hospitalization * Atrial fibrillation * Rate controlled * Supratherapeutic anticoagulation with warfarin * INR 3.37-->4.7-->1.88 (post vitamin K) * Home dose Warfarin 1 mg daily * Stop Warfarin * Coronary artery disease, peripheral vascular disease, history of CVA Plan * Admit to medical floor on telemetry * 1 Unit PRBC * Lasix 20 mg am and 40 mg IV after PRBC * Strict I's and O's closely * Daily weights * Echocardiogram - pending results * Change Protonix to 40 mg IV twice daily * Check hemoglobin this after 1 unit of packed red blood cells * Fingerstick blood sugar 4 times daily with sliding scale insulin * FiO2 to keep SPO2 greater than 91% * CBC, CMP, INR, magnesium, C-reactive protein daily * VTE prophylaxis with SCDs on the right leg * CODE STATUS: DNR/DNI * Length of stay greater than 96 hours secondary to slow response to treatment
[2019-08-15] MEDS: Simvastatin 20 MG Tab PO SCH (20:26)
[2019-08-16] MEDS: metroNIDAZOLE/Normal Saline 500 MG in Premix Bag 1 BAG IV SCH ×3 (00:24→16:13)
[2019-08-16] MEDS: cefTRIAXone 1 GM in Sodium Chloride 0.9% 100 ML IV SCH (01:29)
[2019-08-16] MEDS: Acetaminophen 325 MG Tab PO PRN (06:36)
[2019-08-16] MEDS: Cholestyramine/Sucrose Powder 4 GM Packet PO SCH ×2 (06:37→16:14)
[2019-08-16] MEDS: Insulin Lispro 100 Units/ML 3 ML Vial SUBCUT SCH ×5 (07:09→22:11)
[2019-08-16] MEDS: Budesonide 0.5 MG/2 ML Neb Susp INH SCH ×2 (08:18→20:32)
[2019-08-16] MEDS ORDERED: Magnesium Sulfate/Water 4 GM in Premix Bag 1 BAG IV ONE (08:19)
[2019-08-16] MEDS ORDERED: Potassium Chloride 20 MEQ Tab.ER PO ONE (08:21)
[2019-08-16] MEDS ORDERED: Furosemide 40 MG/4 ML VIAL IVPUSH SCH (09:00)
[2019-08-16] MEDS: Gabapentin 100 MG Cap PO SCH ×2 (09:27→20:34)
[2019-08-16] MEDS: Potassium Chloride 20 MEQ Tab.ER PO SCH (09:27)
[2019-08-16] MEDS: Pantoprazole 40 MG Vial IVPUSH SCH (09:28)
[2019-08-16] MEDS: Mupirocin Oint 22 GM Tube TOP SCH (09:28)
[2019-08-16] MEDS: fentaNYL 25 MCG/HR Transdermal Patch TOP SCH (09:58)
[2019-08-16] MEDS: Vancomycin 1 GM, Vancomycin 250 MG in Sodium Chloride 0.9% 250 ML IV SCH (13:34)
--- NOTE | 2019-08-16 13:57 | PCM.PN ---
- General Info Date of Service: 08/16/19 Admission Dx/Problem (Free Text): Admission Diagnosis/Problem Admission Diagnosis/Problem Ileus - Review of Systems General: Reports: No Symptoms HEENT: Reports: No Symptoms Pulmonary: Reports: No Symptoms Cardiovascular: Reports: Edema Musculoskeletal: Reports: No Symptoms Neurological: Reports: No Symptoms - Patient Data Vitals - Most Recent: Last Vital Signs Temp 97.9 F 08/16/19 09:13 Pulse 70 08/16/19 09:15 Resp 15 08/16/19 09:13 BP 107/49 L 08/16/19 09:15 Pulse Ox 90 L 08/16/19 09:15 Weight - Most Recent: 171 lb 4.8 oz I&O - Last 24 Hours: Intake & Output 08/15/19 08/16/19 08/16/19 22:59 06:59 14:59 Intake Total 750 700 120 Output Total 1520 1400 765 Balance -602 -700 -305 Lab Results Last 24 Hours: Laboratory Results - last 24 hr 08/15/19 08/15/19 08/15/19 Range/Units 06:03 18:04 20:10 WBC (4.23-9.07) K/mm3 RBC (4.63-6.08) M/mm3 Hgb 9.5 L D (13.7-17.5) gm/dl Hct 29.4 L (40.1-51.0) % MCV (79.0-92.2) fl MCH (25.7-32.2) pg MCHC (32.2-35.5) g/dl RDW Std Deviation (35.1-43.9) fL Plt Count (163-337) K/mm3 MPV (9.4-12.3) fl Neut % (Auto) (34.0-67.9) % Lymph % (Auto) (21.8-53.1) % [place] % (Auto) (5.3-12.2) % Eos % (Auto) (0.8-7.0) Baso % (Auto) (0.1-1.2) % Neut # (Auto) (1.78-5.38) K/mm3 Lymph # (Auto) (1.32-3.57) K/mm3 [place] # (Auto) (0.30-0.82) K/mm3 Eos # (Auto) (0.04-0.54) K/mm3 Baso # (Auto) (0.01-0.08) K/mm3 PT (9.7-12.0) SECONDS INR Sodium (136-145) mEq/L Potassium (3.5-5.1) mEq/L Chloride (98-107) mEq/L Carbon Dioxide (21-32) mEq/L Anion Gap (5-15) BUN (7-18) mg/dL Creatinine (0.7-1.3) mg/dL Est Cr Clr Drug Dosing mL/min Estimated GFR (MDRD) (>60) mL/min BUN/Creatinine Ratio (14-18) Glucose (83-115) mg/dL POC Glucose 280 H (83-110) mg/dL Calcium (8.5-10.1) mg/dL Magnesium (1.8-2.4) mg/dl Total Bilirubin (0.2-1.0) mg/dL AST (15-37) U/L ALT (16-63) U/L Alkaline Phosphatase (46-116) U/L C-Reactive Protein (<1.0) mg/dL Total Protein (6.4-8.2) g/dl Albumin (3.4-5.0) g/dl Globulin gm/dL Albumin/Globulin Ratio (1-2) Crossmatch See Detail 08/15/19 08/16/19 08/16/19 Range/Units 20:38 06:31 06:32 WBC 7.63 (4.23-9.07) K/mm3 RBC 3.44 L (4.63-6.08) M/mm3 Hgb 9.6 L (13.7-17.5) gm/dl Hct 30.3 L (40.1-51.0) % MCV 88.1 (79.0-92.2) fl MCH 27.9 (25.7-32.2) pg MCHC 31.7 L (32.2-35.5) g/dl RDW Std Deviation 49.0 H (35.1-43.9) fL Plt Count 188 (163-337) K/mm3 MPV 9.8 (9.4-12.3) fl Neut % (Auto) 68.0 H (34.0-67.9) % Lymph % (Auto) 14.8 L (21.8-53.1) % [place] % (Auto) 12.1 (5.3-12.2) % Eos % (Auto) 4.2 (0.8-7.0) Baso % (Auto) 0.8 (0.1-1.2) % Neut # (Auto) 5.19 (1.78-5.38) K/mm3 Lymph # (Auto) 1.13 L (1.32-3.57) K/mm3 [place] # (Auto) 0.92 H (0.30-0.82) K/mm3 Eos # (Auto) 0.32 (0.04-0.54) K/mm3 Baso # (Auto) 0.06 (0.01-0.08) K/mm3 PT (9.7-12.0) SECONDS INR Sodium (136-145) mEq/L Potassium (3.5-5.1) mEq/L Chloride (98-107) mEq/L Carbon Dioxide (21-32) mEq/L Anion Gap (5-15) BUN (7-18) mg/dL Creatinine (0.7-1.3) mg/dL Est Cr Clr Drug Dosing mL/min Estimated GFR (MDRD) (>60) mL/min BUN/Creatinine Ratio (14-18) Glucose (83-115) mg/dL POC Glucose 190 H 121 H (83-110) mg/dL Calcium (8.5-10.1) mg/dL Magnesium (1.8-2.4) mg/dl Total Bilirubin (0.2-1.0) mg/dL AST (15-37) U/L ALT (16-63) U/L Alkaline Phosphatase (46-116) U/L C-Reactive Protein (<1.0) mg/dL Total Protein (6.4-8.2) g/dl Albumin (3.4-5.0) g/dl Globulin gm/dL Albumin/Globulin Ratio (1-2) Crossmatch 08/16/19 08/16/19 08/16/19 Range/Units 06:32 06:32 06:32 WBC (4.23-9.07) K/mm3 RBC (4.63-6.08) M/mm3 Hgb (13.7-17.5) gm/dl Hct (40.1-51.0) % MCV (79.0-92.2) fl MCH (25.7-32.2) pg MCHC (32.2-35.5) g/dl RDW Std Deviation (35.1-43.9) fL Plt Count (163-337) K/mm3 MPV (9.4-12.3) fl Neut % (Auto) (34.0-67.9) % Lymph % (Auto) (21.8-53.1) % [place] % (Auto) (5.3-12.2) % Eos % (Auto) (0.8-7.0) Baso % (Auto) (0.1-1.2) % Neut # (Auto) (1.78-5.38) K/mm3 Lymph # (Auto) (1.32-3.57) K/mm3 [place] # (Auto) (0.30-0.82) K/mm3 Eos # (Auto) (0.04-0.54) K/mm3 Baso # (Auto) (0.01-0.08) K/mm3 PT 16.5 H (9.7-12.0) SECONDS INR 1.55 Sodium 144 (136-145) mEq/L Potassium 3.5 (3.5-5.1) mEq/L Chloride 111 H (98-107) mEq/L Carbon Dioxide 27 (21-32) mEq/L Anion Gap 9.5 (5-15) BUN 19 H (7-18) mg/dL Creatinine 1.3 (0.7-1.3) mg/dL Est Cr Clr Drug Dosing 42.22 mL/min Estimated GFR (MDRD) 52 (>60) mL/min BUN/Creatinine Ratio 14.6 (14-18) Glucose 134 H (83-115) mg/dL POC Glucose (83-110) mg/dL Calcium 7.2 L (8.5-10.1) mg/dL Magnesium 1.5 L (1.8-2.4) mg/dl Total Bilirubin 0.5 (0.2-1.0) mg/dL AST 23 (15-37) U/L ALT 33 (16-63) U/L Alkaline Phosphatase 134 H (46-116) U/L C-Reactive Protein 3.1 H* (<1.0) mg/dL Total Protein 4.8 L (6.4-8.2) g/dl Albumin 1.4 L (3.4-5.0) g/dl Globulin 3.4 gm/dL Albumin/Globulin Ratio 0.4 L (1-2) Crossmatch 08/16/19 Range/Units 11:37 WBC (4.23-9.07) K/mm3 RBC (4.63-6.08) M/mm3 Hgb (13.7-17.5) gm/dl Hct (40.1-51.0) % MCV (79.0-92.2) fl MCH (25.7-32.2) pg MCHC (32.2-35.5) g/dl RDW Std Deviation (35.1-43.9) fL Plt Count (163-337) K/mm3 MPV (9.4-12.3) fl Neut % (Auto) (34.0-67.9) % Lymph % (Auto) (21.8-53.1) % [place] % (Auto) (5.3-12.2) % Eos % (Auto) (0.8-7.0) Baso % (Auto) (0.1-1.2) % Neut # (Auto) (1.78-5.38) K/mm3 Lymph # (Auto) (1.32-3.57) K/mm3 [place] # (Auto) (0.30-0.82) K/mm3 Eos # (Auto) (0.04-0.54) K/mm3 Baso # (Auto) (0.01-0.08) K/mm3 PT (9.7-12.0) SECONDS INR Sodium (136-145) mEq/L Potassium (3.5-5.1) mEq/L Chloride (98-107) mEq/L Carbon Dioxide (21-32) mEq/L Anion Gap (5-15) BUN (7-18) mg/dL Creatinine (0.7-1.3) mg/dL Est Cr Clr Drug Dosing mL/min Estimated GFR (MDRD) (>60) mL/min BUN/Creatinine Ratio (14-18) Glucose (83-115) mg/dL POC Glucose 186 H (83-110) mg/dL Calcium (8.5-10.1) mg/dL Magnesium (1.8-2.4) mg/dl Total Bilirubin (0.2-1.0) mg/dL AST (15-37) U/L ALT (16-63) U/L Alkaline Phosphatase (46-116) U/L C-Reactive Protein (<1.0) mg/dL Total Protein (6.4-8.2) g/dl Albumin (3.4-5.0) g/dl Globulin gm/dL Albumin/Globulin Ratio (1-2) Crossmatch Lonny Results Last 24 Hours: Microbiology 08/12/19 05:41 Aerobic Blood Culture - Preliminary Blood - Venous NO GROWTH AFTER 4 DAYS Anaerobic Blood Culture - Preliminary NO GROWTH AFTER 4 DAYS 08/12/19 05:52 Aerobic Blood Culture - Preliminary Blood - Venous - Lab Draw NO GROWTH AFTER 4 DAYS Anaerobic Blood Culture - Preliminary NO GROWTH AFTER 4 DAYS 08/12/19 06:15 Gram Stain - Final Leg, Left Anaerobic Culture - Final (Mrsa) Staphylococcus Aureus Staphylococcus Aureus 08/12/19 11:40 Wound Culture - Final Leg, Left (Mrsa) Staphylococcus Aureus Med Orders - Current: Current Medications Acetaminophen (Tylenol) 650 mg PO Q4H PRN PRN Reason: Pain Last Admin: 08/16/19 06:36 Dose: 650 mg Hydrocodone Bitart/Acetaminophen (Kathryn 325-5 Mg) 1 tab PO Q8H PRN PRN Reason: Abdominal Pain Last Admin: 08/14/19 08:21 Dose: 1 tab Albuterol/Ipratropium (Duoneb 3.0-0.5 Mg/3 Ml) 3 ml INH QID PRN PRN Reason: Wheezing Budesonide (Pulmicort) 0.5 mg INH BID [facility] Last Admin: 08/16/19 08:18 Dose: 0.5 mg Cholestyramine Resin (Cholestyramine Packet) 4 gm PO BIDAC [facility] Last Admin: 08/16/19 06:37 Dose: 4 gm Fentanyl (Duragesic) 25 mcg TOP Q72H [facility] Last Admin: 08/16/19 09:58 Dose: 25 mcg Furosemide (Lasix) 40 mg IVPUSH DAILY [facility] Last Admin: 08/16/19 09:28 Dose: 40 mg Furosemide (Lasix) 20 mg IVPUSH Q6H [facility] Stop: 08/17/19 01:31 Gabapentin (Neurontin) 200 mg PO BID [facility] Last Admin: 08/16/19 09:27 Dose: 200 mg Ceftriaxone Sodium 1 gm/ (Sodium Chloride) 100 mls @ 200 mls/hr IV Q24H [facility] Last Admin: 08/16/19 01:29 Dose: 200 mls/hr Metronidazole 500 mg/ Premix 100 mls @ 100 mls/hr IV Q8H [facility] Last Admin: 08/16/19 09:25 Dose: 100 mls/hr Vancomycin HCl 1 gm/Vancomycin HCl 250 mg/ Sodium Chloride 250 mls @ 166.667 mls/hr IV Q24H [facility] Last Admin: 08/16/19 13:34 Dose: 166.667 mls/hr Insulin Human Lispro (Humalog) 0 unit SUBCUT QIDACANDBED [facility]; Protocol Last Admin: 08/16/19 12:30 Dose: Not Given Miscellaneous Information (Remove Patch) 0 ea TRDERM Q72H [facility] Last Admin: 08/16/19 09:59 Dose: 1 ea Mupirocin (Bactroban Oint) 0 gm TOP DAILY [facility] Last Admin: 08/16/19 09:28 Dose: 1 applic Ondansetron HCl (Zofran Odt) 4 mg PO Q6H PRN PRN Reason: Vomiting Pantoprazole Sodium (Protonix Iv) 40 mg IVPUSH Q12H [facility] Last Admin: 08/16/19 09:28 Dose: 40 mg Polyethylene Glycol (Miralax) 17 gm PO DAILY PRN PRN Reason: Constipation Potassium Chloride (Klor-Con M20) 20 meq PO DAILY [facility] Last Admin: 08/16/19 09:27 Dose: 20 meq Simvastatin (Zocor) 20 mg PO BEDTIME [facility] Last Admin: 08/15/19 20:26 Dose: 20 mg Vancomycin HCl (Pharmacy To Dose - Vancomycin) 1 dose .XX ASDIRECTED PRN PRN Reason: RX TO DOSE VANCO Discontinued Medications Aspirin (Aspirin) 81 mg PO DAILY [facility] Last Admin: 08/13/19 09:11 Dose: 81 mg Furosemide (Lasix) Confirm Administered Dose 80 mg .ROUTE .STK-MED ONE Stop: 08/12/19 01:31 Last Admin: 08/12/19 03:05 Dose: Not Given Furosemide (Lasix) 60 mg IVPUSH NOW ONE Stop: 08/12/19 01:16 Last Admin: 08/12/19 03:12 Dose: 60 mg Furosemide (Lasix) 40 mg IVPUSH NOW ONE Stop: 08/12/19 12:33 Last Admin: 08/12/19 12:54 Dose: 40 mg Furosemide (Lasix) 20 mg IVPUSH ONETIME ONE Stop: 08/13/19 18:16 Last Admin: 08/13/19 19:18 Dose: 20 mg Furosemide (Lasix) 20 mg IVPUSH Q6H [facility]EE[facility] Stop: 08/14/19 06:31 Last Admin: 08/14/19 06:06 Dose: 20 mg Furosemide (Lasix) 20 mg IVPUSH ONETIME ONE Stop: 08/14/19 12:31 Last Admin: 08/14/19 12:42 Dose: 20 mg Furosemide (Lasix) 20 mg IVPUSH ONETIME ONE Stop: 08/14/19 20:01 Last Admin: 08/14/19 20:54 Dose: 20 mg Furosemide (Lasix) 20 mg IVPUSH NOW ONE Stop: 08/15/19 08:15 Last Admin: 08/15/19 10:05 Dose: 20 mg Furosemide (Lasix) 40 mg IVPUSH ONETIME LEENA Stop: 08/15/19 16:00 Last Admin: 08/15/19 13:58 Dose: 40 mg Furosemide (Lasix) 20 mg IVPUSH NOW ONE Stop: 08/15/19 21:16 Last Admin: 08/15/19 22:12 Dose: 20 mg Hydromorphone HCl (Dilaudid) 0.5 mg IVPUSH ONETIME ONE Stop: 08/11/19 22:32 Last Admin: 08/11/19 23:09 Dose: 0.25 mg Hydromorphone HCl (Dilaudid) 1 mg IVPUSH ONETIME ONE Stop: 08/11/19 23:47 Last Admin: 08/12/19 00:54 Dose: 1 mg Hydromorphone HCl (Dilaudid) 0.5 mg IVPUSH ONETIME ONE Stop: 08/12/19 03:50 Last Admin: 08/12/19 04:16 Dose: 0.5 mg Hydromorphone HCl (Dilaudid) 0.5 mg IVPUSH ONETIME ONE Stop: 08/12/19 09:22 Last Admin: 02/26/20 09:27 Dose: 0.5 mg Dextrose/Sodium Chloride (Dextrose 5%-Normal Saline) 1,000 mls @ 125 mls/hr IV ASDIRECTED LEENA Last Admin: 08/11/19 22:58 Dose: 125 mls/hr Vancomycin HCl 1.75 gm/ Sodium (Chloride) 500 mls @ 250 mls/hr IV ONETIME ONE Stop: 08/12/19 06:13 Last Admin: 08/12/19 06:48 Dose: 250 mls/hr Sodium Chloride (Normal Saline) 1,000 mls @ 999 mls/hr IV ASDIRECTED LEENA Last Admin: 08/12/19 06:20 Dose: 999 mls/hr Magnesium Sulfate 4 gm/ Premix 100 mls @ 25 mls/hr IV ONETIME ONE Stop: 08/12/19 15:59 Last Admin: 08/12/19 13:22 Dose: 25 mls/hr Albumin Human (Flexbumin 25%) 12.5 gm in 50 mls @ 100 mls/hr IV ONETIME ONE Stop: 08/12/19 13:14 Last Admin: 08/12/19 12:54 Dose: 100 mls/hr Sodium Chloride (Sodium Chloride 0.9%) 500 mls @ 999 mls/hr IRR ASDIRECTED LEENA Sodium Chloride (Normal Saline) 500 mls @ 999 mls/hr IV .BOLUS ONE Stop: 08/13/19 02:18 Last Admin: 08/13/19 01:49 Dose: 999 mls/hr Albumin Human (Flexbumin 25%) 12.5 gm in 50 mls @ 100 mls/hr IV ONETIME ONE Stop: 08/13/19 03:23 Last Admin: 08/13/19 03:18 Dose: 100 mls/hr Furosemide 100 mg/ Sodium (Chloride) 100 mls @ 5 mls/hr IV TITRATE LEENA; Protocol Last Admin: 08/13/19 11:34 Dose: 5 mls/hr Vancomycin HCl 1 gm/Vancomycin HCl 250 mg/ Sodium Chloride 250 mls @ 166.667 mls/hr IV Q24H [facility] Stop: 08/13/19 17:00 Last Admin: 08/13/19 13:56 Dose: 166.667 mls/hr Albumin Human (Flexbumin 25%) 12.5 gm in 50 mls @ 100 mls/hr IV ONETIME ONE Stop: 08/13/19 17:34 Last Admin: 08/13/19 17:30 Dose: 100 mls/hr Albumin Human (Flexbumin 25%) 12.5 gm in 50 mls @ 100 mls/hr IV Q6H [facility]EE[facility] Stop: 08/14/19 12:02 Last Admin: 08/14/19 06:05 Dose: 100 mls/hr Albumin Human (Flexbumin 25%) 12.5 gm in 50 mls @ 100 mls/hr IV ONETIME ONE Stop: 08/14/19 12:29 Last Admin: 08/14/19 11:21 Dose: 100 mls/hr Magnesium Sulfate 2 gm/ Premix 50 mls @ 25 mls/hr IV ONETIME ONE Stop: 08/15/19 10:18 Last Admin: 08/15/19 10:00 Dose: 25 mls/hr Sodium Chloride (Normal Saline) 250 mls @ 100 mls/hr IV ASDIRECTED [facility] Stop: 08/15/19 16:00 Sodium Chloride (Normal Saline) Confirm Administered Dose 500 mls @ as directed .ROUTE .STK-MED ONE Stop: 08/15/19 11:14 Last Admin: 08/15/19 12:04 Dose: Not Given Sodium Chloride (Normal Saline) 500 mls @ 150 mls/hr IV .BOLUS [facility] Last Admin: 08/15/19 11:30 Dose: 150 mls/hr Magnesium Sulfate 4 gm/ Premix 50 mls @ 12.5 mls/hr IV ONETIME ONE Stop: 08/16/19 12:18 Last Admin: 08/16/19 09:25 Dose: 12.5 mls/hr Lactulose (Cephulac) 20 gm PO ONETIME ONE Stop: 08/12/19 03:50 Last Admin: 08/12/19 04:39 Dose: 20 gm Loperamide HCl (Imodium) 4 mg PO ONETIME ONE Stop: 08/14/19 10:46 Last Admin: 08/14/19 11:09 Dose: 4 mg Metoclopramide HCl (Reglan) 10 mg IVPUSH ONETIME ONE Stop: 08/11/19 22:32 Last Admin: 08/11/19 23:03 Dose: 10 mg Metoclopramide HCl (Reglan) 7.5 mg IVPUSH ONETIME ONE Stop: 08/12/19 03:50 Last Admin: 08/12/19 04:14 Dose: 7.5 mg Pantoprazole Sodium (Protonix) 40 mg PO DAILY [facility] Last Admin: 08/14/19 08:21 Dose: 40 mg Phytonadione (Aquamephyton) 2.5 mg PO ONETIME ONE Stop: 08/14/19 11:16 Last Admin: 08/14/19 11:27 Dose: 2.5 mg Potassium Chloride (Klor-Con M20) 40 meq PO ONETIME ONE Stop: 08/16/19 08:22 Last Admin: 08/16/19 09:27 Dose: 40 meq Warfarin Sodium (Pharmacy To Dose - Warfarin) 1 dose .XX ASDIRECTED PRN PRN Reason: RX TO DOSE WARFARIN Warfarin Sodium (Coumadin Sliding Scale) 0 each PO QPM [facility]EE[facility] Stop: 08/12/19 18:01 Last Admin: 08/12/19 18:04 Dose: Not Given Warfarin Sodium (Coumadin Sliding Scale) 0 each PO QPM [facility]EE[facility] Stop: 08/13/19 18:01 Last Admin: 08/13/19 19:41 Dose: Not Given - Exam Quality Assessment: No: Supplemental Oxygen General: Alert, Oriented HEENT: Pupils Equal, Mucous Membr. Moist/[place] Neck: Supple Lungs: Clear to Auscultation, Normal Respiratory Effort Cardiovascular: Regular Rate, Regular Rhythm GI/Abdominal Exam: Normal Bowel Sounds, Soft, Non-Tender, No Organomegaly, No Distention Extremities: Pedal Edema (3+ pitting edema in all 4 extremities.) Skin: Warm, Dry, Intact Wound/Incisions: Healing Well, No Drainage, Erythema Improving Neurological: No New Focal Deficit Psy/Mental Status: Alert, Normal Affect, Normal Mood Sepsis Event Note - Evaluation Sepsis Screening Result: No Definite Risk - Focused Exam Vital Signs: Vital Signs Temp Pulse Resp BP Pulse Ox Pulse Ox 08/16/19 09:15 70 107/49 L 90 L 08/16/19 09:13 97.9 F 78 15 72/33 L 92 L 08/16/19 08:19 97 08/16/19 03:39 70 16 89/72 L 94 L Date Exam was Performed: 08/16/19 Time Exam was Performed: 13:51 - Problem List Review Problem List Initiated/Reviewed/Updated: Yes - My Orders Last 24 Hours: My Active Orders 08/16/19 09:00 Furosemide [Lasix] 40 mg IVPUSH DAILY 08/16/19 10:02 Heat Therapy [OM.PC] Routine 08/16/19 13:30 Furosemide [Lasix] 20 mg IVPUSH Q6H 08/17/19 05:11 C-REACTIVE PROTEIN [CHEM] AM CBC WITH AUTO DIFF [HEME] AM COMPREHENSIVE METABOLIC PN,CMP [CHEM] AM 08/17/19 13:00 VANCOMYCIN TROUGH [CHEM] Timed - Plan Plan:: Assessment * Mild colonic ileus - resolved * Mildly dilated loops of colon and slightly air-filled on CT * Several stool daily. History of postcholecystectomy diarrhea. Started on cholestyramine on 08/14 2019 * GI bleed * Hemoglobin dropped from 10.7-7.9. Received 1 u PRBC * Guaiac positive stool * Hemoglobin stable at 9.6 * Protonix * Bilateral lower lobe pneumonia possible aspiration * Blood cultures - neg x 3 days * Rocephin 1 g every 24 hours * Metronidazole 500 mg IV every 8 hours * Anasarca - improving * Small bilateral pleural effusions * Body wall edema and mild ascites * Scrotal edema -improving * Albumin 1.4 * Hypoalbuminemia * Albumin 1.0--1.3-->1.5-->1.4-->1.4 * Likely secondary to poor oral intake of protein vs. 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 Normal right ventricular systolic function. Mild aortic valve sclerosis without stenosis. Trace mitral valve regurgitation. Moderate tricuspid valve regurgitation. The right ventricular systolic pressure is mild to moderately elevated at 44.0 mmHg. Large left pleural effusion. Abnormal septal motion consistent with left bundle branch block or conduction abnormality. No regional wall motion abnormalities. There is severe bilateral atrial dilatation. * Diabetes mellitus with [facility]cemia [facility] the [facility] * No hypoglycemia since hospitalization * Atrial fibrillation * Rate controlled * Supratherapeutic anticoagulation with warfarin * INR 3.37-->4.7-->1.88--> 1.5 (post vitamin K) * Home dose Warfarin 1 mg daily * Stop Warfarin * Hypomagnesemia * Coronary artery disease, peripheral vascular disease, history of CVA Plan * Admit to medical floor on telemetry * Lasix * Strict I's and O's closely * Daily weights * Echocardiogram - pending results * Change Protonix to 40 mg p.o. daily * Fingerstick blood sugar 4 times daily with sliding scale insulin * FiO2 to keep SPO2 greater than 91% * CBC, CMP, INR, magnesium, C-reactive protein daily * VTE prophylaxis with SCDs on the right leg * CODE STATUS: DNR/DNI * Length of stay greater than 96 hours secondary to slow response to treatment
[2019-08-16] MEDS: Furosemide 20 MG/2 ML VIAL IVPUSH SCH ×2 (14:15→18:56)
[2019-08-16] MEDS: Doxycycline 100 MG Cap PO SCH (20:34)
[2019-08-16] MEDS: Simvastatin 20 MG Tab PO SCH (20:34)
[2019-08-17] MEDS: metroNIDAZOLE/Normal Saline 500 MG in Premix Bag 1 BAG IV SCH ×2 (00:05→07:45)
[2019-08-17] MEDS: cefTRIAXone 1 GM in Sodium Chloride 0.9% 100 ML IV SCH (01:36)
[2019-08-17] MEDS: Pantoprazole 40 MG Tab.CR PO SCH (05:47)
[2019-08-17] MEDS: Cholestyramine/Sucrose Powder 4 GM Packet PO SCH ×2 (05:47→15:04)
[2019-08-17] MEDS: Insulin Lispro 100 Units/ML 3 ML Vial SUBCUT SCH ×5 (06:04→21:02)
[2019-08-17] MEDS ORDERED: Furosemide 40 MG/4 ML VIAL IVPUSH SCH (07:00)
[2019-08-17] MEDS: Mupirocin Oint 22 GM Tube TOP SCH (08:01)
[2019-08-17] MEDS: Doxycycline 100 MG Cap PO SCH ×2 (08:02→20:50)
[2019-08-17] MEDS: Gabapentin 100 MG Cap PO SCH ×2 (08:02→20:50)
[2019-08-17] MEDS: Potassium Chloride 20 MEQ Tab.ER PO SCH (08:02)
[2019-08-17] MEDS: Budesonide 0.5 MG/2 ML Neb Susp INH SCH ×2 (08:21→20:22)
--- NOTE | 2019-08-17 13:22 | PCM.PN ---
- General Info Date of Service: 08/17/19 Admission Dx/Problem (Free Text): Admission Diagnosis/Problem Admission Diagnosis/Problem Ileus Subjective Update: Patient continues to have improvement in his condition. Albumin continues to be low and is sliding backwards a bit since stopping IV albumin. Appetite is improved, but patient has diarrhea with each bowel movement. He has a long history of postcholecystectomy diarrhea and was on high doses of Imodium daily. He has been switched to cholestyramine with some improvement over the last couple of days, but patient is still frustrated by the amount of bowel movements. Functional Status: Reports: Pain Controlled - Review of Systems General: Reports: No Symptoms HEENT: Reports: No Symptoms Pulmonary: Reports: No Symptoms Cardiovascular: Reports: No Symptoms Gastrointestinal: Reports: No Symptoms Musculoskeletal: Reports: Neck Pain - Patient Data Vitals - Most Recent: Last Vital Signs Temp 97.3 F 08/17/19 11:31 Pulse 73 08/17/19 11:31 Resp 16 08/17/19 11:31 BP 127/91 H 08/17/19 11:31 Pulse Ox 95 08/17/19 11:31 Weight - Most Recent: 167 lb 4.8 oz I&O - Last 24 Hours: Intake & Output 08/16/19 08/17/19 08/17/19 22:59 06:59 14:59 Intake Total 710 700 160 Output Total 700 Balance 10 700 160 Lab Results Last 24 Hours: Laboratory Results - last 24 hr 08/16/19 08/16/19 08/16/19 Range/Units 16:14 19:11 20:32 WBC (4.23-9.07) K/mm3 RBC (4.63-6.08) M/mm3 Hgb (13.7-17.5) gm/dl Hct (40.1-51.0) % MCV (79.0-92.2) fl MCH (25.7-32.2) pg MCHC (32.2-35.5) g/dl RDW Std Deviation (35.1-43.9) fL Plt Count (163-337) K/mm3 MPV (9.4-12.3) fl Neut % (Auto) (34.0-67.9) % Lymph % (Auto) (21.8-53.1) % [place] % (Auto) (5.3-12.2) % Eos % (Auto) (0.8-7.0) Baso % (Auto) (0.1-1.2) % Neut # (Auto) (1.78-5.38) K/mm3 Lymph # (Auto) (1.32-3.57) K/mm3 [place] # (Auto) (0.30-0.82) K/mm3 Eos # (Auto) (0.04-0.54) K/mm3 Baso # (Auto) (0.01-0.08) K/mm3 Manual Slide Review Sodium (136-145) mEq/L Potassium (3.5-5.1) mEq/L Chloride (98-107) mEq/L Carbon Dioxide (21-32) mEq/L Anion Gap (5-15) BUN (7-18) mg/dL Creatinine (0.7-1.3) mg/dL Est Cr Clr Drug Dosing mL/min Estimated GFR (MDRD) (>60) mL/min BUN/Creatinine Ratio (14-18) Glucose (83-115) mg/dL POC Glucose 226 H 269 H (83-110) mg/dL Calcium (8.5-10.1) mg/dL Magnesium 1.9 (1.8-2.4) mg/dl Total Bilirubin (0.2-1.0) mg/dL AST (15-37) U/L ALT (16-63) U/L Alkaline Phosphatase (46-116) U/L C-Reactive Protein (<1.0) mg/dL Total Protein (6.4-8.2) g/dl Albumin (3.4-5.0) g/dl Globulin gm/dL Albumin/Globulin Ratio (1-2) 08/17/19 08/17/19 08/17/19 Range/Units 05:30 05:30 05:55 WBC 8.46 (4.23-9.07) K/mm3 RBC 3.58 L (4.63-6.08) M/mm3 Hgb 10.2 L (13.7-17.5) gm/dl Hct 29.9 L (40.1-51.0) % MCV 83.5 D (79.0-92.2) fl MCH 28.5 (25.7-32.2) pg MCHC 34.1 (32.2-35.5) g/dl RDW Std Deviation 46.1 H (35.1-43.9) fL Plt Count 197 (163-337) K/mm3 MPV 9.7 (9.4-12.3) fl Neut % (Auto) 65.2 (34.0-67.9) % Lymph % (Auto) 15.4 L (21.8-53.1) % [place] % (Auto) 13.8 H (5.3-12.2) % Eos % (Auto) 4.8 (0.8-7.0) Baso % (Auto) 0.8 (0.1-1.2) % Neut # (Auto) 5.51 H (1.78-5.38) K/mm3 Lymph # (Auto) 1.30 L (1.32-3.57) K/mm3 [place] # (Auto) 1.17 H (0.30-0.82) K/mm3 Eos # (Auto) 0.41 (0.04-0.54) K/mm3 Baso # (Auto) 0.07 (0.01-0.08) K/mm3 Manual Slide Review Normal smear Sodium 145 (136-145) mEq/L Potassium 3.7 (3.5-5.1) mEq/L Chloride 111 H (98-107) mEq/L Carbon Dioxide 29 (21-32) mEq/L Anion Gap 8.7 (5-15) BUN 14 (7-18) mg/dL Creatinine 1.3 (0.7-1.3) mg/dL Est Cr Clr Drug Dosing 42.22 mL/min Estimated GFR (MDRD) 52 (>60) mL/min BUN/Creatinine Ratio 10.8 L (14-18) Glucose 121 H (83-115) mg/dL POC Glucose 129 H (83-110) mg/dL Calcium 7.1 L (8.5-10.1) mg/dL Magnesium (1.8-2.4) mg/dl Total Bilirubin 0.5 (0.2-1.0) mg/dL AST 19 (15-37) U/L ALT 29 (16-63) U/L Alkaline Phosphatase 131 H (46-116) U/L C-Reactive Protein 2.3 H* (<1.0) mg/dL Total Protein 4.9 L (6.4-8.2) g/dl Albumin 1.3 L (3.4-5.0) g/dl Globulin 3.6 gm/dL Albumin/Globulin Ratio 0.4 L (1-2) 08/17/19 Range/Units 10:46 WBC (4.23-9.07) K/mm3 RBC (4.63-6.08) M/mm3 Hgb (13.7-17.5) gm/dl Hct (40.1-51.0) % MCV (79.0-92.2) fl MCH (25.7-32.2) pg MCHC (32.2-35.5) g/dl RDW Std Deviation (35.1-43.9) fL Plt Count (163-337) K/mm3 MPV (9.4-12.3) fl Neut % (Auto) (34.0-67.9) % Lymph % (Auto) (21.8-53.1) % [place] % (Auto) (5.3-12.2) % Eos % (Auto) (0.8-7.0) Baso % (Auto) (0.1-1.2) % Neut # (Auto) (1.78-5.38) K/mm3 Lymph # (Auto) (1.32-3.57) K/mm3 [place] # (Auto) (0.30-0.82) K/mm3 Eos # (Auto) (0.04-0.54) K/mm3 Baso # (Auto) (0.01-0.08) K/mm3 Manual Slide Review Sodium (136-145) mEq/L Potassium (3.5-5.1) mEq/L Chloride (98-107) mEq/L Carbon Dioxide (21-32) mEq/L Anion Gap (5-15) BUN (7-18) mg/dL Creatinine (0.7-1.3) mg/dL Est Cr Clr Drug Dosing mL/min Estimated GFR (MDRD) (>60) mL/min BUN/Creatinine Ratio (14-18) Glucose (83-115) mg/dL POC Glucose 156 H (83-110) mg/dL Calcium (8.5-10.1) mg/dL Magnesium (1.8-2.4) mg/dl Total Bilirubin (0.2-1.0) mg/dL AST (15-37) U/L ALT (16-63) U/L Alkaline Phosphatase (46-116) U/L C-Reactive Protein (<1.0) mg/dL Total Protein (6.4-8.2) g/dl Albumin (3.4-5.0) g/dl Globulin gm/dL Albumin/Globulin Ratio (1-2) Lonny Results Last 24 Hours: Microbiology 08/12/19 05:41 Aerobic Blood Culture - Preliminary Blood - Venous NO GROWTH AFTER 5 DAYS Anaerobic Blood Culture - Preliminary NO GROWTH AFTER 5 DAYS 08/12/19 05:52 Aerobic Blood Culture - Preliminary Blood - Venous - Lab Draw NO GROWTH AFTER 5 DAYS Anaerobic Blood Culture - Preliminary NO GROWTH AFTER 5 DAYS Med Orders - Current: Current Medications Acetaminophen (Tylenol) 650 mg PO Q4H PRN PRN Reason: Pain Last Admin: 08/16/19 06:36 Dose: 650 mg Hydrocodone Bitart/Acetaminophen (North 325-5 Mg) 1 tab PO Q8H PRN PRN Reason: Abdominal Pain Last Admin: 08/14/19 08:21 Dose: 1 tab Albuterol/Ipratropium (Duoneb 3.0-0.5 Mg/3 Ml) 3 ml INH QID PRN PRN Reason: Wheezing Budesonide (Pulmicort) 0.5 mg INH BID [facility] Last Admin: 08/17/19 08:21 Dose: 0.5 mg Cholestyramine Resin (Cholestyramine Packet) 4 gm PO BIDAC [facility] Last Admin: 08/17/19 05:47 Dose: 4 gm Doxycycline Hyclate (Vibramycin) 100 mg PO BID [facility] Last Admin: 08/17/19 08:02 Dose: 100 mg Fentanyl (Duragesic) 25 mcg TOP Q72H [facility] Last Admin: 08/16/19 09:58 Dose: 25 mcg Furosemide (Lasix) 40 mg IVPUSH BIDDIURETIC [facility] Gabapentin (Neurontin) 200 mg PO BID [facility] Last Admin: 08/17/19 08:02 Dose: 200 mg Insulin Human Lispro (Humalog) 0 unit SUBCUT QIDACANDBED [facility]; Protocol Last Admin: 08/17/19 13:04 Dose: Not Given Miscellaneous Information (Remove Patch) 0 ea TRDERM Q72H [facility] Last Admin: 08/16/19 09:59 Dose: 1 ea Mupirocin (Bactroban Oint) 0 gm TOP DAILY [facility] Last Admin: 08/17/19 08:01 Dose: 1 applic Ondansetron HCl (Zofran Odt) 4 mg PO Q6H PRN PRN Reason: Vomiting Pantoprazole Sodium (Protonix) 40 mg PO ACBREAKFAST [facility] Last Admin: 08/17/19 05:47 Dose: 40 mg Polyethylene Glycol (Miralax) 17 gm PO DAILY PRN PRN Reason: Constipation Potassium Chloride (Klor-Con M20) 20 meq PO DAILY [facility] Last Admin: 08/17/19 08:02 Dose: 20 meq Simvastatin (Zocor) 20 mg PO BEDTIME [facility] Last Admin: 08/16/19 20:34 Dose: 20 mg Discontinued Medications Aspirin (Aspirin) 81 mg PO DAILY [facility] Last Admin: 08/13/19 09:11 Dose: 81 mg Furosemide (Lasix) Confirm Administered Dose 80 mg .ROUTE .ST-MED ONE Stop: 08/12/19 01:31 Last Admin: 08/12/19 03:05 Dose: Not Given Furosemide (Lasix) 60 mg IVPUSH NOW ONE Stop: 08/12/19 01:16 Last Admin: 08/12/19 03:12 Dose: 60 mg Furosemide (Lasix) 40 mg IVPUSH NOW ONE Stop: 08/12/19 12:33 Last Admin: 08/12/19 12:54 Dose: 40 mg Furosemide (Lasix) 20 mg IVPUSH ONETIME ONE Stop: 08/13/19 18:16 Last Admin: 08/13/19 19:18 Dose: 20 mg Furosemide (Lasix) 20 mg IVPUSH Q6H [facility] Stop: 08/14/19 06:31 Last Admin: 08/14/19 06:06 Dose: 20 mg Furosemide (Lasix) 20 mg IVPUSH ONETIME ONE Stop: 08/14/19 12:31 Last Admin: 08/14/19 12:42 Dose: 20 mg Furosemide (Lasix) 20 mg IVPUSH ONETIME ONE Stop: 08/14/19 20:01 Last Admin: 08/14/19 20:54 Dose: 20 mg Furosemide (Lasix) 20 mg IVPUSH NOW ONE Stop: 08/15/19 08:15 Last Admin: 08/15/19 10:05 Dose: 20 mg Furosemide (Lasix) 40 mg IVPUSH ONETIME [facility] Stop: 08/15/19 16:00 Last Admin: 08/15/19 13:58 Dose: 40 mg Furosemide (Lasix) 20 mg IVPUSH NOW ONE Stop: 08/15/19 21:16 Last Admin: 08/15/19 22:12 Dose: 20 mg Furosemide (Lasix) 40 mg IVPUSH DAILY [facility] Last Admin: 08/16/19 09:28 Dose: 40 mg Furosemide (Lasix) 20 mg IVPUSH Q6H [facility] Stop: 08/17/19 01:31 Last Admin: 08/16/19 18:56 Dose: 20 mg Furosemide (Lasix) 40 mg IVPUSH DAILY@0700 [facility] Last Admin: 08/17/19 06:00 Dose: 40 mg Hydromorphone HCl (Dilaudid) 0.5 mg IVPUSH ONETIME ONE Stop: 08/11/19 22:32 Last Admin: 08/11/19 23:09 Dose: 0.25 mg Hydromorphone HCl (Dilaudid) 1 mg IVPUSH ONETIME ONE Stop: 08/11/19 23:47 Last Admin: 08/12/19 00:54 Dose: 1 mg Hydromorphone HCl (Dilaudid) 0.5 mg IVPUSH ONETIME ONE Stop: 08/12/19 03:50 Last Admin: 08/12/19 04:16 Dose: 0.5 mg Hydromorphone HCl (Dilaudid) 0.5 mg IVPUSH ONETIME ONE Stop: 08/12/19 09:22 Last Admin: 08/12/19 09:27 Dose: 0.5 mg Dextrose/Sodium Chloride (Dextrose 5%-Normal Saline) 1,000 mls @ 125 mls/hr IV ASDIRECTED [facility] Last Admin: 08/11/19 22:58 Dose: 125 mls/hr Vancomycin HCl 1.75 gm/ Sodium (Chloride) 500 mls @ 250 mls/hr IV ONETIME ONE Stop: 08/12/19 06:13 Last Admin: 08/12/19 06:48 Dose: 250 mls/hr Sodium Chloride (Normal Saline) 1,000 mls @ 999 mls/hr IV ASDIRECTED [facility] Last Admin: 08/12/19 06:20 Dose: 999 mls/hr Magnesium Sulfate 4 gm/ Premix 100 mls @ 25 mls/hr IV ONETIME ONE Stop: 08/12/19 15:59 Last Admin: 08/12/19 13:22 Dose: 25 mls/hr Albumin Human (Flexbumin 25%) 12.5 gm in 50 mls @ 100 mls/hr IV ONETIME ONE Stop: 08/12/19 13:14 Last Admin: 08/12/19 12:54 Dose: 100 mls/hr Sodium Chloride (Sodium Chloride 0.9%) 500 mls @ 999 mls/hr IRR ASDIRECTED LEENA Sodium Chloride (Normal Saline) 500 mls @ 999 mls/hr IV .BOLUS ONE Stop: 08/13/19 02:18 Last Admin: 08/13/19 01:49 Dose: 999 mls/hr Ceftriaxone Sodium 1 gm/ (Sodium Chloride) 100 mls @ 200 mls/hr IV Q24H [facility] Last Admin: 08/17/19 01:36 Dose: 200 mls/hr Albumin Human (Flexbumin 25%) 12.5 gm in 50 mls @ 100 mls/hr IV ONETIME ONE Stop: 08/13/19 03:23 Last Admin: 08/13/19 03:18 Dose: 100 mls/hr Metronidazole 500 mg/ Premix 100 mls @ 100 mls/hr IV Q8H [facility] Last Admin: 08/17/19 07:45 Dose: 100 mls/hr Furosemide 100 mg/ Sodium (Chloride) 100 mls @ 5 mls/hr IV TITRATE [facility]; Protocol Last Admin: 08/13/19 11:34 Dose: 5 mls/hr Vancomycin HCl 1 gm/Vancomycin HCl 250 mg/ Sodium Chloride 250 mls @ 166.667 mls/hr IV Q24H [facility] Stop: 08/13/19 17:00 Last Admin: 08/13/19 13:56 Dose: 166.667 mls/hr Vancomycin HCl 1 gm/Vancomycin HCl 250 mg/ Sodium Chloride 250 mls @ 166.667 mls/hr IV Q24H [facility] Last Admin: 08/16/19 13:34 Dose: 166.667 mls/hr Albumin Human (Flexbumin 25%) 12.5 gm in 50 mls @ 100 mls/hr IV ONETIME ONE Stop: 08/13/19 17:34 Last Admin: 08/13/19 17:30 Dose: 100 mls/hr Albumin Human (Flexbumin 25%) 12.5 gm in 50 mls @ 100 mls/hr IV Q6H LEENA Stop: 08/14/19 12:02 Last Admin: 08/14/19 06:05 Dose: 100 mls/hr Albumin Human (Flexbumin 25%) 12.5 gm in 50 mls @ 100 mls/hr IV ONETIME ONE Stop: 08/14/19 12:29 Last Admin: 08/14/19 11:21 Dose: 100 mls/hr Magnesium Sulfate 2 gm/ Premix 50 mls @ 25 mls/hr IV ONETIME ONE Stop: 08/15/19 10:18 Last Admin: 08/15/19 10:00 Dose: 25 mls/hr Sodium Chloride (Normal Saline) 250 mls @ 100 mls/hr IV ASDIRECTED [facility] Stop: 08/15/19 16:00 Sodium Chloride (Normal Saline) Confirm Administered Dose 500 mls @ as directed .ROUTE .STK-MED ONE Stop: 08/15/19 11:14 Last Admin: 08/15/19 12:04 Dose: Not Given Sodium Chloride (Normal Saline) 500 mls @ 150 mls/hr IV .BOLUS [facility] Last Admin: 08/15/19 11:30 Dose: 150 mls/hr Magnesium Sulfate 4 gm/ Premix 50 mls @ 12.5 mls/hr IV ONETIME ONE Stop: 08/16/19 12:18 Last Admin: 08/16/19 09:25 Dose: 12.5 mls/hr Lactulose (Cephulac) 20 gm PO ONETIME ONE Stop: 08/12/19 03:50 Last Admin: 08/12/19 04:39 Dose: 20 gm Loperamide HCl (Imodium) 4 mg PO ONETIME ONE Stop: 08/14/19 10:46 Last Admin: 08/14/19 11:09 Dose: 4 mg Metoclopramide HCl (Reglan) 10 mg IVPUSH ONETIME ONE Stop: 08/11/19 22:32 Last Admin: 08/11/19 23:03 Dose: 10 mg Metoclopramide HCl (Reglan) 7.5 mg IVPUSH ONETIME ONE Stop: 08/12/19 03:50 Last Admin: 08/12/19 04:14 Dose: 7.5 mg Pantoprazole Sodium (Protonix) 40 mg PO DAILY [facility] Last Admin: 08/14/19 08:21 Dose: 40 mg Pantoprazole Sodium (Protonix Iv) 40 mg IVPUSH Q12H [facility] Last Admin: 08/16/19 09:28 Dose: 40 mg Phytonadione (Aquamephyton) 2.5 mg PO ONETIME ONE Stop: 08/14/19 11:16 Last Admin: 08/14/19 11:27 Dose: 2.5 mg Potassium Chloride (Klor-Con M20) 40 meq PO ONETIME ONE Stop: 08/16/19 08:22 Last Admin: 08/16/19 09:27 Dose: 40 meq Vancomycin HCl (Pharmacy To Dose - Vancomycin) 1 dose .XX ASDIRECTED PRN PRN Reason: RX TO DOSE VANCO Warfarin Sodium (Pharmacy To Dose - Warfarin) 1 dose .XX ASDIRECTED PRN PRN Reason: RX TO DOSE WARFARIN Warfarin Sodium (Coumadin Sliding Scale) 0 each PO QPM [facility] Stop: 08/12/19 18:01 Last Admin: 08/12/19 18:04 Dose: Not Given Warfarin Sodium (Coumadin Sliding Scale) 0 each PO QPM LEENA Stop: 08/13/19 18:01 Last Admin: 08/13/19 19:41 Dose: Not Given - Exam Quality Assessment: No: Supplemental Oxygen General: Alert, Oriented HEENT: Pupils Equal, Mucous Membr. Moist/[place] Neck: Supple Lungs: Clear to Auscultation, Normal Respiratory Effort Cardiovascular: Regular Rate, Irregular Rhythm GI/Abdominal Exam: Normal Bowel Sounds, Soft, Non-Tender, No Organomegaly, No Distention Extremities: Pedal Edema (3+, still much improved.) Skin: Warm, Dry, Intact Wound/Incisions: Healing Well, Dressing Dry and Intact, No Drainage, Erythema Improving Neurological: No New Focal Deficit Psy/Mental Status: Alert, Normal Affect, Normal Mood Sepsis Event Note - Evaluation Sepsis Screening Result: No Definite Risk - Focused Exam Vital Signs: Vital Signs Temp Pulse Resp BP Pulse Ox Pulse Ox 08/17/19 11:31 97.3 F 73 16 127/91 H 95 08/17/19 08:22 91 L 08/17/19 07:51 97.9 F 70 14 124/97 H 90 L 08/17/19 06:38 115/55 L 08/17/19 05:57 117/85 08/17/19 04:36 98.2 F 65 16 121/71 95 Date Exam was Performed: 08/17/19 Time Exam was Performed: 13:13 - Problem List Review Problem List Initiated/Reviewed/Updated: Yes - My Orders Last 24 Hours: My Active Orders 08/16/19 12:30 SCD [Sequential Compression Device] [OM.PC] Routine 08/16/19 17:32 Antiembolic Devices [RC] PER UNIT ROUTINE 08/16/19 18:00 Bladder Scan [RC] ASDIRECTED 08/16/19 18:01 Urinary Catheter Assessment [RC] ASDIRECTED 08/16/19 18:15 Urinary Catheter Insertion [Insert Urinary Catheter] [OM.PC] Q24H 08/16/19 18:38 Communication Order [RC] DAILY 08/16/19 18:58 Intake and Output Strict [RC] 04,16 08/16/19 21:00 Doxycycline [Vibramycin] 100 mg PO BID 08/17/19 06:00 Pantoprazole [ProTONIX] 40 mg PO ACBREAKFAST 08/17/19 15:00 Furosemide [Lasix] 40 mg IVPUSH BIDDIURETIC 08/18/19 05:11 CBC WITH AUTO DIFF [HEME] AM CMP [COMPREHENSIVE METABOLIC PN,CMP] [CHEM] AM MAGNESIUM [CHEM] AM PHOSPHORUS [CHEM] AM - Plan Plan:: Assessment * Mild colonic ileus - resolved * Mildly dilated loops of colon and slightly air-filled on CT * Several stool daily. History of postcholecystectomy diarrhea. * Chronic diarrhea * History of postcholecystectomy diarrhea * Started on cholestyramine on 08/14/2019 * GI bleed * Hemoglobin dropped from 10.7-7.9. Received 1 u PRBC * Guaiac positive stool * Hemoglobin stable at 10.2 * Protonix * stopped warfarin * Bilateral lower lobe pneumonia possible aspiration * Blood cultures - neg x 3 days * Rocephin 1 g every 24 hours x5 days * Metronidazole 500 mg IV every 8 hours x 5 days * Anasarca - improving * Small bilateral pleural effusions * Body wall edema and mild ascites * Scrotal edema -improving * Albumin 1.3 * Hypoalbuminemia * Albumin 1.0--1.3-->1.5-->1.4-->1.4 * Likely secondary to poor oral intake of protein vs. 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 Normal right ventricular systolic function. Mild aortic valve sclerosis without stenosis. Trace mitral valve regurgitation. Moderate tricuspid valve regurgitation. The right ventricular systolic pressure is mild to moderately elevated at 44.0 mmHg. Large left pleural effusion. Abnormal septal motion consistent with left bundle branch block or conduction abnormality. No regional wall motion abnormalities. There is severe bilateral atrial dilatation. * Diabetes mellitus with [facility]cemia [facility] the [facility] * No hypoglycemia since hospitalization * Atrial fibrillation * Rate controlled * Supratherapeutic anticoagulation with warfarin * INR 3.37-->4.7-->1.88--> 1.5 (post vitamin K) * Home dose Warfarin 1 mg daily * Warfarin stopped secondary to GI bleed * Hypomagnesemia * Coronary artery disease, peripheral vascular disease, history of CVA Plan * Admit to medical floor on telemetry * Lasix 40 mg IV BID * Strict I's and O's closely * Daily weights * D/C Rocephin and metronidazole. * Start fiber and probiotics for post cholecystectomy diarrhea * Change Protonix to 40 mg p.o. daily * Fingerstick blood sugar 4 times daily with sliding scale insulin * FiO2 to keep SPO2 greater than 91% * CBC, CMP, INR, magnesium, C-reactive protein daily * VTE prophylaxis with SCDs on the right leg * CODE STATUS: DNR/DNI * Length of stay greater than 96 hours secondary to slow response to treatment * Discharge pending on placement.
[2019-08-17] MEDS: Furosemide 40 MG/4 ML VIAL IVPUSH SCH (14:47)
[2019-08-17] MEDS: Saccharomyces Boulardii (Probiotic) 250 MG Cap PO SCH ×2 (14:47→15:06)
[2019-08-17] MEDS: Psyllium Husk Powder Sugar Free 3.4 GM Packet PO SCH (20:50)
[2019-08-17] MEDS: Simvastatin 20 MG Tab PO SCH (20:52)
[2019-08-18] MEDS: Cholestyramine/Sucrose Powder 4 GM Packet PO SCH ×2 (06:21→15:15)
[2019-08-18] MEDS: Furosemide 40 MG/4 ML VIAL IVPUSH SCH ×2 (06:21→15:15)
[2019-08-18] MEDS: Pantoprazole 40 MG Tab.CR PO SCH (06:21)
[2019-08-18] MEDS: Insulin Lispro 100 Units/ML 3 ML Vial SUBCUT SCH ×4 (06:36→22:37)
[2019-08-18] MEDS: Budesonide 0.5 MG/2 ML Neb Susp INH SCH ×2 (07:59→21:32)
[2019-08-18] MEDS: Mupirocin Oint 22 GM Tube TOP SCH (09:17)
[2019-08-18] MEDS: Saccharomyces Boulardii (Probiotic) 250 MG Cap PO SCH (09:17)
[2019-08-18] MEDS: Gabapentin 100 MG Cap PO SCH ×2 (09:18→20:41)
[2019-08-18] MEDS: Potassium Chloride 20 MEQ Tab.ER PO SCH (09:18)
[2019-08-18] MEDS: Doxycycline 100 MG Cap PO SCH ×2 (09:18→20:40)
[2019-08-18] MEDS: Psyllium Husk Powder Sugar Free 3.4 GM Packet PO SCH ×2 (09:18→20:42)
[2019-08-18] MEDS ORDERED: Magnesium Sulfate/Water 4 GM in Premix Bag 1 BAG IV ONE (09:54)
[2019-08-18] MEDS ORDERED: Potassium Chloride 20 MEQ Tab.ER PO ONE (09:55)
--- NOTE | 2019-08-18 12:56 | PCM.PN ---
- General Info Date of Service: 08/18/19 Admission Dx/Problem (Free Text): Admission Diagnosis/Problem Admission Diagnosis/Problem Ileus Subjective Update: Patient continues to improve. He also continues to have abdominal discomfort and diarrhea. I added fiber and a probiotic yesterday. Functional Status: Reports: Pain Controlled - Review of Systems General: Reports: No Symptoms HEENT: Reports: No Symptoms Pulmonary: Reports: No Symptoms Cardiovascular: Reports: No Symptoms Gastrointestinal: Reports: Abdominal Pain, Diarrhea Neurological: Reports: No Symptoms Psychiatric: Reports: No Symptoms - Patient Data Vitals - Most Recent: Last Vital Signs Temp 97.9 F 08/18/19 11:37 Pulse 81 08/18/19 11:37 Resp 16 08/18/19 11:37 BP 112/80 08/18/19 11:37 Pulse Ox 95 08/18/19 11:37 Weight - Most Recent: 164 lb 1.6 oz I&O - Last 24 Hours: Intake & Output 08/17/19 08/18/19 08/18/19 22:59 06:59 14:59 Intake Total 0 700 120 Output Total 947 Balance 0 -247 120 Lab Results Last 24 Hours: Laboratory Results - last 24 hr 08/11/19 08/15/19 08/17/19 Range/Units 22:46 06:03 16:55 WBC (4.23-9.07) K/mm3 RBC (4.63-6.08) M/mm3 Hgb (13.7-17.5) gm/dl Hct (40.1-51.0) % MCV (79.0-92.2) fl MCH (25.7-32.2) pg MCHC (32.2-35.5) g/dl RDW Std Deviation (35.1-43.9) fL Plt Count (163-337) K/mm3 MPV (9.4-12.3) fl Neut % (Auto) (34.0-67.9) % Lymph % (Auto) (21.8-53.1) % [place] % (Auto) (5.3-12.2) % Eos % (Auto) (0.8-7.0) Baso % (Auto) (0.1-1.2) % Neut # (Auto) (1.78-5.38) K/mm3 Lymph # (Auto) (1.32-3.57) K/mm3 [place] # (Auto) (0.30-0.82) K/mm3 Eos # (Auto) (0.04-0.54) K/mm3 Baso # (Auto) (0.01-0.08) K/mm3 Sodium (136-145) mEq/L Potassium (3.5-5.1) mEq/L Chloride (98-107) mEq/L Carbon Dioxide (21-32) mEq/L Anion Gap (5-15) BUN (7-18) mg/dL Creatinine (0.7-1.3) mg/dL Est Cr Clr Drug Dosing mL/min Estimated GFR (MDRD) (>60) mL/min BUN/Creatinine Ratio (14-18) Glucose (83-115) mg/dL POC Glucose 328 H (83-110) mg/dL Calcium (8.5-10.1) mg/dL Phosphorus (2.6-4.7) mg/dL Magnesium (1.8-2.4) mg/dl Total Bilirubin (0.2-1.0) mg/dL AST (15-37) U/L ALT (16-63) U/L Alkaline Phosphatase (46-116) U/L Total Protein (6.4-8.2) g/dl Albumin (3.4-5.0) g/dl Globulin gm/dL Albumin/Globulin Ratio (1-2) Blood Type O POSITIVE O POSITIVE Gel Antibody Screen Negative Crossmatch See Detail 08/17/19 08/18/19 08/18/19 Range/Units 20:29 05:35 05:35 WBC 8.79 (4.23-9.07) K/mm3 RBC 3.55 L (4.63-6.08) M/mm3 Hgb 9.9 L (13.7-17.5) gm/dl Hct 31.0 L (40.1-51.0) % MCV 87.3 D (79.0-92.2) fl MCH 27.9 (25.7-32.2) pg MCHC 31.9 L (32.2-35.5) g/dl RDW Std Deviation 46.9 H (35.1-43.9) fL Plt Count 240 (163-337) K/mm3 MPV 9.8 (9.4-12.3) fl Neut % (Auto) 66.0 (34.0-67.9) % Lymph % (Auto) 15.6 L (21.8-53.1) % [place] % (Auto) 12.5 H (5.3-12.2) % Eos % (Auto) 5.1 (0.8-7.0) Baso % (Auto) 0.5 (0.1-1.2) % Neut # (Auto) 5.80 H (1.78-5.38) K/mm3 Lymph # (Auto) 1.37 (1.32-3.57) K/mm3 [place] # (Auto) 1.10 H (0.30-0.82) K/mm3 Eos # (Auto) 0.45 (0.04-0.54) K/mm3 Baso # (Auto) 0.04 (0.01-0.08) K/mm3 Sodium 144 (136-145) mEq/L Potassium 3.4 L (3.5-5.1) mEq/L Chloride 109 H (98-107) mEq/L Carbon Dioxide 27 (21-32) mEq/L Anion Gap 11.4 (5-15) BUN 12 (7-18) mg/dL Creatinine 1.2 (0.7-1.3) mg/dL Est Cr Clr Drug Dosing 45.74 mL/min Estimated GFR (MDRD) 57 (>60) mL/min BUN/Creatinine Ratio 10.0 L (14-18) Glucose 115 (83-115) mg/dL POC Glucose 218 H (83-110) mg/dL Calcium 6.9 L (8.5-10.1) mg/dL Phosphorus 2.0 L (2.6-4.7) mg/dL Magnesium 1.6 L (1.8-2.4) mg/dl Total Bilirubin 0.5 (0.2-1.0) mg/dL AST 16 (15-37) U/L ALT 27 (16-63) U/L Alkaline Phosphatase 129 H (46-116) U/L Total Protein 4.9 L (6.4-8.2) g/dl Albumin 1.3 L (3.4-5.0) g/dl Globulin 3.6 gm/dL Albumin/Globulin Ratio 0.4 L (1-2) Blood Type Gel Antibody Screen Crossmatch 08/18/19 08/18/19 Range/Units 06:28 11:13 WBC (4.23-9.07) K/mm3 RBC (4.63-6.08) M/mm3 Hgb (13.7-17.5) gm/dl Hct (40.1-51.0) % MCV (79.0-92.2) fl MCH (25.7-32.2) pg MCHC (32.2-35.5) g/dl RDW Std Deviation (35.1-43.9) fL Plt Count (163-337) K/mm3 MPV (9.4-12.3) fl Neut % (Auto) (34.0-67.9) % Lymph % (Auto) (21.8-53.1) % [place] % (Auto) (5.3-12.2) % Eos % (Auto) (0.8-7.0) Baso % (Auto) (0.1-1.2) % Neut # (Auto) (1.78-5.38) K/mm3 Lymph # (Auto) (1.32-3.57) K/mm3 [place] # (Auto) (0.30-0.82) K/mm3 Eos # (Auto) (0.04-0.54) K/mm3 Baso # (Auto) (0.01-0.08) K/mm3 Sodium (136-145) mEq/L Potassium (3.5-5.1) mEq/L Chloride (98-107) mEq/L Carbon Dioxide (21-32) mEq/L Anion Gap (5-15) BUN (7-18) mg/dL Creatinine (0.7-1.3) mg/dL Est Cr Clr Drug Dosing mL/min Estimated GFR (MDRD) (>60) mL/min BUN/Creatinine Ratio (14-18) Glucose (83-115) mg/dL POC Glucose 125 H 236 H (83-110) mg/dL Calcium (8.5-10.1) mg/dL Phosphorus (2.6-4.7) mg/dL Magnesium (1.8-2.4) mg/dl Total Bilirubin (0.2-1.0) mg/dL AST (15-37) U/L ALT (16-63) U/L Alkaline Phosphatase (46-116) U/L Total Protein (6.4-8.2) g/dl Albumin (3.4-5.0) g/dl Globulin gm/dL Albumin/Globulin Ratio (1-2) Blood Type Gel Antibody Screen Crossmatch Lonny Results Last 24 Hours: Microbiology 08/12/19 05:41 Aerobic Blood Culture - Preliminary Blood - Venous NO GROWTH AFTER 6 DAYS Anaerobic Blood Culture - Preliminary NO GROWTH AFTER 6 DAYS 08/12/19 05:52 Aerobic Blood Culture - Preliminary Blood - Venous - Lab Draw NO GROWTH AFTER 6 DAYS Anaerobic Blood Culture - Preliminary NO GROWTH AFTER 6 DAYS Med Orders - Current: Current Medications Acetaminophen (Tylenol) 650 mg PO Q4H PRN PRN Reason: Pain Last Admin: 08/16/19 06:36 Dose: 650 mg Hydrocodone Bitart/Acetaminophen (Clark 325-5 Mg) 1 tab PO Q8H PRN PRN Reason: Abdominal Pain Last Admin: 08/14/19 08:21 Dose: 1 tab Albuterol/Ipratropium (Duoneb 3.0-0.5 Mg/3 Ml) 3 ml INH QID PRN PRN Reason: Wheezing Budesonide (Pulmicort) 0.5 mg INH BID [facility] Last Admin: 08/18/19 07:59 Dose: 0.5 mg Cholestyramine Resin (Cholestyramine Packet) 4 gm PO BIDAC [facility] Last Admin: 08/18/19 06:21 Dose: 4 gm Doxycycline Hyclate (Vibramycin) 100 mg PO BID [facility] Last Admin: 08/18/19 09:18 Dose: 100 mg Fentanyl (Duragesic) 25 mcg TOP Q72H [facility] Last Admin: 08/16/19 09:58 Dose: 25 mcg Furosemide (Lasix) 40 mg IVPUSH BIDDIURETIC [facility] Last Admin: 08/18/19 06:21 Dose: 40 mg Gabapentin (Neurontin) 200 mg PO BID [facility] Last Admin: 08/18/19 09:18 Dose: 200 mg Magnesium Sulfate 4 gm/ Premix 50 mls @ 12.5 mls/hr IV ONETIME ONE Stop: 08/18/19 13:53 Last Admin: 08/18/19 11:18 Dose: 12.5 mls/hr Insulin Human Lispro (Humalog) 0 unit SUBCUT QIDACANDBED [facility]; Protocol Last Admin: 08/18/19 11:19 Dose: 2 units Miscellaneous Information (Remove Patch) 0 ea TRDERM Q72H [facility] Last Admin: 08/16/19 09:59 Dose: 1 ea Mupirocin (Bactroban Oint) 0 gm TOP DAILY [facility] Last Admin: 08/18/19 09:17 Dose: 1 applic Ondansetron HCl (Zofran Odt) 4 mg PO Q6H PRN PRN Reason: Vomiting Pantoprazole Sodium (Protonix) 40 mg PO ACBREAKFAST [facility] Last Admin: 08/18/19 06:21 Dose: 40 mg Polyethylene Glycol (Miralax) 17 gm PO DAILY PRN PRN Reason: Constipation Potassium Chloride (Klor-Con M20) 20 meq PO DAILY [facility] Last Admin: 08/18/19 09:18 Dose: 20 meq Psyllium Husk (Metamucil Sugar Free) 1 packet PO BID [facility] Last Admin: 08/18/19 09:18 Dose: 1 packet Saccharomyces Boulardii (Florastor) 250 mg PO DAILY [facility] Last Admin: 08/18/19 09:17 Dose: 250 mg Simvastatin (Zocor) 20 mg PO BEDTIME [facility] Last Admin: 08/17/19 20:52 Dose: 20 mg Discontinued Medications Aspirin (Aspirin) 81 mg PO DAILY [facility] Last Admin: 08/13/19 09:11 Dose: 81 mg Furosemide (Lasix) Confirm Administered Dose 80 mg .ROUTE .STK-MED ONE Stop: 08/12/19 01:31 Last Admin: 08/12/19 03:05 Dose: Not Given Furosemide (Lasix) 60 mg IVPUSH NOW ONE Stop: 08/12/19 01:16 Last Admin: 08/12/19 03:12 Dose: 60 mg Furosemide (Lasix) 40 mg IVPUSH NOW ONE Stop: 08/12/19 12:33 Last Admin: 08/12/19 12:54 Dose: 40 mg Furosemide (Lasix) 20 mg IVPUSH ONETIME ONE Stop: 08/13/19 18:16 Last Admin: 08/13/19 19:18 Dose: 20 mg Furosemide (Lasix) 20 mg IVPUSH Q6H [facility] Stop: 08/14/19 06:31 Last Admin: 08/14/19 06:06 Dose: 20 mg Furosemide (Lasix) 20 mg IVPUSH ONETIME ONE Stop: 08/14/19 12:31 Last Admin: 08/14/19 12:42 Dose: 20 mg Furosemide (Lasix) 20 mg IVPUSH ONETIME ONE Stop: 08/14/19 20:01 Last Admin: 08/14/19 20:54 Dose: 20 mg Furosemide (Lasix) 20 mg IVPUSH NOW ONE Stop: 08/15/19 08:15 Last Admin: 08/15/19 10:05 Dose: 20 mg Furosemide (Lasix) 40 mg IVPUSH ONETIME LEENA Stop: 08/15/19 16:00 Last Admin: 08/15/19 13:58 Dose: 40 mg Furosemide (Lasix) 20 mg IVPUSH NOW ONE Stop: 08/15/19 21:16 Last Admin: 08/15/19 22:12 Dose: 20 mg Furosemide (Lasix) 40 mg IVPUSH DAILY [facility] Last Admin: 08/16/19 09:28 Dose: 40 mg Furosemide (Lasix) 20 mg IVPUSH Q6H [facility] Stop: 08/17/19 01:31 Last Admin: 08/16/19 18:56 Dose: 20 mg Furosemide (Lasix) 40 mg IVPUSH DAILY@0700 [facility] Last Admin: 08/17/19 06:00 Dose: 40 mg Hydromorphone HCl (Dilaudid) 0.5 mg IVPUSH ONETIME ONE Stop: 08/11/19 22:32 Last Admin: 08/11/19 23:09 Dose: 0.25 mg Hydromorphone HCl (Dilaudid) 1 mg IVPUSH ONETIME ONE Stop: 08/11/19 23:47 Last Admin: 08/12/19 00:54 Dose: 1 mg Hydromorphone HCl (Dilaudid) 0.5 mg IVPUSH ONETIME ONE Stop: 08/12/19 03:50 Last Admin: 08/12/19 04:16 Dose: 0.5 mg Hydromorphone HCl (Dilaudid) 0.5 mg IVPUSH ONETIME ONE Stop: 08/12/19 09:22 Last Admin: 08/12/19 09:27 Dose: 0.5 mg Dextrose/Sodium Chloride (Dextrose 5%-Normal Saline) 1,000 mls @ 125 mls/hr IV ASDIRECTED [facility] Last Admin: 08/11/19 22:58 Dose: 125 mls/hr Vancomycin HCl 1.75 gm/ Sodium (Chloride) 500 mls @ 250 mls/hr IV ONETIME ONE Stop: 08/12/19 06:13 Last Admin: 08/12/19 06:48 Dose: 250 mls/hr Sodium Chloride (Normal Saline) 1,000 mls @ 999 mls/hr IV ASDIRECTED [facility]EENA Last Admin: 08/12/19 06:20 Dose: 999 mls/hr Magnesium Sulfate 4 gm/ Premix 100 mls @ 25 mls/hr IV ONETIME ONE Stop: 08/12/19 15:59 Last Admin: 08/12/19 13:22 Dose: 25 mls/hr Albumin Human (Flexbumin 25%) 12.5 gm in 50 mls @ 100 mls/hr IV ONETIME ONE Stop: 08/12/19 13:14 Last Admin: 08/12/19 12:54 Dose: 100 mls/hr Sodium Chloride (Sodium Chloride 0.9%) 500 mls @ 999 mls/hr IRR ASDIRECTED LEENA Sodium Chloride (Normal Saline) 500 mls @ 999 mls/hr IV .BOLUS ONE Stop: 08/13/19 02:18 Last Admin: 08/13/19 01:49 Dose: 999 mls/hr Ceftriaxone Sodium 1 gm/ (Sodium Chloride) 100 mls @ 200 mls/hr IV Q24H [facility] Last Admin: 08/17/19 01:36 Dose: 200 mls/hr Albumin Human (Flexbumin 25%) 12.5 gm in 50 mls @ 100 mls/hr IV ONETIME ONE Stop: 08/13/19 03:23 Last Admin: 08/13/19 03:18 Dose: 100 mls/hr Metronidazole 500 mg/ Premix 100 mls @ 100 mls/hr IV Q8H [facility] Last Admin: 08/17/19 07:45 Dose: 100 mls/hr Furosemide 100 mg/ Sodium (Chloride) 100 mls @ 5 mls/hr IV TITRATE [facility]EENA; Protocol Last Admin: 08/13/19 11:34 Dose: 5 mls/hr Vancomycin HCl 1 gm/Vancomycin HCl 250 mg/ Sodium Chloride 250 mls @ 166.667 mls/hr IV Q24H [facility] Stop: 08/13/19 17:00 Last Admin: 08/13/19 13:56 Dose: 166.667 mls/hr Vancomycin HCl 1 gm/Vancomycin HCl 250 mg/ Sodium Chloride 250 mls @ 166.667 mls/hr IV Q24H [facility] Last Admin: 08/16/19 13:34 Dose: 166.667 mls/hr Albumin Human (Flexbumin 25%) 12.5 gm in 50 mls @ 100 mls/hr IV ONETIME ONE Stop: 08/13/19 17:34 Last Admin: 08/13/19 17:30 Dose: 100 mls/hr Albumin Human (Flexbumin 25%) 12.5 gm in 50 mls @ 100 mls/hr IV Q6H [facility] Stop: 08/14/19 12:02 Last Admin: 08/14/19 06:05 Dose: 100 mls/hr Albumin Human (Flexbumin 25%) 12.5 gm in 50 mls @ 100 mls/hr IV ONETIME ONE Stop: 08/14/19 12:29 Last Admin: 08/14/19 11:21 Dose: 100 mls/hr Magnesium Sulfate 2 gm/ Premix 50 mls @ 25 mls/hr IV ONETIME ONE Stop: 08/15/19 10:18 Last Admin: 08/15/19 10:00 Dose: 25 mls/hr Sodium Chloride (Normal Saline) 250 mls @ 100 mls/hr IV ASDIRECTED [facility] Stop: 08/15/19 16:00 Sodium Chloride (Normal Saline) Confirm Administered Dose 500 mls @ as directed .ROUTE .STK-MED ONE Stop: 08/15/19 11:14 Last Admin: 08/15/19 12:04 Dose: Not Given Sodium Chloride (Normal Saline) 500 mls @ 150 mls/hr IV .BOLUS [facility] Last Admin: 08/15/19 11:30 Dose: 150 mls/hr Magnesium Sulfate 4 gm/ Premix 50 mls @ 12.5 mls/hr IV ONETIME ONE Stop: 08/16/19 12:18 Last Admin: 08/16/19 09:25 Dose: 12.5 mls/hr Lactulose (Cephulac) 20 gm PO ONETIME ONE Stop: 08/12/19 03:50 Last Admin: 08/12/19 04:39 Dose: 20 gm Loperamide HCl (Imodium) 4 mg PO ONETIME ONE Stop: 08/14/19 10:46 Last Admin: 08/14/19 11:09 Dose: 4 mg Metoclopramide HCl (Reglan) 10 mg IVPUSH ONETIME ONE Stop: 08/11/19 22:32 Last Admin: 08/11/19 23:03 Dose: 10 mg Metoclopramide HCl (Reglan) 7.5 mg IVPUSH ONETIME ONE Stop: 08/12/19 03:50 Last Admin: 08/12/19 04:14 Dose: 7.5 mg Pantoprazole Sodium (Protonix) 40 mg PO DAILY [facility] Last Admin: 08/14/19 08:21 Dose: 40 mg Pantoprazole Sodium (Protonix Iv) 40 mg IVPUSH Q12H [facility] Last Admin: 08/16/19 09:28 Dose: 40 mg Phytonadione (Aquamephyton) 2.5 mg PO ONETIME ONE Stop: 08/14/19 11:16 Last Admin: 08/14/19 11:27 Dose: 2.5 mg Potassium Chloride (Klor-Con M20) 40 meq PO ONETIME ONE Stop: 08/16/19 08:22 Last Admin: 08/16/19 09:27 Dose: 40 meq Potassium Chloride (Klor-Con M20) 40 meq PO ONETIME ONE Stop: 08/18/19 09:56 Last Admin: 08/18/19 11:17 Dose: 40 meq Vancomycin HCl (Pharmacy To Dose - Vancomycin) 1 dose .XX ASDIRECTED PRN PRN Reason: RX TO DOSE VANCO Warfarin Sodium (Pharmacy To Dose - Warfarin) 1 dose .XX ASDIRECTED PRN PRN Reason: RX TO DOSE WARFARIN Warfarin Sodium (Coumadin Sliding Scale) 0 each PO QPM [facility] Stop: 08/12/19 18:01 Last Admin: 08/12/19 18:04 Dose: Not Given Warfarin Sodium (Coumadin Sliding Scale) 0 each PO QPM [facility] Stop: 08/13/19 18:01 Last Admin: 08/13/19 19:41 Dose: Not Given - Exam General: Alert, Oriented HEENT: Pupils Equal, Mucous Membr. Moist/[place] Neck: Supple Lungs: Clear to Auscultation, Normal Respiratory Effort Cardiovascular: Regular Rate, Regular Rhythm Back Exam: Normal Inspection, Full Range of Motion Extremities: Normal Inspection, Normal Range of Motion, Pedal Edema (2-3+, much improved) Skin: Warm, Dry, Intact Neurological: No New Focal Deficit Psy/Mental Status: Alert, Normal Affect, Normal Mood Sepsis Event Note - Evaluation Sepsis Screening Result: No Definite Risk - Focused Exam Vital Signs: Vital Signs Temp Pulse Resp BP Pulse Ox Pulse Ox 08/18/19 11:37 97.9 F 81 16 112/80 95 08/18/19 07:59 94 L 08/18/19 07:39 97.5 F 80 14 100/58 L 93 L 08/18/19 02:48 98.1 F 08/18/19 02:44 70 16 109/60 92 L Date Exam was Performed: 08/18/19 Time Exam was Performed: 12:58 - Problem List Review Problem List Initiated/Reviewed/Updated: Yes - My Orders Last 24 Hours: My Active Orders 08/17/19 14:00 Saccharomyces Boulardii [Florastor] 250 mg PO DAILY 08/17/19 15:00 Furosemide [Lasix] 40 mg IVPUSH BIDDIURETIC 08/17/19 21:00 Psyllium Husk/Aspartame [Metamucil Sugar Free] 1 packet PO BID 08/18/19 09:54 Magnesium Sulfate/Water [Magnesium Sulfate in Water Premix] 4 gm Premix Bag 1 bag IV ONETIME - Plan Plan:: Assessment * Mild colonic ileus - resolved * Mildly dilated loops of colon and slightly air-filled on CT * Several stool daily. History of postcholecystectomy diarrhea. * Chronic diarrhea * History of postcholecystectomy diarrhea * Started on cholestyramine on 08/14/2019 * GI bleed * Hemoglobin dropped from 10.7-7.9. Received 1 u PRBC * Guaiac positive stool * Hemoglobin mild drop overnight: * Protonix * stopped warfarin * Bilateral lower lobe pneumonia possible aspiration * Blood cultures - neg x 3 days * Stopped - Rocephin 1 g every 24 hours x5 days * Stopped - metronidazole 500 mg IV every 8 hours x 5 days * Doxycycline 100 mg twice daily * Anasarca - improving * Small bilateral pleural effusions * Body wall edema and mild ascites on CT * Scrotal edema -improving * Lower extremity improving * Albumin 1.3 * Hypoalbuminemia * Albumin 1.0--1.3-->1.5-->1.4-->1.4-->1.3 * Likely secondary to poor oral intake of protein vs. 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 Normal right ventricular systolic function. Mild aortic valve sclerosis without stenosis. Trace mitral valve regurgitation. Moderate tricuspid valve regurgitation. The right ventricular systolic pressure is mild to moderately elevated at 44.0 mmHg. Large left pleural effusion. Abnormal septal motion consistent with left bundle branch block or conduction abnormality. No regional wall motion abnormalities. There is severe bilateral atrial dilatation. * Diabetes mellitus with episode of hypoglycemia at the [facility] * No hypoglycemia since hospitalization * Blood sugars now ranging in the 150s to low 300s * Atrial fibrillation/pacemaker * Rate controlled * Paced rhythm * Supratherapeutic anticoagulation with warfarin - resolved * INR 3.37-->4.7-->1.88--> 1.5 (post vitamin K) * Home dose Warfarin 1 mg daily * Warfarin stopped secondary to GI bleed * Hypomagnesemia * Coronary artery disease, peripheral vascular disease, history of CVA Plan * Admit to medical floor on telemetry * Lasix 40 mg IV BID * Strict I's and O's closely * Daily weights * Fiber and probiotics for post cholecystectomy diarrhea * Protonix to 40 mg p.o. daily * Fingerstick blood sugar 4 times daily with sliding scale insulin * Diabetic diet * FiO2 to keep SPO2 greater than 91% * VTE prophylaxis with SCDs on the right leg * CODE STATUS: DNR/DNI * Length of stay greater than 96 hours secondary to slow response to treatment * Discharge pending on placement.
[2019-08-18] MEDS: Simvastatin 20 MG Tab PO SCH (20:42)
[2019-08-18] MEDS ORDERED: Insulin Glarg,Human.Rec.Analog 100 Unit/ML SUBCUT SCH (21:00)
[2019-08-19] MEDS: Cholestyramine/Sucrose Powder 4 GM Packet PO SCH ×2 (06:38→17:13)
[2019-08-19] MEDS: Pantoprazole 40 MG Tab.CR PO SCH (06:39)
[2019-08-19] MEDS: Furosemide 40 MG/4 ML VIAL IVPUSH SCH ×2 (06:42→13:18)
[2019-08-19] MEDS: Insulin Lispro 100 Units/ML 3 ML Vial SUBCUT SCH ×4 (07:47→18:18)
[2019-08-19] MEDS: Budesonide 0.5 MG/2 ML Neb Susp INH SCH (08:16)
[2019-08-19] MEDS: Gabapentin 100 MG Cap PO SCH ×2 (08:51→20:23)
[2019-08-19] MEDS: Doxycycline 100 MG Cap PO SCH ×2 (08:51→20:22)
[2019-08-19] MEDS: Saccharomyces Boulardii (Probiotic) 250 MG Cap PO SCH (08:51)
[2019-08-19] MEDS: Psyllium Husk Powder Sugar Free 3.4 GM Packet PO SCH ×2 (08:51→20:23)
[2019-08-19] MEDS: Potassium Chloride 20 MEQ Tab.ER PO SCH (08:51)
[2019-08-19] MEDS: Mupirocin Oint 22 GM Tube TOP SCH (08:52)
[2019-08-19] MEDS: fentaNYL 25 MCG/HR Transdermal Patch TOP SCH (09:02)
--- NOTE | 2019-08-19 13:28 | PCM.PN ---
- General Info Date of Service: 08/19/19 Subjective Update: Feeling OK Slept well Had an episode of mild confusion overnight Pain controlled - Patient Data Vitals - Most Recent: Last Vital Signs Temp 97.3 F 08/19/19 11:15 Pulse 68 08/19/19 11:15 Resp 12 08/19/19 11:15 BP 118/82 08/19/19 11:15 Pulse Ox 96 08/19/19 11:15 Weight - Most Recent: 75.115 kg - Exam General: Alert, Oriented, Cooperative, No Acute Distress, Other (bitemporal wasting) HEENT: Pupils Equal, Pupils Reactive Neck: Supple, Trachea Midline, No JVD, No Thyromegaly, +2 Carotid Pulse wo Bruit. No: Lymphadenopathy Lungs: Decreased Breath Sounds. No: Crackles, Rales, Rhonchi, Rub, Stridor, Wheezing Cardiovascular: Regular Rate, Regular Rhythm. No: Murmurs, Gallops, Rubs GI/Abdominal Exam: Normal Bowel Sounds, Soft, Non-Tender. No: Distended, Guarding, Rigid, Rebound Back Exam: Normal Inspection Extremities: No Pedal Edema, Other (stump wound dressing with bloody soiling, no redness surrounding dressing) Skin: Warm, Dry Wound/Incisions: No: Dressing Dry and Intact Neurological: No New Focal Deficit Psy/Mental Status: Alert, Normal Affect, Normal Mood Sepsis Event Note - Evaluation Sepsis Screening Result: No Definite Risk - Focused Exam Vital Signs: Vital Signs Temp Pulse Resp BP Pulse Ox Pulse Ox 08/19/19 11:15 97.3 F 68 12 118/82 96 08/19/19 08:49 97.5 F 70 12 105/58 L 96 08/19/19 08:17 94 L 08/19/19 05:50 97.9 F 70 12 107/89 92 L Date Exam was Performed: 08/19/19 Time Exam was Performed: 14:42 - Problem List & Annotations (1) Aspiration pneumonia of both lungs SNOMED Code(s): 590227582, 379754992 Code(s): J69.0 - PNEUMONITIS DUE TO INHALATION OF FOOD AND VOMIT Status: Acute Current Visit: Yes (2) 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 SNOMED Code(s): 97814139326087664 Code(s): I50.9 - HEART FAILURE, UNSPECIFIED; I25.5 - ISCHEMIC CARDIOMYOPATHY Status: Acute Current Visit: Yes (3) Atrial fibrillation with controlled ventricular rate SNOMED Code(s): 26839452 Code(s): I48.91 - UNSPECIFIED ATRIAL FIBRILLATION Status: Acute Current Visit: Yes (4) Hypoglycemia SNOMED Code(s): 751538582 Code(s): E16.2 - HYPOGLYCEMIA, UNSPECIFIED Status: Acute Current Visit: Yes (5) COPD (chronic obstructive pulmonary disease) SNOMED Code(s): 06706494 Code(s): J44.9 - CHRONIC OBSTRUCTIVE PULMONARY DISEASE, UNSPECIFIED Status : Acute Current Visit: Yes (6) Dyslipidemia SNOMED Code(s): 276729128 Code(s): E78.5 - HYPERLIPIDEMIA, UNSPECIFIED Status: Acute Current Visit : Yes (7) MRSA cellulitis SNOMED Code(s): 275647882 Code(s): L03.90 - CELLULITIS, UNSPECIFIED; B95.62 - METHICILLIN RESIS STAPH INFCT CAUSING DISEASES CLASSD ELSWHR Status: Acute Current Visit: Yes (8) MSSA infection, non-invasive SNOMED Code(s): 949602187 Code(s): A49.01 - METHICILLIN SUSCEP STAPH INFECTION, UNSP SITE Status: Acute Current Visit: Yes (9) Hypoalbuminemia due to protein-calorie malnutrition SNOMED Code(s): 16165448800230 Code(s): E88.09 - OTH DISORDERS OF PLASMA-PROTEIN METABOLISM, NEC; E46 - UNSPECIFIED PROTEIN-CALORIE MALNUTRITION Status: Acute Current Visit: Yes (10) Anasarca SNOMED Code(s): 930632669, 593974601 Code(s): R60.1 - GENERALIZED EDEMA Status: Acute Current Visit: Yes (11) Hypochromic anemia SNOMED Code(s): 83905168 Code(s): D50.9 - IRON DEFICIENCY ANEMIA, UNSPECIFIED Status: Acute Current Visit: Yes (12) Cellulitis SNOMED Code(s): 768830064 Code(s): L03.90 - CELLULITIS, UNSPECIFIED Status: Acute Current Visit: Yes Qualifiers: Site of cellulitis: extremity Site of cellulitis of extremity: lower extremity Laterality: left Qualified Code(s): L03.116 - Cellulitis of left lower limb (13) Acute kidney failure SNOMED Code(s): 56980194 Code(s): N17.9 - ACUTE KIDNEY FAILURE, UNSPECIFIED Status: Acute Current Visit: No (14) Anemia SNOMED Code(s): 482145448 Code(s): D64.9 - ANEMIA, UNSPECIFIED Status: Acute Current Visit: No (15) Anticoagulated on Coumadin SNOMED Code(s): 72983277 Code(s): Z79.01 - ASSISTED (CURRENT) USE OF 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 Status: Acute Current Visit: No (16) Chronic kidney disease SNOMED Code(s): 298482401 Code(s): N18.9 - CHRONIC KIDNEY DISEASE, UNSPECIFIED Status: Acute Current Visit: No (17) Congestive heart failure SNOMED Code(s): 08621868 Code(s): I50.9 - HEART FAILURE, UNSPECIFIED Status: Acute Current Visit: No (18) Coronary artery disease SNOMED Code(s): 04762623 Code(s): I25.10 - ATHSCL HEART DISEASE OF [place] CORONARY ARTERY W/O ANG PCTRS Status: Acute Current Visit: No (19) Diabetes mellitus SNOMED Code(s): 71645893 Code(s): E11.9 - TYPE 2 DIABETES MELLITUS WITHOUT COMPLICATIONS Status: Acute Current Visit: No (20) Diabetic neuropathy SNOMED Code(s): 977292854, 922899707 Code(s): E11.40 - TYPE 2 DIABETES MELLITUS WITH DIABETIC NEUROPATHY, UNSP Status: Acute Current Visit: No (21) Leukocytosis SNOMED Code(s): 909753169, 037362880 Code(s): D72.829 - ELEVATED WHITE BLOOD CELL COUNT, UNSPECIFIED Status: Acute Current Visit: No (22) Peripheral vascular disease SNOMED Code(s): 901609536 Code(s): I73.9 - PERIPHERAL VASCULAR DISEASE, UNSPECIFIED Status: Acute Current Visit: No (23) Subtherapeutic international normalized ratio (INR) SNOMED Code(s): 610606573, 753754081 Code(s): R79.1 - ABNORMAL COAGULATION PROFILE Status: Acute Current Visit : No (24) Hypoxemia SNOMED Code(s): 038873458 Code(s): R09.02 - HYPOXEMIA Status: Acute Current Visit: Yes (25) Mild pulmonary hypertension SNOMED Code(s): 94580903 Code(s): I27.20 - PULMONARY HYPERTENSION, UNSPECIFIED Status: Acute Current Visit: Yes - Problem List Review Problem List Initiated/Reviewed/Updated: Yes - Plan Plan:: Aspiration pneumonia of both lungs CVA with residual dysphagia COPD Previously diagnosed dysphagia Required O2 at 6L on admission, RA today On Rocephin + Flagyl for 5 days O2 sat > 91% on RA PLAN - Continue current diet - Monitor respiratory status - Discontinue breathing treatments 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, 05/2019 Peripheral vascular disease Recent BKA getting wound care as an outpatient Unknown if osteomyelitis was ruled out On doxyycline and Bactroban Tmax 98.1 PLAN - Continue Bactroban and doxycycline day 7 - Continue wound care by PT - Trend temperature - Pain control with with Fentanyl patch and [place] 5 Acute kidney failure Chronic kidney disease Hypochromic anemia Lower GI bleed, resolved GFR on admission 83, today 57 Hb 10.7 on admission, down to 7.9 with GI bleed s/p transfusion 1u PRBC, current Hb 9.7 PLAN - Renally dosed medications - Avoid nephrotoxic agents - Monitor urine output - Monitor electrolytes - Continue Pantoprazole Diabetes mellitus, unknown HbA1c Diabetic neuropathy Hypoglycemia Glucose prior to admission 22 Trend in past 24 hours, 60-305 Getting fasting hypoglycemias, will discontinue long acting insulin HbA1c unreliable due to anemia PLAN - Discontinue long acting insulin - Start premeal insulin, 3u - Discontinue sliding scale - Hypoglycemia protocol Atrial fibrillation with controlled ventricular rate Ischemic HFpEF Mild pulmonary hypertension Multifactorial anasarca HR trend 70-81 Recent echo with mild pulmonary hypertension with severe biatrial enlargement Admission weight 81.5kg, today 75.1 On warfarin at home, held here PLAN - Monitor VS - Continue Furosemide Hypoalbuminemia due to protein-calorie malnutrition Albumin on admission 1 PLAN - Follow up with dietary recommendations Subtherapeutic international normalized ratio (INR) on admission, resolved Hypoxemia on admission resolved PROPHYLAXIS DVT- SCDs GI- Pantoprazole CODE STATUS: DNR/DNI DISPOSITION: Patient will remain admitted pending placement Patient is from [facility] but family is refusing to go back, [facility] denied patient due to MRSA, application has been sent to [facility] and we are pending bed availability. It is important to mention that MRSA infection is being actively treated with doxycycline, currently day 7 and patient is also getting treated for colonization with Bactroban, day 7 so risk of spreading MRSA infection is minimized with both of these interventions. Prolonged stay, greater than 96 hours due to suboptimal treatment response
[2019-08-19] MEDS: Simvastatin 20 MG Tab PO SCH (20:23)
[2019-08-20] MEDS: Furosemide 40 MG/4 ML VIAL IVPUSH SCH ×2 (06:11→14:55)
[2019-08-20] MEDS: Cholestyramine/Sucrose Powder 4 GM Packet PO SCH ×2 (06:18→15:02)
[2019-08-20] MEDS: Pantoprazole 40 MG Tab.CR PO SCH (06:18)
[2019-08-20] MEDS: Doxycycline 100 MG Cap PO SCH ×2 (09:06→20:36)
[2019-08-20] MEDS: Potassium Chloride 20 MEQ Tab.ER PO SCH (09:07)
[2019-08-20] MEDS: Psyllium Husk Powder Sugar Free 3.4 GM Packet PO SCH ×2 (09:07→20:39)
[2019-08-20] MEDS: Gabapentin 100 MG Cap PO SCH ×2 (09:10→20:36)
[2019-08-20] MEDS: Saccharomyces Boulardii (Probiotic) 250 MG Cap PO SCH (09:11)
[2019-08-20] MEDS: Mupirocin Oint 22 GM Tube TOP SCH (09:13)
[2019-08-20] MEDS: Insulin Lispro 100 Units/ML 3 ML Vial SUBCUT SCH ×4 (09:15→16:33)
[2019-08-20] MEDS ORDERED: Magnesium Sulfate/Water 2 GM in Premix Bag 1 BAG IV ONE (10:21)
--- NOTE | 2019-08-20 12:17 | PCM.PN ---
- General Info Date of Service: 08/20/19 Subjective Update: Feeling ok BM today Slept OK Pain controlled - Patient Data Vitals - Most Recent: Last Vital Signs Temp 98.1 F 08/20/19 11:25 Pulse 70 08/20/19 11:25 Resp 16 08/20/19 11:25 BP 103/81 08/20/19 11:25 Pulse Ox 97 08/20/19 11:25 Weight - Most Recent: 74.162 kg Sepsis Event Note - Evaluation Sepsis Screening Result: No Definite Risk - Focused Exam Vital Signs: Vital Signs Temp Pulse Resp BP Pulse Ox 08/20/19 11:25 98.1 F 70 16 103/81 97 08/20/19 08:28 97.9 F 74 18 102/81 95 08/20/19 00:34 97.9 F 69 16 120/97 H 92 L Date Exam was Performed: 08/20/19 Time Exam was Performed: 12:12 - Problem List & Annotations (1) Aspiration pneumonia of both lungs SNOMED Code(s): 680910241, 965584037 Code(s): J69.0 - PNEUMONITIS DUE TO INHALATION OF FOOD AND VOMIT Status: Acute Current Visit: Yes (2) 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 SNOMED Code(s): 56018461222777763 Code(s): I50.9 - HEART FAILURE, UNSPECIFIED; I25.5 - ISCHEMIC CARDIOMYOPATHY Status: Acute Current Visit: Yes (3) Atrial fibrillation with controlled ventricular rate SNOMED Code(s): 31697722 Code(s): I48.91 - UNSPECIFIED ATRIAL FIBRILLATION Status: Acute Current Visit: Yes (4) Hypoglycemia SNOMED Code(s): 709504592 Code(s): E16.2 - HYPOGLYCEMIA, UNSPECIFIED Status: Acute Current Visit: Yes (5) COPD (chronic obstructive pulmonary disease) SNOMED Code(s): 04838276 Code(s): J44.9 - CHRONIC OBSTRUCTIVE PULMONARY DISEASE, UNSPECIFIED Status : Acute Current Visit: Yes (6) Dyslipidemia SNOMED Code(s): 259184876 Code(s): E78.5 - HYPERLIPIDEMIA, UNSPECIFIED Status: Acute Current Visit : Yes (7) MRSA cellulitis SNOMED Code(s): 163774044 Code(s): L03.90 - CELLULITIS, UNSPECIFIED; B95.62 - METHICILLIN RESIS STAPH INFCT CAUSING DISEASES CLASSD ELSWHR Status: Acute Current Visit: Yes (8) MSSA infection, non-invasive SNOMED Code(s): 626583659 Code(s): A49.01 - METHICILLIN SUSCEP STAPH INFECTION, UNSP SITE Status: Acute Current Visit: Yes (9) Hypoalbuminemia due to protein-calorie malnutrition SNOMED Code(s): 17636143726227 Code(s): E88.09 - OTH DISORDERS OF PLASMA-PROTEIN METABOLISM, NEC; E46 - UNSPECIFIED PROTEIN-CALORIE MALNUTRITION Status: Acute Current Visit: Yes (10) Anasarca SNOMED Code(s): 655421380, 192981259 Code(s): R60.1 - GENERALIZED EDEMA Status: Acute Current Visit: Yes (11) Hypochromic anemia SNOMED Code(s): 98938640 Code(s): D50.9 - IRON DEFICIENCY ANEMIA, UNSPECIFIED Status: Acute Current Visit: Yes (12) Cellulitis SNOMED Code(s): 418961762 Code(s): L03.90 - CELLULITIS, UNSPECIFIED Status: Acute Current Visit: Yes Qualifiers: Site of cellulitis: extremity Site of cellulitis of extremity: lower extremity Laterality: left Qualified Code(s): L03.116 - Cellulitis of left lower limb (13) Acute kidney failure SNOMED Code(s): 07766084 Code(s): N17.9 - ACUTE KIDNEY FAILURE, UNSPECIFIED Status: Acute Current Visit: No (14) Anemia SNOMED Code(s): 461412701 Code(s): D64.9 - ANEMIA, UNSPECIFIED Status: Acute Current Visit: No (15) Anticoagulated on Coumadin SNOMED Code(s): 91395474 Code(s): Z79.01 - MCFP (CURRENT) USE OF 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 Status: Acute Current Visit: No (16) Chronic kidney disease SNOMED Code(s): 100405509 Code(s): N18.9 - CHRONIC KIDNEY DISEASE, UNSPECIFIED Status: Acute Current Visit: No (17) Congestive heart failure SNOMED Code(s): 62407776 Code(s): I50.9 - HEART FAILURE, UNSPECIFIED Status: Acute Current Visit: No (18) Coronary artery disease SNOMED Code(s): 24066236 Code(s): I25.10 - ATHSCL HEART DISEASE OF [place] CORONARY ARTERY W/O ANG PCTRS Status: Acute Current Visit: No (19) Diabetes mellitus SNOMED Code(s): 98031293 Code(s): E11.9 - TYPE 2 DIABETES MELLITUS WITHOUT COMPLICATIONS Status: Acute Current Visit: No (20) Diabetic neuropathy SNOMED Code(s): 714440831, 630773397 Code(s): E11.40 - TYPE 2 DIABETES MELLITUS WITH DIABETIC NEUROPATHY, UNSP Status: Acute Current Visit: No (21) Leukocytosis SNOMED Code(s): 412771654, 789045367 Code(s): D72.829 - ELEVATED WHITE BLOOD CELL COUNT, UNSPECIFIED Status: Acute Current Visit: No (22) Peripheral vascular disease SNOMED Code(s): 036844494 Code(s): I73.9 - PERIPHERAL VASCULAR DISEASE, UNSPECIFIED Status: Acute Current Visit: No (23) Subtherapeutic international normalized ratio (INR) SNOMED Code(s): 168014724, 345737894 Code(s): R79.1 - ABNORMAL COAGULATION PROFILE Status: Acute Current Visit : No (24) Hypoxemia SNOMED Code(s): 028053707 Code(s): R09.02 - HYPOXEMIA Status: Acute Current Visit: Yes (25) Mild pulmonary hypertension SNOMED Code(s): 89234472 Code(s): I27.20 - PULMONARY HYPERTENSION, UNSPECIFIED Status: Acute Current Visit: Yes - Problem List Review Problem List Initiated/Reviewed/Updated: Yes - Plan Plan:: Aspiration pneumonia of both lungs CVA with residual dysphagia COPD Previously diagnosed dysphagia Required O2 at 6L on admission, RA today On Rocephin + Flagyl for 5 days O2 sat > 91% on RA PLAN - Continue current diet - Monitor respiratory status - Discontinue breathing treatments 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, 05/2019 Peripheral vascular disease Recent BKA getting wound care as an outpatient Unknown if osteomyelitis was ruled out On doxyycline and Bactroban Tmax 98.2 PLAN - Continue Bactroban and doxycycline day 9 - Continue wound care by PT - Trend temperature - Pain control with with Fentanyl patch and [place] 5 - Check pacemaker compatibility for MRI Acute kidney failure Chronic kidney disease Hypochromic anemia Hypomagnesemia and hypophosphatemia Lower GI bleed, resolved GFR on admission 83, today 57 stable Hb 10.7 on admission, down to 7.9 with GI bleed s/p transfusion 1u PRBC, current Hb 9.8 Mg 1.6, PO4 2.3 PLAN - Renally dosed medications - Avoid nephrotoxic agents - Monitor urine output - Monitor electrolytes - Continue Pantoprazole - Replace Mg Diabetes mellitus, unknown HbA1c Diabetic neuropathy Hypoglycemia Glucose prior to admission 22 Trend in past 24 hours, 66-173 Getting fasting hypoglycemias, will discontinue long acting insulin HbA1c unreliable due to anemia PLAN - Discontinue AM pre-meal, continue lunch and dinner - Hypoglycemia protocol Atrial fibrillation with controlled ventricular rate Ischemic HFpEF Mild pulmonary hypertension Multifactorial anasarca HR trend 68-76 Recent echo with mild pulmonary hypertension with severe biatrial enlargement Admission weight 81.5kg, today 74.1 On warfarin at home, held here PLAN - Monitor VS - Continue Furosemide Hypoalbuminemia due to protein-calorie malnutrition Albumin on admission 1 PLAN - Follow up with dietary recommendations Subtherapeutic international normalized ratio (INR) on admission, resolved Hypoxemia on admission resolved PROPHYLAXIS DVT- SCDs GI- Pantoprazole CODE STATUS: DNR/DNI DISPOSITION: Patient will remain admitted pending placement Patient is from [facility] but family is refusing to go back, [facility] denied patient due to MRSA, application has been sent to [facility] and we are pending bed availability. It is important to mention that MRSA infection is being actively treated with doxycycline, currently day 7 and patient is also getting treated for colonization with Bactroban, day 7 so risk of spreading MRSA infection is minimized with both of these interventions. Prolonged stay, greater than 96 hours due to suboptimal treatment response
[2019-08-20] MEDS: Simvastatin 20 MG Tab PO SCH (20:37)
[2019-08-21] MEDS: Pantoprazole 40 MG Tab.CR PO SCH (06:43)
[2019-08-21] MEDS: Cholestyramine/Sucrose Powder 4 GM Packet PO SCH ×2 (06:43→16:57)
[2019-08-21] MEDS: Furosemide 40 MG/4 ML VIAL IVPUSH SCH (06:43)
[2019-08-21] MEDS: Mupirocin Oint 22 GM Tube TOP SCH (09:20)
[2019-08-21] MEDS: Saccharomyces Boulardii (Probiotic) 250 MG Cap PO SCH (09:21)
[2019-08-21] MEDS: Psyllium Husk Powder Sugar Free 3.4 GM Packet PO SCH (09:21)
[2019-08-21] MEDS: Gabapentin 100 MG Cap PO SCH ×2 (09:21→21:25)
[2019-08-21] MEDS: Doxycycline 100 MG Cap PO SCH ×2 (09:21→21:25)
[2019-08-21] MEDS: Potassium Chloride 20 MEQ Tab.ER PO SCH (09:21)
--- NOTE | 2019-08-21 12:13 | PCM.PN ---
- General Info Date of Service: 08/21/19 Admission Dx/Problem (Free Text): Admission Diagnosis/Problem Admission Diagnosis/Problem Ileus Subjective Update: Last BM today Slept ok Upset over thickened fluids - lengthy discussion on this Functional Status: Reports: Pain Controlled, Tolerating Diet, Urinating. Denies : Ambulating (ilana), New Symptoms - Review of Systems General: Reports: Weakness. Denies: Fever HEENT: Reports: No Symptoms Pulmonary: Reports: No Symptoms Cardiovascular: Reports: No Symptoms Gastrointestinal: Reports: No Symptoms Genitourinary: Reports: No Symptoms Musculoskeletal: Reports: No Symptoms Skin: Reports: No Symptoms Neurological: Reports: No Symptoms Psychiatric: Reports: No Symptoms - Patient Data Vitals - Most Recent: Last Vital Signs Temp 97.7 F 08/21/19 07:37 Pulse 70 08/21/19 07:37 Resp 20 08/21/19 07:37 BP 99/61 08/21/19 07:37 Pulse Ox 95 08/21/19 07:37 Weight - Most Recent: 160 lb 1.6 oz I&O - Last 24 Hours: Intake & Output 08/20/19 08/21/19 08/21/19 22:59 06:59 14:59 Intake Total 550 300 120 Output Total 1350 Balance -800 300 120 Lab Results Last 24 Hours: Laboratory Results - last 24 hr 08/20/19 08/20/19 08/20/19 Range/Units 11:31 16:25 20:34 POC Glucose 156 H 146 H 157 H (83-110) mg/dL 08/21/19 Range/Units 06:46 POC Glucose 92 (83-110) mg/dL Med Orders - Current: Current Medications Acetaminophen (Tylenol) 650 mg PO Q4H PRN PRN Reason: Pain Last Admin: 08/16/19 06:36 Dose: 650 mg Hydrocodone Bitart/Acetaminophen ([place] 325-5 Mg) 1 tab PO Q8H PRN PRN Reason: Abdominal Pain Last Admin: 08/14/19 08:21 Dose: 1 tab Albuterol/Ipratropium (Duoneb 3.0-0.5 Mg/3 Ml) 3 ml INH QID PRN PRN Reason: Wheezing Calcium Polycarbophil (Fibercon) 625 mg PO 1200 LEENA Cholestyramine Resin (Cholestyramine Packet) 4 gm PO BIDAC LEENA Last Admin: 08/21/19 06:43 Dose: 4 gm Doxycycline Hyclate (Vibramycin) 100 mg PO BID [facility] Last Admin: 08/21/19 09:21 Dose: 100 mg Fentanyl (Duragesic) 25 mcg TOP Q72H [facility] Last Admin: 08/19/19 09:02 Dose: 25 mcg Furosemide (Lasix) 60 mg PO BIDDIURETIC [facility] Gabapentin (Neurontin) 200 mg PO BID [facility] Last Admin: 08/21/19 09:21 Dose: 200 mg Insulin Human Lispro (Humalog) 3 unit SUBCUT 1100,1700 [facility] Last Admin: 08/20/19 16:33 Dose: 3 units Magnesium Oxide (Magnesium Oxide) 400 mg PO Q12H [facility] Miscellaneous Information (Remove Patch) 0 ea TRDERM Q72H [facility] Last Admin: 08/19/19 08:52 Dose: 1 ea Mupirocin (Bactroban Oint) 0 gm TOP DAILY [facility] Last Admin: 08/21/19 09:20 Dose: 1 applic Ondansetron HCl (Zofran Odt) 4 mg PO Q6H PRN PRN Reason: Vomiting Pantoprazole Sodium (Protonix) 40 mg PO ACBREAKFAST [facility] Last Admin: 08/21/19 06:43 Dose: 40 mg Polyethylene Glycol (Miralax) 17 gm PO DAILY PRN PRN Reason: Constipation Potassium Chloride (Klor-Con M20) 20 meq PO DAILY [facility] Last Admin: 08/21/19 09:21 Dose: 20 meq Saccharomyces Boulardii (Florastor) 250 mg PO DAILY [facility] Last Admin: 08/21/19 09:21 Dose: 250 mg Simvastatin (Zocor) 20 mg PO BEDTIME [facility] Last Admin: 08/20/19 20:37 Dose: 20 mg Sodium Phosphate (Neutra-Phos) 250 mg PO BID [facility] Stop: 08/21/19 21:01 Discontinued Medications Aspirin (Aspirin) 81 mg PO DAILY [facility] Last Admin: 08/13/19 09:11 Dose: 81 mg Budesonide (Pulmicort) 0.5 mg INH BID [facility] Last Admin: 08/19/19 08:16 Dose: 0.5 mg Furosemide (Lasix) Confirm Administered Dose 80 mg .ROUTE .ST-MED ONE Stop: 08/12/19 01:31 Last Admin: 08/12/19 03:05 Dose: Not Given Furosemide (Lasix) 60 mg IVPUSH NOW ONE Stop: 08/12/19 01:16 Last Admin: 08/12/19 03:12 Dose: 60 mg Furosemide (Lasix) 40 mg IVPUSH NOW ONE Stop: 08/12/19 12:33 Last Admin: 08/12/19 12:54 Dose: 40 mg Furosemide (Lasix) 20 mg IVPUSH ONETIME ONE Stop: 08/13/19 18:16 Last Admin: 08/13/19 19:18 Dose: 20 mg Furosemide (Lasix) 20 mg IVPUSH Q6H [facility] Stop: 08/14/19 06:31 Last Admin: 08/14/19 06:06 Dose: 20 mg Furosemide (Lasix) 20 mg IVPUSH ONETIME ONE Stop: 08/14/19 12:31 Last Admin: 08/14/19 12:42 Dose: 20 mg Furosemide (Lasix) 20 mg IVPUSH ONETIME ONE Stop: 08/14/19 20:01 Last Admin: 08/14/19 20:54 Dose: 20 mg Furosemide (Lasix) 20 mg IVPUSH NOW ONE Stop: 08/15/19 08:15 Last Admin: 08/15/19 10:05 Dose: 20 mg Furosemide (Lasix) 40 mg IVPUSH ONETIME [facility] Stop: 08/15/19 16:00 Last Admin: 08/15/19 13:58 Dose: 40 mg Furosemide (Lasix) 20 mg IVPUSH NOW ONE Stop: 08/15/19 21:16 Last Admin: 08/15/19 22:12 Dose: 20 mg Furosemide (Lasix) 40 mg IVPUSH DAILY [facility] Last Admin: 08/16/19 09:28 Dose: 40 mg Furosemide (Lasix) 20 mg IVPUSH Q6H [facility] Stop: 08/17/19 01:31 Last Admin: 08/16/19 18:56 Dose: 20 mg Furosemide (Lasix) 40 mg IVPUSH DAILY@0700 [facility] Last Admin: 08/17/19 06:00 Dose: 40 mg Furosemide (Lasix) 40 mg IVPUSH BIDDIURETIC [facility] Last Admin: 08/21/19 06:43 Dose: 40 mg Hydromorphone HCl (Dilaudid) 0.5 mg IVPUSH ONETIME ONE Stop: 08/11/19 22:32 Last Admin: 08/11/19 23:09 Dose: 0.25 mg Hydromorphone HCl (Dilaudid) 1 mg IVPUSH ONETIME ONE Stop: 08/11/19 23:47 Last Admin: 08/12/19 00:54 Dose: 1 mg Hydromorphone HCl (Dilaudid) 0.5 mg IVPUSH ONETIME ONE Stop: 08/12/19 03:50 Last Admin: 08/12/19 04:16 Dose: 0.5 mg Hydromorphone HCl (Dilaudid) 0.5 mg IVPUSH ONETIME ONE Stop: 08/12/19 09:22 Last Admin: 08/12/19 09:27 Dose: 0.5 mg Dextrose/Sodium Chloride (Dextrose 5%-Normal Saline) 1,000 mls @ 125 mls/hr IV ASDIRECTED [facility] Last Admin: 08/11/19 22:58 Dose: 125 mls/hr Vancomycin HCl 1.75 gm/ Sodium (Chloride) 500 mls @ 250 mls/hr IV ONETIME ONE Stop: 08/12/19 06:13 Last Admin: 08/12/19 06:48 Dose: 250 mls/hr Sodium Chloride (Normal Saline) 1,000 mls @ 999 mls/hr IV ASDIRECTED [facility] Last Admin: 08/12/19 06:20 Dose: 999 mls/hr Magnesium Sulfate 4 gm/ Premix 100 mls @ 25 mls/hr IV ONETIME ONE Stop: 08/12/19 15:59 Last Admin: 08/12/19 13:22 Dose: 25 mls/hr Albumin Human (Flexbumin 25%) 12.5 gm in 50 mls @ 100 mls/hr IV ONETIME ONE Stop: 08/12/19 13:14 Last Admin: 08/12/19 12:54 Dose: 100 mls/hr Sodium Chloride (Sodium Chloride 0.9%) 500 mls @ 999 mls/hr IRR ASDIRECTED [facility] Sodium Chloride (Normal Saline) 500 mls @ 999 mls/hr IV .BOLUS ONE Stop: 08/13/19 02:18 Last Admin: 08/13/19 01:49 Dose: 999 mls/hr Ceftriaxone Sodium 1 gm/ (Sodium Chloride) 100 mls @ 200 mls/hr IV Q24H [facility] Last Admin: 08/17/19 01:36 Dose: 200 mls/hr Albumin Human (Flexbumin 25%) 12.5 gm in 50 mls @ 100 mls/hr IV ONETIME ONE Stop: 08/13/19 03:23 Last Admin: 08/13/19 03:18 Dose: 100 mls/hr Metronidazole 500 mg/ Premix 100 mls @ 100 mls/hr IV Q8H [facility] Last Admin: 08/17/19 07:45 Dose: 100 mls/hr Furosemide 100 mg/ Sodium (Chloride) 100 mls @ 5 mls/hr IV TITRATE LEENA; Protocol Last Admin: 08/13/19 11:34 Dose: 5 mls/hr Vancomycin HCl 1 gm/Vancomycin HCl 250 mg/ Sodium Chloride 250 mls @ 166.667 mls/hr IV Q24H [facility] Stop: 08/13/19 17:00 Last Admin: 08/13/19 13:56 Dose: 166.667 mls/hr Vancomycin HCl 1 gm/Vancomycin HCl 250 mg/ Sodium Chloride 250 mls @ 166.667 mls/hr IV Q24H [facility] Last Admin: 08/16/19 13:34 Dose: 166.667 mls/hr Albumin Human (Flexbumin 25%) 12.5 gm in 50 mls @ 100 mls/hr IV ONETIME ONE Stop: 08/13/19 17:34 Last Admin: 08/13/19 17:30 Dose: 100 mls/hr Albumin Human (Flexbumin 25%) 12.5 gm in 50 mls @ 100 mls/hr IV Q6H [facility] Stop: 08/14/19 12:02 Last Admin: 08/14/19 06:05 Dose: 100 mls/hr Albumin Human (Flexbumin 25%) 12.5 gm in 50 mls @ 100 mls/hr IV ONETIME ONE Stop: 08/14/19 12:29 Last Admin: 08/14/19 11:21 Dose: 100 mls/hr Magnesium Sulfate 2 gm/ Premix 50 mls @ 25 mls/hr IV ONETIME ONE Stop: 08/15/19 10:18 Last Admin: 08/15/19 10:00 Dose: 25 mls/hr Sodium Chloride (Normal Saline) 250 mls @ 100 mls/hr IV ASDIRECTED [facility] Stop: 08/15/19 16:00 Sodium Chloride (Normal Saline) Confirm Administered Dose 500 mls @ as directed .ROUTE .STK-MED ONE Stop: 08/15/19 11:14 Last Admin: 08/15/19 12:04 Dose: Not Given Sodium Chloride (Normal Saline) 500 mls @ 150 mls/hr IV .BOLUS LEENA Last Admin: 08/15/19 11:30 Dose: 150 mls/hr Magnesium Sulfate 4 gm/ Premix 50 mls @ 12.5 mls/hr IV ONETIME ONE Stop: 08/16/19 12:18 Last Admin: 08/16/19 09:25 Dose: 12.5 mls/hr Magnesium Sulfate 4 gm/ Premix 50 mls @ 12.5 mls/hr IV ONETIME ONE Stop: 08/18/19 13:53 Last Admin: 08/18/19 11:18 Dose: 12.5 mls/hr Magnesium Sulfate 2 gm/ Premix 50 mls @ 25 mls/hr IV ONETIME ONE Stop: 08/20/19 12:20 Last Admin: 08/20/19 10:44 Dose: 25 mls/hr Insulin Glargine (Lantus) 10 unit SUBCUT QPM [facility] Last Admin: 08/18/19 22:36 Dose: 10 units Insulin Human Lispro (Humalog) 0 unit SUBCUT QIDACANDBED [facility]; Protocol Last Admin: 08/19/19 13:01 Dose: Not Given Insulin Human Lispro (Humalog) 3 unit SUBCUT TIDAC [facility] Last Admin: 08/20/19 13:20 Dose: Not Given Lactulose (Cephulac) 20 gm PO ONETIME ONE Stop: 08/12/19 03:50 Last Admin: 08/12/19 04:39 Dose: 20 gm Loperamide HCl (Imodium) 4 mg PO ONETIME ONE Stop: 08/14/19 10:46 Last Admin: 08/14/19 11:09 Dose: 4 mg Metoclopramide HCl (Reglan) 10 mg IVPUSH ONETIME ONE Stop: 08/11/19 22:32 Last Admin: 08/11/19 23:03 Dose: 10 mg Metoclopramide HCl (Reglan) 7.5 mg IVPUSH ONETIME ONE Stop: 08/12/19 03:50 Last Admin: 08/12/19 04:14 Dose: 7.5 mg Pantoprazole Sodium (Protonix) 40 mg PO DAILY [facility] Last Admin: 08/14/19 08:21 Dose: 40 mg Pantoprazole Sodium (Protonix Iv) 40 mg IVPUSH Q12H [facility] Last Admin: 08/16/19 09:28 Dose: 40 mg Phytonadione (Aquamephyton) 2.5 mg PO ONETIME ONE Stop: 08/14/19 11:16 Last Admin: 08/14/19 11:27 Dose: 2.5 mg Potassium Chloride (Klor-Con M20) 40 meq PO ONETIME ONE Stop: 08/16/19 08:22 Last Admin: 08/16/19 09:27 Dose: 40 meq Potassium Chloride (Klor-Con M20) 40 meq PO ONETIME ONE Stop: 08/18/19 09:56 Last Admin: 08/18/19 11:17 Dose: 40 meq Psyllium Husk (Metamucil Sugar Free) 1 packet PO BID [facility] Last Admin: 08/21/19 09:21 Dose: 1 packet Vancomycin HCl (Pharmacy To Dose - Vancomycin) 1 dose .XX ASDIRECTED PRN PRN Reason: RX TO DOSE VANCO Warfarin Sodium (Pharmacy To Dose - Warfarin) 1 dose .XX ASDIRECTED PRN PRN Reason: RX TO DOSE WARFARIN Warfarin Sodium (Coumadin Sliding Scale) 0 each PO QPM [facility] Stop: 08/12/19 18:01 Last Admin: 08/12/19 18:04 Dose: Not Given Warfarin Sodium (Coumadin Sliding Scale) 0 each PO QPM [facility] Stop: 08/13/19 18:01 Last Admin: 08/13/19 19:41 Dose: Not Given - Exam Quality Assessment: DVT Prophylaxis General: Alert, Oriented, Cooperative, No Acute Distress HEENT: Pupils Equal, Pupils Reactive, Mucous Membr. Moist/[place] Neck: Supple, Trachea Midline Lungs: Normal Respiratory Effort, Decreased Breath Sounds Cardiovascular: Regular Rate, Regular Rhythm GI/Abdominal Exam: Normal Bowel Sounds, Soft, Non-Tender, No Distention (Male) Exam: Deferred Back Exam: Normal Inspection, Full Range of Motion Extremities: Normal Range of Motion, Non-Tender, No Pedal Edema, Normal Capillary Refill, Other (Bandage covering left stump ) Skin: Warm, Dry, Intact Wound/Incisions: Drainage (mild ). 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 SNOMED Code(s): 81898395641760648 Code(s): I50.9 - HEART FAILURE, UNSPECIFIED; I25.5 - ISCHEMIC CARDIOMYOPATHY Status: Acute Current Visit: Yes (2) Anasarca SNOMED Code(s): 908016703, 456936524 Code(s): R60.1 - GENERALIZED EDEMA Status: Acute Current Visit: Yes (3) Aspiration pneumonia of both lungs SNOMED Code(s): 212961618, 424649580 Code(s): J69.0 - PNEUMONITIS DUE TO INHALATION OF FOOD AND VOMIT Status: Acute Current Visit: Yes (4) Atrial fibrillation with controlled ventricular rate SNOMED Code(s): 96235633 Code(s): I48.91 - UNSPECIFIED ATRIAL FIBRILLATION Status: Acute Current Visit: Yes (5) COPD (chronic obstructive pulmonary disease) SNOMED Code(s): 54705310 Code(s): J44.9 - CHRONIC OBSTRUCTIVE PULMONARY DISEASE, UNSPECIFIED Status : Acute Current Visit: Yes (6) Cellulitis SNOMED Code(s): 567144684 Code(s): L03.90 - CELLULITIS, UNSPECIFIED Status: Acute Current Visit: Yes Qualifiers: Site of cellulitis: extremity Site of cellulitis of extremity: lower extremity Laterality: left Qualified Code(s): L03.116 - Cellulitis of left lower limb (7) Dyslipidemia SNOMED Code(s): 363455849 Code(s): E78.5 - HYPERLIPIDEMIA, UNSPECIFIED Status: Acute Current Visit : Yes (8) Hypoalbuminemia due to protein-calorie malnutrition SNOMED Code(s): 68399548326931 Code(s): E88.09 - OTH DISORDERS OF PLASMA-PROTEIN METABOLISM, NEC; E46 - UNSPECIFIED PROTEIN-CALORIE MALNUTRITION Status: Acute Current Visit: Yes (9) Hypochromic anemia SNOMED Code(s): 24510087 Code(s): D50.9 - IRON DEFICIENCY ANEMIA, UNSPECIFIED Status: Acute Current Visit: Yes (10) Hypoglycemia SNOMED Code(s): 105616149 Code(s): E16.2 - HYPOGLYCEMIA, UNSPECIFIED Status: Acute Current Visit: Yes (11) Hypoxemia SNOMED Code(s): 948033421 Code(s): R09.02 - HYPOXEMIA Status: Acute Current Visit: Yes (12) MRSA cellulitis SNOMED Code(s): 393447692 Code(s): L03.90 - CELLULITIS, UNSPECIFIED; B95.62 - METHICILLIN RESIS STAPH INFCT CAUSING DISEASES CLASSD [id number] Status: Acute Current Visit: Yes (13) MSSA infection, non-invasive SNOMED Code(s): 796609630 Code(s): A49.01 - METHICILLIN SUSCEP STAPH INFECTION, UNSP SITE Status: Acute Current Visit: Yes (14) Mild pulmonary hypertension SNOMED Code(s): 08454687 Code(s): I27.20 - PULMONARY HYPERTENSION, UNSPECIFIED Status: Acute Current Visit: Yes (15) Acute kidney failure SNOMED Code(s): 50819147 Code(s): N17.9 - ACUTE KIDNEY FAILURE, UNSPECIFIED Status: Acute Current Visit: No (16) Anemia SNOMED Code(s): 983459317 Code(s): D64.9 - ANEMIA, UNSPECIFIED Status: Acute Current Visit: No (17) Anticoagulated on Coumadin SNOMED Code(s): 40026769 Code(s): Z79.01 - BEHAVIORAL MEDICAL DIRECTOR (CURRENT) USE OF 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 Status: Acute Current Visit: No (18) Chronic kidney disease SNOMED Code(s): 640173445 Code(s): N18.9 - CHRONIC KIDNEY DISEASE, UNSPECIFIED Status: Acute Current Visit: No (19) Congestive heart failure SNOMED Code(s): 06026722 Code(s): I50.9 - HEART FAILURE, UNSPECIFIED Status: Acute Current Visit: No (20) Coronary artery disease SNOMED Code(s): 03901214 Code(s): I25.10 - ATHSCL HEART DISEASE OF [place] CORONARY ARTERY W/O ANG PCTRS Status: Acute Current Visit: No (21) Diabetes mellitus SNOMED Code(s): 60265775 Code(s): E11.9 - TYPE 2 DIABETES MELLITUS WITHOUT COMPLICATIONS Status: Acute Current Visit: No (22) Diabetic neuropathy SNOMED Code(s): 114062422, 325309769 Code(s): E11.40 - TYPE 2 DIABETES MELLITUS WITH DIABETIC NEUROPATHY, UNSP Status: Acute Current Visit: No (23) Leukocytosis SNOMED Code(s): 005365248, 590189212 Code(s): D72.829 - ELEVATED WHITE BLOOD CELL COUNT, UNSPECIFIED Status: Acute Current Visit: No (24) Peripheral vascular disease SNOMED Code(s): 317261260 Code(s): I73.9 - PERIPHERAL VASCULAR DISEASE, UNSPECIFIED Status: Acute Current Visit: No (25) Subtherapeutic international normalized ratio (INR) SNOMED Code(s): 785403916, 051471343 Code(s): R79.1 - ABNORMAL COAGULATION PROFILE Status: Acute Current Visit : No - Problem List Review Problem List Initiated/Reviewed/Updated: Yes - My Orders Last 24 Hours: My Active Orders 08/21/19 12:15 Phosphorus #1 [Neutra-Phos] 250 mg PO BID - Plan Plan:: Aspiration pneumonia of both lungs CVA with residual dysphagia COPD Previously diagnosed dysphagia Required O2 at 6L on admission, RA today On Rocephin + Flagyl for 5 days -> completed treatment O2 sat > 91% on RA PLAN - Continue current diet with thickened liquids - Monitor respiratory status - Discontinue breathing treatments - Vital signs Qshift 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, 05/2019 Peripheral vascular disease Recent BKA getting wound care as an outpatient Unknown if osteomyelitis was ruled out On doxyycline and Bactroban -> 14 days of treatment Tmax 98.2 PLAN - Continue Bactroban and doxycycline day 10 - Continue wound care by PT - Trend temperature - Pain control with with Fentanyl patch and [place] 5 - Check pacemaker compatibility for MRI -> unable to obtain due to facility policy Acute kidney failure Chronic kidney disease Hypochromic anemia Hypomagnesemia and hypophosphatemia Lower GI bleed, resolved GFR on admission 83, stable Hb 10.7 on admission, down to 7.9 with GI bleed s/p transfusion 1u PRBC, current Hb 9.8 Mg 1.6, PO4 2.3 PLAN - Renally dosed medications - Avoid nephrotoxic agents - Monitor urine output - Monitor electrolytes - Continue Pantoprazole - Replace PO4 - Start daily mag supplementation Diabetes mellitus, unknown HbA1c Diabetic neuropathy Hypoglycemia Glucose prior to admission 22 Trend in past 24 hours, 66-173 Getting fasting hypoglycemias, will discontinue long acting insulin HbA1c unreliable due to anemia PLAN - Continue current insulin regimen - Hypoglycemia protocol Atrial fibrillation with controlled ventricular rate Ischemic HFpEF Mild pulmonary hypertension Multifactorial anasarca HR trend 68-76 Recent echo with mild pulmonary hypertension with severe biatrial enlargement Admission weight 81.5kg On warfarin at home, held here due to GI bleed PLAN - Monitor VS - Switch to PO lasix Hypoalbuminemia due to protein-calorie malnutrition Albumin on admission 1 PLAN - Follow up with dietary recommendations Subtherapeutic international normalized ratio (INR) on admission- resolved Hypoxemia on admission - resolved PROPHYLAXIS DVT- SCDs GI- Pantoprazole CODE STATUS: DNR/DNI DISPOSITION: Patient will remain admitted pending placement Patient is from [facility] but family is refusing to go back, [facility] denied patient due to MRSA, application has been sent to [facility] and we are pending bed availability. It is important to mention that MRSA infection is being actively treated with doxycycline, currently day 10 and patient is also getting treated for colonization with Bactroban, day 10 so risk of spreading MRSA infection is minimized with both of these interventions. Prolonged stay, greater than 96 hours due to suboptimal treatment response; need for placement
[2019-08-21] MEDS: Furosemide 20 MG Tab PO SCH (13:17)
[2019-08-21] MEDS: Calcium Polycarbophil 625 MG Tab PO SCH (13:17)
[2019-08-21] MEDS: Phosphorus #1 250 MG Tab PO SCH ×2 (13:17→21:25)
[2019-08-21] MEDS: Insulin Lispro 100 Units/ML 3 ML Vial SUBCUT SCH ×2 (13:18→16:55)
[2019-08-21] MEDS: Magnesium Oxide 400 MG Tab PO SCH (17:00)
[2019-08-21] MEDS: Simvastatin 20 MG Tab PO SCH (21:26)
[2019-08-22] MEDS: Furosemide 20 MG Tab PO SCH ×2 (06:44→15:00)
[2019-08-22] MEDS: Pantoprazole 40 MG Tab.CR PO SCH (06:44)
[2019-08-22] MEDS: Magnesium Oxide 400 MG Tab PO SCH ×2 (06:44→22:23)
[2019-08-22] MEDS: Doxycycline 100 MG Cap PO SCH ×2 (09:29→22:23)
[2019-08-22] MEDS: Saccharomyces Boulardii (Probiotic) 250 MG Cap PO SCH (09:30)
[2019-08-22] MEDS: Gabapentin 100 MG Cap PO SCH ×2 (09:30→22:24)
[2019-08-22] MEDS: Potassium Chloride 20 MEQ Tab.ER PO SCH (09:31)
[2019-08-22] MEDS: fentaNYL 25 MCG/HR Transdermal Patch TOP SCH (09:43)
[2019-08-22] MEDS: Mupirocin Oint 22 GM Tube TOP SCH (09:44)
[2019-08-22] MEDS: Acetaminophen 325 MG Tab PO PRN (12:16)
[2019-08-22] MEDS: Calcium Polycarbophil 625 MG Tab PO SCH (12:16)
[2019-08-22] MEDS: Insulin Lispro 100 Units/ML 3 ML Vial SUBCUT SCH ×2 (12:25→17:31)
[2019-08-22] MEDS ORDERED: Magnesium Sulfate/Water 4 GM in Premix Bag 1 BAG IV ONE (12:33)
[2019-08-22] MEDS ORDERED: Magnesium Oxide 400 MG Tab PO ONE (17:00)
--- NOTE | 2019-08-22 18:19 | PCM.PN ---
- General Info Date of Service: 08/22/19 Subjective Update: Feeling OK Slept OK Tolerating diet No complaints Pain is minimal but responding to analgesics Hearing aid on left ran out of battery - Patient Data Vitals - Most Recent: Last Vital Signs Temp 97.9 F 08/22/19 07:59 Pulse 70 08/22/19 07:59 Resp 16 08/22/19 07:59 BP 118/62 08/22/19 07:59 Pulse Ox 93 L 08/22/19 07:59 Weight - Most Recent: 73.845 kg - Exam General: Alert, Oriented, Cooperative, No Acute Distress HEENT: Pupils Equal, Pupils Reactive, EOMI, Mucous Membr. Moist/[place] Neck: Supple, Trachea Midline, No JVD, No Thyromegaly, +2 Carotid Pulse wo Bruit. No: Lymphadenopathy Lungs: Clear to Auscultation, Normal Respiratory Effort. No: Crackles, Wheezing Cardiovascular: Regular Rate, Regular Rhythm, No Murmurs. No: Gallops, Rubs GI/Abdominal Exam: Normal Bowel Sounds, Soft, Non-Tender, No Organomegaly, No Distention. No: Guarding, Rigid, Rebound Back Exam: Normal Inspection. No: CVA Tenderness (L), CVA Tenderness (R), Paraspinal Tenderness, Vertebral Tenderness Extremities: Leg Pain, Other (BKA stum with clean wound dressing, RLE without edema, preserved capillary refill but around 4-5sec) Skin: Warm, Dry Wound/Incisions: Healing Well, Dressing Dry and Intact Neurological: No New Focal Deficit Psy/Mental Status: Alert Sepsis Event Note - Evaluation Sepsis Screening Result: No Definite Risk - Focused Exam Vital Signs: Vital Signs Temp Pulse Resp BP Pulse Ox 08/22/19 07:59 97.9 F 70 16 118/62 93 L Date Exam was Performed: 08/22/19 Time Exam was Performed: 18:14 - Problem List & Annotations (1) Aspiration pneumonia of both lungs SNOMED Code(s): 396349147, 544210632 Code(s): J69.0 - PNEUMONITIS DUE TO INHALATION OF FOOD AND VOMIT Status: Acute Current Visit: Yes (2) 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 SNOMED Code(s): 52311064065887679 Code(s): I50.9 - HEART FAILURE, UNSPECIFIED; I25.5 - ISCHEMIC CARDIOMYOPATHY Status: Acute Current Visit: Yes (3) Atrial fibrillation with controlled ventricular rate SNOMED Code(s): 87529719 Code(s): I48.91 - UNSPECIFIED ATRIAL FIBRILLATION Status: Acute Current Visit: Yes (4) Hypoglycemia SNOMED Code(s): 792699261 Code(s): E16.2 - HYPOGLYCEMIA, UNSPECIFIED Status: Acute Current Visit: Yes (5) COPD (chronic obstructive pulmonary disease) SNOMED Code(s): 12644636 Code(s): J44.9 - CHRONIC OBSTRUCTIVE PULMONARY DISEASE, UNSPECIFIED Status : Acute Current Visit: Yes (6) Dyslipidemia SNOMED Code(s): 624651741 Code(s): E78.5 - HYPERLIPIDEMIA, UNSPECIFIED Status: Acute Current Visit : Yes (7) MRSA cellulitis SNOMED Code(s): 234094138 Code(s): L03.90 - CELLULITIS, UNSPECIFIED; B95.62 - METHICILLIN RESIS STAPH INFCT CAUSING DISEASES CLASSD ELSWHR Status: Acute Current Visit: Yes (8) MSSA infection, non-invasive SNOMED Code(s): 705342176 Code(s): A49.01 - METHICILLIN SUSCEP STAPH INFECTION, UNSP SITE Status: Acute Current Visit: Yes (9) Hypoalbuminemia due to protein-calorie malnutrition SNOMED Code(s): 71021071167078 Code(s): E88.09 - OTH DISORDERS OF PLASMA-PROTEIN METABOLISM, NEC; E46 - UNSPECIFIED PROTEIN-CALORIE MALNUTRITION Status: Acute Current Visit: Yes (10) Anasarca SNOMED Code(s): 501026900, 997262880 Code(s): R60.1 - GENERALIZED EDEMA Status: Acute Current Visit: Yes (11) Hypochromic anemia SNOMED Code(s): 11799883 Code(s): D50.9 - IRON DEFICIENCY ANEMIA, UNSPECIFIED Status: Acute Current Visit: Yes (12) Cellulitis SNOMED Code(s): 109719908 Code(s): L03.90 - CELLULITIS, UNSPECIFIED Status: Acute Current Visit: Yes Qualifiers: Site of cellulitis: extremity Site of cellulitis of extremity: lower extremity Laterality: left Qualified Code(s): L03.116 - Cellulitis of left lower limb (13) Acute kidney failure SNOMED Code(s): 56634658 Code(s): N17.9 - ACUTE KIDNEY FAILURE, UNSPECIFIED Status: Acute Current Visit: No (14) Anemia SNOMED Code(s): 870126815 Code(s): D64.9 - ANEMIA, UNSPECIFIED Status: Acute Current Visit: No (15) Anticoagulated on Coumadin SNOMED Code(s): 90028780 Code(s): Z79.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 OF 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 Status: Acute Current Visit: No (16) Chronic kidney disease SNOMED Code(s): 676530035 Code(s): N18.9 - CHRONIC KIDNEY DISEASE, UNSPECIFIED Status: Acute Current Visit: No (17) Congestive heart failure SNOMED Code(s): 25177632 Code(s): I50.9 - HEART FAILURE, UNSPECIFIED Status: Acute Current Visit: No (18) Coronary artery disease SNOMED Code(s): 92945707 Code(s): I25.10 - ATHSCL HEART DISEASE OF [place] CORONARY ARTERY W/O ANG PCTRS Status: Acute Current Visit: No (19) Diabetes mellitus SNOMED Code(s): 32082451 Code(s): E11.9 - TYPE 2 DIABETES MELLITUS WITHOUT COMPLICATIONS Status: Acute Current Visit: No (20) Diabetic neuropathy SNOMED Code(s): 379841740, 288575003 Code(s): E11.40 - TYPE 2 DIABETES MELLITUS WITH DIABETIC NEUROPATHY, UNSP Status: Acute Current Visit: No (21) Leukocytosis SNOMED Code(s): 607121663, 951188982 Code(s): D72.829 - ELEVATED WHITE BLOOD CELL COUNT, UNSPECIFIED Status: Acute Current Visit: No (22) Peripheral vascular disease SNOMED Code(s): 017680728 Code(s): I73.9 - PERIPHERAL VASCULAR DISEASE, UNSPECIFIED Status: Acute Current Visit: No (23) Subtherapeutic international normalized ratio (INR) SNOMED Code(s): 003294196, 860643142 Code(s): R79.1 - ABNORMAL COAGULATION PROFILE Status: Acute Current Visit : No (24) Hypoxemia SNOMED Code(s): 400485707 Code(s): R09.02 - HYPOXEMIA Status: Acute Current Visit: Yes (25) Mild pulmonary hypertension SNOMED Code(s): 75237618 Code(s): I27.20 - PULMONARY HYPERTENSION, UNSPECIFIED Status: Acute Current Visit: Yes - Problem List Review Problem List Initiated/Reviewed/Updated: Yes - Plan Plan:: 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, 05/2019 Peripheral vascular disease Recent BKA getting wound care as an outpatient Unknown if osteomyelitis was ruled out On doxyycline and Bactroban -> to complete 14 days of treatment Tmax 98.2 PT states wound continues to reduce in size Checked pacemaker compatibility for MRI -> unable to obtain due to facility policy PLAN - Continue Bactroban and doxycycline day 11 - Continue wound care by PT with medihoney and foam adhesive dressing - Trend temperature - Pain control with with Fentanyl patch and [place] 5 Aspiration pneumonia of both lungs CVA with residual dysphagia COPD Previously diagnosed dysphagia Required O2 at 6L on admission, RA today On Rocephin + Flagyl for 5 days -> completed treatment O2 sat > 93% on RA PLAN - Continue current diet with thickened liquids, [place] protocol - Monitor respiratory status - Vital signs Qshift Acute kidney failure Chronic kidney disease Hypochromic anemia, multifactorial Hypomagnesemia GFR on admission 83, stable Hb 10.7 on admission, down to 7.9 with GI bleed s/p transfusion 1u PRBC, current Hb 11.2 Mg 1.7 PLAN - Increase scheduled magnesium replacement - Renally dosed medications - Avoid nephrotoxic agents - Monitor urine output - Monitor electrolytes Diabetes mellitus, unknown HbA1c Diabetic neuropathy Hypoglycemia Glucose prior to admission 22 Trend in past 24 hours, 92-211 Getting fasting hypoglycemias, will discontinue long acting insulin HbA1c unreliable due to anemia PLAN - Continue current insulin regimen - Hypoglycemia protocol Atrial fibrillation with controlled ventricular rate Ischemic HFpEF Mild pulmonary hypertension Multifactorial anasarca HR trend 70s Recent echo with mild pulmonary hypertension with severe biatrial enlargement Admission weight 81.5kg On warfarin at home, held here due to GI bleed PLAN - Monitor VS - Switch to PO lasix Hypoalbuminemia due to protein-calorie malnutrition Albumin on admission 1 PLAN - Follow up with dietary recommendations Subtherapeutic international normalized ratio (INR) on admission- resolved Hypoxemia on admission - resolved Hypophosphatemia, resolved Lower GI bleed, resolved PROPHYLAXIS DVT- SCDs GI- Pantoprazole CODE STATUS: DNR/DNI DISPOSITION: Patient will remain admitted pending placement likely Saturday Patient is from [facility] but family is refusing to go back, [facility] denied patient due to MRSA, application has been sent to [facility] and we are pending bed availability, likely d/c Saturday. It is important to mention that MRSA infection is being actively treated with doxycycline, currently day 10 and patient is also getting treated for colonization with Bactroban, day 11 so risk of spreading MRSA infection is minimized with both of these interventions. Prolonged stay, greater than 96 hours due to suboptimal treatment response and need for placement
[2019-08-22] MEDS: Simvastatin 20 MG Tab PO SCH (22:24)
[2019-08-23] MEDS: Pantoprazole 40 MG Tab.CR PO SCH (07:00)
[2019-08-23] MEDS: Furosemide 20 MG Tab PO SCH ×2 (07:01→14:32)
[2019-08-23] MEDS: Saccharomyces Boulardii (Probiotic) 250 MG Cap PO SCH (09:39)
[2019-08-23] MEDS: Doxycycline 100 MG Cap PO SCH ×2 (09:39→20:24)
[2019-08-23] MEDS: Potassium Chloride 20 MEQ Tab.ER PO SCH (09:40)
[2019-08-23] MEDS: Magnesium Oxide 400 MG Tab PO SCH ×2 (09:40→20:24)
[2019-08-23] MEDS: Gabapentin 100 MG Cap PO SCH ×2 (09:41→20:25)
[2019-08-23] MEDS: Mupirocin Oint 22 GM Tube TOP SCH (09:41)
[2019-08-23] MEDS: Insulin Lispro 100 Units/ML 3 ML Vial SUBCUT SCH ×2 (12:01→17:12)
[2019-08-23] MEDS: Calcium Polycarbophil 625 MG Tab PO SCH (12:02)
[2019-08-23] MEDS ORDERED: Magnesium Oxide 400 MG Tab PO ONE (14:03)
[2019-08-23] MEDS: Simvastatin 20 MG Tab PO SCH (20:23)
--- NOTE | 2019-08-23 20:41 | PCM.PN ---
- General Info Date of Service: 08/23/19 Subjective Update: Feeling OK Slept OK Tolerating diet Pain controlled BM x3 today - Patient Data Vitals - Most Recent: Last Vital Signs Temp 98.1 F 08/23/19 18:43 Pulse 70 08/23/19 18:43 Resp 14 08/23/19 18:43 BP 118/64 08/23/19 18:43 Pulse Ox 97 08/23/19 19:00 Weight - Most Recent: 72.484 kg - Exam General: Alert, Oriented, Cooperative, No Acute Distress HEENT: EOMI, Mucous Membr. Moist/[place] Neck: Supple, Trachea Midline, No JVD, No Thyromegaly, +2 Carotid Pulse wo Bruit. No: Lymphadenopathy Lungs: Normal Respiratory Effort, Crackles. No: Rales, Rhonchi, Rub, Wheezing Cardiovascular: Regular Rate, Regular Rhythm. No: Murmurs, Gallops, Rubs GI/Abdominal Exam: Normal Bowel Sounds, Soft, Non-Tender, No Organomegaly, No Distention. No: Guarding, Rigid, Rebound Back Exam: Normal Inspection. No: CVA Tenderness (L), CVA Tenderness (R), Paraspinal Tenderness, Vertebral Tenderness Extremities: Other (RLE w/trace edema up to knee, LLE stump dressing clean, no erythema around wound dressing) Skin: Dry, Cool Wound/Incisions: Healing Well, Dressing Dry and Intact Neurological: No New Focal Deficit Psy/Mental Status: Alert Sepsis Event Note - Evaluation Sepsis Screening Result: No Definite Risk - Focused Exam Vital Signs: Vital Signs Temp Pulse Resp BP Pulse Ox Pulse Ox 08/23/19 19:00 97 08/23/19 18:43 98.1 F 70 14 118/64 97 Date Exam was Performed: 08/23/19 Time Exam was Performed: 20:36 - Problem List & Annotations (1) Aspiration pneumonia of both lungs SNOMED Code(s): 172299885, 369709160 Code(s): J69.0 - PNEUMONITIS DUE TO INHALATION OF FOOD AND VOMIT Status: Acute Current Visit: Yes (2) 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 SNOMED Code(s): 86854769385531840 Code(s): I50.9 - HEART FAILURE, UNSPECIFIED; I25.5 - ISCHEMIC CARDIOMYOPATHY Status: Acute Current Visit: Yes (3) Atrial fibrillation with controlled ventricular rate SNOMED Code(s): 04533751 Code(s): I48.91 - UNSPECIFIED ATRIAL FIBRILLATION Status: Acute Current Visit: Yes (4) Hypoglycemia SNOMED Code(s): 119304601 Code(s): E16.2 - HYPOGLYCEMIA, UNSPECIFIED Status: Acute Current Visit: Yes (5) COPD (chronic obstructive pulmonary disease) SNOMED Code(s): 33471460 Code(s): J44.9 - CHRONIC OBSTRUCTIVE PULMONARY DISEASE, UNSPECIFIED Status : Acute Current Visit: Yes (6) Dyslipidemia SNOMED Code(s): 242234216 Code(s): E78.5 - HYPERLIPIDEMIA, UNSPECIFIED Status: Acute Current Visit : Yes (7) MRSA cellulitis SNOMED Code(s): 035006529 Code(s): L03.90 - CELLULITIS, UNSPECIFIED; B95.62 - METHICILLIN RESIS STAPH INFCT CAUSING DISEASES CLASSD ELSWHR Status: Acute Current Visit: Yes (8) MSSA infection, non-invasive SNOMED Code(s): 304380099 Code(s): A49.01 - METHICILLIN SUSCEP STAPH INFECTION, UNSP SITE Status: Acute Current Visit: Yes (9) Hypoalbuminemia due to protein-calorie malnutrition SNOMED Code(s): 14110576152522 Code(s): E88.09 - OTH DISORDERS OF PLASMA-PROTEIN METABOLISM, NEC; E46 - UNSPECIFIED PROTEIN-CALORIE MALNUTRITION Status: Acute Current Visit: Yes (10) Anasarca SNOMED Code(s): 407492069, 298509233 Code(s): R60.1 - GENERALIZED EDEMA Status: Acute Current Visit: Yes (11) Hypochromic anemia SNOMED Code(s): 70414331 Code(s): D50.9 - IRON DEFICIENCY ANEMIA, UNSPECIFIED Status: Acute Current Visit: Yes (12) Cellulitis SNOMED Code(s): 137807341 Code(s): L03.90 - CELLULITIS, UNSPECIFIED Status: Acute Current Visit: Yes Qualifiers: Site of cellulitis: extremity Site of cellulitis of extremity: lower extremity Laterality: left Qualified Code(s): L03.116 - Cellulitis of left lower limb (13) Acute kidney failure SNOMED Code(s): 75992143 Code(s): N17.9 - ACUTE KIDNEY FAILURE, UNSPECIFIED Status: Acute Current Visit: No (14) Anemia SNOMED Code(s): 489232980 Code(s): D64.9 - ANEMIA, UNSPECIFIED Status: Acute Current Visit: No (15) Anticoagulated on Coumadin SNOMED Code(s): 11550903 Code(s): Z79.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 Status: Acute Current Visit: No (16) Chronic kidney disease SNOMED Code(s): 276492119 Code(s): N18.9 - CHRONIC KIDNEY DISEASE, UNSPECIFIED Status: Acute Current Visit: No (17) Congestive heart failure SNOMED Code(s): 74669468 Code(s): I50.9 - HEART FAILURE, UNSPECIFIED Status: Acute Current Visit: No (18) Coronary artery disease SNOMED Code(s): 71276536 Code(s): I25.10 - ATHSCL HEART DISEASE OF [place] CORONARY ARTERY W/O ANG PCTRS Status: Acute Current Visit: No (19) Diabetes mellitus SNOMED Code(s): 51502797 Code(s): E11.9 - TYPE 2 DIABETES MELLITUS WITHOUT COMPLICATIONS Status: Acute Current Visit: No (20) Diabetic neuropathy SNOMED Code(s): 312249609, 829562549 Code(s): E11.40 - TYPE 2 DIABETES MELLITUS WITH DIABETIC NEUROPATHY, UNSP Status: Acute Current Visit: No (21) Leukocytosis SNOMED Code(s): 799462526, 153384629 Code(s): D72.829 - ELEVATED WHITE BLOOD CELL COUNT, UNSPECIFIED Status: Acute Current Visit: No (22) Peripheral vascular disease SNOMED Code(s): 007580745 Code(s): I73.9 - PERIPHERAL VASCULAR DISEASE, UNSPECIFIED Status: Acute Current Visit: No (23) Subtherapeutic international normalized ratio (INR) SNOMED Code(s): 273833249, 273794199 Code(s): R79.1 - ABNORMAL COAGULATION PROFILE Status: Acute Current Visit : No (24) Hypoxemia SNOMED Code(s): 976545590 Code(s): R09.02 - HYPOXEMIA Status: Acute Current Visit: Yes (25) Mild pulmonary hypertension SNOMED Code(s): 07665310 Code(s): I27.20 - PULMONARY HYPERTENSION, UNSPECIFIED Status: Acute Current Visit: Yes - Problem List Review Problem List Initiated/Reviewed/Updated: Yes - Plan Plan:: 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, 05/2019 Peripheral vascular disease Recent BKA getting wound care as an outpatient Unknown if osteomyelitis was ruled out On doxyycline and Bactroban -> to complete 14 days of treatment Tmax 97.9 PT states wound continues to reduce in size Checked pacemaker compatibility for MRI -> unable to obtain due to facility policy PLAN - Continue Bactroban and doxycycline day 12 - Continue wound care by PT with medihoney and foam adhesive dressing - Trend temperature - Pain control with with Fentanyl patch and [place] 5 Aspiration pneumonia of both lungs CVA with residual dysphagia COPD Previously diagnosed dysphagia Required O2 at 6L on admission, RA today On Rocephin + Flagyl for 5 days -> completed treatment O2 sat > 92% on RA PLAN - Continue current diet with thickened liquids, [place] protocol - Monitor respiratory status - Vital signs Qshift Acute kidney failure Chronic kidney disease Hypochromic anemia, multifactorial Hypomagnesemia GFR on admission 83, stable Hb 10.7 on admission, down to 7.9 with GI bleed s/p transfusion 1u PRBC, current Hb 11.2 Mg 1.7 yesterday replaced PLAN - Renally dosed medications - Avoid nephrotoxic agents - Monitor urine output - Monitor electrolytes Diabetes mellitus, unknown HbA1c Diabetic neuropathy Hypoglycemia Glucose prior to admission 22 Trend in past 24 hours, 110-335 Getting fasting hypoglycemias, will discontinue long acting insulin HbA1c unreliable due to anemia PLAN - Continue current insulin regimen - Hypoglycemia protocol Atrial fibrillation with controlled ventricular rate Ischemic HFpEF Mild pulmonary hypertension Multifactorial anasarca HR trend 70s Recent echo with mild pulmonary hypertension with severe biatrial enlargement Admission weight 81.5kg On warfarin at home, held here due to GI bleed PLAN - Monitor VS - Switch to PO lasix Hypoalbuminemia due to protein-calorie malnutrition Albumin on admission 1 PLAN - Follow up with dietary recommendations Subtherapeutic international normalized ratio (INR) on admission- resolved Hypoxemia on admission - resolved Hypophosphatemia, resolved Lower GI bleed, resolved PROPHYLAXIS DVT- SCDs GI- Pantoprazole CODE STATUS: DNR/DNI DISPOSITION: Patient will remain admitted pending placement likely tomorrow Patient is from [facility] but family is refusing to go back, [facility] denied patient due to MRSA, application has been sent to [facility] and we are pending bed availability, likely d/c Saturday. It is important to mention that MRSA infection is being actively treated with doxycycline, currently day 10 and patient is also getting treated for colonization with Bactroban, day 11 so risk of spreading MRSA infection is minimized with both of these interventions. Prolonged stay, greater than 96 hours due to suboptimal treatment response and need for placement
[2019-08-24] MEDS: Pantoprazole 40 MG Tab.CR PO SCH (06:21)
[2019-08-24] MEDS: Furosemide 20 MG Tab PO SCH ×2 (06:21→13:02)
[2019-08-24] MEDS: Mupirocin Oint 22 GM Tube TOP SCH (09:39)
[2019-08-24] MEDS: Magnesium Oxide 400 MG Tab PO SCH ×2 (09:42→17:56)
[2019-08-24] MEDS: Potassium Chloride 20 MEQ Tab.ER PO SCH (09:42)
[2019-08-24] MEDS: Gabapentin 100 MG Cap PO SCH ×2 (09:42→20:42)
[2019-08-24] MEDS: Doxycycline 100 MG Cap PO SCH ×2 (09:42→20:41)
[2019-08-24] MEDS: Saccharomyces Boulardii (Probiotic) 250 MG Cap PO SCH (09:43)
[2019-08-24] MEDS ORDERED: Magnesium Oxide 400 MG Tab PO ONE (12:00)
[2019-08-24] MEDS: Insulin Lispro 100 Units/ML 3 ML Vial SUBCUT SCH ×2 (12:57→17:48)
[2019-08-24] MEDS: Calcium Polycarbophil 625 MG Tab PO SCH (12:59)
--- NOTE | 2019-08-24 18:57 | PCM.PN ---
- General Info Date of Service: 08/24/19 Subjective Update: BM today Slept OK Tolerating regular ADA diet - Patient Data Vitals - Most Recent: Last Vital Signs Temp 98.1 F 08/24/19 08:19 Pulse 70 08/24/19 08:19 Resp 16 08/24/19 08:19 BP 92/53 L 08/24/19 08:19 Pulse Ox 95 08/24/19 08:19 Weight - Most Recent: 72.484 kg - Exam Physical Findings Comments:: General: Alert, Oriented, Cooperative, No Acute Distress HEENT: EOMI, Mucous Membr. Moist/[place] Neck: Supple, Trachea Midline, No JVD, No Thyromegaly, +2 Carotid Pulse wo Bruit. No: Lymphadenopathy Lungs: Normal Respiratory Effort, Crackles. No: Rales, Rhonchi, Rub, Wheezing Cardiovascular: Regular Rate, Regular Rhythm. No: Murmurs, Gallops, Rubs GI/Abdominal Exam: Normal Bowel Sounds, Soft, Non-Tender, No Organomegaly, No Distention. No: Guarding, Rigid, Rebound Back Exam: Normal Inspection. No: CVA Tenderness (L), CVA Tenderness (R), Paraspinal Tenderness, Vertebral Tenderness Extremities: Other (RLE w/trace edema up to knee, LLE stump dressing clean, no erythema around wound dressing) Skin: Dry, Cool Wound/Incisions: Healing Well, Dressing Dry and Intact Neurological: No New Focal Deficit Psy/Mental Status: Alert Sepsis Event Note - Evaluation Sepsis Screening Result: No Definite Risk - Focused Exam Vital Signs: Vital Signs Temp Pulse Resp BP Pulse Ox 08/24/19 08:19 98.1 F 70 16 92/53 L 95 Date Exam was Performed: 08/27/19 Time Exam was Performed: 12:01 - Problem List & Annotations (1) Aspiration pneumonia of both lungs SNOMED Code(s): 725169057, 417098088 Code(s): J69.0 - PNEUMONITIS DUE TO INHALATION OF FOOD AND VOMIT Status: Acute Current Visit: Yes (2) 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 SNOMED Code(s): 74988284613018706 Code(s): I50.9 - HEART FAILURE, UNSPECIFIED; I25.5 - ISCHEMIC CARDIOMYOPATHY Status: Acute Current Visit: Yes (3) Atrial fibrillation with controlled ventricular rate SNOMED Code(s): 11758481 Code(s): I48.91 - UNSPECIFIED ATRIAL FIBRILLATION Status: Acute Current Visit: Yes (4) Hypoglycemia SNOMED Code(s): 264405492 Code(s): E16.2 - HYPOGLYCEMIA, UNSPECIFIED Status: Acute Current Visit: Yes (5) COPD (chronic obstructive pulmonary disease) SNOMED Code(s): 65934474 Code(s): J44.9 - CHRONIC OBSTRUCTIVE PULMONARY DISEASE, UNSPECIFIED Status : Acute Current Visit: Yes (6) Dyslipidemia SNOMED Code(s): 599014185 Code(s): E78.5 - HYPERLIPIDEMIA, UNSPECIFIED Status: Acute Current Visit : Yes (7) MRSA cellulitis SNOMED Code(s): 578642182 Code(s): L03.90 - CELLULITIS, UNSPECIFIED; B95.62 - METHICILLIN RESIS STAPH INFCT CAUSING DISEASES CLASSD ELSWHR Status: Acute Current Visit: Yes (8) MSSA infection, non-invasive SNOMED Code(s): 724996772 Code(s): A49.01 - METHICILLIN SUSCEP STAPH INFECTION, UNSP SITE Status: Acute Current Visit: Yes (9) Hypoalbuminemia due to protein-calorie malnutrition SNOMED Code(s): 84754259665183 Code(s): E88.09 - OTH DISORDERS OF PLASMA-PROTEIN METABOLISM, NEC; E46 - UNSPECIFIED PROTEIN-CALORIE MALNUTRITION Status: Acute Current Visit: Yes (10) Anasarca SNOMED Code(s): 861780963, 585934069 Code(s): R60.1 - GENERALIZED EDEMA Status: Acute Current Visit: Yes (11) Hypochromic anemia SNOMED Code(s): 25114849 Code(s): D50.9 - IRON DEFICIENCY ANEMIA, UNSPECIFIED Status: Acute Current Visit: Yes (12) Cellulitis SNOMED Code(s): 479508868 Code(s): L03.90 - CELLULITIS, UNSPECIFIED Status: Acute Current Visit: Yes Qualifiers: Site of cellulitis: extremity Site of cellulitis of extremity: lower extremity Laterality: left Qualified Code(s): L03.116 - Cellulitis of left lower limb (13) Acute kidney failure SNOMED Code(s): 86521473 Code(s): N17.9 - ACUTE KIDNEY FAILURE, UNSPECIFIED Status: Acute Current Visit: No (14) Anemia SNOMED Code(s): 896680593 Code(s): D64.9 - ANEMIA, UNSPECIFIED Status: Acute Current Visit: No (15) Anticoagulated on Coumadin SNOMED Code(s): 21530518 Code(s): Z79.01 - 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 (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) USE OF 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 Status: Acute Current Visit: No (16) Chronic kidney disease SNOMED Code(s): 399059253 Code(s): N18.9 - CHRONIC KIDNEY DISEASE, UNSPECIFIED Status: Acute Current Visit: No (17) Congestive heart failure SNOMED Code(s): 43995939 Code(s): I50.9 - HEART FAILURE, UNSPECIFIED Status: Acute Current Visit: No (18) Coronary artery disease SNOMED Code(s): 51254714 Code(s): I25.10 - ATHSCL HEART DISEASE OF [place] CORONARY ARTERY W/O ANG PCTRS Status: Acute Current Visit: No (19) Diabetes mellitus SNOMED Code(s): 08600663 Code(s): E11.9 - TYPE 2 DIABETES MELLITUS WITHOUT COMPLICATIONS Status: Acute Current Visit: No (20) Diabetic neuropathy SNOMED Code(s): 397746956, 219204776 Code(s): E11.40 - TYPE 2 DIABETES MELLITUS WITH DIABETIC NEUROPATHY, UNSP Status: Acute Current Visit: No (21) Leukocytosis SNOMED Code(s): 202325903, 567745367 Code(s): D72.829 - ELEVATED WHITE BLOOD CELL COUNT, UNSPECIFIED Status: Acute Current Visit: No (22) Peripheral vascular disease SNOMED Code(s): 319888345 Code(s): I73.9 - PERIPHERAL VASCULAR DISEASE, UNSPECIFIED Status: Acute Current Visit: No (23) Subtherapeutic international normalized ratio (INR) SNOMED Code(s): 121568847, 737957258 Code(s): R79.1 - ABNORMAL COAGULATION PROFILE Status: Acute Current Visit : No (24) Hypoxemia SNOMED Code(s): 670041041 Code(s): R09.02 - HYPOXEMIA Status: Acute Current Visit: Yes (25) Mild pulmonary hypertension SNOMED Code(s): 50754368 Code(s): I27.20 - PULMONARY HYPERTENSION, UNSPECIFIED Status: Acute Current Visit: Yes - Problem List Review Problem List Initiated/Reviewed/Updated: Yes - Plan Plan:: 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, 05/2019 Peripheral vascular disease Recent BKA getting wound care as an outpatient Unknown if osteomyelitis was ruled out On Doxycycline and Bactroban -> to complete 14 days of treatment Tmax 97.9 PT states wound continues to reduce in size Checked pacemaker compatibility for MRI -> unable to obtain due to facility policy Repeat MRSA screen positive PLAN - Continue Bactroban and doxycycline day 13 - Continue wound care by PT with medihoney and foam adhesive dressing - Trend temperature - Pain control with with Fentanyl patch and [place] 5 Aspiration pneumonia of both lungs CVA with residual dysphagia COPD Previously diagnosed dysphagia Required O2 at 6L on admission, RA today On Rocephin + Flagyl for 5 days -> completed treatment O2 sat > 90% on RA Speech evaluated patient and advanced diet PLAN - Advance diet - Monitor respiratory status - Vital signs Qshift Acute kidney failure Chronic kidney disease Hypochromic anemia, multifactorial Hypomagnesemia GFR on admission 83, stable Hb 10.7 on admission, down to 7.9 with GI bleed s/p transfusion 1u PRBC, current Hb 11.2 Mg 1.7 yesterday replaced PLAN - Increased scheduled magnesium replacement - Renally dosed medications - Avoid nephrotoxic agents - Monitor urine output - Monitor electrolytes Diabetes mellitus, unknown HbA1c Diabetic neuropathy Hypoglycemia Glucose prior to admission 22 Trend in past 24 hours, 110-184 Getting fasting hypoglycemias, will discontinue long acting insulin HbA1c unreliable due to anemia PLAN - Continue current insulin regimen - Hypoglycemia protocol Atrial fibrillation with controlled ventricular rate Ischemic HFpEF Mild pulmonary hypertension Multifactorial anasarca HR trend 69-70 Recent echo with mild pulmonary hypertension with severe biatrial enlargement Admission weight 81.5kg On warfarin at home, held here due to GI bleed PLAN - Monitor VS - Switch to PO lasix Hypoalbuminemia due to protein-calorie malnutrition Albumin on admission 1 PLAN - Follow up with dietary recommendations Subtherapeutic international normalized ratio (INR) on admission- resolved Hypoxemia on admission - resolved Hypophosphatemia, resolved Lower GI bleed, resolved PROPHYLAXIS DVT- SCDs GI- Pantoprazole CODE STATUS: DNR/DNI DISPOSITION: Patient will remain admitted pending placement. Patient is from [facility] but family is refusing to go back, [facility] denied patient due to MRSA, application has been sent to [facility] and we are pending bed availability, likely d/c Saturday. It is important to mention that MRSA infection is being actively treated with doxycycline, currently day 10 and patient is also getting treated for colonization with Bactroban, day 13 so risk of spreading MRSA infection is minimized with both of these interventions. Prolonged stay, greater than 96 hours due to suboptimal treatment response and need for placement
[2019-08-24] MEDS: Simvastatin 20 MG Tab PO SCH (20:42)
[2019-08-25] MEDS: Furosemide 20 MG Tab PO SCH ×2 (06:01→14:32)
[2019-08-25] MEDS: Magnesium Oxide 400 MG Tab PO SCH ×2 (06:01→16:59)
[2019-08-25] MEDS: Pantoprazole 40 MG Tab.CR PO SCH (06:02)
[2019-08-25] MEDS: Gabapentin 100 MG Cap PO SCH ×2 (09:03→20:11)
[2019-08-25] MEDS: Mupirocin Oint 22 GM Tube TOP SCH (09:03)
[2019-08-25] MEDS: Doxycycline 100 MG Cap PO SCH (09:03)
[2019-08-25] MEDS: Saccharomyces Boulardii (Probiotic) 250 MG Cap PO SCH (09:03)
[2019-08-25] MEDS: Potassium Chloride 20 MEQ Tab.ER PO SCH (09:03)
[2019-08-25] MEDS: fentaNYL 25 MCG/HR Transdermal Patch TOP SCH (10:07)
[2019-08-25] MEDS: Insulin Lispro 100 Units/ML 3 ML Vial SUBCUT SCH ×2 (11:20→16:56)
[2019-08-25] MEDS: Calcium Polycarbophil 625 MG Tab PO SCH (11:20)
[2019-08-25] MEDS: Simvastatin 20 MG Tab PO SCH (20:11)
[2019-08-26] MEDS: Magnesium Oxide 400 MG Tab PO SCH ×2 (06:24→17:37)
[2019-08-26] MEDS: Furosemide 20 MG Tab PO SCH ×2 (06:24→13:08)
[2019-08-26] MEDS: Pantoprazole 40 MG Tab.CR PO SCH (06:25)
--- NOTE | 2019-08-26 09:27 | PCM.PN ---
- General Info Date of Service: 08/25/19 Subjective Update: BM today On RA Slept OK Tolerating diet - Patient Data Vitals - Most Recent: Last Vital Signs Temp 97.9 F 08/25/19 19:58 Pulse 69 08/25/19 19:58 Resp 18 08/25/19 19:58 BP 134/98 H 08/25/19 19:58 Pulse Ox 98 08/25/19 19:58 Weight - Most Recent: 72.484 kg - Exam Physical Findings Comments:: General: Alert, Oriented, Cooperative, No Acute Distress HEENT: EOMI, Mucous Membr. Moist/[place] Neck: Supple, Trachea Midline, No JVD, No Thyromegaly, +2 Carotid Pulse wo Bruit. No: Lymphadenopathy Lungs: Normal Respiratory Effort, Crackles. No: Rales, Rhonchi, Rub, Wheezing Cardiovascular: Regular Rate, Regular Rhythm. No: Murmurs, Gallops, Rubs GI/Abdominal Exam: Normal Bowel Sounds, Soft, Non-Tender, No Organomegaly, No Distention. No: Guarding, Rigid, Rebound Back Exam: Normal Inspection. No: CVA Tenderness (L), CVA Tenderness (R), Paraspinal Tenderness, Vertebral Tenderness Extremities: Other (RLE w/trace edema up to knee, LLE stump dressing clean, no erythema around wound dressing) Skin: Dry, Cool Wound/Incisions: Healing Well, Dressing Dry and Intact Neurological: No New Focal Deficit Psy/Mental Status: Alert Sepsis Event Note - Evaluation Sepsis Screening Result: No Definite Risk - Problem List & Annotations (1) Aspiration pneumonia of both lungs SNOMED Code(s): 294349461, 100273437 Code(s): J69.0 - PNEUMONITIS DUE TO INHALATION OF FOOD AND VOMIT Status: Acute Current Visit: Yes (2) 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 SNOMED Code(s): 81763018424498946 Code(s): I50.9 - HEART FAILURE, UNSPECIFIED; I25.5 - ISCHEMIC CARDIOMYOPATHY Status: Acute Current Visit: Yes (3) Atrial fibrillation with controlled ventricular rate SNOMED Code(s): 33921514 Code(s): I48.91 - UNSPECIFIED ATRIAL FIBRILLATION Status: Acute Current Visit: Yes (4) Hypoglycemia SNOMED Code(s): 820893585 Code(s): E16.2 - HYPOGLYCEMIA, UNSPECIFIED Status: Acute Current Visit: Yes (5) COPD (chronic obstructive pulmonary disease) SNOMED Code(s): 71810490 Code(s): J44.9 - CHRONIC OBSTRUCTIVE PULMONARY DISEASE, UNSPECIFIED Status : Acute Current Visit: Yes (6) Dyslipidemia SNOMED Code(s): 403806514 Code(s): E78.5 - HYPERLIPIDEMIA, UNSPECIFIED Status: Acute Current Visit : Yes (7) MRSA cellulitis SNOMED Code(s): 241241513 Code(s): L03.90 - CELLULITIS, UNSPECIFIED; B95.62 - METHICILLIN RESIS STAPH INFCT CAUSING DISEASES CLASSD ELSWHR Status: Acute Current Visit: Yes (8) MSSA infection, non-invasive SNOMED Code(s): 241524650 Code(s): A49.01 - METHICILLIN SUSCEP STAPH INFECTION, UNSP SITE Status: Acute Current Visit: Yes (9) Hypoalbuminemia due to protein-calorie malnutrition SNOMED Code(s): 94912335604621 Code(s): E88.09 - OTH DISORDERS OF PLASMA-PROTEIN METABOLISM, NEC; E46 - UNSPECIFIED PROTEIN-CALORIE MALNUTRITION Status: Acute Current Visit: Yes (10) Anasarca SNOMED Code(s): 555759692, 171950455 Code(s): R60.1 - GENERALIZED EDEMA Status: Acute Current Visit: Yes (11) Hypochromic anemia SNOMED Code(s): 11110255 Code(s): D50.9 - IRON DEFICIENCY ANEMIA, UNSPECIFIED Status: Acute Current Visit: Yes (12) Cellulitis SNOMED Code(s): 503691537 Code(s): L03.90 - CELLULITIS, UNSPECIFIED Status: Acute Current Visit: Yes Qualifiers: Site of cellulitis: extremity Site of cellulitis of extremity: lower extremity Laterality: left Qualified Code(s): L03.116 - Cellulitis of left lower limb (13) Acute kidney failure SNOMED Code(s): 21821184 Code(s): N17.9 - ACUTE KIDNEY FAILURE, UNSPECIFIED Status: Acute Current Visit: No (14) Anemia SNOMED Code(s): 879134090 Code(s): D64.9 - ANEMIA, UNSPECIFIED Status: Acute Current Visit: No (15) Anticoagulated on Coumadin SNOMED Code(s): 81360908 Code(s): Z79.01 - 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 (CURRENT) USE OF 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 Status: Acute Current Visit: No (16) Chronic kidney disease SNOMED Code(s): 283768445 Code(s): N18.9 - CHRONIC KIDNEY DISEASE, UNSPECIFIED Status: Acute Current Visit: No (17) Congestive heart failure SNOMED Code(s): 40359877 Code(s): I50.9 - HEART FAILURE, UNSPECIFIED Status: Acute Current Visit: No (18) Coronary artery disease SNOMED Code(s): 34496954 Code(s): I25.10 - ATHSCL HEART DISEASE OF [place] CORONARY ARTERY W/O ANG PCTRS Status: Acute Current Visit: No (19) Diabetes mellitus SNOMED Code(s): 00802372 Code(s): E11.9 - TYPE 2 DIABETES MELLITUS WITHOUT COMPLICATIONS Status: Acute Current Visit: No (20) Diabetic neuropathy SNOMED Code(s): 007354122, 989466404 Code(s): E11.40 - TYPE 2 DIABETES MELLITUS WITH DIABETIC NEUROPATHY, UNSP Status: Acute Current Visit: No (21) Leukocytosis SNOMED Code(s): 410277291, 388072938 Code(s): D72.829 - ELEVATED WHITE BLOOD CELL COUNT, UNSPECIFIED Status: Acute Current Visit: No (22) Peripheral vascular disease SNOMED Code(s): 021915403 Code(s): I73.9 - PERIPHERAL VASCULAR DISEASE, UNSPECIFIED Status: Acute Current Visit: No (23) Subtherapeutic international normalized ratio (INR) SNOMED Code(s): 737904124, 330697461 Code(s): R79.1 - ABNORMAL COAGULATION PROFILE Status: Acute Current Visit : No (24) Hypoxemia SNOMED Code(s): 253231508 Code(s): R09.02 - HYPOXEMIA Status: Acute Current Visit: Yes (25) Mild pulmonary hypertension SNOMED Code(s): 67215358 Code(s): I27.20 - PULMONARY HYPERTENSION, UNSPECIFIED Status: Acute Current Visit: Yes - Problem List Review Problem List Initiated/Reviewed/Updated: Yes - Plan Plan:: 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, 05/2019 Peripheral vascular disease Recent BKA getting wound care as an outpatient Unknown if osteomyelitis was ruled out On Doxycycline and Bactroban -> to complete 14 days of treatment Tmax 98.1 PT states wound continues to reduce in size Checked pacemaker compatibility for MRI -> unable to obtain due to facility policy Repeat MRSA screen positive PLAN - Last day of Bactroban and doxycycline day 14 - Continue wound care by PT with medihoney and foam adhesive dressing - Trend temperature - Pain control with with Fentanyl patch and [place] 5 Aspiration pneumonia of both lungs CVA with residual dysphagia COPD Previously diagnosed dysphagia Required O2 at 6L on admission, RA today On Rocephin + Flagyl for 5 days -> completed treatment O2 sat > 95% on RA Speech evaluated patient and advanced diet to regular 08/22 PLAN - Resular diet - Monitor respiratory status - Vital signs Qshift Acute kidney failure Chronic kidney disease Hypochromic anemia, multifactorial Hypomagnesemia GFR on admission 83, stable Hb 10.7 on admission, down to 7.9 with GI bleed s/p transfusion 1u PRBC, current Hb 11.2 Mg 1.5 yesterday replaced--> 1.6 PLAN - Increased scheduled magnesium replacement - Renally dosed medications - Avoid nephrotoxic agents - Monitor urine output - Monitor electrolytes Diabetes mellitus, unknown HbA1c Diabetic neuropathy Hypoglycemia Glucose prior to admission 22 Trend in past 24 hours, 99-184 Getting fasting hypoglycemias, will discontinue long acting insulin HbA1c unreliable due to anemia PLAN - Continue current insulin regimen, 3u at 11 and 1700 hours - Hypoglycemia protocol Atrial fibrillation with controlled ventricular rate Ischemic HFpEF Mild pulmonary hypertension Multifactorial anasarca HR trend 69-70 Recent echo with mild pulmonary hypertension with severe biatrial enlargement Admission weight 81.5kg On warfarin at home, held here due to GI bleed PLAN - Monitor VS - Switch to PO lasix Hypoalbuminemia due to protein-calorie malnutrition Albumin on admission 1 PLAN - Regular diet - Ensure 4oz QID Subtherapeutic international normalized ratio (INR) on admission- resolved Hypoxemia on admission - resolved Hypophosphatemia, resolved Lower GI bleed, resolved PROPHYLAXIS DVT- SCDs GI- Pantoprazole CODE STATUS: DNR/DNI DISPOSITION: Patient will remain admitted pending placement. Patient is from [facility] but family is refusing to go back, [facility] denied patient due to MRSA, application has been sent to [facility] and we are pending bed availability, likely d/c Saturday. It is important to mention that MRSA infection is being actively treated with doxycycline, currently day 14 and patient is also getting treated for colonization with Bactroban, day 14 so risk of spreading MRSA infection is minimized with both of these interventions. Prolonged stay, greater than 96 hours due to suboptimal treatment response and need for placement
[2019-08-26] MEDS: Gabapentin 100 MG Cap PO SCH ×3 (10:06→20:05)
[2019-08-26] MEDS: Potassium Chloride 20 MEQ Tab.ER PO SCH (10:06)
[2019-08-26] MEDS: Saccharomyces Boulardii (Probiotic) 250 MG Cap PO SCH (10:06)
[2019-08-26] MEDS: Insulin Lispro 100 Units/ML 3 ML Vial SUBCUT SCH ×2 (12:28→17:38)
[2019-08-26] MEDS: Calcium Polycarbophil 625 MG Tab PO SCH (12:30)
--- NOTE | 2019-08-26 14:42 | PCM.PN ---
- General Info Date of Service: 08/26/19 Subjective Update: BM 08/25 Tolerating diet Slept OK No complaints - Patient Data Vitals - Most Recent: Last Vital Signs Temp 97.9 F 08/25/19 19:58 Pulse 69 08/25/19 19:58 Resp 18 08/25/19 19:58 BP 134/98 H 08/25/19 19:58 Pulse Ox 98 08/25/19 19:58 Weight - Most Recent: 72.484 kg Med Orders - Current: Current Medications Acetaminophen (Tylenol) 650 mg PO Q4H PRN PRN Reason: Pain Last Admin: 08/22/19 12:16 Dose: 650 mg Hydrocodone Bitart/Acetaminophen ([place] 325-5 Mg) 1 tab PO Q8H PRN PRN Reason: Abdominal Pain Last Admin: 08/14/19 08:21 Dose: 1 tab Albuterol/Ipratropium (Duoneb 3.0-0.5 Mg/3 Ml) 3 ml INH QID PRN PRN Reason: Wheezing Calcium Polycarbophil (Fibercon) 625 mg PO 1200 [facility] Last Admin: 08/26/19 12:30 Dose: 625 mg Fentanyl (Duragesic) 25 mcg TOP Q72H [facility] Last Admin: 08/25/19 10:07 Dose: 25 mcg Furosemide (Lasix) 60 mg PO BIDDIURETIC [facility] Last Admin: 08/26/19 13:08 Dose: 60 mg Gabapentin (Neurontin) 200 mg PO BID [facility] Last Admin: 08/26/19 10:06 Dose: 200 mg Insulin Human Lispro (Humalog) 3 unit SUBCUT 1100,1700 [facility] Last Admin: 08/26/19 12:28 Dose: 3 units Magnesium Oxide (Magnesium Oxide) 1,200 mg PO Q12H [facility] Last Admin: 08/26/19 06:24 Dose: 1,200 mg Miscellaneous Information (Remove Patch) 0 ea TRDERM Q72H [facility] Last Admin: 08/25/19 11:07 Dose: Not Given Ondansetron HCl (Zofran Odt) 4 mg PO Q6H PRN PRN Reason: Vomiting Pantoprazole Sodium (Protonix) 40 mg PO ACBREAKFAST [facility] Last Admin: 08/26/19 06:25 Dose: 40 mg Polyethylene Glycol (Miralax) 17 gm PO DAILY PRN PRN Reason: Constipation Potassium Chloride (Klor-Con M20) 20 meq PO DAILY [facility] Last Admin: 08/26/19 10:06 Dose: 20 meq Saccharomyces Boulardii (Florastor) 250 mg PO DAILY [facility] Last Admin: 08/26/19 10:06 Dose: 250 mg Simvastatin (Zocor) 20 mg PO BEDTIME [facility] Last Admin: 08/25/19 20:11 Dose: 20 mg Warfarin Sodium (Pharmacy To Dose - Warfarin) 0 dose PO ASDIRECTED [facility] Warfarin Sodium (Coumadin) 1 mg PO ONETIME ONE Stop: 08/26/19 18:01 Discontinued Medications Aspirin (Aspirin) 81 mg PO DAILY [facility] Last Admin: 08/13/19 09:11 Dose: 81 mg Budesonide (Pulmicort) 0.5 mg INH BID [facility] Last Admin: 08/19/19 08:16 Dose: 0.5 mg Cholestyramine Resin (Cholestyramine Packet) 4 gm PO BIDAC [facility] Last Admin: 08/21/19 16:57 Dose: 4 gm Doxycycline Hyclate (Vibramycin) 100 mg PO BID [facility] Last Admin: 08/25/19 09:03 Dose: 100 mg Furosemide (Lasix) Confirm Administered Dose 80 mg .ROUTE .STK-MED ONE Stop: 08/12/19 01:31 Last Admin: 08/12/19 03:05 Dose: Not Given Furosemide (Lasix) 60 mg IVPUSH NOW ONE Stop: 08/12/19 01:16 Last Admin: 08/12/19 03:12 Dose: 60 mg Furosemide (Lasix) 40 mg IVPUSH NOW ONE Stop: 08/12/19 12:33 Last Admin: 08/12/19 12:54 Dose: 40 mg Furosemide (Lasix) 20 mg IVPUSH ONETIME ONE Stop: 08/13/19 18:16 Last Admin: 08/13/19 19:18 Dose: 20 mg Furosemide (Lasix) 20 mg IVPUSH Q6H [facility] Stop: 08/14/19 06:31 Last Admin: 08/14/19 06:06 Dose: 20 mg Furosemide (Lasix) 20 mg IVPUSH ONETIME ONE Stop: 08/14/19 12:31 Last Admin: 08/14/19 12:42 Dose: 20 mg Furosemide (Lasix) 20 mg IVPUSH ONETIME ONE Stop: 08/14/19 20:01 Last Admin: 08/14/19 20:54 Dose: 20 mg Furosemide (Lasix) 20 mg IVPUSH NOW ONE Stop: 08/15/19 08:15 Last Admin: 08/15/19 10:05 Dose: 20 mg Furosemide (Lasix) 40 mg IVPUSH ONETIME [facility] Stop: 08/15/19 16:00 Last Admin: 08/15/19 13:58 Dose: 40 mg Furosemide (Lasix) 20 mg IVPUSH NOW ONE Stop: 08/15/19 21:16 Last Admin: 08/15/19 22:12 Dose: 20 mg Furosemide (Lasix) 40 mg IVPUSH DAILY [facility] Last Admin: 08/16/19 09:28 Dose: 40 mg Furosemide (Lasix) 20 mg IVPUSH Q6H [facility] Stop: 08/17/19 01:31 Last Admin: 08/16/19 18:56 Dose: 20 mg Furosemide (Lasix) 40 mg IVPUSH DAILY@0700 [facility] Last Admin: 08/17/19 06:00 Dose: 40 mg Furosemide (Lasix) 40 mg IVPUSH BIDDIURETIC [facility] Last Admin: 08/21/19 06:43 Dose: 40 mg Hydromorphone HCl (Dilaudid) 0.5 mg IVPUSH ONETIME ONE Stop: 08/11/19 22:32 Last Admin: 08/11/19 23:09 Dose: 0.25 mg Hydromorphone HCl (Dilaudid) 1 mg IVPUSH ONETIME ONE Stop: 08/11/19 23:47 Last Admin: 08/12/19 00:54 Dose: 1 mg Hydromorphone HCl (Dilaudid) 0.5 mg IVPUSH ONETIME ONE Stop: 08/12/19 03:50 Last Admin: 08/12/19 04:16 Dose: 0.5 mg Hydromorphone HCl (Dilaudid) 0.5 mg IVPUSH ONETIME ONE Stop: 08/12/19 09:22 Last Admin: 08/12/19 09:27 Dose: 0.5 mg Dextrose/Sodium Chloride (Dextrose 5%-Normal Saline) 1,000 mls @ 125 mls/hr IV ASDIRECTED [facility] Last Admin: 08/11/19 22:58 Dose: 125 mls/hr Vancomycin HCl 1.75 gm/ Sodium (Chloride) 500 mls @ 250 mls/hr IV ONETIME ONE Stop: 08/12/19 06:13 Last Admin: 08/12/19 06:48 Dose: 250 mls/hr Sodium Chloride (Normal Saline) 1,000 mls @ 999 mls/hr IV ASDIRECTED [facility] Last Admin: 08/12/19 06:20 Dose: 999 mls/hr Magnesium Sulfate 4 gm/ Premix 100 mls @ 25 mls/hr IV ONETIME ONE Stop: 08/12/19 15:59 Last Admin: 08/12/19 13:22 Dose: 25 mls/hr Albumin Human (Flexbumin 25%) 12.5 gm in 50 mls @ 100 mls/hr IV ONETIME ONE Stop: 08/12/19 13:14 Last Admin: 08/12/19 12:54 Dose: 100 mls/hr Sodium Chloride (Sodium Chloride 0.9%) 500 mls @ 999 mls/hr IRR ASDIRECTED [facility] Sodium Chloride (Normal Saline) 500 mls @ 999 mls/hr IV .BOLUS ONE Stop: 08/13/19 02:18 Last Admin: 08/13/19 01:49 Dose: 999 mls/hr Ceftriaxone Sodium 1 gm/ (Sodium Chloride) 100 mls @ 200 mls/hr IV Q24H [facility] Last Admin: 08/17/19 01:36 Dose: 200 mls/hr Albumin Human (Flexbumin 25%) 12.5 gm in 50 mls @ 100 mls/hr IV ONETIME ONE Stop: 08/13/19 03:23 Last Admin: 08/13/19 03:18 Dose: 100 mls/hr Metronidazole 500 mg/ Premix 100 mls @ 100 mls/hr IV Q8H [facility] Last Admin: 08/17/19 07:45 Dose: 100 mls/hr Furosemide 100 mg/ Sodium (Chloride) 100 mls @ 5 mls/hr IV TITRATE [facility]; Protocol Last Admin: 08/13/19 11:34 Dose: 5 mls/hr Vancomycin HCl 1 gm/Vancomycin HCl 250 mg/ Sodium Chloride 250 mls @ 166.667 mls/hr IV Q24H [facility] Stop: 08/13/19 17:00 Last Admin: 08/13/19 13:56 Dose: 166.667 mls/hr Vancomycin HCl 1 gm/Vancomycin HCl 250 mg/ Sodium Chloride 250 mls @ 166.667 mls/hr IV Q24H [facility] Last Admin: 08/16/19 13:34 Dose: 166.667 mls/hr Albumin Human (Flexbumin 25%) 12.5 gm in 50 mls @ 100 mls/hr IV ONETIME ONE Stop: 08/13/19 17:34 Last Admin: 08/13/19 17:30 Dose: 100 mls/hr Albumin Human (Flexbumin 25%) 12.5 gm in 50 mls @ 100 mls/hr IV Q6H [facility] Stop: 08/14/19 12:02 Last Admin: 08/14/19 06:05 Dose: 100 mls/hr Albumin Human (Flexbumin 25%) 12.5 gm in 50 mls @ 100 mls/hr IV ONETIME ONE Stop: 08/14/19 12:29 Last Admin: 08/14/19 11:21 Dose: 100 mls/hr Magnesium Sulfate 2 gm/ Premix 50 mls @ 25 mls/hr IV ONETIME ONE Stop: 08/15/19 10:18 Last Admin: 08/15/19 10:00 Dose: 25 mls/hr Sodium Chloride (Normal Saline) 250 mls @ 100 mls/hr IV ASDIRECTED [facility] Stop: 08/15/19 16:00 Sodium Chloride (Normal Saline) Confirm Administered Dose 500 mls @ as directed .ROUTE .STK-MED ONE Stop: 08/15/19 11:14 Last Admin: 08/15/19 12:04 Dose: Not Given Sodium Chloride (Normal Saline) 500 mls @ 150 mls/hr IV .BOLUS [facility] Last Admin: 08/15/19 11:30 Dose: 150 mls/hr Magnesium Sulfate 4 gm/ Premix 50 mls @ 12.5 mls/hr IV ONETIME ONE Stop: 08/16/19 12:18 Last Admin: 08/16/19 09:25 Dose: 12.5 mls/hr Magnesium Sulfate 4 gm/ Premix 50 mls @ 12.5 mls/hr IV ONETIME ONE Stop: 08/18/19 13:53 Last Admin: 08/18/19 11:18 Dose: 12.5 mls/hr Magnesium Sulfate 2 gm/ Premix 50 mls @ 25 mls/hr IV ONETIME ONE Stop: 08/20/19 12:20 Last Admin: 08/20/19 10:44 Dose: 25 mls/hr Magnesium Sulfate 4 gm/ Premix 100 mls @ 25 mls/hr IV ONETIME ONE Stop: 08/22/19 12:34 Last Admin: 08/22/19 14:26 Dose: Not Given Insulin Glargine (Lantus) 10 unit SUBCUT QPM [facility] Last Admin: 08/18/19 22:36 Dose: 10 units Insulin Human Lispro (Humalog) 0 unit SUBCUT QIDACANDBED [facility]; Protocol Last Admin: 08/19/19 13:01 Dose: Not Given Insulin Human Lispro (Humalog) 3 unit SUBCUT TIDAC [facility] Last Admin: 08/20/19 13:20 Dose: Not Given Lactulose (Cephulac) 20 gm PO ONETIME ONE Stop: 08/12/19 03:50 Last Admin: 08/12/19 04:39 Dose: 20 gm Loperamide HCl (Imodium) 4 mg PO ONETIME ONE Stop: 08/14/19 10:46 Last Admin: 08/14/19 11:09 Dose: 4 mg Magnesium Oxide (Magnesium Oxide) 400 mg PO Q12H [facility] Last Admin: 08/22/19 06:44 Dose: 400 mg Magnesium Oxide (Magnesium Oxide) 800 mg PO ONETIME ONE Stop: 08/23/19 14:04 Last Admin: 08/23/19 14:32 Dose: 800 mg Magnesium Oxide (Magnesium Oxide) 800 mg PO ONETIME ONE Stop: 08/22/19 17:01 Last Admin: 08/22/19 17:28 Dose: 800 mg Magnesium Oxide (Magnesium Oxide) 800 mg PO BID [facility] Last Admin: 08/24/19 09:42 Dose: 800 mg Magnesium Oxide (Magnesium Oxide) 400 mg PO ONETIME ONE Stop: 08/24/19 12:01 Last Admin: 08/24/19 12:59 Dose: 400 mg Metoclopramide HCl (Reglan) 10 mg IVPUSH ONETIME ONE Stop: 08/11/19 22:32 Last Admin: 08/11/19 23:03 Dose: 10 mg Metoclopramide HCl (Reglan) 7.5 mg IVPUSH ONETIME ONE Stop: 08/12/19 03:50 Last Admin: 08/12/19 04:14 Dose: 7.5 mg Mupirocin (Bactroban Oint) 0 gm TOP DAILY [facility] Last Admin: 08/25/19 09:03 Dose: 1 applic Pantoprazole Sodium (Protonix) 40 mg PO DAILY [facility] Last Admin: 08/14/19 08:21 Dose: 40 mg Pantoprazole Sodium (Protonix Iv) 40 mg IVPUSH Q12H [facility] Last Admin: 08/16/19 09:28 Dose: 40 mg Phytonadione (Aquamephyton) 2.5 mg PO ONETIME ONE Stop: 08/14/19 11:16 Last Admin: 08/14/19 11:27 Dose: 2.5 mg Potassium Chloride (Klor-Con M20) 40 meq PO ONETIME ONE Stop: 08/16/19 08:22 Last Admin: 08/16/19 09:27 Dose: 40 meq Potassium Chloride (Klor-Con M20) 40 meq PO ONETIME ONE Stop: 08/18/19 09:56 Last Admin: 08/18/19 11:17 Dose: 40 meq Psyllium Husk (Metamucil Sugar Free) 1 packet PO BID [facility] Last Admin: 08/21/19 09:21 Dose: 1 packet Sodium Phosphate (Neutra-Phos) 250 mg PO BID [facility] Stop: 08/21/19 21:01 Last Admin: 08/21/19 21:25 Dose: 250 mg Vancomycin HCl (Pharmacy To Dose - Vancomycin) 1 dose .XX ASDIRECTED PRN PRN Reason: RX TO DOSE VANCO Warfarin Sodium (Pharmacy To Dose - Warfarin) 1 dose .XX ASDIRECTED PRN PRN Reason: RX TO DOSE WARFARIN Warfarin Sodium (Coumadin Sliding Scale) 0 each PO QPM [facility] Stop: 08/12/19 18:01 Last Admin: 08/12/19 18:04 Dose: Not Given Warfarin Sodium (Coumadin Sliding Scale) 0 each PO QPM [facility] Stop: 08/13/19 18:01 Last Admin: 08/13/19 19:41 Dose: Not Given - Exam Physical Findings Comments:: General: Alert, Oriented, Cooperative, No Acute Distress HEENT: EOMI, Mucous Membr. Moist/Streeter Neck: Supple, Trachea Midline, No JVD, No Thyromegaly, +2 Carotid Pulse wo Bruit. No: Lymphadenopathy Lungs: Normal Respiratory Effort, Crackles with interval improvement. No: Rales , Rhonchi, Rub, Wheezing Cardiovascular: Regular Rate, Regular Rhythm. No: Murmurs, Gallops, Rubs GI/Abdominal Exam: Normal Bowel Sounds, Soft, Non-Tender, No Organomegaly, No Distention. No: Guarding, Rigid, Rebound Back Exam: Normal Inspection. No: CVA Tenderness (L), CVA Tenderness (R), Paraspinal Tenderness, Vertebral Tenderness Extremities: Other (RLE w/trace edema up to knee, LLE stump dressing clean, no erythema around wound dressing) Skin: Dry, Cool Wound/Incisions: Healing Well, Dressing Dry and Intact Neurological: No New Focal Deficit Psy/Mental Status: Alert Sepsis Event Note - Evaluation Sepsis Screening Result: No Definite Risk - Problem List & Annotations (1) Aspiration pneumonia of both lungs SNOMED Code(s): 147479569, 682744649 Code(s): J69.0 - PNEUMONITIS DUE TO INHALATION OF FOOD AND VOMIT Status: Resolved Current Visit: Yes (2) 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 SNOMED Code(s): 70146580346918562 Code(s): I50.9 - HEART FAILURE, UNSPECIFIED; I25.5 - ISCHEMIC CARDIOMYOPATHY Status: Acute Current Visit: Yes (3) Atrial fibrillation with controlled ventricular rate SNOMED Code(s): 82724662 Code(s): I48.91 - UNSPECIFIED ATRIAL FIBRILLATION Status: Acute Current Visit: Yes (4) Hypoglycemia SNOMED Code(s): 739858695 Code(s): E16.2 - HYPOGLYCEMIA, UNSPECIFIED Status: Resolved Current Visit : Yes (5) COPD (chronic obstructive pulmonary disease) SNOMED Code(s): 26398278 Code(s): J44.9 - CHRONIC OBSTRUCTIVE PULMONARY DISEASE, UNSPECIFIED Status : Acute Current Visit: Yes (6) Dyslipidemia SNOMED Code(s): 241602694 Code(s): E78.5 - HYPERLIPIDEMIA, UNSPECIFIED Status: Acute Current Visit : Yes (7) MRSA cellulitis SNOMED Code(s): 198144585 Code(s): L03.90 - CELLULITIS, UNSPECIFIED; B95.62 - METHICILLIN RESIS STAPH INFCT CAUSING DISEASES CLASSD [id number] Status: Acute Current Visit: Yes (8) MSSA infection, non-invasive SNOMED Code(s): 625679685 Code(s): A49.01 - METHICILLIN SUSCEP STAPH INFECTION, UNSP SITE Status: Acute Current Visit: Yes (9) Hypoalbuminemia due to protein-calorie malnutrition SNOMED Code(s): 92480624276775 Code(s): E88.09 - OTH DISORDERS OF PLASMA-PROTEIN METABOLISM, NEC; E46 - UNSPECIFIED PROTEIN-CALORIE MALNUTRITION Status: Acute Current Visit: Yes (10) Anasarca SNOMED Code(s): 099327464, 895026849 Code(s): R60.1 - GENERALIZED EDEMA Status: Acute Current Visit: Yes (11) Hypochromic anemia SNOMED Code(s): 75133685 Code(s): D50.9 - IRON DEFICIENCY ANEMIA, UNSPECIFIED Status: Acute Current Visit: Yes (12) Cellulitis SNOMED Code(s): 192391128 Code(s): L03.90 - CELLULITIS, UNSPECIFIED Status: Acute Current Visit: Yes Qualifiers: Site of cellulitis: extremity Site of cellulitis of extremity: lower extremity Laterality: left Qualified Code(s): L03.116 - Cellulitis of left lower limb (13) Anemia SNOMED Code(s): 070171809 Code(s): D64.9 - ANEMIA, UNSPECIFIED Status: Acute Current Visit: No (14) Anticoagulated on Coumadin SNOMED Code(s): 15431388 Code(s): Z79.01 - 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) USE OF 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 Status: Acute Current Visit: No (15) Chronic kidney disease SNOMED Code(s): 714374159 Code(s): N18.9 - CHRONIC KIDNEY DISEASE, UNSPECIFIED Status: Acute Current Visit: No (16) Congestive heart failure SNOMED Code(s): 01487873 Code(s): I50.9 - HEART FAILURE, UNSPECIFIED Status: Acute Current Visit: No (17) Coronary artery disease SNOMED Code(s): 91522100 Code(s): I25.10 - ATHSCL HEART DISEASE OF [place] CORONARY ARTERY W/O ANG PCTRS Status: Acute Current Visit: No (18) Diabetes mellitus SNOMED Code(s): 81893363 Code(s): E11.9 - TYPE 2 DIABETES MELLITUS WITHOUT COMPLICATIONS Status: Acute Current Visit: No (19) Diabetic neuropathy SNOMED Code(s): 365428181, 642205559 Code(s): E11.40 - TYPE 2 DIABETES MELLITUS WITH DIABETIC NEUROPATHY, UNSP Status: Acute Current Visit: No (20) Peripheral vascular disease SNOMED Code(s): 603858046 Code(s): I73.9 - PERIPHERAL VASCULAR DISEASE, UNSPECIFIED Status: Acute Current Visit: No (21) Subtherapeutic international normalized ratio (INR) SNOMED Code(s): 545761950, 129013353 Code(s): R79.1 - ABNORMAL COAGULATION PROFILE Status: Acute Current Visit : No (22) Hypoxemia SNOMED Code(s): 104633490 Code(s): R09.02 - HYPOXEMIA Status: Acute Current Visit: Yes (23) Mild pulmonary hypertension SNOMED Code(s): 22950021 Code(s): I27.20 - PULMONARY HYPERTENSION, UNSPECIFIED Status: Acute Current Visit: Yes - My Orders Last 24 Hours: My Active Orders 08/26/19 11:00 Warfarin Pharmacy to Dose [Pharmacy to Dose - Warfarin] 0 dose PO ASDIRECTED 08/26/19 18:00 Warfarin [Coumadin] 1 mg PO ONETIME ONE - Plan Plan:: 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, 05/2019 Peripheral vascular disease Recent BKA getting wound care as an outpatient Unknown if osteomyelitis was ruled out On Doxycycline and Bactroban -> to complete 14 days of treatment Tmax 98.1 PT states wound continues to reduce in size Checked pacemaker compatibility for MRI -> unable to obtain due to facility policy Repeat MRSA screen positive PLAN - Last day of Bactroban and doxycycline day 14 - Continue wound care by PT with medihoney and foam adhesive dressing - Trend temperature - Pain control with with Fentanyl patch and [place] 5 Aspiration pneumonia of both lungs CVA with residual dysphagia COPD Previously diagnosed dysphagia Required O2 at 6L on admission, RA today On Rocephin + Flagyl for 5 days -> completed treatment O2 sat > 95% on RA Speech evaluated patient and advanced diet to regular 08/22 PLAN - Resular diet - Monitor respiratory status - Vital signs Qshift Acute kidney failure Chronic kidney disease Hypochromic anemia, multifactorial Hypomagnesemia GFR on admission 83, stable Hb 10.7 on admission, down to 7.9 with GI bleed s/p transfusion 1u PRBC, current Hb 11.2 Mg 1.5 yesterday replaced--> 1.6 PLAN - Increased scheduled magnesium replacement - Renally dosed medications - Avoid nephrotoxic agents - Monitor urine output - Monitor electrolytes Diabetes mellitus, unknown HbA1c Diabetic neuropathy Hypoglycemia Glucose prior to admission 22 Trend in past 24 hours, 99-184 Getting fasting hypoglycemias, will discontinue long acting insulin HbA1c unreliable due to anemia PLAN - Continue current insulin regimen, 3u at 11 and 1700 hours - Hypoglycemia protocol Atrial fibrillation with controlled ventricular rate Ischemic HFpEF Mild pulmonary hypertension Multifactorial anasarca HR trend 69-70 Recent echo with mild pulmonary hypertension with severe biatrial enlargement Admission weight 81.5kg On warfarin at home, held here due to GI bleed PLAN - Monitor VS - Switch to PO lasix Hypoalbuminemia due to protein-calorie malnutrition Albumin on admission 1 PLAN - Regular diet - Ensure 4oz QID Subtherapeutic international normalized ratio (INR) on admission- resolved Hypoxemia on admission - resolved Hypophosphatemia, resolved Lower GI bleed, resolved PROPHYLAXIS DVT- SCDs GI- Pantoprazole CODE STATUS: DNR/DNI DISPOSITION: Patient will remain admitted pending placement. Patient is from [facility] but family is refusing to go back, [facility] denied patient due to MRSA, application has been sent to [facility] and we are pending bed availability, likely d/c Saturday. It is important to mention that MRSA infection is being actively treated with doxycycline, currently day 14 and patient is also getting treated for colonization with Bactroban, day 14 so risk of spreading MRSA infection is minimized with both of these interventions. Prolonged stay, greater than 96 hours due to suboptimal treatment response and need for placement
[2019-08-26] MEDS: Simvastatin 20 MG Tab PO SCH ×2 (19:57→20:05)
[2019-08-27] MEDS: Pantoprazole 40 MG Tab.CR PO SCH (06:30)
[2019-08-27] MEDS: Magnesium Oxide 400 MG Tab PO SCH ×2 (06:30→17:00)
[2019-08-27] MEDS: Furosemide 20 MG Tab PO SCH ×2 (06:30→13:19)
[2019-08-27] MEDS: Saccharomyces Boulardii (Probiotic) 250 MG Cap PO SCH (08:31)
[2019-08-27] MEDS: Gabapentin 100 MG Cap PO SCH ×2 (08:32→20:23)
[2019-08-27] MEDS: Potassium Chloride 20 MEQ Tab.ER PO SCH (08:37)
--- NOTE | 2019-08-27 11:27 | PCM.PN ---
- General Info Date of Service: 08/27/19 Admission Dx/Problem (Free Text): Admission Diagnosis/Problem Admission Diagnosis/Problem [place]le[place] Subjective Update: Sleeping good. Patient and are upset about difficulty obtaining placement Last BM on . Continues to do well with advanced diet. Functional Status: Reports: Pain Controlled, Tolerating Diet, Urinating. Denies : Ambulating, New Symptoms - Review of Systems General: Reports: No Symptoms. Denies: Fever, Weakness, Fatigue, Malaise, Chills HEENT: Reports: No Symptoms. Denies: Headaches, Sore Throat Pulmonary: Reports: No Symptoms. Denies: Shortness of Breath, Cough, Sputum, Wheezing Cardiovascular: Reports: No Symptoms. Denies: Chest Pain, Palpitations, Edema Gastrointestinal: Reports: No Symptoms. Denies: Abdominal Pain, Constipation, Diarrhea, Nausea, Vomiting Genitourinary: Reports: No Symptoms. Denies: Pain Musculoskeletal: Reports: No Symptoms. Denies: Leg Pain Skin: Reports: No Symptoms. Denies: Cyanosis Neurological: Reports: Pre-Existing Deficit, Difficulty Walking, Weakness. Denies: Confusion, Dizziness, Headache, Numbness, Seizure, Syncope, Tingling, Trouble Speaking Psychiatric: Reports: No Symptoms - Patient Data Vitals - Most Recent: Last Vital Signs Temp 98.1 F 08/27/19 08:30 Pulse 81 08/27/19 08:30 Resp 16 08/27/19 08:30 BP 102/61 08/27/19 08:48 Pulse Ox 93 L 08/27/19 08:30 Weight - Most Recent: 159 lb 12.8 oz I&O - Last 24 Hours: Intake & Output 08/26/19 08/27/19 08/27/19 22:59 06:59 14:59 Intake Total 800 200 540 Output Total 1800 Balance -1000 200 540 Lab Results Last 24 Hours: Laboratory Results - last 24 hr 08/26/19 08/26/19 08/26/19 Range/Units 11:37 11:38 16:13 PT 14.0 H (9.7-12.0) SECONDS INR 1.30 POC Glucose 149 H 188 H (83-110) mg/dL 08/26/19 08/27/19 08/27/19 Range/Units 22:42 06:27 06:45 PT 14.0 H (9.7-12.0) SECONDS INR 1.30 POC Glucose 120 H 82 L (83-110) mg/dL Lonny Results Last 24 Hours: Microbiology 08/24/19 09:35 Wound Culture - Preliminary Leg, Left NO GROWTH AFTER 3 DAYS Med Orders - Current: Current Medications Acetaminophen (Tylenol) 650 mg PO Q4H PRN PRN Reason: Pain Last Admin: 08/22/19 12:16 Dose: 650 mg Hydrocodone Bitart/Acetaminophen ([place] 325-5 Mg) 1 tab PO Q8H PRN PRN Reason: Abdominal Pain Last Admin: 08/14/19 08:21 Dose: 1 tab Albuterol/Ipratropium (Duoneb 3.0-0.5 Mg/3 Ml) 3 ml INH QID PRN PRN Reason: Wheezing Calcium Polycarbophil (Fibercon) 625 mg PO 1200 [facility] Last Admin: 08/26/19 12:30 Dose: 625 mg Fentanyl (Duragesic) 25 mcg TOP Q72H [facility] Last Admin: 08/25/19 10:07 Dose: 25 mcg Furosemide (Lasix) 60 mg PO BIDDIURETIC [facility] Last Admin: 08/27/19 06:30 Dose: 60 mg Gabapentin (Neurontin) 200 mg PO BID [facility] Last Admin: 08/27/19 08:32 Dose: 200 mg Insulin Human Lispro (Humalog) 3 unit SUBCUT 1100,1700 [facility] Last Admin: 08/26/19 17:38 Dose: 3 units Magnesium Oxide (Magnesium Oxide) 1,200 mg PO Q12H [facility] Last Admin: 08/27/19 06:30 Dose: 1,200 mg Miscellaneous Information (Remove Patch) 0 ea TRDERM Q72H [facility] Last Admin: 08/25/19 11:07 Dose: Not Given Ondansetron HCl (Zofran Odt) 4 mg PO Q6H PRN PRN Reason: Vomiting Pantoprazole Sodium (Protonix) 40 mg PO ACBREAKFAST [facility] Last Admin: 08/27/19 06:30 Dose: 40 mg Polyethylene Glycol (Miralax) 17 gm PO DAILY PRN PRN Reason: Constipation Potassium Chloride (Klor-Con M20) 20 meq PO DAILY [facility] Last Admin: 08/27/19 08:37 Dose: 20 meq Saccharomyces Boulardii (Florastor) 250 mg PO DAILY [facility] Last Admin: 08/27/19 08:31 Dose: 250 mg Simvastatin (Zocor) 20 mg PO BEDTIME [facility] Last Admin: 08/26/19 20:05 Dose: Not Given Warfarin Sodium (Pharmacy To Dose - Warfarin) 0 dose PO ASDIRECTED [facility] Discontinued Medications Aspirin (Aspirin) 81 mg PO DAILY [facility] Last Admin: 08/13/19 09:11 Dose: 81 mg Budesonide (Pulmicort) 0.5 mg INH BID [facility] Last Admin: 08/19/19 08:16 Dose: 0.5 mg Cholestyramine Resin (Cholestyramine Packet) 4 gm PO BIDAC [facility] Last Admin: 08/21/19 16:57 Dose: 4 gm Doxycycline Hyclate (Vibramycin) 100 mg PO BID [facility] Last Admin: 08/25/19 09:03 Dose: 100 mg Furosemide (Lasix) Confirm Administered Dose 80 mg .ROUTE .STK-MED ONE Stop: 08/12/19 01:31 Last Admin: 08/12/19 03:05 Dose: Not Given Furosemide (Lasix) 60 mg IVPUSH NOW ONE Stop: 08/12/19 01:16 Last Admin: 08/12/19 03:12 Dose: 60 mg Furosemide (Lasix) 40 mg IVPUSH NOW ONE Stop: 08/12/19 12:33 Last Admin: 08/12/19 12:54 Dose: 40 mg Furosemide (Lasix) 20 mg IVPUSH ONETIME ONE Stop: 08/13/19 18:16 Last Admin: 08/13/19 19:18 Dose: 20 mg Furosemide (Lasix) 20 mg IVPUSH Q6H [facility] Stop: 08/14/19 06:31 Last Admin: 08/14/19 06:06 Dose: 20 mg Furosemide (Lasix) 20 mg IVPUSH ONETIME ONE Stop: 08/14/19 12:31 Last Admin: 08/14/19 12:42 Dose: 20 mg Furosemide (Lasix) 20 mg IVPUSH ONETIME ONE Stop: 08/14/19 20:01 Last Admin: 08/14/19 20:54 Dose: 20 mg Furosemide (Lasix) 20 mg IVPUSH NOW ONE Stop: 08/15/19 08:15 Last Admin: 08/15/19 10:05 Dose: 20 mg Furosemide (Lasix) 40 mg IVPUSH ONETIME [facility] Stop: 08/15/19 16:00 Last Admin: 08/15/19 13:58 Dose: 40 mg Furosemide (Lasix) 20 mg IVPUSH NOW ONE Stop: 08/15/19 21:16 Last Admin: 08/15/19 22:12 Dose: 20 mg Furosemide (Lasix) 40 mg IVPUSH DAILY [facility] Last Admin: 08/16/19 09:28 Dose: 40 mg Furosemide (Lasix) 20 mg IVPUSH Q6H [facility] Stop: 08/17/19 01:31 Last Admin: 08/16/19 18:56 Dose: 20 mg Furosemide (Lasix) 40 mg IVPUSH DAILY@0700 [facility] Last Admin: 08/17/19 06:00 Dose: 40 mg Furosemide (Lasix) 40 mg IVPUSH BIDDIURETIC [facility] Last Admin: 08/21/19 06:43 Dose: 40 mg Hydromorphone HCl (Dilaudid) 0.5 mg IVPUSH ONETIME ONE Stop: 08/11/19 22:32 Last Admin: 08/11/19 23:09 Dose: 0.25 mg Hydromorphone HCl (Dilaudid) 1 mg IVPUSH ONETIME ONE Stop: 08/11/19 23:47 Last Admin: 08/12/19 00:54 Dose: 1 mg Hydromorphone HCl (Dilaudid) 0.5 mg IVPUSH ONETIME ONE Stop: 08/12/19 03:50 Last Admin: 08/12/19 04:16 Dose: 0.5 mg Hydromorphone HCl (Dilaudid) 0.5 mg IVPUSH ONETIME ONE Stop: 08/12/19 09:22 Last Admin: 08/12/19 09:27 Dose: 0.5 mg Dextrose/Sodium Chloride (Dextrose 5%-Normal Saline) 1,000 mls @ 125 mls/hr IV ASDIRECTED [facility] Last Admin: 08/11/19 22:58 Dose: 125 mls/hr Vancomycin HCl 1.75 gm/ Sodium (Chloride) 500 mls @ 250 mls/hr IV ONETIME ONE Stop: 08/12/19 06:13 Last Admin: 08/12/19 06:48 Dose: 250 mls/hr Sodium Chloride (Normal Saline) 1,000 mls @ 999 mls/hr IV ASDIRECTED [facility] Last Admin: 08/12/19 06:20 Dose: 999 mls/hr Magnesium Sulfate 4 gm/ Premix 100 mls @ 25 mls/hr IV ONETIME ONE Stop: 08/12/19 15:59 Last Admin: 08/12/19 13:22 Dose: 25 mls/hr Albumin Human (Flexbumin 25%) 12.5 gm in 50 mls @ 100 mls/hr IV ONETIME ONE Stop: 08/12/19 13:14 Last Admin: 08/12/19 12:54 Dose: 100 mls/hr Sodium Chloride (Sodium Chloride 0.9%) 500 mls @ 999 mls/hr IRR ASDIRECTED [facility] Sodium Chloride (Normal Saline) 500 mls @ 999 mls/hr IV .BOLUS ONE Stop: 08/13/19 02:18 Last Admin: 08/13/19 01:49 Dose: 999 mls/hr Ceftriaxone Sodium 1 gm/ (Sodium Chloride) 100 mls @ 200 mls/hr IV Q24H [facility] Last Admin: 08/17/19 01:36 Dose: 200 mls/hr Albumin Human (Flexbumin 25%) 12.5 gm in 50 mls @ 100 mls/hr IV ONETIME ONE Stop: 08/13/19 03:23 Last Admin: 08/13/19 03:18 Dose: 100 mls/hr Metronidazole 500 mg/ Premix 100 mls @ 100 mls/hr IV Q8H [facility] Last Admin: 08/17/19 07:45 Dose: 100 mls/hr Furosemide 100 mg/ Sodium (Chloride) 100 mls @ 5 mls/hr IV TITRATE [facility]; Protocol Last Admin: 08/13/19 11:34 Dose: 5 mls/hr Vancomycin HCl 1 gm/Vancomycin HCl 250 mg/ Sodium Chloride 250 mls @ 166.667 mls/hr IV Q24H [facility] Stop: 08/13/19 17:00 Last Admin: 08/13/19 13:56 Dose: 166.667 mls/hr Vancomycin HCl 1 gm/Vancomycin HCl 250 mg/ Sodium Chloride 250 mls @ 166.667 mls/hr IV Q24H [facility] Last Admin: 08/16/19 13:34 Dose: 166.667 mls/hr Albumin Human (Flexbumin 25%) 12.5 gm in 50 mls @ 100 mls/hr IV ONETIME ONE Stop: 08/13/19 17:34 Last Admin: 08/13/19 17:30 Dose: 100 mls/hr Albumin Human (Flexbumin 25%) 12.5 gm in 50 mls @ 100 mls/hr IV Q6H [facility] Stop: 08/14/19 12:02 Last Admin: 08/14/19 06:05 Dose: 100 mls/hr Albumin Human (Flexbumin 25%) 12.5 gm in 50 mls @ 100 mls/hr IV ONETIME ONE Stop: 08/14/19 12:29 Last Admin: 08/14/19 11:21 Dose: 100 mls/hr Magnesium Sulfate 2 gm/ Premix 50 mls @ 25 mls/hr IV ONETIME ONE Stop: 08/15/19 10:18 Last Admin: 08/15/19 10:00 Dose: 25 mls/hr Sodium Chloride (Normal Saline) 250 mls @ 100 mls/hr IV ASDIRECTED [facility] Stop: 08/15/19 16:00 Sodium Chloride (Normal Saline) Confirm Administered Dose 500 mls @ as directed .ROUTE .STK-MED ONE Stop: 08/15/19 11:14 Last Admin: 08/15/19 12:04 Dose: Not Given Sodium Chloride (Normal Saline) 500 mls @ 150 mls/hr IV .BOLUS [facility] Last Admin: 08/15/19 11:30 Dose: 150 mls/hr Magnesium Sulfate 4 gm/ Premix 50 mls @ 12.5 mls/hr IV ONETIME ONE Stop: 08/16/19 12:18 Last Admin: 08/16/19 09:25 Dose: 12.5 mls/hr Magnesium Sulfate 4 gm/ Premix 50 mls @ 12.5 mls/hr IV ONETIME ONE Stop: 08/18/19 13:53 Last Admin: 08/18/19 11:18 Dose: 12.5 mls/hr Magnesium Sulfate 2 gm/ Premix 50 mls @ 25 mls/hr IV ONETIME ONE Stop: 08/20/19 12:20 Last Admin: 08/20/19 10:44 Dose: 25 mls/hr Magnesium Sulfate 4 gm/ Premix 100 mls @ 25 mls/hr IV ONETIME ONE Stop: 08/22/19 12:34 Last Admin: 08/22/19 14:26 Dose: Not Given Insulin Glargine (Lantus) 10 unit SUBCUT QPM [facility] Last Admin: 08/18/19 22:36 Dose: 10 units Insulin Human Lispro (Humalog) 0 unit SUBCUT QIDACANDBED [facility]; Protocol Last Admin: 08/19/19 13:01 Dose: Not Given Insulin Human Lispro (Humalog) 3 unit SUBCUT TIDAC [facility] Last Admin: 08/20/19 13:20 Dose: Not Given Lactulose (Cephulac) 20 gm PO ONETIME ONE Stop: 08/12/19 03:50 Last Admin: 08/12/19 04:39 Dose: 20 gm Loperamide HCl (Imodium) 4 mg PO ONETIME ONE Stop: 08/14/19 10:46 Last Admin: 08/14/19 11:09 Dose: 4 mg Magnesium Oxide (Magnesium Oxide) 400 mg PO Q12H [facility] Last Admin: 08/22/19 06:44 Dose: 400 mg Magnesium Oxide (Magnesium Oxide) 800 mg PO ONETIME ONE Stop: 08/23/19 14:04 Last Admin: 08/23/19 14:32 Dose: 800 mg Magnesium Oxide (Magnesium Oxide) 800 mg PO ONETIME ONE Stop: 08/22/19 17:01 Last Admin: 08/22/19 17:28 Dose: 800 mg Magnesium Oxide (Magnesium Oxide) 800 mg PO BID [facility] Last Admin: 08/24/19 09:42 Dose: 800 mg Magnesium Oxide (Magnesium Oxide) 400 mg PO ONETIME ONE Stop: 08/24/19 12:01 Last Admin: 08/24/19 12:59 Dose: 400 mg Metoclopramide HCl (Reglan) 10 mg IVPUSH ONETIME ONE Stop: 08/11/19 22:32 Last Admin: 08/11/19 23:03 Dose: 10 mg Metoclopramide HCl (Reglan) 7.5 mg IVPUSH ONETIME ONE Stop: 08/12/19 03:50 Last Admin: 08/12/19 04:14 Dose: 7.5 mg Mupirocin (Bactroban Oint) 0 gm TOP DAILY [facility] Last Admin: 08/25/19 09:03 Dose: 1 applic Pantoprazole Sodium (Protonix) 40 mg PO DAILY [facility] Last Admin: 08/14/19 08:21 Dose: 40 mg Pantoprazole Sodium (Protonix Iv) 40 mg IVPUSH Q12H [facility] Last Admin: 08/16/19 09:28 Dose: 40 mg Phytonadione (Aquamephyton) 2.5 mg PO ONETIME ONE Stop: 08/14/19 11:16 Last Admin: 08/14/19 11:27 Dose: 2.5 mg Potassium Chloride (Klor-Con M20) 40 meq PO ONETIME ONE Stop: 08/16/19 08:22 Last Admin: 08/16/19 09:27 Dose: 40 meq Potassium Chloride (Klor-Con M20) 40 meq PO ONETIME ONE Stop: 08/18/19 09:56 Last Admin: 08/18/19 11:17 Dose: 40 meq Psyllium Husk (Metamucil Sugar Free) 1 packet PO BID [facility] Last Admin: 08/21/19 09:21 Dose: 1 packet Sodium Phosphate (Neutra-Phos) 250 mg PO BID [facility] Stop: 08/21/19 21:01 Last Admin: 08/21/19 21:25 Dose: 250 mg Vancomycin HCl (Pharmacy To Dose - Vancomycin) 1 dose .XX ASDIRECTED PRN PRN Reason: RX TO DOSE VANCO Warfarin Sodium (Pharmacy To Dose - Warfarin) 1 dose .XX ASDIRECTED PRN PRN Reason: RX TO DOSE WARFARIN Warfarin Sodium (Coumadin Sliding Scale) 0 each PO QPM [facility] Stop: 08/12/19 18:01 Last Admin: 08/12/19 18:04 Dose: Not Given Warfarin Sodium (Coumadin Sliding Scale) 0 each PO QPM [facility] Stop: 08/13/19 18:01 Last Admin: 08/13/19 19:41 Dose: Not Given Warfarin Sodium (Coumadin) 1 mg PO ONETIME ONE Stop: 08/26/19 18:01 Last Admin: 08/26/19 17:38 Dose: 1 mg - Exam Quality Assessment: DVT Prophylaxis. No: Supplemental Oxygen General: Alert, Oriented, Cooperative, No Acute Distress HEENT: Pupils Equal, Pupils Reactive, Mucous Membr. Moist/[place] Neck: Supple, Trachea Midline Lungs: Clear to Auscultation, Normal Respiratory Effort Cardiovascular: Regular Rate, Regular Rhythm GI/Abdominal Exam: Normal Bowel Sounds, Soft, Non-Tender, No Distention (Male) Exam: Deferred Extremities: No Pedal Edema, Normal Capillary Refill, Other (left below the knee amputation. Wound on medial side of stump. Mepilex in place. Edema resolved. ) Peripheral Pulses: 2+: Radial (L), Radial (R), Dorsalis Pedis (R) Skin: Warm, Dry, Intact Wound/Incisions: Dressing Dry and Intact. 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 SNOMED Code(s): 45827043051512619 Code(s): I50.9 - HEART FAILURE, UNSPECIFIED; I25.5 - ISCHEMIC CARDIOMYOPATHY Status: Acute Current Visit: Yes (2) Anasarca SNOMED Code(s): 862129565, 902689407 Code(s): R60.1 - GENERALIZED EDEMA Status: Acute Current Visit: Yes (3) Aspiration pneumonia of both lungs SNOMED Code(s): 783377245, 876141949 Code(s): J69.0 - PNEUMONITIS DUE TO INHALATION OF FOOD AND VOMIT Status: Acute Current Visit: Yes (4) Atrial fibrillation with controlled ventricular rate SNOMED Code(s): 25595315 Code(s): I48.91 - UNSPECIFIED ATRIAL FIBRILLATION Status: Acute Current Visit: Yes (5) COPD (chronic obstructive pulmonary disease) SNOMED Code(s): 97240030 Code(s): J44.9 - CHRONIC OBSTRUCTIVE PULMONARY DISEASE, UNSPECIFIED Status : Acute Current Visit: Yes (6) Cellulitis SNOMED Code(s): 277739163 Code(s): L03.90 - CELLULITIS, UNSPECIFIED Status: Acute Current Visit: Yes Qualifiers: Site of cellulitis: extremity Site of cellulitis of extremity: lower extremity Laterality: left Qualified Code(s): L03.116 - Cellulitis of left lower limb (7) Dyslipidemia SNOMED Code(s): 996137198 Code(s): E78.5 - HYPERLIPIDEMIA, UNSPECIFIED Status: Acute Current Visit : Yes (8) Hypoalbuminemia due to protein-calorie malnutrition SNOMED Code(s): 94015060553654 Code(s): E88.09 - OTH DISORDERS OF PLASMA-PROTEIN METABOLISM, NEC; E46 - UNSPECIFIED PROTEIN-CALORIE MALNUTRITION Status: Acute Current Visit: Yes (9) Hypochromic anemia SNOMED Code(s): 93752100 Code(s): D50.9 - IRON DEFICIENCY ANEMIA, UNSPECIFIED Status: Acute Current Visit: Yes (10) Hypoglycemia SNOMED Code(s): 188528729 Code(s): E16.2 - HYPOGLYCEMIA, UNSPECIFIED Status: Acute Current Visit: Yes (11) Hypoxemia SNOMED Code(s): 818465694 Code(s): R09.02 - HYPOXEMIA Status: Acute Current Visit: Yes (12) MRSA cellulitis SNOMED Code(s): 665834440 Code(s): L03.90 - CELLULITIS, UNSPECIFIED; B95.62 - METHICILLIN RESIS STAPH INFCT CAUSING DISEASES CLASSD [id number] Status: Acute Current Visit: Yes (13) MSSA infection, non-invasive SNOMED Code(s): 334068396 Code(s): A49.01 - METHICILLIN SUSCEP STAPH INFECTION, UNSP SITE Status: Acute Current Visit: Yes (14) Mild pulmonary hypertension SNOMED Code(s): 58223264 Code(s): I27.20 - PULMONARY HYPERTENSION, UNSPECIFIED Status: Acute Current Visit: Yes (15) Acute kidney failure SNOMED Code(s): 41058989 Code(s): N17.9 - ACUTE KIDNEY FAILURE, UNSPECIFIED Status: Acute Current Visit: No (16) Anemia SNOMED Code(s): 712611664 Code(s): D64.9 - ANEMIA, UNSPECIFIED Status: Acute Current Visit: No (17) Anticoagulated on Coumadin SNOMED Code(s): 21364819 Code(s): Z79.01 - HALF-WAY (CURRENT) USE OF 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 Status: Acute Current Visit: No (18) Chronic kidney disease SNOMED Code(s): 587431517 Code(s): N18.9 - CHRONIC KIDNEY DISEASE, UNSPECIFIED Status: Acute Current Visit: No (19) Congestive heart failure SNOMED Code(s): 10850624 Code(s): I50.9 - HEART FAILURE, UNSPECIFIED Status: Acute Current Visit: No (20) Coronary artery disease SNOMED Code(s): 17035944 Code(s): I25.10 - ATHSCL HEART DISEASE OF [place] CORONARY ARTERY W/O ANG PCTRS Status: Acute Current Visit: No (21) Diabetes mellitus SNOMED Code(s): 44510947 Code(s): E11.9 - TYPE 2 DIABETES MELLITUS WITHOUT COMPLICATIONS Status: Acute Current Visit: No (22) Diabetic neuropathy SNOMED Code(s): 608206425, 479364437 Code(s): E11.40 - TYPE 2 DIABETES MELLITUS WITH DIABETIC NEUROPATHY, UNSP Status: Acute Current Visit: No (23) Leukocytosis SNOMED Code(s): 321709994, 747475675 Code(s): D72.829 - ELEVATED WHITE BLOOD CELL COUNT, UNSPECIFIED Status: Acute Current Visit: No (24) Peripheral vascular disease SNOMED Code(s): 364083335 Code(s): I73.9 - PERIPHERAL VASCULAR DISEASE, UNSPECIFIED Status: Acute Current Visit: No (25) Subtherapeutic international normalized ratio (INR) SNOMED Code(s): 133080350, 703808332 Code(s): R79.1 - ABNORMAL COAGULATION PROFILE Status: Acute Current Visit : No - Problem List Review Problem List Initiated/Reviewed/Updated: Yes - Plan Plan:: 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 Tmax 97.9 PT states wound continues to reduce in size, edema resolved. Checked pacemaker compatibility for MRI -> unable to obtain due to facility policy PLAN - Off of antibiotics - Continue wound care by PT with medihoney and foam adhesive dressing - Trend temperature - Pain control with with Fentanyl patch and [place] 5 Aspiration pneumonia of both lungs CVA with residual dysphagia COPD Previously diagnosed dysphagia Required O2 at 6L on admission, Continues on room air On Rocephin + Flagyl for 5 days -> completed treatment O2 sat > 92% on RA PLAN - Continue regular diet with thin liquids - Monitor respiratory status - Vital signs Qshift Acute kidney failure Chronic kidney disease Hypochromic anemia, multifactorial Hypomagnesemia GFR on admission 83, stable Hb 10.7 on admission, down to 7.9 with GI bleed s/p transfusion 1u PRBC, current Hgb stable Mg 1.6 yesterday PLAN - Renally dosed medications - Avoid nephrotoxic agents - Monitor urine output - Monitor electrolytes Diabetes mellitus, 7.0% HbA1c Diabetic neuropathy Hypoglycemia Glucose prior to admission 22 Trend in past 24 hours, 91-204 Getting fasting hypoglycemias, will discontinue long acting insulin PLAN - Continue current insulin regimen - Hypoglycemia protocol Atrial fibrillation with controlled ventricular rate Ischemic HFpEF Mild pulmonary hypertension Multifactorial anasarca HR trend 70s Recent echo with mild pulmonary hypertension with severe biatrial enlargement Admission weight 81.5kg On warfarin at home, held here due to GI bleed -> resumed PLAN - Monitor VS - Switch to PO lasix Hypoalbuminemia due to protein-calorie malnutrition Albumin on admission 1 PLAN - Follow up with dietary recommendations Subtherapeutic international normalized ratio (INR) on admission- resolved Hypoxemia on admission - resolved Hypophosphatemia, resolved Lower GI bleed, resolved PROPHYLAXIS DVT- SCDs GI- Pantoprazole CODE STATUS: DNR/DNI DISPOSITION: Patient will remain admitted pending placement likely tomorrow Patient is from [facility] but family is refusing to go back, [facility] denied patient due to MRSA, application has been sent to multiple SNF locations and we are pending bed availability. It is important to mention that MRSA infection and colonization were treated here for 14 days and he has completed treatment of both. Attempted to obtain MRI of left leg wound, unable to obtain due to facility policy with pacemaker. Consider OP follow-up. Prolonged stay, greater than 96 hours due to suboptimal treatment response and need for placement
[2019-08-27] MEDS: Insulin Lispro 100 Units/ML 3 ML Vial SUBCUT SCH ×2 (11:36→16:42)
[2019-08-27] MEDS: Calcium Polycarbophil 625 MG Tab PO SCH (11:37)
[2019-08-27] MEDS: Simvastatin 20 MG Tab PO SCH (20:24)
[2019-08-27 20:48] VITALS: PULSE 70
[2019-08-28] MEDS: Magnesium Oxide 400 MG Tab PO SCH (05:43)
[2019-08-28] MEDS: Pantoprazole 40 MG Tab.CR PO SCH (05:43)
[2019-08-28] MEDS: Furosemide 20 MG Tab PO SCH ×2 (05:44→14:25)
--- NOTE | 2019-08-28 07:29 | PCM.PN ---
- General Info Date of Service: 08/28/19 Admission Dx/Problem (Free Text): Admission Diagnosis/Problem Admission Diagnosis/Problem Ileus - Patient Data Vitals - Most Recent: Last Vital Signs Temp 97.9 F 08/27/19 20:14 Pulse 70 08/27/19 20:14 Resp 14 08/27/19 20:14 BP 105/58 L 08/27/19 20:14 Pulse Ox 96 08/27/19 20:14 Weight - Most Recent: 159 lb 12.8 oz I&O - Last 24 Hours: Intake & Output 08/27/19 08/28/19 08/28/19 22:59 06:59 14:59 Intake Total 420 400 Output Total 1450 800 Balance -1030 -400 Lab Results Last 24 Hours: Laboratory Results - last 24 hr 08/27/19 08/27/19 08/27/19 Range/Units 11:17 16:30 20:20 PT (9.7-12.0) SECONDS INR Sodium (136-145) mEq/L Potassium (3.5-5.1) mEq/L Chloride (98-107) mEq/L Carbon Dioxide (21-32) mEq/L Anion Gap (5-15) BUN (7-18) mg/dL Creatinine (0.7-1.3) mg/dL Est Cr Clr Drug Dosing mL/min Estimated GFR (MDRD) (>60) mL/min BUN/Creatinine Ratio (14-18) Glucose (83-115) mg/dL POC Glucose 204 H 121 H 94 (83-110) mg/dL Calcium (8.5-10.1) mg/dL Magnesium (1.8-2.4) mg/dl 08/28/19 08/28/19 08/28/19 Range/Units 05:25 05:25 05:43 PT 13.8 H (9.7-12.0) SECONDS INR 1.28 Sodium 141 (136-145) mEq/L Potassium 4.8 (3.5-5.1) mEq/L Chloride 106 (98-107) mEq/L Carbon Dioxide 32 (21-32) mEq/L Anion Gap 7.8 (5-15) BUN 11 (7-18) mg/dL Creatinine 1.2 (0.7-1.3) mg/dL Est Cr Clr Drug Dosing 45.30 mL/min Estimated GFR (MDRD) 57 (>60) mL/min BUN/Creatinine Ratio 9.2 L (14-18) Glucose 92 (83-115) mg/dL POC Glucose 92 (83-110) mg/dL Calcium 7.6 L (8.5-10.1) mg/dL Magnesium 1.7 L (1.8-2.4) mg/dl Lonny Results Last 24 Hours: Microbiology 08/24/19 09:35 Wound Culture - Preliminary Leg, Left NO GROWTH AFTER 3 DAYS Med Orders - Current: Current Medications Acetaminophen (Tylenol) 650 mg PO Q4H PRN PRN Reason: Pain Last Admin: 08/22/19 12:16 Dose: 650 mg Hydrocodone Bitart/Acetaminophen ([place] 325-5 Mg) 1 tab PO Q8H PRN PRN Reason: Abdominal Pain Last Admin: 08/14/19 08:21 Dose: 1 tab Albuterol/Ipratropium (Duoneb 3.0-0.5 Mg/3 Ml) 3 ml INH QID PRN PRN Reason: Wheezing Calcium Polycarbophil (Fibercon) 625 mg PO 1200 [facility] Last Admin: 08/27/19 11:37 Dose: 625 mg Fentanyl (Duragesic) 25 mcg TOP Q72H [facility] Last Admin: 08/25/19 10:07 Dose: 25 mcg Furosemide (Lasix) 60 mg PO BIDDIURETIC [facility] Last Admin: 08/28/19 05:44 Dose: 60 mg Gabapentin (Neurontin) 200 mg PO BID [facility] Last Admin: 08/27/19 20:23 Dose: 200 mg Insulin Human Lispro (Humalog) 3 unit SUBCUT 1100,1700 [facility] Last Admin: 08/27/19 16:42 Dose: 3 units Magnesium Oxide (Magnesium Oxide) 1,200 mg PO Q12H [facility] Last Admin: 08/28/19 05:43 Dose: 1,200 mg Miscellaneous Information (Remove Patch) 0 ea TRDERM Q72H [facility] Last Admin: 08/25/19 11:07 Dose: Not Given Ondansetron HCl (Zofran Odt) 4 mg PO Q6H PRN PRN Reason: Vomiting Pantoprazole Sodium (Protonix) 40 mg PO ACBREAKFAST [facility] Last Admin: 08/28/19 05:43 Dose: 40 mg Polyethylene Glycol (Miralax) 17 gm PO DAILY PRN PRN Reason: Constipation Potassium Chloride (Klor-Con M20) 20 meq PO DAILY [facility] Last Admin: 08/27/19 08:37 Dose: 20 meq Saccharomyces Boulardii (Florastor) 250 mg PO DAILY [facility] Last Admin: 08/27/19 08:31 Dose: 250 mg Simvastatin (Zocor) 20 mg PO BEDTIME [facility] Last Admin: 08/27/19 20:24 Dose: 20 mg Warfarin Sodium (Pharmacy To Dose - Warfarin) 0 dose PO ASDIRECTED [facility] Discontinued Medications Aspirin (Aspirin) 81 mg PO DAILY [facility] Last Admin: 08/13/19 09:11 Dose: 81 mg Budesonide (Pulmicort) 0.5 mg INH BID [facility] Last Admin: 08/19/19 08:16 Dose: 0.5 mg Cholestyramine Resin (Cholestyramine Packet) 4 gm PO BIDAC [facility] Last Admin: 08/21/19 16:57 Dose: 4 gm Doxycycline Hyclate (Vibramycin) 100 mg PO BID [facility] Last Admin: 08/25/19 09:03 Dose: 100 mg Furosemide (Lasix) Confirm Administered Dose 80 mg .ROUTE .STK-MED ONE Stop: 08/12/19 01:31 Last Admin: 08/12/19 03:05 Dose: Not Given Furosemide (Lasix) 60 mg IVPUSH NOW ONE Stop: 08/12/19 01:16 Last Admin: 08/12/19 03:12 Dose: 60 mg Furosemide (Lasix) 40 mg IVPUSH NOW ONE Stop: 08/12/19 12:33 Last Admin: 08/12/19 12:54 Dose: 40 mg Furosemide (Lasix) 20 mg IVPUSH ONETIME ONE Stop: 08/13/19 18:16 Last Admin: 08/13/19 19:18 Dose: 20 mg Furosemide (Lasix) 20 mg IVPUSH Q6H [facility] Stop: 08/14/19 06:31 Last Admin: 08/14/19 06:06 Dose: 20 mg Furosemide (Lasix) 20 mg IVPUSH ONETIME ONE Stop: 08/14/19 12:31 Last Admin: 08/14/19 12:42 Dose: 20 mg Furosemide (Lasix) 20 mg IVPUSH ONETIME ONE Stop: 08/14/19 20:01 Last Admin: 08/14/19 20:54 Dose: 20 mg Furosemide (Lasix) 20 mg IVPUSH NOW ONE Stop: 08/15/19 08:15 Last Admin: 08/15/19 10:05 Dose: 20 mg Furosemide (Lasix) 40 mg IVPUSH ONETIME [facility] Stop: 08/15/19 16:00 Last Admin: 08/15/19 13:58 Dose: 40 mg Furosemide (Lasix) 20 mg IVPUSH NOW ONE Stop: 08/15/19 21:16 Last Admin: 08/15/19 22:12 Dose: 20 mg Furosemide (Lasix) 40 mg IVPUSH DAILY [facility] Last Admin: 08/16/19 09:28 Dose: 40 mg Furosemide (Lasix) 20 mg IVPUSH Q6H [facility] Stop: 08/17/19 01:31 Last Admin: 08/16/19 18:56 Dose: 20 mg Furosemide (Lasix) 40 mg IVPUSH DAILY@0700 [facility] Last Admin: 08/17/19 06:00 Dose: 40 mg Furosemide (Lasix) 40 mg IVPUSH BIDDIURETIC [facility] Last Admin: 08/21/19 06:43 Dose: 40 mg Hydromorphone HCl (Dilaudid) 0.5 mg IVPUSH ONETIME ONE Stop: 08/11/19 22:32 Last Admin: 08/11/19 23:09 Dose: 0.25 mg Hydromorphone HCl (Dilaudid) 1 mg IVPUSH ONETIME ONE Stop: 08/11/19 23:47 Last Admin: 08/12/19 00:54 Dose: 1 mg Hydromorphone HCl (Dilaudid) 0.5 mg IVPUSH ONETIME ONE Stop: 08/12/19 03:50 Last Admin: 08/12/19 04:16 Dose: 0.5 mg Hydromorphone HCl (Dilaudid) 0.5 mg IVPUSH ONETIME ONE Stop: 08/12/19 09:22 Last Admin: 08/12/19 09:27 Dose: 0.5 mg Dextrose/Sodium Chloride (Dextrose 5%-Normal Saline) 1,000 mls @ 125 mls/hr IV ASDIRECTED [facility] Last Admin: 08/11/19 22:58 Dose: 125 mls/hr Vancomycin HCl 1.75 gm/ Sodium (Chloride) 500 mls @ 250 mls/hr IV ONETIME ONE Stop: 08/12/19 06:13 Last Admin: 08/12/19 06:48 Dose: 250 mls/hr Sodium Chloride (Normal Saline) 1,000 mls @ 999 mls/hr IV ASDIRECTED [facility] Last Admin: 08/12/19 06:20 Dose: 999 mls/hr Magnesium Sulfate 4 gm/ Premix 100 mls @ 25 mls/hr IV ONETIME ONE Stop: 08/12/19 15:59 Last Admin: 08/12/19 13:22 Dose: 25 mls/hr Albumin Human (Flexbumin 25%) 12.5 gm in 50 mls @ 100 mls/hr IV ONETIME ONE Stop: 08/12/19 13:14 Last Admin: 08/12/19 12:54 Dose: 100 mls/hr Sodium Chloride (Sodium Chloride 0.9%) 500 mls @ 999 mls/hr IRR ASDIRECTED [facility] Sodium Chloride (Normal Saline) 500 mls @ 999 mls/hr IV .BOLUS ONE Stop: 08/13/19 02:18 Last Admin: 08/13/19 01:49 Dose: 999 mls/hr Ceftriaxone Sodium 1 gm/ (Sodium Chloride) 100 mls @ 200 mls/hr IV Q24H [facility] Last Admin: 08/17/19 01:36 Dose: 200 mls/hr Albumin Human (Flexbumin 25%) 12.5 gm in 50 mls @ 100 mls/hr IV ONETIME ONE Stop: 08/13/19 03:23 Last Admin: 08/13/19 03:18 Dose: 100 mls/hr Metronidazole 500 mg/ Premix 100 mls @ 100 mls/hr IV Q8H [facility] Last Admin: 08/17/19 07:45 Dose: 100 mls/hr Furosemide 100 mg/ Sodium (Chloride) 100 mls @ 5 mls/hr IV TITRATE [facility]; Protocol Last Admin: 08/13/19 11:34 Dose: 5 mls/hr Vancomycin HCl 1 gm/Vancomycin HCl 250 mg/ Sodium Chloride 250 mls @ 166.667 mls/hr IV Q24H [facility] Stop: 08/13/19 17:00 Last Admin: 08/13/19 13:56 Dose: 166.667 mls/hr Vancomycin HCl 1 gm/Vancomycin HCl 250 mg/ Sodium Chloride 250 mls @ 166.667 mls/hr IV Q24H [facility] Last Admin: 08/16/19 13:34 Dose: 166.667 mls/hr Albumin Human (Flexbumin 25%) 12.5 gm in 50 mls @ 100 mls/hr IV ONETIME ONE Stop: 08/13/19 17:34 Last Admin: 08/13/19 17:30 Dose: 100 mls/hr Albumin Human (Flexbumin 25%) 12.5 gm in 50 mls @ 100 mls/hr IV Q6H [facility] Stop: 08/14/19 12:02 Last Admin: 08/14/19 06:05 Dose: 100 mls/hr Albumin Human (Flexbumin 25%) 12.5 gm in 50 mls @ 100 mls/hr IV ONETIME ONE Stop: 08/14/19 12:29 Last Admin: 08/14/19 11:21 Dose: 100 mls/hr Magnesium Sulfate 2 gm/ Premix 50 mls @ 25 mls/hr IV ONETIME ONE Stop: 08/15/19 10:18 Last Admin: 08/15/19 10:00 Dose: 25 mls/hr Sodium Chloride (Normal Saline) 250 mls @ 100 mls/hr IV ASDIRECTED [facility] Stop: 08/15/19 16:00 Sodium Chloride (Normal Saline) Confirm Administered Dose 500 mls @ as directed .ROUTE .STK-MED ONE Stop: 08/15/19 11:14 Last Admin: 08/15/19 12:04 Dose: Not Given Sodium Chloride (Normal Saline) 500 mls @ 150 mls/hr IV .BOLUS [facility] Last Admin: 08/15/19 11:30 Dose: 150 mls/hr Magnesium Sulfate 4 gm/ Premix 50 mls @ 12.5 mls/hr IV ONETIME ONE Stop: 08/16/19 12:18 Last Admin: 08/16/19 09:25 Dose: 12.5 mls/hr Magnesium Sulfate 4 gm/ Premix 50 mls @ 12.5 mls/hr IV ONETIME ONE Stop: 08/18/19 13:53 Last Admin: 08/18/19 11:18 Dose: 12.5 mls/hr Magnesium Sulfate 2 gm/ Premix 50 mls @ 25 mls/hr IV ONETIME ONE Stop: 08/20/19 12:20 Last Admin: 08/20/19 10:44 Dose: 25 mls/hr Magnesium Sulfate 4 gm/ Premix 100 mls @ 25 mls/hr IV ONETIME ONE Stop: 08/22/19 12:34 Last Admin: 08/22/19 14:26 Dose: Not Given Insulin Glargine (Lantus) 10 unit SUBCUT QPM [facility] Last Admin: 08/18/19 22:36 Dose: 10 units Insulin Human Lispro (Humalog) 0 unit SUBCUT QIDACANDBED [facility]; Protocol Last Admin: 08/19/19 13:01 Dose: Not Given Insulin Human Lispro (Humalog) 3 unit SUBCUT TIDAC [facility] Last Admin: 08/20/19 13:20 Dose: Not Given Lactulose (Cephulac) 20 gm PO ONETIME ONE Stop: 08/12/19 03:50 Last Admin: 08/12/19 04:39 Dose: 20 gm Loperamide HCl (Imodium) 4 mg PO ONETIME ONE Stop: 08/14/19 10:46 Last Admin: 08/14/19 11:09 Dose: 4 mg Magnesium Oxide (Magnesium Oxide) 400 mg PO Q12H [facility] Last Admin: 08/22/19 06:44 Dose: 400 mg Magnesium Oxide (Magnesium Oxide) 800 mg PO ONETIME ONE Stop: 08/23/19 14:04 Last Admin: 08/23/19 14:32 Dose: 800 mg Magnesium Oxide (Magnesium Oxide) 800 mg PO ONETIME ONE Stop: 08/22/19 17:01 Last Admin: 08/22/19 17:28 Dose: 800 mg Magnesium Oxide (Magnesium Oxide) 800 mg PO BID [facility] Last Admin: 08/24/19 09:42 Dose: 800 mg Magnesium Oxide (Magnesium Oxide) 400 mg PO ONETIME ONE Stop: 08/24/19 12:01 Last Admin: 08/24/19 12:59 Dose: 400 mg Metoclopramide HCl (Reglan) 10 mg IVPUSH ONETIME ONE Stop: 08/11/19 22:32 Last Admin: 08/11/19 23:03 Dose: 10 mg Metoclopramide HCl (Reglan) 7.5 mg IVPUSH ONETIME ONE Stop: 08/12/19 03:50 Last Admin: 08/12/19 04:14 Dose: 7.5 mg Mupirocin (Bactroban Oint) 0 gm TOP DAILY [facility] Last Admin: 08/25/19 09:03 Dose: 1 applic Pantoprazole Sodium (Protonix) 40 mg PO DAILY [facility] Last Admin: 08/14/19 08:21 Dose: 40 mg Pantoprazole Sodium (Protonix Iv) 40 mg IVPUSH Q12H [facility] Last Admin: 08/16/19 09:28 Dose: 40 mg Phytonadione (Aquamephyton) 2.5 mg PO ONETIME ONE Stop: 08/14/19 11:16 Last Admin: 08/14/19 11:27 Dose: 2.5 mg Potassium Chloride (Klor-Con M20) 40 meq PO ONETIME ONE Stop: 08/16/19 08:22 Last Admin: 08/16/19 09:27 Dose: 40 meq Potassium Chloride (Klor-Con M20) 40 meq PO ONETIME ONE Stop: 08/18/19 09:56 Last Admin: 08/18/19 11:17 Dose: 40 meq Psyllium Husk (Metamucil Sugar Free) 1 packet PO BID [facility] Last Admin: 08/21/19 09:21 Dose: 1 packet Sodium Phosphate (Neutra-Phos) 250 mg PO BID [facility] Stop: 08/21/19 21:01 Last Admin: 08/21/19 21:25 Dose: 250 mg Vancomycin HCl (Pharmacy To Dose - Vancomycin) 1 dose .XX ASDIRECTED PRN PRN Reason: RX TO DOSE VANCO Warfarin Sodium (Pharmacy To Dose - Warfarin) 1 dose .XX ASDIRECTED PRN PRN Reason: RX TO DOSE WARFARIN Warfarin Sodium (Coumadin Sliding Scale) 0 each PO QPM [facility] Stop: 08/12/19 18:01 Last Admin: 08/12/19 18:04 Dose: Not Given Warfarin Sodium (Coumadin Sliding Scale) 0 each PO QPM [facility] Stop: 08/13/19 18:01 Last Admin: 08/13/19 19:41 Dose: Not Given Warfarin Sodium (Coumadin) 1 mg PO ONETIME ONE Stop: 08/26/19 18:01 Last Admin: 08/26/19 17:38 Dose: 1 mg Warfarin Sodium (Coumadin) 1 mg PO QPM [facility] Stop: 08/27/19 18:01 Last Admin: 08/27/19 17:00 Dose: 1 mg Sepsis Event Note - Evaluation Sepsis Screening Result: No Definite Risk - Focused Exam Vital Signs: Vital Signs Temp Pulse Resp BP Pulse Ox 08/27/19 20:14 97.9 F 70 14 105/58 L 96 Date Exam was Performed: 08/28/19 Time Exam was Performed: 07:29 - Problem List & Annotations (1) 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 SNOMED Code(s): 74902969440441865 Code(s): I50.9 - HEART FAILURE, UNSPECIFIED; I25.5 - ISCHEMIC CARDIOMYOPATHY Status: Acute Current Visit: Yes (2) Anasarca SNOMED Code(s): 750865613, 411412321 Code(s): R60.1 - GENERALIZED EDEMA Status: Acute Current Visit: Yes (3) Aspiration pneumonia of both lungs SNOMED Code(s): 931707991, 041564418 Code(s): J69.0 - PNEUMONITIS DUE TO INHALATION OF FOOD AND VOMIT Status: Acute Current Visit: Yes (4) Atrial fibrillation with controlled ventricular rate SNOMED Code(s): 08295645 Code(s): I48.91 - UNSPECIFIED ATRIAL FIBRILLATION Status: Acute Current Visit: Yes (5) COPD (chronic obstructive pulmonary disease) SNOMED Code(s): 64778820 Code(s): J44.9 - CHRONIC OBSTRUCTIVE PULMONARY DISEASE, UNSPECIFIED Status : Acute Current Visit: Yes (6) Cellulitis SNOMED Code(s): 114729768 Code(s): L03.90 - CELLULITIS, UNSPECIFIED Status: Acute Current Visit: Yes Qualifiers: Site of cellulitis: extremity Site of cellulitis of extremity: lower extremity Laterality: left Qualified Code(s): L03.116 - Cellulitis of left lower limb (7) Dyslipidemia SNOMED Code(s): 334232248 Code(s): E78.5 - HYPERLIPIDEMIA, UNSPECIFIED Status: Acute Current Visit : Yes (8) Hypoalbuminemia due to protein-calorie malnutrition SNOMED Code(s): 87100761723181 Code(s): E88.09 - OTH DISORDERS OF PLASMA-PROTEIN METABOLISM, NEC; E46 - UNSPECIFIED PROTEIN-CALORIE MALNUTRITION Status: Acute Current Visit: Yes (9) Hypochromic anemia SNOMED Code(s): 27044593 Code(s): D50.9 - IRON DEFICIENCY ANEMIA, UNSPECIFIED Status: Acute Current Visit: Yes (10) Hypoglycemia SNOMED Code(s): 457365345 Code(s): E16.2 - HYPOGLYCEMIA, UNSPECIFIED Status: Acute Current Visit: Yes (11) Hypoxemia SNOMED Code(s): 759838609 Code(s): R09.02 - HYPOXEMIA Status: Acute Current Visit: Yes (12) MRSA cellulitis SNOMED Code(s): 430584236 Code(s): L03.90 - CELLULITIS, UNSPECIFIED; B95.62 - METHICILLIN RESIS STAPH INFCT CAUSING DISEASES CLASSD [id number] Status: Acute Current Visit: Yes (13) MSSA infection, non-invasive SNOMED Code(s): 776646047 Code(s): A49.01 - METHICILLIN SUSCEP STAPH INFECTION, UNSP SITE Status: Acute Current Visit: Yes (14) Mild pulmonary hypertension SNOMED Code(s): 94762362 Code(s): I27.20 - PULMONARY HYPERTENSION, UNSPECIFIED Status: Acute Current Visit: Yes (15) Acute kidney failure SNOMED Code(s): 57804536 Code(s): N17.9 - ACUTE KIDNEY FAILURE, UNSPECIFIED Status: Acute Current Visit: No (16) Anemia SNOMED Code(s): 168589795 Code(s): D64.9 - ANEMIA, UNSPECIFIED Status: Acute Current Visit: No (17) Anticoagulated on Coumadin SNOMED Code(s): 92262563 Code(s): Z79.01 - RETIREMENT (CURRENT) USE OF 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 Status: Acute Current Visit: No (18) Chronic kidney disease SNOMED Code(s): 785335203 Code(s): N18.9 - CHRONIC KIDNEY DISEASE, UNSPECIFIED Status: Acute Current Visit: No (19) Congestive heart failure SNOMED Code(s): 59950404 Code(s): I50.9 - HEART FAILURE, UNSPECIFIED Status: Acute Current Visit: No (20) Coronary artery disease SNOMED Code(s): 85740822 Code(s): I25.10 - ATHSCL HEART DISEASE OF [place] CORONARY ARTERY W/O ANG PCTRS Status: Acute Current Visit: No (21) Diabetes mellitus SNOMED Code(s): 82575859 Code(s): E11.9 - TYPE 2 DIABETES MELLITUS WITHOUT COMPLICATIONS Status: Acute Current Visit: No (22) Diabetic neuropathy SNOMED Code(s): 719719829, 240915980 Code(s): E11.40 - TYPE 2 DIABETES MELLITUS WITH DIABETIC NEUROPATHY, UNSP Status: Acute Current Visit: No (23) Leukocytosis SNOMED Code(s): 366883929, 870998737 Code(s): D72.829 - ELEVATED WHITE BLOOD CELL COUNT, UNSPECIFIED Status: Acute Current Visit: No (24) Peripheral vascular disease SNOMED Code(s): 636626444 Code(s): I73.9 - PERIPHERAL VASCULAR DISEASE, UNSPECIFIED Status: Acute Current Visit: No (25) Subtherapeutic international normalized ratio (INR) SNOMED Code(s): 563274622, 334961989 Code(s): R79.1 - ABNORMAL COAGULATION PROFILE Status: Acute Current Visit : No - Plan Plan:: 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, 05/2019 Peripheral vascular disease Recent BKA getting wound care as an outpatient Unknown if osteomyelitis was ruled out On Doxycycline and Bactroban -> to complete 14 days of treatment Tmax 98.1 PT states wound continues to reduce in size Checked pacemaker compatibility for MRI -> unable to obtain due to facility policy Repeat MRSA screen positive PLAN - Last day of Bactroban and doxycycline day 14 - Continue wound care by PT with medihoney and foam adhesive dressing - Trend temperature - Pain control with with Fentanyl patch and [place] 5 Aspiration pneumonia of both lungs CVA with residual dysphagia COPD Previously diagnosed dysphagia Required O2 at 6L on admission, RA today On Rocephin + Flagyl for 5 days -> completed treatment O2 sat > 95% on RA Speech evaluated patient and advanced diet to regular 08/22 PLAN - Resular diet - Monitor respiratory status - Vital signs Qshift Acute kidney failure Chronic kidney disease Hypochromic anemia, multifactorial Hypomagnesemia GFR on admission 83, stable Hb 10.7 on admission, down to 7.9 with GI bleed s/p transfusion 1u PRBC, current Hb 11.2 Mg 1.5 yesterday replaced--> 1.6 PLAN - Increased scheduled magnesium replacement - Renally dosed medications - Avoid nephrotoxic agents - Monitor urine output - Monitor electrolytes Diabetes mellitus, unknown HbA1c Diabetic neuropathy Hypoglycemia Glucose prior to admission 22 Trend in past 24 hours, 99-184 Getting fasting hypoglycemias, will discontinue long acting insulin HbA1c unreliable due to anemia PLAN - Continue current insulin regimen, 3u at 11 and 1700 hours - Hypoglycemia protocol Atrial fibrillation with controlled ventricular rate Ischemic HFpEF Mild pulmonary hypertension Multifactorial anasarca HR trend 69-70 Recent echo with mild pulmonary hypertension with severe biatrial enlargement Admission weight 81.5kg On warfarin at home, held here due to GI bleed PLAN - Monitor VS - Switch to PO lasix Hypoalbuminemia due to protein-calorie malnutrition Albumin on admission 1 PLAN - Regular diet - Ensure 4oz QID Subtherapeutic international normalized ratio (INR) on admission- resolved Hypoxemia on admission - resolved Hypophosphatemia, resolved Lower GI bleed, resolved PROPHYLAXIS DVT- SCDs GI- Pantoprazole CODE STATUS: DNR/DNI DISPOSITION: Patient will remain admitted pending placement. Patient is from [facility] but family is refusing to go back, [facility] denied patient due to MRSA, application has been sent to [facility] and we are pending bed availability, likely d/c Saturday. It is important to mention that MRSA infection is being actively treated with doxycycline, currently day 14 and patient is also getting treated for colonization with Bactroban, day 14 so risk of spreading MRSA infection is minimized with both of these interventions. Prolonged stay, greater than 96 hours due to suboptimal treatment response and need for placement
[2019-08-28] MEDS: Gabapentin 100 MG Cap PO SCH (08:17)
[2019-08-28] MEDS: Saccharomyces Boulardii (Probiotic) 250 MG Cap PO SCH (08:18)
[2019-08-28] MEDS: Potassium Chloride 20 MEQ Tab.ER PO SCH (08:19)
[2019-08-28] MEDS: fentaNYL 25 MCG/HR Transdermal Patch TOP SCH (08:20)
[2019-08-28 11:27] VITALS: BP 117/62
[2019-08-28] MEDS: Calcium Polycarbophil 625 MG Tab PO SCH (11:57)
[2019-08-28] MEDS: Insulin Lispro 100 Units/ML 3 ML Vial SUBCUT SCH (11:58)
--- NOTE | 2019-08-28 14:33 | PCM.DCSUM1 ---
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 Patient is a difficult and poor historian secondary to a history of stroke, therefore history was obtained through , daughter, and emergency room physician's notes. Apparently patient had a low blood sugar yesterday afternoon reportedly 22 and was given glucagon by nursing and then paramedics were called. Patient was then given an amp of D50 and had some food. Patient has had a poor appetite recently. Family is unknown if he is on anything for his diabetes. At approximately 2030 hrs. patient developed right upper quadrant abdominal pain that intensified. Patient had emesis prior to the emergency department which was mostly clear fluid he had been drinking and some orange juice. Patient at the time described his pain to be 10 out of 10 now it is moderate in severity. Patient complains of some abdominal distention and bloating. His states that he is more swollen in his abdomen. His states that they did say at the retirement he was having difficulty absorbing his protein. Patient apparently had complications secondary to the left knee amputation of difficulty closing the wound and possible infection. He was seen at his orthopedic surgeons office on Saturday and there were no signs of infection but he did have an eschar. Nursing today notes that there is drainage of purulent matter from the eschar today. It is slightly more erythematous. Patient was given vancomycin in the emergency room. Patient's also states that he is having difficulty urinating. This is concerning because he does have significant swelling in the penis and scrotal area. Bladder scan done in the emergency room showed only 100 mL post void residual. Patient was given furosemide 60 mg in the emergency room with very little improvement in urine output. Last bowel movement last night before he came to the emergency room. CT scan done in the emergency room showed: 1. Small bilateral pleural effusions. Consolidation within both lung bases worse on the left side. Differential includes atelectasis or change from aspiration as well as possible pneumonia. Heart is enlarged. Pleural effusions could relate to CHF. 2. Body wall edema and mild ascites. 3. Nonspecific bowel wall thickening within the rectum. 4. Slightly air-filled and mildly dilated loops of colon most likely representing a mild ileus. 5. Other findings ... believed to be incidental. Diagnosis: Stroke: No - Discharge Data Discharge Date: 08/28/19 (Admit date: 08/12/19) Discharge Disposition: Home, Self-Care 01 Condition: Good - Referral to Home Health Primary Care Physician: Les Olvera MD - Discharge Diagnosis/Problem(s) (1) 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 SNOMED Code(s): 77814492700749045 ICD Code: I50.9 - HEART FAILURE, UNSPECIFIED; I25.5 - ISCHEMIC CARDIOMYOPATHY Status: Acute Current Visit: Yes (2) Anasarca SNOMED Code(s): 540008179, 594949277 ICD Code: R60.1 - GENERALIZED EDEMA Status: Acute Current Visit: Yes (3) Aspiration pneumonia of both lungs SNOMED Code(s): 218301820, 350716688 ICD Code: J69.0 - PNEUMONITIS DUE TO INHALATION OF FOOD AND VOMIT Status: Resolved Current Visit: Yes (4) Atrial fibrillation with controlled ventricular rate SNOMED Code(s): 83761190 ICD Code: I48.91 - UNSPECIFIED ATRIAL FIBRILLATION Status: Acute Current Visit: Yes (5) COPD (chronic obstructive pulmonary disease) SNOMED Code(s): 47566353 ICD Code: J44.9 - CHRONIC OBSTRUCTIVE PULMONARY DISEASE, UNSPECIFIED Status : Acute Current Visit: Yes (6) Cellulitis SNOMED Code(s): 555462091 ICD Code: L03.90 - CELLULITIS, UNSPECIFIED Status: Acute Current Visit: Yes Qualifiers: Site of cellulitis: extremity Site of cellulitis of extremity: lower extremity Laterality: left Qualified Code(s): L03.116 - Cellulitis of left lower limb (7) Dyslipidemia SNOMED Code(s): 204667068 ICD Code: E78.5 - HYPERLIPIDEMIA, UNSPECIFIED Status: Acute Current Visit : Yes (8) Hypoalbuminemia due to protein-calorie malnutrition SNOMED Code(s): 90828457499407 ICD Code: E88.09 - OTH DISORDERS OF PLASMA-PROTEIN METABOLISM, NEC; E46 - UNSPECIFIED PROTEIN-CALORIE MALNUTRITION Status: Acute Current Visit: Yes (9) Hypochromic anemia SNOMED Code(s): 06717136 ICD Code: D50.9 - IRON DEFICIENCY ANEMIA, UNSPECIFIED Status: Acute Current Visit: Yes (10) Hypoglycemia SNOMED Code(s): 082201411 ICD Code: E16.2 - HYPOGLYCEMIA, UNSPECIFIED Status: Resolved Current Visit: Yes (11) Hypoxemia SNOMED Code(s): 701226646 ICD Code: R09.02 - HYPOXEMIA Status: Acute Current Visit: Yes (12) MRSA cellulitis SNOMED Code(s): 557371665 ICD Code: L03.90 - CELLULITIS, UNSPECIFIED; B95.62 - METHICILLIN RESIS STAPH INFCT CAUSING DISEASES CLASSD ELSWHR Status: Acute Current Visit: Yes (13) MSSA infection, non-invasive SNOMED Code(s): 941707536 ICD Code: A49.01 - METHICILLIN SUSCEP STAPH INFECTION, UNSP SITE Status: Acute Current Visit: Yes (14) Mild pulmonary hypertension SNOMED Code(s): 97670208 ICD Code: I27.20 - PULMONARY HYPERTENSION, UNSPECIFIED Status: Acute Current Visit: Yes (15) Acute kidney failure SNOMED Code(s): 22964054 ICD Code: N17.9 - ACUTE KIDNEY FAILURE, UNSPECIFIED Status: Resolved Current Visit: No (16) Anemia SNOMED Code(s): 910066342 ICD Code: D64.9 - ANEMIA, UNSPECIFIED Status: Acute Current Visit: No (17) Anticoagulated on Coumadin SNOMED Code(s): 15678921 ICD Code: Z79.01 - [facility] (CURRENT) USE OF 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 Status: Acute Current Visit: No (18) Chronic kidney disease SNOMED Code(s): 108031819 ICD Code: N18.9 - CHRONIC KIDNEY DISEASE, UNSPECIFIED Status: Acute Current Visit: No (19) Congestive heart failure SNOMED Code(s): 13629836 ICD Code: I50.9 - HEART FAILURE, UNSPECIFIED Status: Acute Current Visit : No (20) Coronary artery disease SNOMED Code(s): 03980333 ICD Code: I25.10 - ATHSCL HEART DISEASE OF [place] CORONARY ARTERY W/O ANG PCTRS Status: Acute Current Visit: No (21) Diabetes mellitus SNOMED Code(s): 34047101 ICD Code: E11.9 - TYPE 2 DIABETES MELLITUS WITHOUT COMPLICATIONS Status: Acute Current Visit: No (22) Diabetic neuropathy SNOMED Code(s): 322284477, 595009818 ICD Code: E11.40 - TYPE 2 DIABETES MELLITUS WITH DIABETIC NEUROPATHY, UNSP Status: Acute Current Visit: No (23) Leukocytosis SNOMED Code(s): 290599955, 936216570 ICD Code: D72.829 - ELEVATED WHITE BLOOD CELL COUNT, UNSPECIFIED Status: Resolved Current Visit: No (24) Peripheral vascular disease SNOMED Code(s): 631202968 ICD Code: I73.9 - PERIPHERAL VASCULAR DISEASE, UNSPECIFIED Status: Acute Current Visit: No (25) Subtherapeutic international normalized ratio (INR) SNOMED Code(s): 813908668, 264985760 ICD Code: R79.1 - ABNORMAL COAGULATION PROFILE Status: Acute Current Visit: No (26) Hypomagnesemia SNOMED Code(s): 659273065 ICD Code: E83.42 - HYPOMAGNESEMIA Status: Acute Priority: High Current Visit: Yes - Patient Summary/Data Consults: Consultations 08/12/19 11:33 Consult to Physical Therapy [PT Evaluation and Treatment] [CONS] Routine 08/12/19 12:14 Consult to [employer] [CONS] Routine 08/12/19 12:33 PT Evaluation and Treatment [CONS] Routine 08/12/19 17:17 STOCK CONTROLLER Evaluation and Treatment [CONS] Routine 08/13/19 10:25 PT Evaluation and Treatment [CONS] Routine 08/13/19 10:26 OT Evaluation and Treatment [CONS] Routine Labs Pending at D/C: None Recommended Follow-up Testing/Procedures: Follow-up with PCP within 5-7 days of discharge, sooner if needed. Repeat INR and magnesium on 08/31/19 with results to PCP, Dr. Olvera. Recommend MRI of left leg wound to ensure no osteomyelitis. Unable to obtain locally and will need to be obtained outpatient in [place]. Hospital Course: Karthik was admitted to the ICU with multiple concerns. He appeared to have a small ileus along with a left leg wound draining purulent material and aspiration pneumonia. He was noted to have significant and anasarca with significant lower extremity and scrotal edema. He was also noted to have a GI bleed with a hemoglobin that was variable and a positive stool guaiac. Because of this his warfarin was held and he was given 1 unit of packed red blood cells , along. This did resolve and his protonix was continued. Wound cultures of his leg grew out MRSA positive. His MRSA screen was also positive so he was treated with doxycycline for MRSA infection and Bactroban in his nares for MRSA decolonization. He was noted to have low albumin and dietary did see him with recommendations. He was placed on supplements. He had had a noted decrease in appetite and oral intake prior to hospitalization and this did improve as he improved. His Lasix dosing was increased and he did have significant diuresis with weight loss and improved respiratory status. There were concerns over aspiration pneumonia and he did see our speech-language pathologist who was recommending nectar thickened liquids and a regular diet. She did work with him throughout his stay and did change her recommendation prior to discharge to regular diet and thin liquids. He was noted to have a good appetite prior to discharge. His left stump wound did improve as he was treated with meta honey and frequent dressing changes. There was some concern over possible osteomyelitis in that leg and we attempted to obtain an MRI locally, however due to facility policy all terrain vehicle racer must be present for exam. Because of this recommend patient get MRI outpatient in [place]. Multiple attempts were made to get the patient placed into SNF for continued rehab and after no success the patient ultimately decided he wanted to go home. Pharmacy was dosing patient's Coumadin and noted that his INR appeared to have increased around June. Peers his dosing was decreased. He has been eating better since here with a good appetite have had some difficulty getting his INR to raise. Pharmacy recommending patient be restarted on 3 mg daily warfarin and follow-up next Saturday with INR recheck. Patient does have an risk of stroke at 9.6% but also has a has bled score of 5.6%. Discussed risk of CVA versus risk of falling and bleeding with patient and his . Ultimately patient decides that he would like to continue on his warfarin, even with his significant risk of falling. This will need to be followed closely by his primary care provider. Patient did finish his antibiotic treatment while here. His magnesium continued to be low while here and we had difficulty in raising it. We maxed out his dosing of magnesium and although he did improve it was a very slow process. This will be continued on discharge and should be followed up with by his primary care provider as it will likely need to be adjusted. Social work and case managment did work with the patient to ensure outpatient supplies and needs were met. Unfortunately home health will not lemon picker the patient and he will need to have outpatient follow-up. Patient is requiring a manual wheelchair. He has been a Fabio lift while here and is unable to ambulate. Therefore he cannot use a walker or cane. He is also been a to assist with nursing. This is needed for him to maneuver around in his home. There are multiple medication changes made and multiple meds were discontinued while here. He was doing very well on her new medication regimen. His Lasix dosing was increased to 60 mg twice daily. He was placed on 3 units twice a day Humalog with good results in his blood sugars. He was instructed to follow-up with his primary care provider within 5 to 7 days of discharge. Recommend continued outpatient PT and OT along with speech therapy. Patient was instructed to return to the emergency room should his return or worsen. - Patient Instructions Diet: Diabetic Diet Activity: As Tolerated Driving: Do Not Drive Showering/Bathing: May Shower Wound/Incision Care: Keep Operative Site/Wound Site Clean and Dry Notify Provider of: Fever, Increased Pain, Nausea and/or Vomiting Other/Special Instructions: Follow-up with primary care provider within 5-7 days of discharge. Repeat INR check and magnesium on 08/31/[address] Olvera. Woundcare as directed. Outpatient PT/OT/woundcare. Continue nutritional supplementation as directed. We discussed your blood thinner use. You are at high risk of falling and with your continued blood thinner you are at high risk of bleeding should you fall. You indicated that you wanted to stay on this. This will need to be monitored closely to ensure that you do not become too thin. You must use extreme caution with moving as you are at high risk of bleeding. You completed antibiotic treatment while here. There is no need for continued antibiotics. Recommend outpatient MRI to check on severity of your leg wound. Unfortnately this cannot be obtained locally and would need to be scheduled by your primary care provider and obtained in [place]. There were multiple medication changes. Be sure to follow dircetions on your discharge instructions for what to take when. Should symptoms return or worsen contact primary care provider or return the emergency room. - Discharge Plan *PRESCRIPTION DRUG MONITORING PROGRAM REVIEWED*: No *COPY OF PRESCRIPTION DRUG MONITORING REPORT IN PATIENT NAWAF: No Prescriptions/Med Rec: calcium polycarbophiL [Fibercon] 625 mg PO 1200 #20 tablet Furosemide [Lasix] 60 mg PO BIDDIURETIC #90 tablet Magnesium Oxide 1,200 mg PO Q12H #60 tablet Warfarin [Coumadin] 3 mg PO QPM #15 tablet Home Medications: Home Meds Losartan [Cozaar] 50 mg PO DAILY 05/06/18 [History] Acetaminophen [Tylenol] 650 mg PO Q4H PRN 08/12/19 [History] Acetaminophen/HYDROcodone [[place] 325-5 MG] 1 tab PO Q8H 08/12/19 [History] Ascorbate Calcium [Vitamin C] 500 mg PO DAILY 08/12/19 [History] Calcium Carb, Citrate/Vit D3 [Calcium + D3 ER Tablet] 1 tab PO DAILY 08/12/19 [ History] Cholecalciferol (Vitamin D3) [Vitamin D3] 1 tab PO DAILY 08/12/19 [History] Ferrous Sulfate [Iron] 325 mg PO BID 08/12/19 [History] Gabapentin [Neurontin] 200 mg PO BID 08/12/19 [History] Glucagon [Gvoke Syringe] 1 mg SQ ASDIRECTED PRN 08/12/19 [History] Ipratropium/Albuterol Sulfate [Iprat-Albut 0.5-3(2.5) mg/3 ml] 3 ml INH QID PRN 08/12/19 [History] Loperamide [Imodium AD] 4 mg PO BID PRN 08/12/19 [History] Ondansetron [Zofran ODT] 4 mg PO Q6H PRN 08/12/19 [History] Pantoprazole Sodium [Protonix] 40 mg PO DAILY 08/12/19 [History] Potassium Chloride 20 meq PO DAILY 08/12/19 [History] fentaNYL [Fentanyl] 25 mcg TOP ASDIRECTED 08/12/19 [History] polyethylene glycoL 3350 [MiraLAX] 17 gm PO DAILY PRN 08/12/19 [History] Furosemide [Lasix] 60 mg PO BIDDIURETIC #90 tablet 08/28/19 [Rx] Magnesium Oxide 1,200 mg PO Q12H #60 tablet 08/28/19 [Rx] Warfarin [Coumadin] 3 mg PO QPM #15 tablet 08/28/19 [Rx] calcium polycarbophiL [Fibercon] 625 mg PO 1200 #20 tablet 08/28/19 [Rx] Oxygen Therapy Mode: Room Air Patient Handouts: Cellulitis, Adult, Ileus, Sepsis, Adult, Community-Acquired Pneumonia, Adult Forms: ED Department Discharge Referrals: Les Olvera MD [Primary Care Provider] - - Discharge Summary/Plan Comment DC Time >30 min.: Yes (60 minute ) - General Info Date of Service: 08/28/19 Functional Status: Reports: Pain Controlled, Tolerating Diet, Urinating, Incentive Spirometry. Denies: Ambulating (fabio lift ) - Review of Systems General: Reports: No Symptoms. Denies: Fever, Weakness, Fatigue, Malaise, Chills HEENT: Reports: No Symptoms. Denies: Headaches, Sore Throat Pulmonary: Reports: No Symptoms. Denies: Shortness of Breath, Cough, Sputum, Wheezing Cardiovascular: Reports: No Symptoms. Denies: Chest Pain, Palpitations Gastrointestinal: Reports: No Symptoms. Denies: Abdominal Pain, Constipation, Diarrhea, Difficulty Swallowing, Nausea, Vomiting Genitourinary: Reports: No Symptoms. Denies: Pain Musculoskeletal: Reports: Leg Pain Skin: Reports: No Symptoms. Denies: Cyanosis Neurological: Reports: No Symptoms, Pre-Existing Deficit (left below the knee amputation ), Difficulty Walking, Gait Disturbance. Denies: Confusion Psychiatric: Reports: No Symptoms - Patient Data Vitals - Most Recent: Last Vital Signs Temp 97.9 F 08/28/19 07:42 Pulse 70 08/28/19 07:42 Resp 18 08/28/19 07:42 BP 117/62 08/28/19 07:42 Pulse Ox 93 L 08/28/19 07:42 Weight - Most Recent: 159 lb 12.8 oz I&O - Last 24 hours: Intake & Output 08/27/19 08/28/19 08/28/19 22:59 06:59 14:59 Intake Total 420 400 720 Output Total 1450 800 Balance -1030 -400 720 Lab Results - Last 24 hrs: Laboratory Results - last 24 hr 08/27/19 08/27/19 08/28/19 Range/Units 16:30 20:20 05:25 PT 13.8 H (9.7-12.0) SECONDS INR 1.28 Sodium (136-145) mEq/L Potassium (3.5-5.1) mEq/L Chloride (98-107) mEq/L Carbon Dioxide (21-32) mEq/L Anion Gap (5-15) BUN (7-18) mg/dL Creatinine (0.7-1.3) mg/dL Est Cr Clr Drug Dosing mL/min Estimated GFR (MDRD) (>60) mL/min BUN/Creatinine Ratio (14-18) Glucose (83-115) mg/dL POC Glucose 121 H 94 (83-110) mg/dL Calcium (8.5-10.1) mg/dL Magnesium (1.8-2.4) mg/dl 08/28/19 08/28/19 08/28/19 Range/Units 05:25 05:43 11:55 PT (9.7-12.0) SECONDS INR Sodium 141 (136-145) mEq/L Potassium 4.8 (3.5-5.1) mEq/L Chloride 106 (98-107) mEq/L Carbon Dioxide 32 (21-32) mEq/L Anion Gap 7.8 (5-15) BUN 11 (7-18) mg/dL Creatinine 1.2 (0.7-1.3) mg/dL Est Cr Clr Drug Dosing 45.30 mL/min Estimated GFR (MDRD) 57 (>60) mL/min BUN/Creatinine Ratio 9.2 L (14-18) Glucose 92 (83-115) mg/dL POC Glucose 92 162 H (83-110) mg/dL Calcium 7.6 L (8.5-10.1) mg/dL Magnesium 1.7 L (1.8-2.4) mg/dl ADRI Results - Last 24 hrs: Microbiology 08/24/19 09:35 Wound Culture - Final Leg, Left NO GROWTH AFTER 3 DAYS Med Orders - Current: Current Medications Acetaminophen (Tylenol) 650 mg PO Q4H PRN PRN Reason: Pain Last Admin: 08/22/19 12:16 Dose: 650 mg Hydrocodone Bitart/Acetaminophen ([place] 325-5 Mg) 1 tab PO Q8H PRN PRN Reason: Abdominal Pain Last Admin: 08/14/19 08:21 Dose: 1 tab Albuterol/Ipratropium (Duoneb 3.0-0.5 Mg/3 Ml) 3 ml INH QID PRN PRN Reason: Wheezing Calcium Polycarbophil (Fibercon) 625 mg PO 1200 LEENA Last Admin: 08/28/19 11:57 Dose: 625 mg Fentanyl (Duragesic) 25 mcg TOP Q72H [facility] Last Admin: 08/28/19 08:20 Dose: 25 mcg Furosemide (Lasix) 60 mg PO BIDDIURETIC [facility] Last Admin: 08/28/19 14:25 Dose: 60 mg Gabapentin (Neurontin) 200 mg PO BID [facility] Last Admin: 08/28/19 08:17 Dose: 200 mg Insulin Human Lispro (Humalog) 3 unit SUBCUT 1100,1700 [facility] Last Admin: 08/28/19 11:58 Dose: 3 units Magnesium Oxide (Magnesium Oxide) 1,200 mg PO Q12H [facility] Last Admin: 08/28/19 05:43 Dose: 1,200 mg Miscellaneous Information (Remove Patch) 0 ea TRDERM Q72H [facility] Last Admin: 08/28/19 09:30 Dose: 1 ea Ondansetron HCl (Zofran Odt) 4 mg PO Q6H PRN PRN Reason: Vomiting Pantoprazole Sodium (Protonix) 40 mg PO ACBREAKFAST [facility] Last Admin: 08/28/19 05:43 Dose: 40 mg Polyethylene Glycol (Miralax) 17 gm PO DAILY PRN PRN Reason: Constipation Potassium Chloride (Klor-Con M20) 20 meq PO DAILY [facility] Last Admin: 08/28/19 08:19 Dose: 20 meq Saccharomyces Boulardii (Florastor) 250 mg PO DAILY [facility] Last Admin: 08/28/19 08:18 Dose: 250 mg Warfarin Sodium (Pharmacy To Dose - Warfarin) 0 dose PO ASDIRECTED [facility] Warfarin Sodium (Coumadin) 3 mg PO QPM [facility] Stop: 08/28/19 18:01 Discontinued Medications Aspirin (Aspirin) 81 mg PO DAILY [facility] Last Admin: 08/13/19 09:11 Dose: 81 mg Budesonide (Pulmicort) 0.5 mg INH BID [facility] Last Admin: 08/19/19 08:16 Dose: 0.5 mg Cholestyramine Resin (Cholestyramine Packet) 4 gm PO BIDAC [facility] Last Admin: 08/21/19 16:57 Dose: 4 gm Doxycycline Hyclate (Vibramycin) 100 mg PO BID [facility] Last Admin: 08/25/19 09:03 Dose: 100 mg Furosemide (Lasix) Confirm Administered Dose 80 mg .ROUTE .STK-MED ONE Stop: 08/12/19 01:31 Last Admin: 08/12/19 03:05 Dose: Not Given Furosemide (Lasix) 60 mg IVPUSH NOW ONE Stop: 08/12/19 01:16 Last Admin: 08/12/19 03:12 Dose: 60 mg Furosemide (Lasix) 40 mg IVPUSH NOW ONE Stop: 08/12/19 12:33 Last Admin: 08/12/19 12:54 Dose: 40 mg Furosemide (Lasix) 20 mg IVPUSH ONETIME ONE Stop: 08/13/19 18:16 Last Admin: 08/13/19 19:18 Dose: 20 mg Furosemide (Lasix) 20 mg IVPUSH Q6H [facility] Stop: 08/14/19 06:31 Last Admin: 08/14/19 06:06 Dose: 20 mg Furosemide (Lasix) 20 mg IVPUSH ONETIME ONE Stop: 08/14/19 12:31 Last Admin: 08/14/19 12:42 Dose: 20 mg Furosemide (Lasix) 20 mg IVPUSH ONETIME ONE Stop: 08/14/19 20:01 Last Admin: 08/14/19 20:54 Dose: 20 mg Furosemide (Lasix) 20 mg IVPUSH NOW ONE Stop: 08/15/19 08:15 Last Admin: 08/15/19 10:05 Dose: 20 mg Furosemide (Lasix) 40 mg IVPUSH ONETIME [facility] Stop: 08/15/19 16:00 Last Admin: 08/15/19 13:58 Dose: 40 mg Furosemide (Lasix) 20 mg IVPUSH NOW ONE Stop: 08/15/19 21:16 Last Admin: 08/15/19 22:12 Dose: 20 mg Furosemide (Lasix) 40 mg IVPUSH DAILY [facility] Last Admin: 08/16/19 09:28 Dose: 40 mg Furosemide (Lasix) 20 mg IVPUSH Q6H [facility] Stop: 08/17/19 01:31 Last Admin: 08/16/19 18:56 Dose: 20 mg Furosemide (Lasix) 40 mg IVPUSH DAILY@0700 [facility] Last Admin: 08/17/19 06:00 Dose: 40 mg Furosemide (Lasix) 40 mg IVPUSH BIDDIURETIC [facility] Last Admin: 08/21/19 06:43 Dose: 40 mg Hydromorphone HCl (Dilaudid) 0.5 mg IVPUSH ONETIME ONE Stop: 08/11/19 22:32 Last Admin: 08/11/19 23:09 Dose: 0.25 mg Hydromorphone HCl (Dilaudid) 1 mg IVPUSH ONETIME ONE Stop: 08/11/19 23:47 Last Admin: 08/12/19 00:54 Dose: 1 mg Hydromorphone HCl (Dilaudid) 0.5 mg IVPUSH ONETIME ONE Stop: 08/12/19 03:50 Last Admin: 08/12/19 04:16 Dose: 0.5 mg Hydromorphone HCl (Dilaudid) 0.5 mg IVPUSH ONETIME ONE Stop: 08/12/19 09:22 Last Admin: 08/12/19 09:27 Dose: 0.5 mg Dextrose/Sodium Chloride (Dextrose 5%-Normal Saline) 1,000 mls @ 125 mls/hr IV ASDIRECTED [facility] Last Admin: 08/11/19 22:58 Dose: 125 mls/hr Vancomycin HCl 1.75 gm/ Sodium (Chloride) 500 mls @ 250 mls/hr IV ONETIME ONE Stop: 08/12/19 06:13 Last Admin: 08/12/19 06:48 Dose: 250 mls/hr Sodium Chloride (Normal Saline) 1,000 mls @ 999 mls/hr IV ASDIRECTED [facility] Last Admin: 08/12/19 06:20 Dose: 999 mls/hr Magnesium Sulfate 4 gm/ Premix 100 mls @ 25 mls/hr IV ONETIME ONE Stop: 08/12/19 15:59 Last Admin: 08/12/19 13:22 Dose: 25 mls/hr Albumin Human (Flexbumin 25%) 12.5 gm in 50 mls @ 100 mls/hr IV ONETIME ONE Stop: 08/12/19 13:14 Last Admin: 08/12/19 12:54 Dose: 100 mls/hr Sodium Chloride (Sodium Chloride 0.9%) 500 mls @ 999 mls/hr IRR ASDIRECTED [facility] Sodium Chloride (Normal Saline) 500 mls @ 999 mls/hr IV .BOLUS ONE Stop: 08/13/19 02:18 Last Admin: 08/13/19 01:49 Dose: 999 mls/hr Ceftriaxone Sodium 1 gm/ (Sodium Chloride) 100 mls @ 200 mls/hr IV Q24H [facility] Last Admin: 08/17/19 01:36 Dose: 200 mls/hr Albumin Human (Flexbumin 25%) 12.5 gm in 50 mls @ 100 mls/hr IV ONETIME ONE Stop: 08/13/19 03:23 Last Admin: 08/13/19 03:18 Dose: 100 mls/hr Metronidazole 500 mg/ Premix 100 mls @ 100 mls/hr IV Q8H [facility] Last Admin: 08/17/19 07:45 Dose: 100 mls/hr Furosemide 100 mg/ Sodium (Chloride) 100 mls @ 5 mls/hr IV TITRATE [facility]; Protocol Last Admin: 08/13/19 11:34 Dose: 5 mls/hr Vancomycin HCl 1 gm/Vancomycin HCl 250 mg/ Sodium Chloride 250 mls @ 166.667 mls/hr IV Q24H [facility] Stop: 08/13/19 17:00 Last Admin: 08/13/19 13:56 Dose: 166.667 mls/hr Vancomycin HCl 1 gm/Vancomycin HCl 250 mg/ Sodium Chloride 250 mls @ 166.667 mls/hr IV Q24H [facility] Last Admin: 08/16/19 13:34 Dose: 166.667 mls/hr Albumin Human (Flexbumin 25%) 12.5 gm in 50 mls @ 100 mls/hr IV ONETIME ONE Stop: 08/13/19 17:34 Last Admin: 08/13/19 17:30 Dose: 100 mls/hr Albumin Human (Flexbumin 25%) 12.5 gm in 50 mls @ 100 mls/hr IV Q6H [facility] Stop: 08/14/19 12:02 Last Admin: 08/14/19 06:05 Dose: 100 mls/hr Albumin Human (Flexbumin 25%) 12.5 gm in 50 mls @ 100 mls/hr IV ONETIME ONE Stop: 08/14/19 12:29 Last Admin: 08/14/19 11:21 Dose: 100 mls/hr Magnesium Sulfate 2 gm/ Premix 50 mls @ 25 mls/hr IV ONETIME ONE Stop: 08/15/19 10:18 Last Admin: 08/15/19 10:00 Dose: 25 mls/hr Sodium Chloride (Normal Saline) 250 mls @ 100 mls/hr IV ASDIRECTED [facility] Stop: 08/15/19 16:00 Sodium Chloride (Normal Saline) Confirm Administered Dose 500 mls @ as directed .ROUTE .STK-MED ONE Stop: 08/15/19 11:14 Last Admin: 08/15/19 12:04 Dose: Not Given Sodium Chloride (Normal Saline) 500 mls @ 150 mls/hr IV .BOLUS [facility] Last Admin: 08/15/19 11:30 Dose: 150 mls/hr Magnesium Sulfate 4 gm/ Premix 50 mls @ 12.5 mls/hr IV ONETIME ONE Stop: 08/16/19 12:18 Last Admin: 08/16/19 09:25 Dose: 12.5 mls/hr Magnesium Sulfate 4 gm/ Premix 50 mls @ 12.5 mls/hr IV ONETIME ONE Stop: 08/18/19 13:53 Last Admin: 08/18/19 11:18 Dose: 12.5 mls/hr Magnesium Sulfate 2 gm/ Premix 50 mls @ 25 mls/hr IV ONETIME ONE Stop: 08/20/19 12:20 Last Admin: 08/20/19 10:44 Dose: 25 mls/hr Magnesium Sulfate 4 gm/ Premix 100 mls @ 25 mls/hr IV ONETIME ONE Stop: 08/22/19 12:34 Last Admin: 08/22/19 14:26 Dose: Not Given Insulin Glargine (Lantus) 10 unit SUBCUT QPM [facility] Last Admin: 08/18/19 22:36 Dose: 10 units Insulin Human Lispro (Humalog) 0 unit SUBCUT QIDACANDBED [facility]; Protocol Last Admin: 08/19/19 13:01 Dose: Not Given Insulin Human Lispro (Humalog) 3 unit SUBCUT TIDAC [facility] Last Admin: 08/20/19 13:20 Dose: Not Given Lactulose (Cephulac) 20 gm PO ONETIME ONE Stop: 08/12/19 03:50 Last Admin: 08/12/19 04:39 Dose: 20 gm Loperamide HCl (Imodium) 4 mg PO ONETIME ONE Stop: 08/14/19 10:46 Last Admin: 08/14/19 11:09 Dose: 4 mg Magnesium Oxide (Magnesium Oxide) 400 mg PO Q12H [facility] Last Admin: 08/22/19 06:44 Dose: 400 mg Magnesium Oxide (Magnesium Oxide) 800 mg PO ONETIME ONE Stop: 08/23/19 14:04 Last Admin: 08/23/19 14:32 Dose: 800 mg Magnesium Oxide (Magnesium Oxide) 800 mg PO ONETIME ONE Stop: 08/22/19 17:01 Last Admin: 08/22/19 17:28 Dose: 800 mg Magnesium Oxide (Magnesium Oxide) 800 mg PO BID [facility] Last Admin: 08/24/19 09:42 Dose: 800 mg Magnesium Oxide (Magnesium Oxide) 400 mg PO ONETIME ONE Stop: 08/24/19 12:01 Last Admin: 08/24/19 12:59 Dose: 400 mg Metoclopramide HCl (Reglan) 10 mg IVPUSH ONETIME ONE Stop: 08/11/19 22:32 Last Admin: 08/11/19 23:03 Dose: 10 mg Metoclopramide HCl (Reglan) 7.5 mg IVPUSH ONETIME ONE Stop: 08/12/19 03:50 Last Admin: 08/12/19 04:14 Dose: 7.5 mg Mupirocin (Bactroban Oint) 0 gm TOP DAILY [facility] Last Admin: 08/25/19 09:03 Dose: 1 applic Pantoprazole Sodium (Protonix) 40 mg PO DAILY [facility] Last Admin: 08/14/19 08:21 Dose: 40 mg Pantoprazole Sodium (Protonix Iv) 40 mg IVPUSH Q12H [facility] Last Admin: 08/16/19 09:28 Dose: 40 mg Phytonadione (Aquamephyton) 2.5 mg PO ONETIME ONE Stop: 08/14/19 11:16 Last Admin: 08/14/19 11:27 Dose: 2.5 mg Potassium Chloride (Klor-Con M20) 40 meq PO ONETIME ONE Stop: 08/16/19 08:22 Last Admin: 08/16/19 09:27 Dose: 40 meq Potassium Chloride (Klor-Con M20) 40 meq PO ONETIME ONE Stop: 08/18/19 09:56 Last Admin: 08/18/19 11:17 Dose: 40 meq Psyllium Husk (Metamucil Sugar Free) 1 packet PO BID [facility] Last Admin: 08/21/19 09:21 Dose: 1 packet Simvastatin (Zocor) 20 mg PO BEDTIME [facility] Last Admin: 08/27/19 20:24 Dose: 20 mg Sodium Phosphate (Neutra-Phos) 250 mg PO BID [facility] Stop: 08/21/19 21:01 Last Admin: 08/21/19 21:25 Dose: 250 mg Vancomycin HCl (Pharmacy To Dose - Vancomycin) 1 dose .XX ASDIRECTED PRN PRN Reason: RX TO DOSE VANCO Warfarin Sodium (Pharmacy To Dose - Warfarin) 1 dose .XX ASDIRECTED PRN PRN Reason: RX TO DOSE WARFARIN Warfarin Sodium (Coumadin Sliding Scale) 0 each PO QPM [facility] Stop: 08/12/19 18:01 Last Admin: 08/12/19 18:04 Dose: Not Given Warfarin Sodium (Coumadin Sliding Scale) 0 each PO QPM [facility] Stop: 08/13/19 18:01 Last Admin: 08/13/19 19:41 Dose: Not Given Warfarin Sodium (Coumadin) 1 mg PO ONETIME ONE Stop: 08/26/19 18:01 Last Admin: 08/26/19 17:38 Dose: 1 mg Warfarin Sodium (Coumadin) 1 mg PO QPM [facility] Stop: 08/27/19 18:01 Last Admin: 08/27/19 17:00 Dose: 1 mg - Exam Quality Assessment: Reports: DVT Prophylaxis General: Reports: Alert, Oriented, Cooperative, No Acute Distress HEENT: Reports: Pupils Equal, Pupils Reactive, Mucous Membr. Moist/[place] Neck: Reports: Supple, Trachea Midline Lungs: Reports: Clear to Auscultation, Normal Respiratory Effort Cardiovascular: Reports: Regular Rate, Regular Rhythm GI/Abdominal Exam: Normal Bowel Sounds, Soft, Non-Tender, No Distention (Male) Exam: Deferred Rectal (Males) Exam: Deferred Back Exam: Reports: Normal Inspection, Full Range of Motion Extremities: Normal Range of Motion, No Pedal Edema, Normal Capillary Refill, Other (Left below the knee ampuation. Wount medial on end of stump. Mepilex covering wound. No erythema or edema.) Skin: Reports: Warm, Dry, Intact Wound/Incisions: Reports: Healing Well, No Drainage. Denies: Erythema Neurological: Reports: No New Focal Deficit Psy/Mental Status: Reports: Alert, Normal Affect, Normal Mood
[2019-08-28] MEDS ORDERED: Warfarin 3 MG Tab PO SCH (18:00)
== END 2019-08-28 16:32 | disposition home or self-care (01) | DRG 388 ==
LOC: JD.ED 22:04 → JD.MS 08-12 10:06 → JD.ICU 08-13 09:54 → JD.MS 08-13 15:05
PROVIDERS: ADMIT Family Medicine; ATTEND Family Medicine
DX: K56.7 Ileus, unspecified (principal); J69.0 Pneumonitis due to inhalation of food and vomit; E46 Unspecified protein-calorie malnutrition; R18.8 Other ascites; T87.44 Infection of amputation stump, left lower extremity; N17.9 Acute kidney failure, unspecified; I25.110 Atherosclerotic heart disease of native coronary artery with unstable angina pectoris; J44.0 Chronic obstructive pulmonary disease with (acute) lower respiratory infection; I12.9 Hypertensive chronic kidney disease with stage 1 through stage 4 chronic kidney disease, or unspecified chronic kidney disease; L03.116 Cellulitis of left lower limb; Z66 Do not resuscitate; J18.9 Pneumonia, unspecified organism; Y83.5 Amputation of limb(s) as the cause of abnormal reaction of the patient, or of later complication, without mention of misadventure at the time of the procedure; E78.5 Hyperlipidemia, unspecified; E11.649 Type 2 diabetes mellitus with hypoglycemia without coma; E11.51 Type 2 diabetes mellitus with diabetic peripheral angiopathy without gangrene; H54.7 Unspecified visual loss; E11.40 Type 2 diabetes mellitus with diabetic neuropathy, unspecified; N28.1 Cyst of kidney, acquired; A49.01 Methicillin susceptible Staphylococcus aureus infection, unspecified site; R09.02 Hypoxemia; I27.20 Pulmonary hypertension, unspecified; R79.1 Abnormal coagulation profile; E83.42 Hypomagnesemia; H91.90 Unspecified hearing loss, unspecified ear; I25.5 Ischemic cardiomyopathy; I48.91 Unspecified atrial fibrillation; I25.10 Atherosclerotic heart disease of native coronary artery without angina pectoris; I13.0 Hypertensive heart and chronic kidney disease with heart failure and stage 1 through stage 4 chronic kidney disease, or unspecified chronic kidney disease; N18.9 Chronic kidney disease, unspecified; I50.9 Heart failure, unspecified; E78.00 Pure hypercholesterolemia, unspecified; I73.9 Peripheral vascular disease, unspecified; I71.4 Abdominal aortic aneurysm, without rupture; Z90.89 Acquired absence of other organs; J44.9 Chronic obstructive pulmonary disease, unspecified; Z95.818 Presence of other cardiac implants and grafts; K59.09 Other constipation; Z99.81 Dependence on supplemental oxygen; K21.9 Gastro-esophageal reflux disease without esophagitis; D50.9 Iron deficiency anemia, unspecified; M19.90 Unspecified osteoarthritis, unspecified site; K52.9 Noninfective gastroenteritis and colitis, unspecified; I69.328 Other speech and language deficits following cerebral infarction; E11.22 Type 2 diabetes mellitus with diabetic chronic kidney disease; F32.9 Major depressive disorder, single episode, unspecified; Z98.49 Cataract extraction status, unspecified eye; Z90.49 Acquired absence of other specified parts of digestive tract; Z95.5 Presence of coronary angioplasty implant and graft; Z95.0 Presence of cardiac pacemaker; Z96.653 Presence of artificial knee joint, bilateral; Z89.512 Acquired absence of left leg below knee; Z79.01 Long term (current) use of anticoagulants; Z79.82 Long term (current) use of aspirin; Z79.51 Long term (current) use of inhaled steroids; Z79.899 Other long term (current) drug therapy
CPT/HCPCS: 36415 ×2; 71045; 74018; 74176; 80053 ×2; 81001; 82962 ×5; 83036; 83605 ×2; 83690; 83735; 83880; 84145; 84484 ×2; 85007 ×2; 85027 ×2; 85610; 85652; 85730; 86140 ×2; 86900; 86901; 87040 ×2; 87075; 87077 ×2; 87186 ×2; 87205; 93005; 96361 ×2; 96365; 96366; 96375 ×2; 96376; 99285; A9270; J1170 ×4; J1940; J2765 ×2; J3370; J7030; J7040; J7042; 36430; 51702; 51798; 71046; 71046-26; 80048; 80202; 82272; 84100; 85014; 85018; 85025; 86850; 86922; 87070; 87641; 92526-GN; 92610-GN; 93010; 93306; 94640; 94760; 94761; 97110-GO; 97110-GP; 97112-GP; 97161-GP; 97166-GO; 97530-GO; 97530-GP; 97535-GO; 97597-GP; C9113; J0696; J1815-GY; J3475; J3490; J7050; P9016; P9047

== ENCOUNTER 2020-06-23 06:32 | Emergency (ER) | payer MEDICARE, OTHER ==
[2020-06-23 06:49] VITALS: BP 132/62; PULSE 70
--- NOTE | 2020-06-23 07:33 | EDM.PDOC ---
ED HPI GENERAL MEDICAL PROBLEM - General Chief Complaint: Genitourinary Problem Stated Complaint: BLOOD IN URINE Time Seen by Provider: 06/23/20 07:23 - History of Present Illness INITIAL COMMENTS - FREE TEXT/NARRATIVE: 84-year-old male presents the emergency room with blood in his urine. This started last evening. Now he states it just seems like he is peeing nothing but blood the patient is on Coumadin, his last INR was checked about a week ago and was normal. Patient also complains of stump pain at his left BKA site. This is been getting sore over the last couple of days he has a little sore over the area. Patient denies any fevers or chills. States it is difficult for him to walk on this. This is been getting sore over the last several days. - Related Data Allergies Allergy/AdvReac Type Severity Reaction Status Date / Time No Known Allergies Allergy Verified 06/23/20 06:46 Home Meds: Home Meds Losartan [Cozaar] 50 mg PO DAILY 05/06/18 [History] Acetaminophen [Tylenol] 650 mg PO Q4H PRN 08/12/19 [History] Acetaminophen/HYDROcodone [Sultana 325-5 MG] 1 tab PO Q8H 08/12/19 [History] Ascorbate Calcium [Vitamin C] 500 mg PO DAILY 08/12/19 [History] Calcium Carb, Citrate/Vit D3 [Calcium + D3 ER Tablet] 1 tab PO DAILY 08/12/19 [History] Cholecalciferol (Vitamin D3) [Vitamin D3] 1 tab PO DAILY 08/12/19 [History] Ferrous Sulfate [Iron] 325 mg PO BID 08/12/19 [History] Gabapentin [Neurontin] 200 mg PO BID 08/12/19 [History] Glucagon [Gvoke Pfs 1-Pack Syringe] 1 mg SQ ASDIRECTED PRN 08/12/19 [History] Ipratropium/Albuterol Sulfate [Iprat-Albut 0.5-3(2.5) mg/3 ml] 3 ml INH QID PRN 08/12/19 [History] Loperamide [Imodium AD] 4 mg PO BID PRN 08/12/19 [History] Ondansetron [Zofran ODT] 4 mg PO Q6H PRN 08/12/19 [History] Pantoprazole Sodium [Protonix] 40 mg PO DAILY 08/12/19 [History] Potassium Chloride 20 meq PO DAILY 08/12/19 [History] fentaNYL [Fentanyl] 25 mcg TOP ASDIRECTED 08/12/19 [History] polyethylene glycoL 3350 [MiraLAX] 17 gm PO DAILY PRN 08/12/19 [History] Furosemide [Lasix] 60 mg PO BIDDIURETIC #90 tablet 08/28/19 [Rx] Magnesium Oxide 1,200 mg PO Q12H #60 tablet 08/28/19 [Rx] Warfarin [Coumadin] 3 mg PO QPM #15 tablet 08/28/19 [Rx] calcium polycarbophiL [Fibercon] 625 mg PO 1200 #20 tablet 08/28/19 [Rx] cephALEXin [Keflex] 500 mg PO QID #40 capsule 06/23/20 [Rx] Past Medical History HEENT History: Reports: Hard of Hearing, Impaired Vision Cardiovascular History: Reports: Afib, Angina, CAD, Heart Failure, High Cholesterol, Hypertension, PVD, Other (See Below) Other Cardiovascular History: AAA Respiratory History: Reports: COPD Gastrointestinal History: Reports: Chronic Constipation, Chronic Diarrhea, GERD Genitourinary History: Reports: Chronic Renal Insuffiency 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'S ASSISTANT History: Reports: None Musculoskeletal History: Reports: Arthritis Neurological History: Reports: CVA, Speech Problems Other Neuro History: stroke last november Psychiatric History: Reports: Depression Endocrine/Metabolic History: Reports: Diabetes, Type II, Hypokalemia, Other (See Below) Other Endocrine/Metabolic History: Hyphophosphatemia Hematologic History: Reports: Anticoagulation Therapy Immunologic History: Reports: None Oncologic (Cancer) History: Reports: Other (See Below) Other Oncologic History: 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, unknown type Dermatologic History: Reports: None - Infectious Disease History Infectious Disease History: Reports: None - Past Surgical History Head Surgeries/Procedures: Reports: None HEENT Surgical History: Reports: Cataract Surgery, Tonsillectomy Cardiovascular Surgical History: Reports: Coronary Artery Stent, Pacer Respiratory Surgical History: Reports: None GI Surgical History: Reports: Cholecystectomy Male Surgical History: Reports: None Endocrine Surgical History: Reports: None Neurological Surgical History: Reports: None Musculoskeletal Surgical History: Reports: Knee Replacement, Other (See Below) Other Musculoskeletal Surgeries/Procedures:: bilateral knee replacement; Left BKA Oncologic Surgical History: Reports: Other (See Below) Dermatological Surgical History: Reports: None Social & Family History - Family History Family Medical History: No Pertinent Family History - Tobacco Use Tobacco Use Status *Q: Unknown Ever Used Tobacco - Caffeine Use Caffeine Use: Reports: None Other Caffeine Use: 4 cups - Living Situation & Occupation Living situation: Reports: , with Spouse, Extended Care Facility Occupation: Retired ED ROS GENERAL - Review of Systems Review Of Systems: See Below Constitutional: Reports: No Symptoms HEENT: Reports: No Symptoms Respiratory: Reports: No Symptoms Cardiovascular: Reports: No Symptoms Endocrine: Reports: No Symptoms GI/Abdominal: Reports: No Symptoms : Reports: Hematuria. Denies: Frequency, Urgency Musculoskeletal: Reports: Other (Left BKA stump site pain) Neurological: Reports: No Symptoms ED EXAM, RENAL/ - Physical Exam Exam: See Below Exam Limited By: No Limitations General Appearance: Alert, No Apparent Distress Head: Atraumatic, Normocephalic Neck: Normal Inspection, Supple, Non-Tender, Full Range of Motion Respiratory/Chest: No Respiratory Distress, Lungs Clear, Normal Breath Sounds Cardiovascular: Regular Rate, Rhythm, No Edema, No Murmur GI/Abdominal: Normal Bowel Sounds, Soft, Non-Tender Back Exam: Normal Inspection. No: CVA Tenderness (L), CVA Tenderness (R) Extremities: No Pedal Edema, Other (Left stump site has an area of erythema at the distal end and he has a little scab probably irritation from the prosthesis and this is most consistent with an early developing cellulitis no fluctuation noted no drainage noted however there is some dried serous type drainage over the Band-Aid they had over) Course - Vital Signs Last Recorded V/S: Last Vital Signs Temp 36.7 C 06/23/20 06:46 Pulse 70 06/23/20 06:46 Resp 16 06/23/20 06:46 BP 132/62 06/23/20 06:46 Pulse Ox 96 06/23/20 06:46 - Orders/Labs/Meds Orders: Active Orders 24 hr Category Date Time Status CULTURE URINE [RM] Stat Lab 06/23/20 09:00 Received Labs: Laboratory Tests 06/23/20 06/23/20 06/23/20 Range/Units 08:11 08:11 08:11 WBC 8.52 (4.23-9.07) K/mm3 RBC 3.45 L (4.63-6.08) M/mm3 Hgb 10.4 L (13.7-17.5) gm/dl Hct 32.6 L (40.1-51.0) % MCV 94.5 H (79.0-92.2) fl MCH 30.1 (25.7-32.2) pg MCHC 31.9 L (32.2-35.5) g/dl RDW Std Deviation 47.0 H (35.1-43.9) fL Plt Count 196 D (163-337) K/mm3 MPV 9.5 (9.4-12.3) fl Neut % (Auto) 65.5 (34.0-67.9) % Lymph % (Auto) 12.6 L (21.8-53.1) % [place] % (Auto) 12.6 H (5.3-12.2) % Eos % (Auto) 8.7 H (0.8-7.0) Baso % (Auto) 0.5 (0.1-1.2) % Neut # (Auto) 5.59 H (1.78-5.38) K/mm3 Lymph # (Auto) 1.07 L (1.32-3.57) K/mm3 [place] # (Auto) 1.07 H (0.30-0.82) K/mm3 Eos # (Auto) 0.74 H (0.04-0.54) K/mm3 Baso # (Auto) 0.04 (0.01-0.08) K/mm3 PT 31.2 H (9.7-12.0) SECONDS INR 2.98 Sodium 138 (136-145) mEq/L Potassium 3.5 (3.5-5.1) mEq/L Chloride 106 (98-107) mEq/L Carbon Dioxide 26 (21-32) mEq/L Anion Gap 9.5 (5-15) BUN 28 H (7-18) mg/dL Creatinine 1.3 (0.7-1.3) mg/dL Est Cr Clr Drug Dosing TNP Estimated GFR (MDRD) 52 (>60) mL/min BUN/Creatinine Ratio 21.5 H (14-18) Glucose 119 H (83-115) mg/dL Calcium 8.4 L (8.5-10.1) mg/dL Total Bilirubin 0.5 (0.2-1.0) mg/dL AST 22 (15-37) U/L ALT 22 (16-63) U/L Alkaline Phosphatase 222 H (46-116) U/L Total Protein 7.3 (6.4-8.2) g/dl Albumin 2.2 L (3.4-5.0) g/dl Globulin 5.1 gm/dL Albumin/Globulin Ratio 0.4 L (1-2) Urine Color (Yellow) Urine Appearance (Clear) Urine pH (5.0-8.0) Ur Specific [place] (1.005-1.030) Urine Protein (Negative) Urine Glucose (UA) (Negative) Urine Ketones (Negative) Urine Occult Blood (Negative) Urine Nitrite (Negative) Urine Bilirubin (Negative) Urine Urobilinogen (0.2-1.0) Ur Leukocyte Esterase (Negative) Urine RBC (0-5) /hpf Urine WBC (0-5) /hpf Ur Squamous Epith Cells (0-5) /hpf Urine Bacteria (FEW) /hpf Urine Mucus (FEW) /hpf 06/23/20 Range/Units 09:00 WBC (4.23-9.07) K/mm3 RBC (4.63-6.08) M/mm3 Hgb (13.7-17.5) gm/dl Hct (40.1-51.0) % MCV (79.0-92.2) fl MCH (25.7-32.2) pg MCHC (32.2-35.5) g/dl RDW Std Deviation (35.1-43.9) fL Plt Count (163-337) K/mm3 MPV (9.4-12.3) fl Neut % (Auto) (34.0-67.9) % Lymph % (Auto) (21.8-53.1) % [place] % (Auto) (5.3-12.2) % Eos % (Auto) (0.8-7.0) Baso % (Auto) (0.1-1.2) % Neut # (Auto) (1.78-5.38) K/mm3 Lymph # (Auto) (1.32-3.57) K/mm3 [place] # (Auto) (0.30-0.82) K/mm3 Eos # (Auto) (0.04-0.54) K/mm3 Baso # (Auto) (0.01-0.08) K/mm3 PT (9.7-12.0) SECONDS INR Sodium (136-145) mEq/L Potassium (3.5-5.1) mEq/L Chloride (98-107) mEq/L Carbon Dioxide (21-32) mEq/L Anion Gap (5-15) BUN (7-18) mg/dL Creatinine (0.7-1.3) mg/dL Est Cr Clr Drug Dosing Estimated GFR (MDRD) (>60) mL/min BUN/Creatinine Ratio (14-18) Glucose (83-115) mg/dL Calcium (8.5-10.1) mg/dL Total Bilirubin (0.2-1.0) mg/dL AST (15-37) U/L ALT (16-63) U/L Alkaline Phosphatase (46-116) U/L Total Protein (6.4-8.2) g/dl Albumin (3.4-5.0) g/dl Globulin gm/dL Albumin/Globulin Ratio (1-2) Urine Color Red H (Yellow) Urine Appearance Cloudy H (Clear) Urine pH 6.0 (5.0-8.0) Ur Specific [place] 1.020 (1.005-1.030) Urine Protein 2+ H (Negative) Urine Glucose (UA) Negative (Negative) Urine Ketones Negative (Negative) Urine Occult Blood 3+ H (Negative) Urine Nitrite Positive H (Negative) Urine Bilirubin 1+ H (Negative) Urine Urobilinogen 1.0 (0.2-1.0) Ur Leukocyte Esterase Negative (Negative) Urine RBC Too numerous to cnt H (0-5) /hpf Urine WBC 0-5 (0-5) /hpf Ur Squamous Epith Cells Not seen (0-5) /hpf Urine Bacteria Moderate H (FEW) /hpf Urine Mucus Not seen (FEW) /hpf Meds: Medications Discontinued Medications Generic Name Dose Route Start Last Admin Trade Name Freq PRN Reason Stop Dose Admin Cefazolin Sodium 1 gm 06/23/20 08:51 Ancef IM 06/23/20 08:52 ONETIME ONE - Re-Assessments/Exams Free Text/Narrative Re-Assessment/Exam: 06/23/20 08:58 Has not been collected awaiting INR and chemistries. CBC shows hemoglobin hematocrit of 10.4 and 32.6% respectively on 08/12/2019 he was 10.7 and 32.3% respectively. White count is not elevated. We will go ahead and give him a gram of Ancef with what appears to be developing cellulitis at his stump site 06/23/20 10:13 Dose red-tinged urine nitrate positive leukocyte Estrace negative moderate bacteria because the patient's developing cellulitis is in and up on antibiotics will put him on Keflex 500 mg 4 times a day and have him keep a very close eye on his INR which is therapeutic. However the Keflex potentially could prolong his INR. Culture has been set up of the urine. Departure - Departure Time of Disposition: 10:14 Disposition: Home, Self-Care Clinical Impression: History of left below knee amputation, Cellulitis of left lower leg, Hematuria - Discharge Information Referrals: Les Olvera MD [Primary Care Provider] - Forms: ED Department Discharge Additional Instructions: Return to the emergency room with any questions problems or worsening symptoms. Have your INR, or the blood test for your Coumadin recheck tomorrow as the antibiotic you have been started on potentially continue out too much. Take the antibiotics 4 times a day until all gone. Follow-up with your regular doctor early next week for recheck. Sepsis Event Note (ED) - Evaluation Sepsis Screening Result: No Definite Risk - Focused Exam Vital Signs: Vital Signs Temp Pulse Resp BP Pulse Ox 06/23/20 06:46 36.7 C 70 16 132/62 96 - My Orders Last 24 Hours: My Active Orders 06/23/20 09:00 CULTURE URINE [RM] Stat - Assessment/Plan Last 24 Hours: My Active Orders 06/23/20 09:00 CULTURE URINE [RM] Stat
--- NOTE | 2020-06-23 08:18 | CR ---
Left knee: AP and lateral views of the left knee were obtained. Comparison: No prior knee study or tibia/fibula study is available Knee prosthesis is noted. Below the knee amputation is seen. Slight soft tissue prominence is noted. No acute bony abnormality is seen. Diffuse vascular calcification is seen. Impression: 1. Mild soft tissue swelling. 2. Below the knee amputation with no acute bony abnormality. 3. Knee prosthesis. Diagnostic code #2
[2020-06-23] MEDS ORDERED: ceFAZolin 1 GM Vial IM ONE (08:51)
== END 2020-06-23 10:50 | disposition home or self-care (01) ==
LOC: JD.ED 06:32
DX: R31.9 Hematuria, unspecified (principal); L03.116 Cellulitis of left lower limb; I48.91 Unspecified atrial fibrillation; I25.10 Atherosclerotic heart disease of native coronary artery without angina pectoris; I13.0 Hypertensive heart and chronic kidney disease with heart failure and stage 1 through stage 4 chronic kidney disease, or unspecified chronic kidney disease; I50.9 Heart failure, unspecified; N18.9 Chronic kidney disease, unspecified; E11.22 Type 2 diabetes mellitus with diabetic chronic kidney disease; J44.9 Chronic obstructive pulmonary disease, unspecified; K21.9 Gastro-esophageal reflux disease without esophagitis; E11.51 Type 2 diabetes mellitus with diabetic peripheral angiopathy without gangrene; Z89.512 Acquired absence of left leg below knee; Z79.01 Long term (current) use of anticoagulants; Z79.899 Other long term (current) drug therapy; Z86.73 Personal history of transient ischemic attack (TIA), and cerebral infarction without residual deficits
CPT/HCPCS: 36415; 73590; 80053; 81001; 85025; 85610; 87086; 96372; 99283; J0690

== ENCOUNTER 2021-12-19 11:11 | Emergency (ER) | payer MEDICARE, OTHER ==
[2021-12-19 11:41] VITALS: PULSE 81
[2021-12-19] MEDS ORDERED: Sodium Chloride 0.9% 10 ML Syringe FLUSH PRN ×2 (11:47→13:15)
[2021-12-19 13:01] LABS: ESTIMATED GFR 36 mL/min (>60)
[2021-12-19] MEDS ORDERED: Sodium Chloride 0.9% 100 ML IV SCH (13:15)
[2021-12-19] MEDS ORDERED: Iopamidol 755 Mg/ML 100 ML Bottle IVPUSH ONE (13:15)
[2021-12-19 14:31] LABS: CORONAVIRUS COVID-19 NAA NEGATIVE (NEGATIVE)
[2021-12-19] MEDS ORDERED: Furosemide 40 MG/4 ML VIAL IVPUSH ONE (14:57)
[2021-12-19 20:01] VITALS: BP 135/83
== END 2021-12-19 16:30 | disposition home or self-care (01) ==
LOC: JD.ED 11:11
DX: J90 Pleural effusion, not elsewhere classified (principal); N32.89 Other specified disorders of bladder; I25.119 Atherosclerotic heart disease of native coronary artery with unspecified angina pectoris; I11.0 Hypertensive heart disease with heart failure; I50.9 Heart failure, unspecified; E78.00 Pure hypercholesterolemia, unspecified; J44.9 Chronic obstructive pulmonary disease, unspecified; E11.9 Type 2 diabetes mellitus without complications; Z79.899 Other long term (current) drug therapy; Z86.73 Personal history of transient ischemic attack (TIA), and cerebral infarction without residual deficits; Z79.01 Long term (current) use of anticoagulants; Z20.822 Contact with and (suspected) exposure to COVID-19
CPT/HCPCS: 0240U; 36415; 71045; 71275; 74176; 80053; 81001; 83735; 83880; 84484; 85025; 85379; 85610; 86140; 86738; 93005; 96361; 96374; 99285; J1940; J3490; Q9967; 93010; 99284

== ENCOUNTER 2021-12-19 18:03 | Emergency (ER) | payer MEDICARE, OTHER ==
[2021-12-19] MEDS ORDERED: Sodium Chloride 0.9% 10 ML Syringe FLUSH PRN (18:23)
[2021-12-19] MEDS ORDERED: Sodium Chloride 0.9% 1,000 ML IV SCH (18:30)
[2021-12-19 18:44] VITALS: BP 106/62; PULSE 77
== END 2021-12-19 22:45 ==
LOC: JD.ED 18:03
DX: R55 Syncope and collapse (principal); E11.22 Type 2 diabetes mellitus with diabetic chronic kidney disease; I13.0 Hypertensive heart and chronic kidney disease with heart failure and stage 1 through stage 4 chronic kidney disease, or unspecified chronic kidney disease; N18.9 Chronic kidney disease, unspecified; I50.9 Heart failure, unspecified; J44.9 Chronic obstructive pulmonary disease, unspecified; I48.91 Unspecified atrial fibrillation; I25.119 Atherosclerotic heart disease of native coronary artery with unspecified angina pectoris; E78.00 Pure hypercholesterolemia, unspecified; K21.9 Gastro-esophageal reflux disease without esophagitis; Z79.899 Other long term (current) drug therapy; Z79.01 Long term (current) use of anticoagulants
CPT/HCPCS: 36415; 71045; 80053; 83735; 83880; 84484; 85025; 85610; 93005; 96360; 96361; 99285; J7030; 93010; 99283